=== PATIENT | female | born 1970 | race Caucasian/White ===

== ENCOUNTER 2018-06-06 03:14 | Emergency (ER) | payer MEDICARE, OTHER ==
[~2018-06-06] VITALS: Ht 154.9 cm; Wt 78.9 kg
[2018-06-06] MEDS ORDERED: ALBUTER (03:28)
[2018-06-06] MEDS ORDERED: FLUTICASONE SPR 50MCG (03:28)
[2018-06-06] MEDS ORDERED: METOPROL TAR (03:28)
[2018-06-06] MEDS ORDERED: IBUPROFEN TAB 800MG (03:28)
[2018-06-06] MEDS ORDERED: IPRATROPIUM (03:28)
--- NOTE | 2018-06-06 04:08 | ED Respiratory ---
General Chief Complaint: Respiratory Problems Stated Complaint: SOB Nursing Triage Note: on going x5 weeks, multiple treatments from primary care and urgent care. continues to have SOB with frequent coughing. Source: patient Exam Limitations: no limitations History of Present Illness Date Seen by Provider: Jun 06, 2018 Time Seen by Provider: 03:45 Initial Comments This 48-year-old woman with COPD presents to the emergency room with complaints of cough and shortness of breath. Shortness of breath is worse when lying down. She does do nebulizer treatments but this exacerbates cough and sputum production. She has been seen twice in the urgent care setting and once by her spooler since the beginning of this year. She uses inhaled medications and has been on multiple rounds of steroids and antibiotics. These therapies a do help short-term but then she has a rebound of symptoms. Despite her problems , she continues to smoke about one pack of cigarettes per day. She has had symptoms for 5 weeks or more. She presents to the ER tonight because of difficulty sleeping due to her symptoms. She uses oxygen at 2 L/m as needed at home. Allergies and Home Medications Allergies Coded Allergies: doxycycline (Verified Allergy, Intermediate, rash, 06/06/18) Home Medications Prednisone 20 Mg Tab, 1 TAB PO UD 3 tabs daily for 2 days, then 2 tabs daily for 3 days, then one tab daily for 3 days, then one half tab daily for 4 days. Prescribed by: DENISE WEEMS on 06/06/18 0409 Patient Home Medication List Home Medication List Reviewed: Yes Review of Systems Review of Systems Constitutional: no symptoms reported; No fever EENTM: no symptoms reported Respiratory: see HPI Cardiovascular: no symptoms reported Gastrointestinal: no symptoms reported Genitourinary: no symptoms reported : No Musculoskeletal: no symptoms reported Skin: no symptoms reported Psychiatric/Neurological: No Symptoms Reported Hematologic/Lymphatic: No Symptoms Reported Immunological/Allergic: no symptoms reported Past Jzcflkn-Aguzbf-Wxdojt Hx Past Med/Social Hx: Reviewed and Corrections made Patient Social History Alcohol Use: Denies Use Recreational Drug Use: No Smoking Status: Current Everyday Smoker Type Used: Cigarettes Recent Foreign Travel: No Contact w/Someone Who Travel: No Recent Infectious Disease Expo: No Recent Hopitalizations: No Physical Abuse: No Sexual Abuse: No Mistreated: No Fear: No Seasonal Allergies Seasonal Allergies: No Past Medical History Surgeries: Yes Gallbladder Respiratory: Yes (uses oxygen @ 2 liters PRN and NOC, neb tx) COPD Palpitations Neurological: No : No Sexually Transmitted Disease: No HIV/AIDS: No Genitourinary: No Gastrointestinal: Yes Gastroesophageal Reflux Musculoskeletal: Yes Arthritis Endocrine: No HEENT: No Cancer: No Psychosocial: No Integumentary: No Blood Disorders: No Physical Exam Vital Signs - First Documented 06/06/18 03:20 Temp 97.6 Pulse 87 Resp 18 B/P (MAP) 143/86 (105) Pulse Ox 92 O2 Delivery Room Air Capillary Refill : Less Than 3 Seconds Height: 5'1.00" Weight: 174lbs. oz. 78.731179ri; BMI Method:Actual General Appearance: WD/WN, no apparent distress HEENT: PERRL/EOMI, normal ENT inspection, TMs normal, pharynx normal Neck: normal inspection Respiratory: no respiratory distress, no accessory muscle use; No crackles, No rhonchi; wheezing (Diffuse with delayed expiratory phase) Cardiovascular: regular rate, rhythm, no edema, no murmur Extremities: normal inspection, no pedal edema, no calf tenderness, other ( Negative Shahid) Neurologic/Psychiatric: postie II-XII nml as tested, no motor/sensory deficits, alert, normal mood/affect, oriented x 3 Skin: normal color, warm/dry Progress/Results/Core Measures Suspected Sepsis Recent Fever Within 48 Hours: No Infection Criteria Present: Documented Infection New/Unexplained Altered Menta: No Sepsis Screen: No Definite Risk SIRS Temperature:97.6 Pulse: 87 Respiratory Rate: 18 Blood Pressure 143 /86 Mean: 105 Results/Orders My Orders Orders - DENISE MOON MD Prednisone Tablet (Deltasone Tablet) (06/06/18 04:15) Medications Given in ED Current Medications Medications Dose Ordered Sig/Ken Route Start Time Stop Time Status Last Admin Dose Admin Prednisone 60 mg ONCE ONCE PO 06/06/18 04:15 06/06/18 04:16 DC 06/06/18 04:07 60 MG Vital Signs/I&O 06/06/18 06/06/18 03:20 04:15 Temp 97.6 97.0 Pulse 87 89 Resp 18 20 B/P (MAP) 143/86 (105) 135/69 (91) Pulse Ox 92 93 O2 Delivery Room Air Capillary Refill : Less Than 3 Seconds Blood Pressure Mean: 105 Progress Note : Progress Note Vital signs were normal. Chest auscultation demonstrated diffuse wheezing and delayed expiratory phase but no crackles or rhonchi. Patient was offered another round of steroids. I encouraged her to discuss this therapy with her spooler later in the morning. I had a martha conversation with the patient that what she may be experiencing is her new baseline due to continued smoking I very strongly encouraged her to quit smoking and seek assistance from her primary care provider to do so. I also encouraged her to enroll in the pulmonary rehabilitation program at [facility]. Departure Impression Primary Impression: COPD exacerbation Disposition: HOME, SELF-CARE Condition: Stable Departure-Patient Inst. Decision time for Depature: 04:04 Referrals: RAFI CHILDERS MD (PCP/Family) Primary Care Physician Patient Instructions: Exacerbation of COPD Add. Discharge Instructions: Use the steroid taper as prescribed. Contact your spooler's office later this morning and discuss options for further treatment. Ask if the current taper of steroids is appropriate in their judgment or if there is another course of action they would like you to take. Work as hard as possible to quit smoking. Please seek assistance from your spooler or primary care provider to help you quit. Prompt cessation of smoking is critical to your pulmonary and overall health. Return to care if you worsening symptoms. All discharge instructions reviewed with patient and/or family. Voiced understanding. Scripts Prednisone (Prednisone) 20 Mg Tab 1 TAB PO UD, #17 TAB 3 tabs daily for 2 days, then 2 tabs daily for 3 days, then one tab daily for 3 days, then one half tab daily for 4 days. Prov: DENISE MOON MD 06/06/18 Copy Copies To 1: RAFI CHILDERS MD, JOSHUA T MD Jun 06, 2018 04:08
[2018-06-06] MEDS ORDERED: PRD20T PO (04:09)
[2018-06-06 04:15] VITALS: BP 135/69
[2018-06-06] MEDS ORDERED: predniSONE 20 MG TAB PO ONE (04:15)
== END 2018-06-06 04:15 | disposition home or self-care (01) ==
LOC: ER FS 03:17
DX: J44.1 Chronic obstructive pulmonary disease with (acute) exacerbation (principal); K21.9 Gastro-esophageal reflux disease without esophagitis; F17.210 Nicotine dependence, cigarettes, uncomplicated; Z88.1 Allergy status to other antibiotic agents; Z79.52 Long term (current) use of systemic steroids; Z99.81 Dependence on supplemental oxygen
CPT/HCPCS: 99283

== ENCOUNTER 2018-07-17 21:04 | Inpatient (IN) | payer MEDICARE ==
[~2018-07-17] VITALS: Ht 154.9 cm; Wt 80.4 kg
[~2018-07-17 21:04] MED LIST: ALBUTER; FLUTICASONE SPR 50MCG; IBUPROFEN TAB 800MG; IPRATROPIUM; METOPROL TAR; PRD20T PO
--- OUTSIDE RECORDS SUMMARY | 2018-07-17 21:09 | XMS REPORT | Continuity of Care Document ---
Author Organization Unknown Address Unknown Allergies Active Description Code Type Severity Reaction Onset Reported/Identified Relationship to Patient Clinical Status Yes doxycycline [id number] Drug Allergy Moderate rash 06/06/2018 Medications There is no data. Problems Date Dx Coded Attending Type Code Diagnosis Diagnosed By 06/06/2018 DENISE MOON MD T Ot F17.210 NICOTINE DEPENDENCE, CIGARETTES, UNCOMPL 06/06/2018 DENISE MOON MD T Ot J44.1 CHRONIC OBSTRUCTIVE PULMONARY DISEASE W 06/06/2018 DENISE MOON MD Ot K21.9 GASTRO-ESOPHAGEAL REFLUX DISEASE WITHOUT 06/06/2018 DENISE MOON MD Ot R06.02 SHORTNESS OF BREATH 06/06/2018 DENISE MOON MD T Ot Z79.52 [facility] (CURRENT) USE OF SYSTEMIC STER 06/06/2018 DENISE MOON MD T Ot Z88.1 ALLERGY STATUS TO OTHER ANTIBIOTIC AGENT 06/06/2018 DENISE MOON MD Ot Z99.81 DEPENDENCE ON SUPPLEMENTAL OXYGEN 06/10/2018 DENISE MOON MD Ot F17.210 NICOTINE DEPENDENCE, CIGARETTES, UNCOMPL 06/10/2018 DENISE MOON MD Ot J44.1 CHRONIC OBSTRUCTIVE PULMONARY DISEASE W 06/10/2018 DENISE MOON MD Ot K21.9 GASTRO-ESOPHAGEAL REFLUX DISEASE WITHOUT 06/10/2018 DENISE MOON MD Ot R06.02 SHORTNESS OF BREATH 06/10/2018 DENISE MOON MD T Ot Z79.52 [facility] (CURRENT) USE OF SYSTEMIC STER 06/10/2018 DENISE MOON MD T Ot Z88.1 ALLERGY STATUS TO OTHER ANTIBIOTIC AGENT 06/10/2018 DENISE MOON MD T Ot Z99.81 DEPENDENCE ON SUPPLEMENTAL OXYGEN Procedures There is no data. Results There is no data. Encounters ACCT No. Visit Date/Time Discharge Status Pt. Type Provider Facility Loc./Unit Complaint [id number] 07/10/2018 09:30:00 07/10/2018 23:59:59 CLS Outpatient RAFI CHILDERS [facility] [id number] 06/06/2018 03:17:00 06/06/2018 04:15:00 DIS Emergency DENISE MOON MD [facility] ER FS SOB [id number] 07/17/2018 21:05:00 ACT Emergency DENISE MOON MD [facility] ER FS SOB
[2018-07-17] MEDS ORDERED: RT-ALBUTEROL/IPRATROPIUM 3 ML (DUONEB) VIAL INH ONE (21:45)
[2018-07-17] MEDS ORDERED: ASPIRIN 81 MG CHEW (CHILDREN'S ASA) PO ONE (21:45)
[2018-07-17 21:48] LABS: HEMATOCRIT 42 % (35-52); HEMOGLOBIN 13.7 G/DL (11.5-16.0); MEAN CORPUSCULAR HEMOGLOBIN 31 PG (25-34); MEAN CORPUSCULAR VOLUME 93 FL (80-99); WHITE BLOOD COUNT 17.4 10^3/uL (4.3-11.0)
[2018-07-17 21:49] LABS: BASOPHILS % (AUTO) 1 % (0-10); EOSINOPHILS % (AUTO) 6 % (0-10); LYMPHOCYTES # (AUTO) 3.5 X 10^3 (1.0-4.0); LYMPHOCYTES % (AUTO) 20 % (12-44); MEAN CORPUSCULAR HGB CONC 33 G/DL (32-36); MEAN PLATELET VOLUME 10.7 FL (7.4-10.4); MONOCYTES # (AUTO) 0.9 X 10^3 (0.0-1.0); MONOCYTES % (AUTO) 5 % (0-12); NEUTROPHILS # (AUTO) 11.8 X 10^3 (1.8-7.8); NEUTROPHILS % (AUTO) 68 % (42-75); PLATELET COUNT 270 10^3/uL (130-400); RED CELL DISTRIBUTION WIDTH 13.6 % (10.0-14.5)
[2018-07-17 21:50] LABS: BASOPHILS # (AUTO) 0.1 10^3/uL (0.0-0.1)
[2018-07-17 21:54] LABS: INR 0.9 (0.8-1.4); PROTHROMBIN TIME PATIENT 12.4 SEC (12.2-14.7)
[2018-07-17] MEDS: NITROGLYCERIN 0.4 MG SL TABS BTL 25'S SL PRN ×3 (21:59→22:03)
[2018-07-17 22:03] LABS: BAND NEUTROPHILS 0 %; BASOPHILS % (MANUAL) 0 %; EOSINOPHILS % (MANUAL) 6 %; LYMPHOCYTES % (MANUAL) 20 %; MONOCYTES % (MANUAL) 5 %; NEUTROPHILS % (MANUAL) 69 %
[2018-07-17 22:04] LABS: BUN/CREATININE RATIO 9; CALCIUM 9.5 MG/DL (8.5-10.1); CARBON DIOXIDE 24 MMOL/L (21-32); CHLORIDE 101 MMOL/L (98-107); CREATININE SERUM 0.87 MG/DL (0.60-1.30); GFR ESTIMATED > 60; GLUCOSE 100 MG/DL (70-105); MAGNESIUM 1.8 MG/DL (1.8-2.4); POTASSIUM 3.8 MMOL/L (3.6-5.0); SODIUM 141 MMOL/L (135-145)
--- NOTE | 2018-07-17 22:04 | NUR ---
PATIENT HAD REPORTED THAT HER PAIN WAS A 5 EARLIER THE IT WAS A 7 THEN THIS RN WAS GOING TO GIVE HER A NITRO ORDERED THEN PRIOR TO GIVING THE PATIENT THE NITRO THE PATIENT TOLD THE DOCTOR SHE NO LONGER HAD PAIN SO THE NITRO WAS NOT GIVEN.
[2018-07-17 22:05] LABS: ALANINE AMINOTRANSFERASE 32 U/L (0-55); ALBUMIN 4.5 GM/DL (3.2-4.5); ALKALINE PHOSPHATASE 75 U/L (40-136); BILIRUBIN,TOTAL 0.3 MG/DL (0.1-1.0); TOTAL PROTEIN 7.3 GM/DL (6.4-8.2)
--- NOTE | 2018-07-17 22:08 | ED Chest Pain ---
General Chief Complaint: Respiratory Problems Stated Complaint: SOB Nursing Sepsis Screen: Possible Sepsis Risk Source: patient Exam Limitations: no limitations History of Present Illness Date Seen by Provider: July 17, 2018 Time Seen by Provider: 21:34 Initial Comments This 48-year-old woman presents to the emergency room with cough, shortness of breath, chest heaviness, and a stabbing pain in the back. She has been fighting episodes of COPD exacerbation for months. She has been on multiple rounds of steroids. She just finished her last round of steroids about a week ago. She does use nebulizer treatments at home and oxygen at 2 L/m. She is afebrile at present but states she has had intermittent fevers recently. She has no known cardiac disease but has not had any type of cardiac workup in a long time. She is a patient of [facility]. Allergies and Home Medications Allergies Coded Allergies: doxycycline (Verified Allergy, Intermediate, rash, 06/06/18) Home Medications Prednisone 20 Mg Tab, 1 TAB PO UD 3 tabs daily for 2 days, then 2 tabs daily for 3 days, then one tab daily for 3 days, then one half tab daily for 4 days. Prescribed by: DENISE WEEMS on 06/06/18 0409 Patient Home Medication List Home Medication List Reviewed: Yes Review of Systems Review of Systems Constitutional: see HPI EENTM: No Symptoms Reported Respiratory: No Symptoms Reported, See HPI Cardiovascular: See HPI Gastrointestinal: No Symptoms Reported Genitourinary: No Symptoms Reported Musculoskeletal: no symptoms reported Skin: no symptoms reported Psychiatric/Neurological: No Symptoms Reported Endocrine: No Symptoms Reported Past Hjktcvr-Tqouyd-Rbroeq Hx Patient Social History Type Used: Cigarettes Recent Foreign Travel: No Contact w/Someone Who Travel: No Recent Infectious Disease Expo: No Recent Hopitalizations: No Seasonal Allergies Seasonal Allergies: No Past Medical History Surgeries: Yes Gallbladder Respiratory: Yes (uses oxygen @ 2 liters PRN and NOC, neb tx) COPD Palpitations Neurological: No : No Sexually Transmitted Disease: No HIV/AIDS: No Genitourinary: No Gastrointestinal: Yes Gastroesophageal Reflux Musculoskeletal: Yes Arthritis Endocrine: No HEENT: No Cancer: No Psychosocial: No Integumentary: No Blood Disorders: No Physical Exam Vital Signs Vital Signs - First Documented 07/17/18 07/17/18 21:48 21:52 Temp 99.0 Pulse 113 Resp 24 B/P (MAP) 157/78 (104) Pulse Ox 96 O2 Delivery Nasal Cannula O2 Flow Rate 2.00 Capillary Refill : Less Than 3 Seconds Height, Weight, BMI Height: 5'1.00" Weight: 175lbs. oz. 79.940820it; BMI Method:Stated General Appearance: No Apparent Distress, WD/WN HEENT: PERRL/EOMI, Normal ENT Inspection Neck: Normal Inspection Respiratory: No Accessory Muscle Use, No Respiratory Distress; No Crackles; Decreased Breath Sounds, Wheezing, Other (increased work of breathing without distress, sometimes puffing with pursed lips) Cardiovascular: No Edema, No Murmur, Tachycardia Gastrointestinal: Normal Bowel Sounds, Non Tender, Soft Extremity: Normal Capillary Refill, Normal Inspection, Non Tender, No Calf Tenderness, No Pedal Edema, Other (negative Shahid) Neurologic/Psychiatric: Alert, Oriented x3, No Motor/Sensory Deficits, Normal 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, 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 Norm as Tested Skin: Normal Color, Warm/Dry Focused Exam Lactate Level 07/18/18 01:19: Lactic Acid Level 1.23 Lactic Acid Level Laboratory Tests Test 07/18/18 01:19 Lactic Acid Level 1.23 MMOL/L (0.50-2.00) Progress/Results/Core Measures Results/Orders Lab Results Laboratory Tests Test 07/17/18 21:28 07/17/18 23:20 07/18/18 01:19 Range/Units White Blood Count 17.4 H 4.3-11.0 10^3/uL Red Blood Count 4.49 4.35-5.85 10^6/uL Hemoglobin 13.7 11.5-16.0 G/DL Hematocrit 42 35-52 % Mean Corpuscular Volume 93 80-99 FL Mean Corpuscular Hemoglobin 31 25-34 PG Mean Corpuscular Hemoglobin Concent 33 32-36 G/DL Red Cell Distribution Width 13.6 10.0-14.5 % Platelet Count 270 130-400 10^3/uL Mean Platelet Volume 10.7 H 7.4-10.4 FL Neutrophils (%) (Auto) 68 42-75 % Lymphocytes (%) (Auto) 20 12-44 % Monocytes (%) (Auto) 5 0-12 % Eosinophils (%) (Auto) 6 0-10 % Basophils (%) (Auto) 1 0-10 % Neutrophils # (Auto) 11.8 H 1.8-7.8 X 10^3 Lymphocytes # (Auto) 3.5 1.0-4.0 X 10^3 Monocytes # (Auto) 0.9 0.0-1.0 X 10^3 Eosinophils # (Auto) 1.0 H 0.0-0.3 10^3/uL Basophils # (Auto) 0.1 0.0-0.1 10^3/uL Neutrophils % (Manual) 69 % Lymphocytes % (Manual) 20 % Monocytes % (Manual) 5 % Eosinophils % (Manual) 6 % Basophils % (Manual) 0 % Band Neutrophils 0 % Prothrombin Time 12.4 12.2-14.7 SEC INR Comment 0.9 0.8-1.4 Activated Partial Thromboplast Time 31 24-35 SEC D-Dimer 0.53 H 0.00-0.49 UG/ML Sodium Level 141 135-145 MMOL/L Potassium Level 3.8 3.6-5.0 MMOL/L Chloride Level 101 98-107 MMOL/L Carbon Dioxide Level 24 21-32 MMOL/L Anion Gap 16 H 5-14 MMOL/L Blood Urea Nitrogen 8 7-18 MG/DL Creatinine 0.87 0.60-1.30 MG/DL Estimat Glomerular Filtration Rate > 60 BUN/Creatinine Ratio 9 Glucose Level 100 70-105 MG/DL Calcium Level 9.5 8.5-10.1 MG/DL Corrected Calcium 9.1 8.5-10.1 MG/DL Magnesium Level 1.8 1.8-2.4 MG/DL Total Bilirubin 0.3 0.1-1.0 MG/DL Aspartate Amino Transf (AST/SGOT) 25 5-34 U/L Alanine Aminotransferase (ALT/SGPT) 32 0-55 U/L Alkaline Phosphatase 75 40-136 U/L Myoglobin 112.7 H 10.0-92.0 NG/ML Troponin T 10 9 <=10 NG/L Total Protein 7.3 6.4-8.2 GM/DL Albumin 4.5 3.2-4.5 GM/DL Lactic Acid Level 1.23 0.50-2.00 MMOL/L My Orders Orders - DENISE MOON MD Cbc With Automated Diff (07/17/18 21:39) Magnesium (07/17/18 21:39) Ekg Tracing (07/17/18:39) Comprehensive Metabolic Panel (07/17/18:) Myoglobin Serum (07/17/18:39) Protime With Inr (07/17/18:) Partial Thromboplastin Time (07/17/18:39) O2 (07/17/18:39) Monitor-Rhythm Ecg Trace Only (07/17/18:) Lipid Panel (07/18/18 06:00) Aspirin Chewable Tablet (Baby Aspirin Ch (07/17/18:45) Nitroglycerin 0.4 Mg Btl 25's (Nitrostat (07/17/18 21:45) Ed Iv/Invasive Line Start (07/17/18:39) Chest Pa/Lat (2 View) (07/17/18:39) Albuterol/Ipra Inhalation Soln (Duoneb I (07/17/18 21:45) Svn Small Volume Nebulizer (07/17/18:39) Manual Differential (07/17/18:28) Ns Iv 1000 Ml (Sodium Chloride 0.9%) (07/17/18 22:10) Troponin T (07/17/18 23:30) Ekg Tracing (07/17/18 22:29) Fibrin Degradation Products (07/17/18 22:29) Ketorolac Injection (Toradol Injection) (07/17/18 23:00) Methylprednisolone Sod Succ (Solu-Medrol (07/17/18 23:00) Ct Angio Chest W (07/17/18 23:17) Ct Head/Sinuses Wo (07/17/18 23:23) Iohexol Injection (Omnipaque 350 Mg/Ml 1 (07/17/18 23:30) Received Contrast (Hold Metformin- Contr (07/17/18 23:30) Ns (Ivpb) (Sodium Chloride 0.9% Ivpb Bag (07/17/18 23:30) Troponin T (07/18/18 00:02) Blood Culture (07/18/18 01:09) Lactic Acid Analyzer (07/18/18 01:09) Piperacillin/Tazobactam (Bulk) (Zosyn In (07/18/18 01:15) Piperacillin Sodium/Tazobactam (Zosyn Vi (07/18/18 01:20) Medications Given in ED Current Medications Medications Dose Ordered Sig/Ken Route Start Time Stop Time Status Last Admin Dose Admin Albuterol/ Ipratropium 3 ml ONCE ONCE INH 07/17/18 21:45 07/17/18 21:46 DC 07/17/18 21:44 3 ML Aspirin 324 mg ONCE ONCE PO 07/17/18 21:45 07/17/18 21:46 DC 07/17/18 21:44 324 MG Iohexol 100 ml ONCE ONCE IV 07/17/18 23:30 07/17/18 23:31 DC 07/17/18 23:37 100 ML Ketorolac Tromethamine 15 mg ONCE ONCE IVP 07/17/18 23:00 07/17/18 23:01 DC 07/17/18 22:57 15 MG Methylprednisolone Sodium Succinate 125 mg ONCE ONCE IVP 07/17/18 23:00 07/17/18 23:01 DC 07/17/18 22:57 125 MG Nitroglycerin 0.4 mg UD PRN SL 07/17/18 21:45 07/17/18 21:59 0.4 MG Piperacillin Sod/ Tazobactam Sod 4.5 gm/Sodium Chloride 120 ml @ 240 mls/hr ONCE ONCE IV 07/18/18 01:15 07/18/18 01:44 DC 07/18/18 01:25 240 MLS/HR Sodium Chloride 100 ml ONCE ONCE IV 07/17/18 23:30 07/17/18 23:31 DC 07/17/18 23:37 100 ML Sodium Chloride 1,000 ml @ 0 mls/hr Q0M ONCE IV 07/17/18 22:10 07/17/18 22:11 DC 07/17/18 22:15 1,000 MLS/HR Vital Signs/I&O 07/17/18 07/17/18 21:48 21:52 Temp 99.0 Pulse 113 Resp 24 B/P (MAP) 157/78 (104) Pulse Ox 96 96 O2 Delivery Nasal Cannula Nasal Cannula O2 Flow Rate 2.00 07/18/18 00:00 Intake Total 1000 ml Balance 1000 ml Blood Pressure Mean: 104 Progress Progress Note #1: Time: 22:04 Progress Note Chest pain workup is underway. Patient now states that she has no chest or back pain after DuoNeb treatment. Progress Note #2: Time: 23:24 Progress Note Patient had some subtle rebounding of pain. I feel this is likely musculoskeletal in nature. She is tender in the paraspinous musculature of her upper back. Toradol has been given. D-dimer was mildly elevated. CT angiogram of the chest is being obtained as well as a 2 hour troponin. A repeat EKG will also be done. While discussing the CT of the chest, patient states her pu lmonologist also has requested that she have a CT of the head performed to evaluate a chronic pain she has left occiput and her sinuses. The CT will be added as her sinuses may be a contributing factor to her pulmonary problems. Progress Note #3: Time: 00:[address] images viewed by me. Report is still pending. There appear to be patchy bilateral infiltrates suspicious for pneumonia. Progress Note #4: Progress Note There were patchy groundglass opacities or infiltrates seen bilaterally on the CT. In the context of leukocytosis and tachycardia, this is suspicious for infection. Blood cultures were drawn and antibiotic therapy was started with Zosyn. Case was discussed with Dr. Rico who agrees with admission. The possibility of emerging sepsis was a concern and observation for admission at a minimum was felt appropriate. Patient was transferred to [place] [facility] in [place] for admission. Repeat troponin and EKG showed no evidence of cardiac problems. DuoNeb and Toradol controlled her pain well during her ER visit. Initial ECG Impression Date: July 17, 2018 Initial ECG Impression Time: 21:23 Initial ECG Rate: 110 Initial ECG Rhythm: Normal Sinus Initial ECG Intervals: Normal Comment Sinus tachycardia with no ST elevation or depression. No abnormal intervals or axis deviation. EKG : EKG Time: 23:31 Rate: 111 Rhythm: S.Tach Intervals: Normal Comment Sinus tachycardia with no ST elevation or depression. No abnormal intervals or axis deviation. Diagnostic Imaging Diagonstic Imaging: Xray Plain Films/CT/US/NM/MRI: chest Comments Chest x-ray viewed by me and report not available. No acute abnormalities appreciated by the ER provider. Diagonstic Imaging: CT Plain Films/CT/US/NM/MRI: chest Comments CT angiogram chest viewed by me and [facility] report reviewed. There are patchy groundglass opacities suggestive of pneumonia bilaterally. No pulmonary emboli. Diagonstic Imaging: CT Plain Films/CT/US/NM/MRI: head Comments CT head and sinuses viewed by me and [employer] report reviewed. No acute abnormalities appreciated. Departure Communication (Admissions) Time/Spoke to Admitting Phy: 01:24 Dr. Rico Impression Primary Impression: Sepsis Qualified Codes: A41.9 - Sepsis, unspecified organism Additional Impressions: Bilateral pneumonia Qualified Codes: J18.9 - Pneumonia, unspecified organism COPD exacerbation Atypical chest pain Disposition: XFER T-[facility] (ERASED) Condition: Improved Admissions Decision to Admit Reason: Admit from ER (General) Decision to Admit/Date: July 18, 2018 Time/Decision to Admit Time: 01:20 Transfer Time Spoke to Accepting Phy: 01:24 Transfer Time: 02:08 Transfer Facility: [place] [facility] Method of Transfer: EMS Departure-Patient Inst. Referrals: RAFI CHILDERS MD (PCP/Family) Primary Care Physician DENISE MOON MD July 17, 2018 22:07
[2018-07-17] MEDS ORDERED: NS IV 1000 ML 1,000 ML IV ONE (22:10)
[2018-07-17] MEDS ORDERED: KETOROLAC 30 MG/ML VIAL IVP ONE (23:00)
[2018-07-17] MEDS ORDERED: methylPREDNISolone 125 MG (Solu-MEDROL) VIAL IVP ONE (23:00)
[2018-07-17] MEDS ORDERED: HOLD METFORMIN - RECEIVED CONTRAST 20 ML VIAL IV SCH (23:30)
[2018-07-17] MEDS ORDERED: IOHEXOL 350 MG/ML 100 ML (OMNIPAQUE 350) VIAL IV ONE (23:30)
[2018-07-17] MEDS ORDERED: NS 100 ML (IVPB) BAG IV ONE (23:30)
[2018-07-18] VITALS (9 sets, daily range): BP systolic 122–154; BP diastolic 70–89
--- NOTE | 2018-07-18 01:03 | NUR ---
DOCTOR IN TO SEE THE PATIENT.
[2018-07-18] MEDS ORDERED: PIPERACILLIN/TAZOBACTAM (BULK) 4.5 GM in NS (IVPB) 100 ML IV ONE (01:15)
[2018-07-18] MEDS ORDERED: PIPERACILLIN/TAZO 4.5 GM VIAL (ZOSYN) IV ONE (01:20)
[2018-07-18] MEDS ORDERED: LIDOCAINE JELLY 2% 6 ML SYRINGE MM ONE (01:31)
[2018-07-18] MEDS ORDERED: LIDOCAINE PF 1% 2 ML VIAL IJ ONE (01:31)
[2018-07-18] MEDS ORDERED: LIDOCAINE PF 2% 5 ML (XYLOCAINE) VIAL INJ ONE (01:31)
--- OUTSIDE RECORDS SUMMARY | 2018-07-18 01:56 | XMS REPORT | Continuity of Care Document ---
Author Organization Unknown Address Unknown Allergies Active Description Code Type Severity Reaction Onset Reported/Identified Relationship to Patient Clinical Status Yes doxycycline [id number] Drug Allergy Moderate rash 06/06/2018 Medications There [...] 06/06/2018 DENISE MOON MD T Ot Z79.52 RETIREMENT (CURRENT) USE OF SYSTEMIC STER 06/06/2018 DENISE MOON MD Ot Z88.1 ALLERGY STATUS TO OTHER ANTIBIOTIC AGENT 06/06/2018 DENISE MOON MD Ot Z99.81 DEPENDENCE ON SUPPLEMENTAL OXYGEN 06/10/2018 DENISE MOON MD Ot F17.210 NICOTINE DEPENDENCE, CIGARETTES, UNCOMPL 06/10/2018 DENISE MOON MD Ot J44.1 CHRONIC OBSTRUCTIVE PULMONARY DISEASE W 06/10/2018 DENISE OMON MD Ot K21.9 GASTRO-ESOPHAGEAL REFLUX DISEASE WITHOUT 06/10/2018 DENISE MOON MD Ot R06.02 SHORTNESS OF BREATH 06/10/2018 DENISE MOON MD T Ot Z79.52 DESIGN CHECKER (CURRENT) USE OF SYSTEMIC STER 06/10/2018 DENISE MOON MD T Ot Z88.1 ALLERGY STATUS TO OTHER ANTIBIOTIC AGENT 06/10/2018 DENISE MOON MD T Ot Z99.81 DEPENDENCE ON SUPPLEMENTAL OXYGEN Procedures There is no data. Results Test Result Range Complete blood count (CBC) with automated white blood cell (WBC) differential - 07/17/18 21:28 Blood leukocytes automated count (number/volume) 17.4 10*3/uL 4.3-11.0 Blood erythrocytes automated count (number/volume) 4.49 10*6/uL 4.35-5.85 Venous blood hemoglobin measurement (mass/volume) 13.7 g/dL 11.5-16.0 Blood hematocrit (volume fraction) 42 % 35-52 Automated erythrocyte mean corpuscular volume 93 [foz_us] 80-99 Automated erythrocyte mean corpuscular hemoglobin (mass per erythrocyte) 31 pg 25-34 Automated erythrocyte mean corpuscular hemoglobin concentration measurement (mass/volume) 33 g/dL 32-36 Automated erythrocyte distribution width ratio 13.6 % 10.0- 14.5 Automated blood platelet count (count/volume) 270 10*3/uL 130-400 Automated blood platelet mean volume measurement 10.7 [foz_us] 7.4-10.4 Automated blood neutrophils/100 leukocytes 68 % 42-75 Automated blood lymphocytes/100 leukocytes 20 % 12-44 Blood monocytes/100 leukocytes 5 % 0-12 Automated blood eosinophils/100 leukocytes 6 % 0-10 Automated blood basophils/100 leukocytes 1 % 0-10 Blood neutrophils automated count (number/volume) 11.8 10*3 1.8-7.8 Blood lymphocytes automated count (number/volume) 3.5 10*3 1.0-4.0 Blood monocytes automated count (number/volume) 0.9 10*3 0.0- 1.0 Automated eosinophil count 1.0 10*3/uL 0.0-0.3 Automated blood basophil count (count/volume) 0.1 10*3/uL 0.0-0.1 PT panel in platelet poor plasma by coagulation assay - 07/17/18 21:28 Prothrombin time (PT) in platelet poor plasma by coagulation assay 12.4 s 12.2-14.7 INR in platelet poor plasma or blood by coagulation assay 0.9 0.8-1.4 Activated partial thromboplastin time (aPTT) in platelet poor plasma bycoagulation assay - 07/17/18 21:28 Activated partial thromboplastin time (aPTT) in platelet poor plasma bycoagulation assay 31 s 24-35 Blood manual differential performed detection - 07/17/18 21:28 Blood monocytes/100 leukocytes 5 % NRG Manual blood segmented neutrophils/100 leukocytes 69 % NRG Blood band neutrophils/100 leukocytes 0 % NRG Manual blood lymphocytes/100 leukocytes 20 % NRG Manual eosinophils/100 leukocytes in nose 6 % NRG Manual blood basophils/100 leukocytes 0 % NR Comprehensive metabolic panel - 07/17/18 21:28 Serum or plasma sodium measurement (moles/volume) 141 mmol/L 135-145 Serum or plasma potassium measurement (moles/volume) 3.8 mmol/L 3.6-5.0 Serum or plasma chloride measurement (moles/volume) 101 mmol/L 98-107 Carbon dioxide 24 mmol/L 21-32 Serum or plasma anion gap determination (moles/volume) 16 mmol/L 5-14 Serum or plasma urea nitrogen measurement (mass/volume) 8 mg/dL 7-18 Serum or plasma creatinine measurement (mass/volume) 0.87 mg/dL 0.60-1.30 Serum or plasma urea nitrogen/creatinine mass ratio 9 NRG Serum or plasma creatinine measurement with calculation of estimated glomerular filtration rate > NRG Serum or plasma glucose measurement (mass/volume) 100 mg/dL 70-105 Serum or plasma calcium measurement (mass/volume) 9.5 mg/dL 8.5-10.1 Serum or plasma total bilirubin measurement (mass/volume) 0.3 mg/dL 0.1-1.0 Serum or plasma alkaline phosphatase measurement (enzymatic activity/volume) 75 U/L 40-136 Serum or plasma aspartate aminotransferase measurement (enzymatic activity/volume) 25 U/L 5-34 Serum or plasma alanine aminotransferase measurement (enzymatic activity/volume) 32 U/L 0-55 Serum or plasma protein measurement (mass/volume) 7.3 g/dL 6.4-8.2 Serum or plasma albumin measurement (mass/volume) 4.5 g/dL 3.2-4.5 CALCIUM CORRECTED 9.1 mg/dL 8.5-10.1 Magnesium - 07/17/18 21:28 Magnesium 1.8 mg/dL 1.8-2.4 Myoglobin, serum - 07/17/18 21:28 Myoglobin, serum 112.7 ng/mL 10.0-92.0 Fibrin D-dimer FEU measurement in platelet poor plasma (mass/volume) - 07/17/18 21:28 Fibrin D-dimer FEU measurement in platelet poor plasma (mass/volume) 0.53 ug/mL 0.00-0.49 TROPONIN T - 07/17/18 21:28 TROPONIN T 10 % <=10 TROPONIN T - 07/17/18 23:20 TROPONIN T 9 % <=10 Blood lactic acid measurement (moles/volume) - 07/18/18 01:19 Blood lactic acid measurement (moles/volume) 1.23 mmol/L 0.50- 2.00 Encounters ACCT No. Visit Date/Time Discharge Status Pt. Type Provider Facility Loc./Unit Complaint [id number] 07/10/2018 09:30:00 07/10/2018 23:59:59 CLS Outpatient [facility] [id number] 06/06/2018 03:17:00 06/06/2018 04:15:00 DIS Emergency [place], DENISE Stock [facility] ER FS SOB [id number] 07/18/2018 01:30:00 ACT Inpatient KIMBERLY PANCHAL DO [facility] 4TH SEPSIS;PNEUMONIA
[2018-07-18] MEDS ORDERED: APIXABAN 5 MG (ELIQUIS) TABLET PO ONE (02:00)
--- NOTE | 2018-07-18 02:50 | NUR ---
Dianne Go admitted to room 406-1, with an admitting diagnosis of sepsis, pna. copd , on 07/18/18 from ed via em[facility], accompanied by staff.DIANNE GO introduced to surroundings, call light, bed controls, phone, TV, temperature control, lights, meal times, smoking policy, visitor policy, side rail policy, bathrooms and showers. Patient Rights given to patient in the handbook.DIANNE GO verbalizes understanding that [facility] is not responsible for the loss or damage to any personal effects or valuables that are kept in the patients posession during their hospitalization. The Patient Care Plans were discussed with the pt. DIANNE GO verbalizes understanding of Interdisciplinary Patient Education. Patient and/or family were informed about the Rapid Response Team and its purpose.
[2018-07-18] MEDS ORDERED: AZITHROMYCIN 500 MG/NS 250 ML IVPB IV ONE ×2 (04:15)
[2018-07-18] MEDS ORDERED: ONDANSETRON 4 MG/2 ML (SDV) Z0FRAN IV PRN (04:15)
[2018-07-18] MEDS ORDERED: RT-ALBUTEROL SULF 2.5 MG/3 ML PRE-MIX VIAL IH PRN (04:15)
[2018-07-18] MEDS: NS IV 1000 ML 1,000 ML IV SCH ×3 (04:35→17:43)
[2018-07-18] MEDS: methylPREDNISolone 40 MG/ML (Solu-MEDROL) VIAL IV SCH ×4 (04:35→23:28)
[2018-07-18 06:02] LABS: BASOPHILS % (AUTO) 0 % (0-10); EOSINOPHILS % (AUTO) 0 % (0-10); HEMATOCRIT 40 % (35-52); HEMOGLOBIN 13.2 G/DL (11.5-16.0); LYMPHOCYTES # (AUTO) 0.8 X 10^3 (1.0-4.0); LYMPHOCYTES % (AUTO) 6 % (12-44); MEAN CORPUSCULAR HEMOGLOBIN 30 PG (25-34); MEAN CORPUSCULAR HGB CONC 33 G/DL (32-36); MEAN CORPUSCULAR VOLUME 91 FL (80-99); MEAN PLATELET VOLUME 10.9 FL (7.4-10.4); MONOCYTES # (AUTO) 0.1 X 10^3 (0.0-1.0); MONOCYTES % (AUTO) 1 % (0-12); NEUTROPHILS # (AUTO) 11.7 X 10^3 (1.8-7.8); NEUTROPHILS % (AUTO) 93 % (42-75); PLATELET COUNT 238 10^3/uL (130-400); WHITE BLOOD COUNT 12.6 10^3/uL (4.3-11.0)
[2018-07-18 06:26] LABS: ALANINE AMINOTRANSFERASE 30 U/L (0-55); ALKALINE PHOSPHATASE 66 U/L (40-136); BILIRUBIN,TOTAL 0.5 MG/DL (0.1-1.0); BUN/CREATININE RATIO 8; CARBON DIOXIDE 18 MMOL/L (21-32); CHLORIDE 110 MMOL/L (98-107); CREATININE SERUM 0.85 MG/DL (0.60-1.30); GFR ESTIMATED > 60; GLUCOSE 180 MG/DL (70-105); SODIUM 139 MMOL/L (135-145); TOTAL PROTEIN 6.8 GM/DL (6.4-8.2)
[2018-07-18] MEDS: PIPERACILLIN/TAZOBACTAM (BULK) 4.5 GM in NS (IVPB) 100 ML IV SCH ×3 (07:08→23:28)
--- NOTE | 2018-07-18 07:15 | Diagnostic Imaging Report ---
INDICATION: Tingling in left side of head and sinus pain. CT brain findings: Noncontrast brain CT is performed. There were no extra-axial fluid collections. No intracranial hemorrhage. No intracranial mass or mass effect. No midline shift. The ventricles are normal in size and position. There were no focal parenchymal abnormalities in the brain. Calvarial windows appear unremarkable. CT sinuses findings: Axial slices are obtained with sagittal and coronal reconstructions without contrast. There is mild mucosal thickening in the maxillary sinuses on both sides right greater than left. The ethmoid air cells appear clear. The frontal sinuses are clear. There is mild mucosal thickening in the sphenoid sinuses. There are no air-fluid levels or overt bony abnormalities. IMPRESSION: Mucosal thickening in the maxillary sinuses and sphenoid sinuses as described above without air-fluid levels. No bony abnormality is seen. Dictated by: Dictated on workstation # [id number]
--- NOTE | 2018-07-18 07:19 | Diagnostic Imaging Report ---
INDICATION: COPD and difficulty breathing. PA and lateral chest obtained at 9:57 p.m. FINDINGS: Heart and mediastinal silhouette are normal in appearance. There are calcified granulomata in both lungs. There is no focal infiltrate or pneumothorax or pleural fluid. IMPRESSION: No acute process in the chest. Dictated by: Dictated on workstation # [id number]
--- NOTE | 2018-07-18 07:20 | Diagnostic Imaging Report ---
PROCEDURE: CT angiography of the chest with contrast. TECHNIQUE: Multiple contiguous axial images were obtained through the chest after uneventful bolus administration of intravenous contrast. 2D reconstructed CTA MIP acquisitions were also performed. Auto Exposure Controls were utilized during the CT exam to meet ALARA standards for radiation dose reduction. INDICATION: Shortness of air. COMPARISON: Chest radiograph of 07/17/2018 FINDINGS: Vasculature: No central pulmonary emboli. Assessment of the segmental and subsegmental pulmonary arteries is limited due to suboptimal contrast opacification. Thoracic aorta is normal in caliber. No aortic dissection or pseudoaneurysm. Heart and mediastinum: Visualized thyroid is normal. No supraclavicular, axillary, or intra-thoracic lymphadenopathy. The heart is normal in size without pericardial effusion. Pleura: No pleural effusion or pneumothorax. Lungs and airway: No endoluminal lesion in the trachea or central bronchi. Scattered groundglass opacities are present in all 5 lobes. Numerous calcified pulmonary nodules are also seen in both lungs compatible with old granulomatous infection. Centrilobular emphysema is seen. Upper abdomen: Cholecystectomy. Atherosclerosis of the aorta. Musculoskeletal: No concerning osseous lesion. IMPRESSION: 1. No central pulmonary emboli. Assessment of the basilar segmental and subsegmental pulmonary arteries is limited due to suboptimal opacification. 2. Scattered bilateral groundglass pulmonary opacities are likely on the basis of infection. Dictated by: Dictated on workstation # [id number]
--- NOTE | 2018-07-18 08:29 | History & Physical-Hospitalist ---
History of Present Illness HPI/Chief Complaint Left AMA before being seen Date Seen 07/18/18 Time Seen by a Provider: 00:00 Attending Physician Jazmín Rico DO PCP Charisma Barrera MD Referring Physician Date of Admission July 18, 2018 at 01:30 Home Medications & Allergies Home Medications Reviewed patient Home Medication Reconciliation performed by pharmacy medication reconciliations machine technician and/or nursing. Patients Allergies have been reviewed. Allergies Allergies Coded Allergies doxycycline (Verified Allergy, Intermediate, rash, 06/06/18) Past Ztxvawi-Svfede-Qavtoh Hx Past Med/Social Hx: Reviewed Nursing Past Med/Soc Hx Patient Social History Alcohol Use: Denies Use Recreational Drug Use: No Type Used: Cigarettes Physical Abuse Screen: No Sexual Abuse: No Recent Foreign Travel: No Contact w/other who traveled: No Recent Hopitalizations: No Recent Infectious Disease Expo: No Immunizations Up To Date Date of Pneumonia Vaccine: Nov 26, 2017 Seasonal Allergies Seasonal Allergies: No Past Medical History Surgeries: Gallbladder Cardiac: Palpitations : No Sexually Transmitted Disease: No HIV/AIDS: No Gastrointestinal: Gastroesophageal Reflux Musculoskeletal: Arthritis History of Blood Disorders: No Family History Patient reports no known family medical history. Review of Systems Constitutional: other (Left AMA before being seen) Physical Exam Physical Exam Vital Signs Vital Signs - First Documented 07/17/18 07/17/18 21:48 21:52 Temp 99.0 Pulse 113 Resp 24 B/P (MAP) 157/78 (104) Pulse Ox 96 O2 Delivery Nasal Cannula O2 Flow Rate 2.00 Capillary Refill : Less Than 3 Seconds Height, Weight, BMI Height: 5'1.00" Weight: 177lbs. 4.8oz. 80.627519eb; 33.5 BMI Method:Stated General Appearance: Other (Left AMA before being seen) Results Results/Procedures Labs Laboratory Tests 07/17/18 21:28 07/18/18 05:16 07/18/18 05:40 Patient resulted labs reviewed. Assessment/Plan Admission Diagnosis Left AMA before being seen Admission Status: Observation Clinical Quality Measures DVT/VTE Risk/Contraindication: Risk Factor Score Per Nursin RFS Level Per Nursing on Admit: 4+=Very High JOANN JOYCE DO July 18, 2018 08:29
[2018-07-18] MEDS ORDERED: RANI150T90 PO (09:14)
[2018-07-18] MEDS ORDERED: IBUP-1780 PO ×2 (09:14)
[2018-07-18] MEDS ORDERED: GUAI-367 PO (09:14)
[2018-07-18] MEDS ORDERED: METO-333 PO (09:14)
[2018-07-18] MEDS ORDERED: CETI10TA17 PO (09:14)
[2018-07-18] MEDS ORDERED: MOME13HF2 IH (09:14)
[2018-07-18] MEDS ORDERED: IPRA3AMP31 NEB (09:14)
[2018-07-18] MEDS ORDERED: FLUT16SP22 NS (09:14)
[2018-07-18] MEDS ORDERED: IPRA4AER IH (09:14)
--- NOTE | 2018-07-18 09:15 | NUR ---
SPOKE WITH THE PATIENT ABOUT HER MEDICATIONS. SHE HAD A BAG OF BOTTLES WITH HER, SHE DOES NOT HAVE HER METOPROLOL OR DUONEB NEBULIZER SOLUTION WITH HER HOWEVER. IN ADDITION TO WHAT IS SHOWN ON THE EXT MED HX SHE HAS BOTTLES FOR: 07-09-18 CETIRIZINE 10MG DAILY #90 (KATHY SANDOVAL) 06-26-18 XIFAXIN 200MG TAKE 3 TABS TID #126 (HAS NOT STARTED THIS YET) 06-24-18 DULERA 100-5MCG 2 PUFFS BID ALSO HAS A COMBIVENT INHALER SHE STATES SHE USES PRN OTC MEDS: MUCINEX DM BID RANITIDINE 150MG DAILY SHE DOES NOT LIKE TO TAKE MEDICATIONS, THIS IS PARTLY WHY SHE HAS NOT STARTED THE XIFAXIN. SHE DOES NOT LIKE TO TAKE MEDICATION MULTIPLE TIMES A DAY, SHE IS ALSO DISCOURAGED THAT SHE HAS BEEN ON SEVERAL MEDICATIONS FOR SEVERAL MONTHS AND DOES NOT SEE AN IMPROVEMENT. I LEFT IT ON THE MED REC FOR CONSIDERATION SINCE SHE HAS THE BOTTLE BUT SHE HAS NOT TAKEN ANY OF IT YET.
--- NOTE | 2018-07-18 09:19 | History & Physical-Hospitalist ---
History of Present Illness HPI/Chief Complaint Chief complaint: SOB with fever HPI: This is a 48yoWF that is oxygen dependent due to severe COPD and continues to smoke of Dr. Barrera in [facility] who sees pulmonology in [place] who presented ti the [facility] ER with shortness of breath and cough and fever. Pt was found to have pneumonia and exacerbation of COPD. Pt was placed on empiric antibiotics and IV steroids. She originally planned to leave against medical advice but called her family and they refused to come and get her so she has reluctantly stayed. I have consulted Dr. Doshi but her attitude remains very poor. No other details are obtained. Date Seen 07/18/18 Time Seen by a Provider: 09:00 Attending Physician Jazmín Rico Katrina M MD Referring Physician Date of Admission July 18, 2018 at 01:30 Home Medications & Allergies Home Medications Reviewed patient Home Medication Reconciliation performed by pharmacy medication reconciliations landfill gas plant field technician and/or nursing. Patients Allergies have been reviewed. Allergies Allergies Coded Allergies doxycycline (Verified Allergy, Intermediate, rash, 06/06/18) Past Jvrsheb-Yyivnz-Idklrn Hx Past Med/Social Hx: Reviewed Nursing Past Med/Soc Hx, Reviewed and Corrections made Patient Social History Marrital Status: single Employed/Student: unemployed Alcohol Use: Denies Use Recreational Drug Use: No Smoking Status: Current Everyday Smoker Type Used: Cigarettes Physical Abuse Screen: No Sexual Abuse: No Recent Foreign Travel: No Contact w/other who traveled: No Recent Hopitalizations: No Recent Infectious Disease Expo: No Immunizations Up To Date Date of Pneumonia Vaccine: Nov 26, 2017 Seasonal Allergies Seasonal Allergies: No Past Medical History Surgeries: Gallbladder Respiratory: COPD, Pneumonia Cardiac: Palpitations : No Sexually Transmitted Disease: No HIV/AIDS: No Gastrointestinal: Gastroesophageal Reflux Musculoskeletal: Arthritis History of Blood Disorders: No Family History Patient reports no known family medical history. Review of Systems Constitutional: see HPI, malaise, weakness EENTM: no symptoms reported Respiratory: cough, dyspnea on exertion, short of breath Cardiovascular: no symptoms reported Gastrointestinal: no symptoms reported Genitourinary: no symptoms reported Musculoskeletal: no symptoms reported Skin: no symptoms reported Psychiatric/Neurological: No Symptoms Reported All Other Systems Reviewed Negative Unless Noted: Yes Physical Exam Physical Exam Vital Signs Vital Signs - First Documented 07/17/18 07/17/18 21:48 21:52 Temp 99.0 Pulse 113 Resp 24 B/P (MAP) 157/78 (104) Pulse Ox 96 O2 Delivery Nasal Cannula O2 Flow Rate 2.00 Capillary Refill : Less Than 3 Seconds Height, Weight, BMI Height: 5'1.00" Weight: 177lbs. 4.8oz. 80.905123bq; 33.5 BMI Method:Stated General Appearance: No Apparent Distress, WD/WN, Chronically ill Eyes: Right Eye Normal Inspection, Right Eye PERRL HEENT: PERRL/EOMI, TMs Normal, Normal ENT Inspection, Pharynx Normal, Moist Mucous Membranes Neck: Full Range of Motion, Normal Inspection, Non Tender Respiratory: Chest Non Tender, No Accessory Muscle Use, No Respiratory Distress, Crackles, Decreased Breath Sounds, Wheezing Cardiovascular: Regular Rate, Rhythm, No Edema, No Gallop, No JVD, No Murmur, Normal Peripheral Pulses Gastrointestinal: Normal Bowel Sounds, No Organomegaly, No Pulsatile Mass, Non Tender, Soft Back: Normal Inspection, No CVA Tenderness, No Vertebral Tenderness Extremity: Normal Capillary Refill, Normal Inspection, Normal Range of Motion, Non Tender, No Calf Tenderness, No Pedal Edema Neurologic/Psychiatric: Alert, Oriented x3, No Motor/Sensory Deficits, Normal Mood/Affect Skin: Normal Color, Warm/Dry Lymphatic: No Adenopathy Results Results/Procedures Labs Laboratory Tests 07/17/18 21:28 07/18/18 05:16 07/18/18 05:40 Patient resulted labs reviewed. Assessment/Plan Admission Diagnosis Assessment: Pneumonia Severe COPD Exacerbation of COPD Oxygen dependence Smoker Non-compliant Plan: Bronch tomorrow Abx Nebs O2 Steroids Admission Status: Observation Diagnosis/Problems Diagnosis/Problems (1) Sepsis Status: Acute Qualifiers: Sepsis type: sepsis due to unspecified organism Qualified Codes: A41.9 - Sepsis, unspecified organism (2) Bilateral pneumonia Status: Acute Qualifiers: Pneumonia type: due to unspecified organism Lung location: unspecified part of lung Qualified Codes: J18.9 - Pneumonia, unspecified organism (3) Smoker Status: Chronic (4) Oxygen dependent Status: Chronic (5) COPD exacerbation Status: Acute (6) Atypical chest pain Status: Acute Clinical Quality Measures DVT/VTE Risk/Contraindication: Risk Factor Score Per Nursin RFS Level Per Nursing on Admit: 4+=Very High JOANN JOYCE DO July 18, 2018 09:19
[2018-07-18] MEDS ORDERED: NF-RIFA200 PO (09:25)
--- NOTE | 2018-07-18 09:28 | Pulmonary Consultation ---
History of Present Illness History of Present Illness Date of Consultation 07/18/18 09:23 Time Seen by Provider: 09:23 Date of Admission History of Present Illness 48yo with hx of severe oxygen dependent (2l/min) COPD and has been treated as an out patient with multiple rounds of prednisone presented to ED secondary to worsening SOB, cough, and sharp 10/10 CP with radiation to the back. Allergies and Home Medications Allergies Coded Allergies: doxycycline (Verified Allergy, Intermediate, rash, 06/06/18) Home Medications Albuterol/Ipratropium 4 Gm Aero, 1 PUFF IH QID PRN for SHORTNESS OF BREATH, (Reported) Cetirizine HCl 10 Mg Tablet, 10 MG PO DAILY, (Reported) Fluticasone Propionate 16 Gm [place].susp, 1 SPRAY NS DAILY, (Reported) Guaifenesin/Dextromethorphan 1 Each Tab.er.12h, 1 TAB PO BID, (Reported) Ibuprofen 800 Mg Tablet, 800 MG PO DAILY, (Reported) Ibuprofen 800 Mg Tablet, 800 MG PO BID PRN for PAIN-MILD, (Reported) Ipratropium/Albuterol Sulfate 3 Ml Ampul.neb, 3 ML NEB Q6H PRN for SHORTNESS OF BREATH, (Reported) Metoprolol Tartrate 25 Mg Tablet, 25 MG PO DAILY, (Reported) Mometasone/Formoterol 13 Gm Hfa.aer.ad, 2 PUFF IH BID, (Reported) Ranitidine HCl 150 Mg Tablet, 150 MG PO DAILY, (Reported) Rifaximin 200 Mg Tablet, 600 MG PO TID, (Reported) HAS NOT STARTED THIS- 14 DAY SUPPLY FILLED 06-26-18 TAKES 3 (200MG) TABLETS Past Uqxwfre-Znsxxz-Rasjhh Hx Past Med/Social Hx: Reviewed Nursing Past Med/Soc Hx Patient Social History Alcohol Use: Denies Use Recreational Drug Use: No Type Used: Cigarettes Recent Foreign Travel: No Contact w/Someone Who Travel: No Recent Infectious Disease Expo: No Recent Hopitalizations: No Immunizations Up To Date Date of Pneumonia Vaccine: Nov 26, 2017 Seasonal Allergies Seasonal Allergies: No Past Medical History Surgeries: Yes Gallbladder Respiratory: Yes (uses oxygen @ 2 liters PRN and NOC, neb tx) COPD Palpitations Neurological: No : No Sexually Transmitted Disease: No HIV/AIDS: No Genitourinary: No Gastrointestinal: Yes Gastroesophageal Reflux Musculoskeletal: Yes Arthritis Endocrine: No HEENT: No Cancer: No Psychosocial: No Integumentary: No Blood Disorders: No Family Medical History Patient reports no known family medical history. Sepsis Event Evaluation Height, Weight, BMI Height: 5'1.00" Weight: 177lbs. 4.8oz. 80.163209pe; 33.5 BMI Method:Stated Exam Exam Vital Signs Date Time Temp Pulse Resp B/P (MAP) Pulse Ox O2 Delivery O2 Flow Rate FiO2 07/18/18 07:00 99 07/18/18 06:14 82 122/85 (97) 92 Nasal Cannula 2.00 07/18/18 05:00 83 135/82 (99) 94 Nasal Cannula 2.00 07/18/18 04:00 84 138/86 (103) 91 Nasal Cannula 2.00 07/18/18 03:18 96 07/18/18 03:12 98.1 90 20 141/80 (100) 93 Nasal Cannula 2.00 2.00 07/18/18 03:07 98.1 90 20 141/80 93 Nasal Cannula 2.00 07/18/18 02:50 Nasal Cannula 2.00 07/18/18 02:02 98.7 103 16 154/88 (110) 96 Nasal Cannula 2.00 07/17/18 21:52 99.0 113 24 157/78 (104) 96 Nasal Cannula 07/17/18 21:48 96 Nasal Cannula 2.00 I & O 07/18/18 07:00 Intake Total 1120 ml Balance 1120 ml Height & Weight Height: 5'1.00" Weight: 177lbs. 4.8oz. 80.095650uq; 33.5 BMI Method:Stated General Appearance: Other (Left AMA before being seen) HEENT: PERRL/EOMI, Normal ENT Inspection Neck: Normal Inspection Respiratory: No Accessory Muscle Use, No Respiratory Distress; No Crackles; Decreased Breath Sounds, Wheezing, Other (increased work of breathing without distress, sometimes puffing with pursed lips) Cardiovascular: No Edema, No Murmur, Tachycardia Capillary Refill: Less Than 3 Seconds Extremity: Normal Capillary Refill, Normal Inspection, Non Tender, No Calf Tenderness, No Pedal Edema, Other (negative Shahid) Neurologic/Psychiatric: Alert, Oriented x3, No Motor/Sensory Deficits, Normal Mood/Affect, quiller operator II-XII Norm as Tested Skin: Normal Color, Warm/Dry Results Lab Laboratory Tests 07/17/18 21:28 07/18/18 05:16 07/18/18 05:40 Assessment/Plan Assessment/Plan Persistent PNA - failed out pt treatment -PT has been on multiple Abx over the last 5 mo including doxy, and Levaquin -SHe is known to a child care worker in the [facility] who was going to do a bronchoscopy in April however pt cancelled. She is willing to proceed with bronchoscopy now. CINTHIA STINSON DO July 18, 2018 09:28
[2018-07-18] MEDS: RT-ALBUTEROL/IPRATROPIUM 3 ML (DUONEB) VIAL IH SCH ×5 (10:14→22:03)
--- NOTE | 2018-07-18 10:14 | NUR ---
RT DID NOT KNOW ABOUT 406 HAVING SCHEDULED SVN BT'S
[2018-07-18 12:13] LABS: CHOLESTEROL 205 MG/DL (< 200); HDL CHOLESTEROL 39 MG/DL (40-60); TRIGLYCERIDES 182 MG/DL (<150); VLDL CHOLESTEROL 36 MG/DL (5-40)
[2018-07-18] MEDS: NICOTINE 21 MG (NICODERM) PATCH TD SCH (12:39)
--- NOTE | 2018-07-18 20:15 | NUR ---
THIS RN CALLED DR. JOYCE IN REGARDS TO THE PT COMPLAINING AND APPEARING FLUSHED AND COMPLAINTS OF A HEADACHE. BLOOD PRESSURE 144/70, HEART RATE 119 BPM, AND TEMPERATURE 98.8. ORDERS RECEIVED TO DC NORMAL SALINE 0.9% AND START XANAX 0.5 MG PO Q6H PRN. ORDERS READ BACK AND VERIFIED.
[2018-07-18] MEDS ORDERED: ALPRAZolam 0.5 MG (XANAX) TAB PO PRN (20:30)
[2018-07-19 00:15] VITALS: BP 118/59
[2018-07-19] MEDS: RT-ALBUTEROL/IPRATROPIUM 3 ML (DUONEB) VIAL IH SCH ×6 (03:05→21:59)
[2018-07-19 04:00] VITALS: BP 117/66
[2018-07-19] MEDS: methylPREDNISolone 40 MG/ML (Solu-MEDROL) VIAL IV SCH ×4 (05:25→23:33)
--- NOTE | 2018-07-19 06:15 | Pulmonary Progress Note ---
Subjective Time Seen by a Provider: 06:15 Sepsis Event Evaluation Height, Weight, BMI Height: 5'" Weight: 177lbs. 4.8oz. 80.069252fc; 33.5 BMI Method:Stated Focused Exam Lactate Level 07/18/18 01:19: Lactic Acid Level 1.23 Exam Exam Vital Signs Date Time Temp Pulse Resp B/P (MAP) Pulse Ox O2 Delivery O2 Flow Rate FiO2 07/19/18 04:00 97.7 98 20 117/66 (83) 92 Nasal Cannula 1.50 07/19/18 03:07 96 Nasal Cannula 2.00 07/19/18 01:00 104 07/19/18 00:15 98.2 108 20 118/59 (78) 95 Nasal Cannula 1.50 07/18/18 22:04 93 Nasal Cannula 2.00 07/18/18 20:00 Nasal Cannula 2.00 07/18/18 19:30 98.8 119 22 144/70 (94) 95 Nasal Cannula 1.50 07/18/18 19:00 122 07/18/18 18:44 93 Nasal Cannula 2.00 07/18/18 16:37 97.9 107 18 126/74 (91) 95 Nasal Cannula 2.00 07/18/18 14:59 94 Nasal Cannula 2.00 07/18/18 12:54 85 07/18/18 11:40 97.8 87 18 153/85 (107) 92 Nasal Cannula 1.50 07/18/18 10:17 92 Nasal Cannula 2.00 07/18/18 08:55 96.7 83 18 154/89 (110) 93 Nasal Cannula 1.50 07/18/18 08:40 Nasal Cannula 2.00 07/18/18 07:00 99 07/18/18 06:14 82 122/85 (97) 92 Nasal Cannula 2.00 I & O 07/19/18 07:00 Intake Total 950 ml Output Total 1150 ml Balance -200 ml Height & Weight Height: 5'" Weight: 177lbs. 4.8oz. 80.948167zs; 33.5 BMI Method:Stated General Appearance: No Apparent Distress, WD/WN, Chronically ill HEENT: PERRL/EOMI, TMs Normal, Normal ENT Inspection, Pharynx Normal, Moist Mucous Membranes Neck: Full Range of Motion, Normal Inspection, Non Tender Respiratory: Chest Non Tender, No Accessory Muscle Use, No Respiratory Distress, Crackles, Decreased Breath Sounds, Wheezing Cardiovascular: Regular Rate, Rhythm, No Edema, No Gallop, No JVD, No Murmur, Normal Peripheral Pulses Capillary Refill: Less Than 3 Seconds Extremity: Normal Capillary Refill, Normal Inspection, Normal Range of Motion, Non Tender, No Calf Tenderness, No Pedal Edema Neurologic/Psychiatric: Alert, Oriented x3, No Motor/Sensory Deficits, Normal Mood/Affect Skin: Normal Color, Warm/Dry Lymphatic: No Adenopathy Results Lab Laboratory Tests 07/17/18 21:28 07/18/18 05:16 07/18/18 05:40 Assessment/Plan Assessment/Plan Persistent atypical PNA - failed out pt treatment -PT has been on multiple Abx over the last 5 mo including doxy, and Levaquin -SHe is known to a screen 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 -Will do bronchoscopy this AM Tobacco use -Education -Nicotine patch Anxiety CINTHIA STINSON DO July 19, 2018 06:15
[2018-07-19] MEDS: PIPERACILLIN/TAZOBACTAM (BULK) 4.5 GM in NS (IVPB) 100 ML IV SCH ×3 (06:30→23:33)
--- NOTE | 2018-07-19 06:55 | NUR ---
PT LEAVING FLOOR AT THIS TIME.
[2018-07-19] MEDS ORDERED: NS IV 500 ML 500 ML ONE (06:59)
[2018-07-19] MEDS ORDERED: fentaNYL INJECTION 100 MCG/2 ML AMP ONE ×2 (07:01)
[2018-07-19] MEDS ORDERED: MIDAZOLAM 2 MG/2 ML (VERSED) VIAL ONE ×4 (07:02)
[2018-07-19] MEDS: fentaNYL INJECTION 100 MCG/2 ML AMP IVP PRN ×3 (07:15→07:27)
[2018-07-19] MEDS: MIDAZOLAM 10 MG/2 ML (VERSED) VIAL IVP PRN ×4 (07:16→07:28)
[2018-07-19] MEDS ORDERED: RT-ALBUTEROL SULF 2.5 MG/3 ML PRE-MIX VIAL ONE (07:34)
--- NOTE | 2018-07-19 07:52 | Pulmonary Procedures ---
Pulmonary Procedures Date of Procedure Date of Service: July 19, 2018 Bronch Bronchoscopy with fluoroscopy RML bronchoalveolar lavage (BAL), bilateral washes and, transbronchial RML brushes. Preop DX PNA Postop DX: same - No endobronchial mass. Pt did have copious amounts of thick white sputum in lower and upper airways. Complications: none After informed consent obtained and formal time out pt was sedated using Fentanyl and Versed. Bronchoscope was advanced through the nare and vocal cords. 1% lidocaine was used to anesthetize vocal cords, epiglottis, janeth, and left/right main stem bronchus. An anatomical tour was undertaken down to the segmental bronchi bilaterally. No endobronchial lesions noted. Bronchoscopy with fluoroscopy RML bronchoalveolar lavage (BAL), bilateral washes and, transbronchial RML brushes. Pt tolerated procedure well. No complications noted. Stat CXR is pending. CINTHIA STINSON DO July 19, 2018 07:52
[2018-07-19] MEDS ORDERED: NS IV 500 ML 500 ML IV ONE (08:00)
[2018-07-19] MEDS ORDERED: RT-ALBUTEROL SULF 2.5 MG/3 ML PRE-MIX VIAL INH SCH (08:00)
--- NOTE | 2018-07-19 08:20 | NUR ---
PATIENT ON FLOOR BACK FROM PROCEDURE
[2018-07-19 08:39] VITALS: BP 119/69
--- NOTE | 2018-07-19 08:39 | Diagnostic Imaging Report ---
INDICATION: Post bronchoscopy COMPARISON: 07/17/2018 TECHNIQUE: Single radiograph of the chest dated 07/19/2018. FINDINGS: The cardiac silhouette is within normal limits in size. No significant pulmonary vascular congestion. Presumed calcified granuloma are again identified overlying the lungs bilaterally. Mild veiling opacity overlying the right lung base. The lungs otherwise appear clear. No significant left pleural effusion. No pneumothorax. No acute osseous abnormality. IMPRESSION: Mild veiling opacity overlying the right lung base, favored to simply relate to superposition of soft tissues, though small amount of pleural fluid would appear similar. Otherwise, similar examination. No pneumothorax. Dictated by: Dictated on workstation # [id number]
[2018-07-19] MEDS: NICOTINE PATCH REMOVAL TP SCH (09:05)
[2018-07-19] MEDS: AZITHROMYCIN 250 MG TAB (ZITHROMAX) PO SCH (09:07)
[2018-07-19] MEDS: NICOTINE 21 MG (NICODERM) PATCH TD SCH (09:07)
--- NOTE | 2018-07-19 09:36 | Diagnostic Imaging Report ---
Indication: Fluoroscopy for bronchoscopy. Fluoroscopy was provided for Dr. Doshi during bronchoscopy. 14 seconds of fluoroscopy was utilized. Impression: Fluoroscopy for bronchoscopy. Dictated by: Dictated on workstation # [id number]
[2018-07-19 10:27] LABS: BODY FLUID SOURCE BRONCH
[2018-07-19 10:28] LABS: BF OTHER CELLS 94 %; BODY FLUID APPEARENCE SLT CLDY; BODY FLUID COLOR COLORLESS; LYMPHOCYTES,BODY FLUID 1 %
[2018-07-19] MEDS ORDERED: NON-FORMULARY MEDICATION 1 EA EA (Albuterol/Ipratropium (Combivent Respimat Inhal Spray) 1 IH PRN (11:00)
[2018-07-19] MEDS ORDERED: RT-ALBUTEROL/IPRATROPIUM 3 ML (DUONEB) VIAL IH PRN (11:00)
[2018-07-19] MEDS ORDERED: IBUPROFEN 800 MG (MOTRIN) TAB PO PRN (11:00)
--- NOTE | 2018-07-19 11:00 | Progress Note-Hospitalist ---
Subjective HPI/CC On Admission Date Seen by Provider: July 19, 2018 Time Seen by Provider: 10:00 Chief complaint: SOB with fever HPI: This is a 48yoWF that is oxygen dependent due to severe COPD and continues to smoke of Dr. Barrera in [facility] who sees pulmonology in [place] who presented ti the [facility] ER with shortness of breath and cough and fever. Pt was found to have pneumonia and exacerbation of COPD. Pt was placed on empiric antibiotics and IV steroids. She originally planned to leave against medical advice but called her family and they refused to come and get her so she has reluctantly stayed. I have consulted Dr. Doshi but her attitude remains very poor. No other details are obtained. Subjective/Events-last exam Pt had an unevetnful night Bronchoscopy performed and Dr. 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 developer about maintaining low dose Prednisone after a long taper Review of Systems General: Fatigue Pulmonary: Dyspnea, Cough Focused Exam Lactate Level 07/18/18 01:19: Lactic Acid Level 1.23 Objective Exam Vital Signs Vital Signs Date Time Temp Pulse Resp B/P (MAP) Pulse Ox O2 Delivery O2 Flow Rate FiO2 07/19/18 18:05 94 Nasal Cannula 2.00 07/19/18 15:35 98.5 102 20 131/72 (91) Capillary Refill : Less Than 3 Seconds General Appearance: No Apparent Distress, WD/WN, Chronically ill HEENT: PERRL/EOMI, TMs Normal, Normal ENT Inspection, Pharynx Normal, Moist Mucous Membranes Neck: Full Range of Motion, Normal Inspection, Non Tender Respiratory: Chest Non Tender, No Accessory Muscle Use, No Respiratory Dist ress, Crackles, Decreased Breath Sounds, Wheezing Cardiovascular: Regular Rate, Rhythm, No Edema, No Gallop, No JVD, No Murmur, Normal Peripheral Pulses Gastrointestinal: Normal Bowel Sounds, No Organomegaly, No Pulsatile Mass, Non Tender, Soft Back: Normal Inspection, No CVA Tenderness, No Vertebral Tenderness Extremity: Normal Capillary Refill, Normal Inspection, Normal Range of Motion, Non Tender, No Calf Tenderness, No Pedal Edema Neurologic/Psychiatric: Alert, Oriented x3, No Motor/Sensory Deficits, Normal Mood/Affect Skin: Normal Color, Warm/Dry Lymphatic: No Adenopathy Results/Procedures Lab Patient resulted labs reviewed. Assessment/Plan Assessment and Plan Assess & Plan/Chief Complaint Assessment: Pneumonia Severe COPD Exacerbation of COPD Oxygen dependence Smoker Non-compliant Plan: Bronch today uncomplicated Abx Nebs O2 Steroids Diagnosis/Problems Diagnosis/Problems (1) Sepsis Status: Acute Qualifiers: Sepsis type: sepsis due to unspecified organism Qualified Codes: A41.9 - Sepsis, unspecified organism (2) Bilateral pneumonia Status: Acute Qualifiers: Pneumonia type: due to unspecified organism Lung location: unspecified part of lung Qualified Codes: J18.9 - Pneumonia, unspecified organism (3) Smoker Status: Chronic (4) Oxygen dependent Status: Chronic (5) COPD exacerbation Status: Acute (6) Atypical chest pain Status: Acute Clinical Quality Measures DVT/VTE Risk/Contraindication: Risk Factor Score Per Nursin RFS Level Per Nursing on Admit: 4+=Very High JOANN JOYCE DO July 19, 2018 11:00
[2018-07-19] MEDS ORDERED: RIFAXIMIN 200 MG TAB (NON-FORMULARY) PO SCH (13:00)
[2018-07-19 15:35] VITALS: BP 131/72
[2018-07-19] MEDS: RT-ADVAIR HFA 45/21 MCG PER PUFF IH SCH (18:05)
[2018-07-19] MEDS: guaiFENesin (MUCINEX) 600 MG TAB PO SCH (20:57)
[2018-07-19] MEDS ORDERED: NON-FORMULARY MEDICATION 1 EA EA (Guaifenesin/Dextromethorphan (Mucinex Dm ER 600-30 mg Ta PO SCH (21:00)
[2018-07-19] MEDS ORDERED: NON-FORMULARY MEDICATION 1 EA EA (Mometasone/Formoterol (Dulera 100 Mcg/5 Mcg Inhaler) 2 P IH SCH (21:00)
[2018-07-20 00:23] VITALS: BP 133/67
[2018-07-20] MEDS: RT-ALBUTEROL/IPRATROPIUM 3 ML (DUONEB) VIAL IH SCH ×3 (01:32→10:31)
--- NOTE | 2018-07-20 05:18 | Pulmonary Progress Note ---
Subjective Time Seen by a Provider: 05:16 Sepsis Event Evaluation Height, Weight, BMI Height: 5'1.00" Weight: 177lbs. 4.8oz. 80.340144kx; 33.5 BMI Method:Stated Focused Exam Lactate Level 07/18/18 01:19: Lactic Acid Level 1.23 Exam Exam Vital Signs Date Time Temp Pulse Resp B/P (MAP) Pulse Ox O2 Delivery O2 Flow Rate FiO2 07/20/18 01:32 94 Nasal Cannula 2.00 07/20/18 00:23 98.0 92 20 133/67 (89) 95 Nasal Cannula 2.00 07/19/18 21:59 96 Nasal Cannula 2.00 07/19/18 20:00 Nasal Cannula 2.00 07/19/18 18:05 94 Nasal Cannula 2.00 07/19/18 15:50 94 Nasal Cannula 2.00 07/19/18 15:35 98.5 102 20 131/72 (91) 95 Nasal Cannula 2.00 07/19/18 09:45 18 07/19/18 08:39 97.1 98 22 119/69 (86) 94 Nasal Cannula 2.00 07/19/18 08:35 97 07/19/18 08:08 99 18 96 Nasal Cannula 2 07/19/18 08:02 109 18 95 Nasal Cannula 2 07/19/18 08:00 Nasal Cannula 2.00 07/19/18 07:55 103 18 100 OxyMask 10 07/19/18 07:50 104 16 100 OxyMask 10 07/19/18 07:45 105 16 100 OxyMask 10 07/19/18 07:40 106 16 100 OxyMask 10 07/19/18 07:35 107 16 100 OxyMask 10 07/19/18 07:30 110 16 100 OxyMask 10 07/19/18 07:25 120 16 100 OxyMask 10 07/19/18 07:20 96 16 100 OxyMask 10 07/19/18 07:15 95 16 100 OxyMask 10 07/19/18 07:10 99 16 100 OxyMask 10 07/19/18 07:05 100 16 100 OxyMask 10 07/19/18 07:00 94 16 100 OxyMask 10 07/19/18 06:32 92 Nasal Cannula 2.00 I & O 07/20/18 07:00 Intake Total 2690 ml Output Total 750 ml Balance 1940 ml Height & Weight Height: 5'1.00" Weight: 177lbs. 4.8oz. 80.680121se; 33.5 BMI Method:Stated General Appearance: No Apparent Distress, WD/WN, Chronically ill HEENT: PERRL/EOMI, TMs Normal, Normal ENT Inspection, Pharynx Normal, Moist Mucous Membranes Neck: Full Range of Motion, Normal Inspection, Non Tender Respiratory: Chest Non Tender, No Accessory Muscle Use, No Respiratory Distress, Crackles, Decreased Breath Sounds, Wheezing Cardiovascular: Regular Rate, Rhythm, No Edema, No Gallop, No JVD, No Murmur, Normal Peripheral Pulses Capillary Refill: Less Than 3 Seconds Extremity: Normal Capillary Refill, Normal Inspection, Normal Range of Motion, Non Tender, No Calf Tenderness, No Pedal Edema Neurologic/Psychiatric: Alert, Oriented x3, No Motor/Sensory Deficits, Normal Mood/Affect Skin: Normal Color, Warm/Dry Lymphatic: No Adenopathy Results Lab Laboratory Tests 07/18/18 05:40 Assessment/Plan Assessment/Plan Persistent atypical PNA - failed out pt treatment -PT has been on multiple Abx over the last 5 mo including doxy, and Levaquin -SHe is known to a valve maker in the 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 -S/P bronchoscopy- await cultures -Zosyn/Azithromycin -Solumedrol 40 Q 6 Tobacco use -Education -Nicotine patch Anxiety CINTHIA STINSON DO July 20, 2018 05:18
[2018-07-20] MEDS: methylPREDNISolone 40 MG/ML (Solu-MEDROL) VIAL IV SCH ×2 (05:22→10:37)
[2018-07-20] MEDS: PIPERACILLIN/TAZOBACTAM (BULK) 4.5 GM in NS (IVPB) 100 ML IV SCH (06:36)
[2018-07-20] MEDS: RT-ADVAIR HFA 45/21 MCG PER PUFF IH SCH ×2 (06:42→06:48)
[2018-07-20] MEDS: NICOTINE PATCH REMOVAL TP SCH (07:59)
[2018-07-20 08:00] VITALS: BP 137/82
[2018-07-20] MEDS ORDERED: IBUPROFEN 800 MG (MOTRIN) TAB PO SCH (08:00)
[2018-07-20] MEDS: guaiFENesin (MUCINEX) 600 MG TAB PO SCH (08:00)
[2018-07-20] MEDS: NICOTINE 21 MG (NICODERM) PATCH TD SCH (08:00)
[2018-07-20] MEDS: AZITHROMYCIN 250 MG TAB (ZITHROMAX) PO SCH (08:04)
[2018-07-20] MEDS ORDERED: FAMOTIDINE 20 MG (PEPCID) TABLET PO SCH (09:00)
[2018-07-20] MEDS ORDERED: FLUTICASONE NASAL SPRAY (FLONASE) 16 GM BTL NS SCH (09:00)
[2018-07-20] MEDS ORDERED: LORATADINE (CLARITIN) 10 MG TAB PO SCH (09:00)
[2018-07-20] MEDS ORDERED: NON-FORMULARY MEDICATION 1 EA EA (Ranitidine HCl (Acid Reducer (RANITIDINE)) 150 MG) PO SCH (09:00)
[2018-07-20] MEDS ORDERED: NON-FORMULARY MEDICATION 1 EA EA (Cetirizine HCl 10 MG) PO SCH (09:00)
[2018-07-20] MEDS ORDERED: meTOprolol TARTRATE 25 MG (LOPRESSOR) TABLET PO SCH (09:00)
[2018-07-20] MEDS ORDERED: AZIT250T12 PO (12:54)
[2018-07-20] MEDS ORDERED: PRED10TA22 PO (12:54)
[2018-07-20] MEDS ORDERED: CEFD300C3 PO (12:54)
--- NOTE | 2018-07-20 12:56 | Discharge Summary-Hospitalist ---
Diagnosis/Chief Complaint Date of Admission July 18, 2018 at 01:30 Date of Discharge Discharge Date: July 20, 2018 Admission Diagnosis Assessment: Pneumonia Severe COPD Exacerbation of COPD Oxygen dependence Smoker Non-compliant Plan: Bronch tomorrow Abx Nebs O2 Steroids Discharge Diagnosis (1) Sepsis Status: Acute (2) Bilateral pneumonia Status: Acute (3) Smoker Status: Chronic (4) Oxygen dependent Status: Chronic (5) COPD exacerbation Status: Acute (6) Atypical chest pain Status: Acute Discharge Summary Discharge Physical Exam Allergies: Coded Allergies: doxycycline (Verified Allergy, Intermediate, rash, 06/06/18) Vitals & I&Os Vital Signs Date Time Temp Pulse Resp B/P (MAP) Pulse Ox O2 Delivery O2 Flow Rate FiO2 07/20/18 10:31 95 Nasal Cannula 2.00 07/20/18 08:00 98.3 88 16 137/82 (100) General Appearance: No Apparent Distress, WD/WN, Chronically ill Respiratory: Chest Non Tender, Lungs Clear, Normal Breath Sounds, No Accessory Muscle Use, No Respiratory Distress Cardiovascular: Regular Rate, Rhythm, No Edema, No Gallop, No JVD, No Murmur, Normal Peripheral Pulses Neurologic/Psychiatric: Alert, Oriented x3, No Motor/Sensory Deficits, Normal Mood/Affect Hospital Course Was the Problem List Reviewed?: Yes Hospital course: Patient had an uneventful hospital course after she was admitted for bilateral pneumonia and exacerbation of COPD requiring high flow oxygen and nebulizer treatments. Dr. Doshi was consulted. Bronchoscopy performed which revealed no masses. Broad spectrum antibiotics were initiated. Patient improved immensely was able to be discharged in improved condition on long taper dose of steroids along with antibiotics to complete that regimen and follow with pulmonology clinic on Sunday in [place]. Smoking cessation counseled. Labs (last 24 hrs) Microbiology 07/18/18 Blood Culture - Preliminary, Resulted No growth 07/19/18 Gram Stain - Final, Resulted 07/19/18 Bronchial Culture - Preliminary, Resulted Culture In Progress 07/19/18 Fungal Culture 1, Resulted Pending Patient resulted labs reviewed. Discussion & Recommendations Discharge Planning: <30 minutes discharge planning Discharge Home Medications: Active Scripts Active Prednisone 10 Mg Tab.ds.pk 10 Mg PO DAILY Take 6 tabs(60mg)daily,decrease by 1 tab(10mg)every other day. Cefdinir 300 Mg Capsule 300 Mg PO BID Azithromycin 250 Mg Tablet 250 Mg PO DAILY Reported Xifaxan (Rifaximin) 200 Mg Tablet 600 Mg PO TID 14 Days HAS NOT STARTED THIS- 14 DAY SUPPLY FILLED 06-26- TAKES 3 (200MG) TABLETS Iprat-Albut 0.5-3(2.5) mg/3 ml (Ipratropium/Albuterol Sulfate) 3 Ml Ampul.neb 3 Ml NEB Q6H PRN Metoprolol Tartrate 25 Mg Tablet 25 Mg PO DAILY Cetirizine HCl 10 Mg Tablet 10 Mg PO DAILY Ibuprofen 800 Mg Tablet 800 Mg PO BID PRN Ibuprofen 800 Mg Tablet 800 Mg PO DAILY Mucinex Dm ER 600-30 mg Tablet (Guaifenesin/Dextromethorphan) 1 Each Tab.er.12h 1 Tab PO BID Fluticasone Propionate 16 Gm Buckner.susp 1 Buckner NS DAILY Acid Mechanism Assembler (RANITIDINE) (Ranitidine HCl) 150 Mg Tablet 150 Mg PO DAILY Dulera 100 Mcg/5 Mcg Inhaler (Mometasone/Formoterol) 13 Gm Hfa.aer.ad 2 Puff IH BID Combivent Respimat Inhal Buckner (Albuterol/Ipratropium) 4 Gm Aero 1 Puff IH QID PRN Instructions to patient/family Please see electronic discharge instructions given to patient. Clinical Quality Measures DVT/VTE Risk/Contraindication: Risk Factor Score Per Nursin RFS Level Per Nursing on Admit: 4+=Very High Problem Qualifiers (1) Sepsis: Sepsis type: sepsis due to unspecified organism Qualified Codes: A41.9 - Sepsis, unspecified organism (2) Bilateral pneumonia: Pneumonia type: due to unspecified organism Lung location: unspecified part of lung Qualified Codes: J18.9 - Pneumonia, unspecified organism JOANN JOYCE DO July 20, 2018 12:56
== END 2018-07-20 14:05 | disposition home or self-care (01) | DRG 871 ==
LOC: EDUNIT# 21:04 → ER FS 21:05 → UNDOADMOB 07-18 01:30 → 4TH 07-18 01:30 → OBSVTOIN 07-19 11:00 → UNDODISOB 07-20 14:05
PROVIDERS: ADMIT Family Medicine; ATTEND Family Medicine
PROC: 0BDD8ZX Extraction of Right Middle Lung Lobe, Via Natural or Artificial Opening Endoscopic, Diagnostic (ICD-10-PCS; 2018-07-19)
PROC: 0B978ZX Drainage of Left Main Bronchus, Via Natural or Artificial Opening Endoscopic, Diagnostic (ICD-10-PCS; 2018-07-19)
PROC: 0B938ZX Drainage of Right Main Bronchus, Via Natural or Artificial Opening Endoscopic, Diagnostic (ICD-10-PCS; 2018-07-19)
PROC: 0B9D8ZX Drainage of Right Middle Lung Lobe, Via Natural or Artificial Opening Endoscopic, Diagnostic (ICD-10-PCS; principal; 2018-07-19 07:00)
DX: A41.9 Sepsis, unspecified organism (principal); J18.9 Pneumonia, unspecified organism; J44.1 Chronic obstructive pulmonary disease with (acute) exacerbation; Z99.81 Dependence on supplemental oxygen; K21.9 Gastro-esophageal reflux disease without esophagitis; M19.90 Unspecified osteoarthritis, unspecified site; F17.210 Nicotine dependence, cigarettes, uncomplicated; F41.9 Anxiety disorder, unspecified
CPT/HCPCS: 36415; 70450; 70486; 71045; 71046; 71275; 80053; 80061; 83605; 83735; 83874; 84484; 85007; 85025; 85027; 85379; 85610; 85730; 87015; 87040; 87070; 87101; 87116; 87205; 87206; 89051; 93005; 93041; 94640; 94760; G0378

== ENCOUNTER 2018-09-04 20:04 | Emergency (ER) | payer MEDICARE ==
[~2018-09-04] VITALS: Ht 154.9 cm; Wt 79.4 kg
[~2018-09-04 20:04] MED LIST changes: +AZIT250T12 PO; +CEFD300C3 PO; +CETI10TA17 PO; +FLUT16SP22 NS; +GUAI-367 PO; +IBUP-1780 PO; +IPRA3AMP31 NEB; +IPRA4AER IH; +METO-333 PO; +MOME13HF2 IH; +NF-RIFA200 PO; +PRED10TA22 PO; +RANI150T90 PO
--- OUTSIDE RECORDS SUMMARY | 2018-09-04 20:08 | XMS REPORT | Continuity of Care Document ---
Author Organization Unknown Address Unknown Allergies Active Description Code Type Severity Reaction Onset Reported/Identified Relationship to Patient Clinical Status Yes doxycycline [id number] Drug Allergy Moderate rash 06/06/2018 Medications There is no data. Problems Date Dx Coded Attending Type Code Diagnosis Diagnosed By 06/06/2018 DENISE MOON MD T Ot F17.210 NICOTINE DEPENDENCE, CIGARETTES, UNCOMPL 06/06/2018 DENISE MOON MD T Ot J44.1 CHRONIC OBSTRUCTIVE PULMONARY DISEASE W 06/06/2018 DENISE MOON MD T Ot K21.9 GASTRO-ESOPHAGEAL REFLUX DISEASE WITHOUT 06/06/2018 DENISE MOON MD T Ot R06.02 SHORTNESS OF BREATH 06/06/2018 DENISE MOON MD T Ot Z79.52 USP (CURRENT) USE OF SYSTEMIC STER 06/06/2018 DENISE MOON MD T Ot Z88.1 ALLERGY STATUS TO OTHER ANTIBIOTIC AGENT 06/06/2018 DENISE MOON MD T Ot Z99.81 DEPENDENCE ON SUPPLEMENTAL OXYGEN 06/10/2018 DENISE MOON MD Ot F17.210 NICOTINE DEPENDENCE, CIGARETTES, UNCOMPL 06/10/2018 DENISE MOON MD T Ot J44.1 CHRONIC OBSTRUCTIVE PULMONARY DISEASE W 06/10/2018 DENISE MOON MD T Ot K21.9 GASTRO-ESOPHAGEAL REFLUX DISEASE WITHOUT 06/10/2018 DENISE MOON MD T Ot R06.02 SHORTNESS OF BREATH 06/10/2018 DENISE MOON MD T Ot Z79.52 VISION TEACHER (CURRENT) USE OF SYSTEMIC STER 06/10/2018 DENISE MOON MD T Ot Z88.1 ALLERGY STATUS TO OTHER ANTIBIOTIC AGENT 06/10/2018 DENISE MOON MD T Ot Z99.81 DEPENDENCE ON SUPPLEMENTAL OXYGEN 07/20/2018 PANCHAL DO, KIMBERLY K Ot A41.9 SEPSIS, UNSPECIFIED ORGANISM 07/20/2018 PANCHAL DO, KIMBERLY K Ot F17.210 NICOTINE DEPENDENCE, CIGARETTES, UNCOMPL 07/20/2018 PANCHAL DO, KIMBERLY K Ot F41.9 ANXIETY DISORDER, UNSPECIFIED 07/20/2018 PANCHAL DO, KIMBERLY K Ot J18.9 PNEUMONIA, UNSPECIFIED ORGANISM 07/20/2018 PANCHAL DO, KIMBERLY K Ot J44.1 CHRONIC OBSTRUCTIVE PULMONARY DISEASE W 07/20/2018 PANCHAL DO, KIMBERLY K Ot K21.9 GASTRO-ESOPHAGEAL REFLUX DISEASE WITHOUT 07/20/2018 PANCHAL DO, KIMBERLY K Ot M19.90 UNSPECIFIED OSTEOARTHRITIS, UNSPECIFIED 07/20/2018 PANCHAL DO, KIMBERLY K Ot Z79.899 OTHER USP (CURRENT) DRUG THERAPY 07/20/2018 PANCHAL DO, KIMBERLY K Ot Z99.81 DEPENDENCE ON SUPPLEMENTAL OXYGEN 07/20/2018 PANCHAL DO, KIMBERLY K Ot A41.9 SEPSIS, UNSPECIFIED ORGANISM 07/20/2018 PANCHAL DO, KIMBERLY K Ot F17.210 NICOTINE DEPENDENCE, CIGARETTES, UNCOMPL 07/20/2018 PANCHAL DO, KIMBERLY K Ot F41.9 ANXIETY DISORDER, UNSPECIFIED 07/20/2018 PANCHAL DO, KIMBERLY K Ot J18.9 PNEUMONIA, UNSPECIFIED ORGANISM 07/20/2018 PANCHAL DO, KIMBERLY K Ot J44.1 CHRONIC OBSTRUCTIVE PULMONARY DISEASE W 07/20/2018 PANCHAL DO, KIMBERLY K Ot K21.9 GASTRO-ESOPHAGEAL REFLUX DISEASE WITHOUT 07/20/2018 PANCHAL DO, KIMBERLY K Ot M19.90 UNSPECIFIED OSTEOARTHRITIS, UNSPECIFIED 07/20/2018 PANCHAL DO, KIMBERLY K Ot Z79.899 OTHER USP (CURRENT) DRUG THERAPY 07/20/2018 PANCHAL DO, KIMBERLY K Ot Z99.81 DEPENDENCE ON SUPPLEMENTAL OXYGEN Procedures Code Description Performed By Performed On [id number] DRAINAGE OF RIGHT MAIN BRONCHUS, ENDO, D 07/19/2018 [id number] DRAINAGE OF LEFT MAIN BRONCHUS, ENDO, DI 07/19/2018 [id number] DRAINAGE OF RIGHT MIDDLE LUNG LOBE, ENDO 07/19/2018 [id number] EXTRACTION OF RIGHT MIDDLE LUNG LOBE, EN 07/19/2018 Results Test Result Range Complete blood count [...] NRG Blood band neutrophils/100 leukocytes 0 % NR Manual blood lymphocytes/100 leukocytes 20 % NR Manual eosinophils/100 leukocytes in nose 6 % NR Manual blood basophils/100 leukocytes 0 % NR [...] 07/17/18 21:28 TROPONIN T 10 % <=10 Lipid 1996 panel - 07/17/18 21:28 Serum or plasma triglyceride measurement (mass/volume) 182 mg/dL <150 Serum or plasma cholesterol measurement (mass/volume) 205 mg/dL < 200 Serum or plasma cholesterol in HDL measurement (mass/volume) 39 mg/dL 40-60 Cholesterol in LDL [mass/volume] in serum or plasma by direct assay 151 mg/dL 1-129 Serum or plasma cholesterol in VLDL measurement (mass/volume) 36 mg/dL 5-40 TROPONIN T - 07/17/18 23:20 TROPONIN T 9 % <=10 Blood lactic acid measurement (moles/volume) - 07/18/18 01:19 Blood lactic acid measurement (moles/volume) 1.23 mmol/L 0.50- 2.00 Bacterial blood culture - 07/18/18 01:19 Bacterial blood culture [facility] Bacterial blood culture - 07/18/18 01:36 Bacterial blood culture [facility] Comprehensive metabolic panel - 07/18/18 05:16 Serum or plasma sodium measurement (moles/volume) 139 mmol/L 135-145 Serum or plasma potassium measurement (moles/volume) 4.0 mmol/L 3.6-5.0 Serum or plasma chloride measurement (moles/volume) 110 mmol/L 98-107 Carbon dioxide 18 mmol/L 21-32 Serum or plasma anion gap determination (moles/volume) 11 mmol/L 5-14 Serum or plasma urea nitrogen measurement (mass/volume) 7 mg/dL 7-18 Serum or plasma creatinine measurement (mass/volume) 0.85 mg/dL 0.60-1.30 Serum or plasma urea nitrogen/creatinine mass ratio 8 NRG Serum or plasma creatinine measurement with calculation of estimated glomerular filtration rate > NRG Serum or plasma glucose measurement (mass/volume) 180 mg/dL 70-105 Serum or plasma calcium measurement (mass/volume) 9.0 mg/dL 8.5-10.1 Serum or plasma total bilirubin measurement (mass/volume) 0.5 mg/dL 0.1-1.0 Serum or plasma alkaline phosphatase measurement (enzymatic activity/volume) 66 U/L 40-136 Serum or plasma aspartate aminotransferase measurement (enzymatic activity/volume) 20 U/L 5-34 Serum or plasma alanine aminotransferase measurement (enzymatic activity/volume) 30 U/L 0-55 Serum or plasma protein measurement (mass/volume) 6.8 g/dL 6.4-8.2 Serum or plasma albumin measurement (mass/volume) 4.0 g/dL 3.2-4.5 CALCIUM CORRECTED 9.0 mg/dL 8.5-10.1 Complete blood count (CBC) with automated white blood cell (WBC) differential - 07/18/18 05:40 Blood leukocytes automated count (number/volume) 12.6 10*3/uL 4.3-11.0 Blood erythrocytes automated count (number/volume) 4.39 10*6/uL 4.35-5.85 Venous blood hemoglobin measurement (mass/volume) 13.2 g/dL 11.5-16.0 Blood hematocrit (volume fraction) 40 % 35-52 Automated erythrocyte mean corpuscular volume 91 [foz_us] 80-99 Automated erythrocyte mean corpuscular hemoglobin (mass per erythrocyte) 30 pg 25-34 Automated erythrocyte mean corpuscular hemoglobin concentration measurement (mass/volume) 33 g/dL 32-36 Automated erythrocyte distribution width ratio 14.0 % 10.0- 14.5 Automated blood platelet count (count/volume) 238 10*3/uL 130-400 Automated blood platelet mean volume measurement 10.9 [foz_us] 7.4-10.4 Automated blood neutrophils/100 leukocytes 93 % 42-75 Automated blood lymphocytes/100 leukocytes 6 % 12-44 Blood monocytes/100 leukocytes 1 % 0-12 Automated blood eosinophils/100 leukocytes 0 % 0-10 Automated blood basophils/100 leukocytes 0 % 0-10 Blood neutrophils automated count (number/volume) 11.7 10*3 1.8-7.8 Blood lymphocytes automated count (number/volume) 0.8 10*3 1.0-4.0 Blood monocytes automated count (number/volume) 0.1 10*3 0.0- 1.0 Automated eosinophil count 0.0 10*3/uL 0.0-0.3 Automated blood basophil count (count/volume) 0.0 10*3/uL 0.0-0.1 Sputum Gram stain - 07/19/18 07:30 Sputum Gram stain Rare gram positive cocci NRG Bacteria identification in bronchial specimen by aerobe culture - 07/19/18 07:30 QUANTITY OF GROWTH . NRG Bacteria identification in bronchial specimen by aerobe culture USUAL RESP NRG FTX;REPORTABLE 700 CFU/ML NRG Fungus culture - 07/19/18 07:30 QUANTITY OF GROWTH Rare NRG Fungus culture [id number] NRG Mycobacterium species detection by organism specific culture - 07/19/18 07:31 DATE/TIME MICROSCOPIC 07/20/18 NRG MICROSCOPIC AFB SMEAR NEGATIVE NRG AFBFTX1 CURRENT REPORT: NEGATIVE NRG AFBFTX2 FINAL REQUIRES A TOTAL OF 8 WEEKS NRG Sputum Gram stain - 07/19/18 07:32 Sputum Gram stain No bacteria seen NRG Bacteria identification in bronchial specimen by aerobe culture - 07/19/18 07:32 Bacteria identification in bronchial specimen by aerobe culture NG NRG Fungus culture - 07/19/18 07:32 FUNGUS REPORT NO FUNGUS ISOLATED NRG Mycobacterium species detection by organism specific culture - 07/19/18 07:33 DATE/TIME MICROSCOPIC 08/20/18 NRG MICROSCOPIC AFB SMEAR NEGATIVE NRG AFBFTX1 CURRENT (08/20) REPORT: NEGATIV NRG AFBFTX2 FINAL REQUIRES A TOTAL OF 8 WEEKS NRG Sputum Gram stain - 07/19/18 07:34 Sputum Gram stain TNP NRG Bacteria identification in bronchial specimen by aerobe culture - 07/19/18 07:34 QUANTITY OF GROWTH . NRG Bacteria identification in bronchial specimen by aerobe culture USUAL RESP NRG FTX;REPORTABLE 500 CFU/ML NRG Fungus culture - 07/19/18 07:34 FUNGUS REPORT NO FUNGUS ISOLATED NRG BODY FLUID DIFFERENTIAL - 07/19/18 09:08 Specimen source identification of body fluid BRONCH NRG Evaluation of color of body fluid COLORLESS NRG Determination of appearance of body fluid SLT CLDY NRG Manual body fluid polymorphonuclear cells/100 leukocytes 5 % NRG Manual body fluid mononuclear cells/100 leukocytes 0 % NRG Manual body fluid lymphocytes/100 leukocytes 1 % NRG Other cells/100 leukocytes in body fluid by manual count 94 % NRG Encounters ACCT No. Visit Date/Time Discharge Status Pt. Type Provider Facility Loc./Unit Complaint [id number] 08/21/2018 16:10:00 08/21/2018 23:59:59 CLS Outpatient RAFI CHILDERS [facility] [id number] 07/17/2018 21:06:00 07/20/2018 12:54:00 DIS Outpatient KIMBERLY PANCHAL DO [facility] 4TH SEPSIS;PNEUMONIA [id number] 06/06/2018 03:17:00 06/06/2018 04:15:00 DIS Emergency SARAI [place], DENISE Stock [facility] ER FS SOB [id number] 09/04/2018 20:05:00 ACT Emergency SAMIA BILLINGSLEY DO [facility] ER FS SOB
[2018-09-04] MEDS ORDERED: RT-ALBUTEROL SULF 2.5 MG/3 ML PRE-MIX VIAL INH STA (21:11)
[2018-09-04] MEDS ORDERED: predniSONE 20 MG TAB PO ONE (21:15)
--- NOTE | 2018-09-04 21:35 | Diagnostic Imaging Report ---
INDICATION: Patient has had pneumonia since February. History of COPD. Short of air today. COMPARISON STUDY: Chest radiograph from 07/19/2018. FINDINGS: Frontal and lateral views of the chest demonstrate some calcified granulomas in both lungs. A mild infiltrate in the right lower lobe has cleared. Heart size and vascularity are normal. IMPRESSION: There has been clearance of mild infiltrate in right lower lobe. No acute findings are present. Dictated by: Dictated on workstation # [id number]
--- NOTE | 2018-09-04 21:37 | ED Cough/URI ---
General Chief Complaint: Respiratory Problems Stated Complaint: SOB Source: patient Exam Limitations: no limitations History of Present Illness Date Seen by Provider: Sep 04, 2018 Time Seen by Provider: 19:00 Initial Comments Patient is a 48-year-old female with history of chronic bronchitis currently on Dulera and Combivent presents with increased shortness of breath and wheezing. Symptom onset was 3 days ago. Patient reports chest tightness despite continued inhaler use. Reports productive cough with yellow-green sputum. Patient states she recently completed a course of steroids and antibiotics in the past 10 days. No fever chills, nausea vomiting or worse sweats. No chest, pain or swelling. Denies history of DVT or PE. No other acute symptoms or complaints. Patient's [place] [facility] [place]/Duration: yesterday Severity/Quality: moderate Prior Episodes/Possible Cause: no prior episodes Modifying Factors: Improves With Activity Associated Symptoms: cough, shortness of breath, wheezing Allergies and Home Medications Allergies Coded Allergies: doxycycline (Verified Allergy, Intermediate, rash, 06/06/18) Home Medications Albuterol/Ipratropium 4 Gm Aero, 1 PUFF IH QID PRN for SHORTNESS OF BREATH, (Reported) Azithromycin 250 Mg Tablet, 250 MG PO DAILY Prescribed by: JOANN JOYCE on 07/20/18 1254 Cefdinir 300 Mg Capsule, 300 MG PO BID Prescribed by: JOANN JOYCE on 07/20/18 1254 Cetirizine HCl 10 Mg Tablet, 10 MG PO DAILY, (Reported) Fluticasone Propionate 16 Gm Bixby.susp, 1 SPRAY NS DAILY, (Reported) Guaifenesin/Dextromethorphan 1 Each Tab.er.12h, 1 TAB PO BID, (Reported) Ibuprofen 800 Mg Tablet, 800 MG PO DAILY, (Reported) Ibuprofen 800 Mg Tablet, 800 MG PO BID PRN for PAIN-MILD, (Reported) Ipratropium/Albuterol Sulfate 3 Ml Ampul.neb, 3 ML NEB Q6H PRN for SHORTNESS OF BREATH, (Reported) Metoprolol Tartrate 25 Mg Tablet, 25 MG PO DAILY, (Reported) Mometasone/Formoterol 13 Gm Hfa.aer.ad, 2 PUFF IH BID, (Reported) Prednisone 10 Mg Tab.ds.pk, 10 MG PO DAILY Take 6 tabs(60mg)daily,decrease by 1 tab(10mg)every other day. Prescribed by: JOANN JOYCE on 07/20/18 1254 Ranitidine HCl 150 Mg Tablet, 150 MG PO DAILY, (Reported) Rifaximin 200 Mg Tablet, 600 MG PO TID, (Reported) HAS NOT STARTED THIS- 14 DAY SUPPLY FILLED 06-26-18 TAKES 3 (200MG) TABLETS Patient Home Medication List Home Medication List Reviewed: Yes Review of Systems Review of Systems Constitutional: no symptoms reported EENTM: no symptoms reported Respiratory: see HPI, cough, dyspnea on exertion, short of breath, wheezing Cardiovascular: no symptoms reported Gastrointestinal: no symptoms reported Genitourinary: no symptoms reported Musculoskeletal: no symptoms reported Skin: no symptoms reported Psychiatric/Neurological: No Symptoms Reported Hematologic/Lymphatic: No Symptoms Reported Immunological/Allergic: no symptoms reported Past Lvfttjb-Oqmnxi-Dngxrl Hx Past Med/Social Hx: Reviewed Nursing Past Med/Soc Hx Patient Social History Type Used: Cigarettes Recent Foreign Travel: No Contact w/Someone Who Travel: No Recent Hopitalizations: No Immunizations Up To Date Date of Pneumonia Vaccine: Nov 26, 2017 Seasonal Allergies Seasonal Allergies: No Past Medical History Surgeries: Yes Gallbladder Respiratory: Yes (uses oxygen @ 2 liters PRN and NOC, neb tx) COPD Palpitations Neurological: No Sexually Transmitted Disease: No HIV/AIDS: No Genitourinary: No Gastrointestinal: Yes Gastroesophageal Reflux Musculoskeletal: Yes Arthritis Endocrine: No HEENT: No Cancer: No Psychosocial: No Integumentary: No Blood Disorders: No Family Medical History Patient reports no known family medical history. Physical Exam Capillary Refill : Height: 5'1.00" Weight: 177lbs. 4.8oz. 80.567331yz; 33.5 BMI Method:Stated General Appearance: no apparent distress Eyes: Bilateral Eye Normal Inspection, Bilateral Eye PERRL, Bilateral Eye EOMI HEENT: PERRL/EOMI, normal ENT inspection, pharynx normal Neck: full range of motion, supple Respiratory: rhonchi, wheezing Cardiovascular: normal peripheral pulses, regular rate, rhythm Gastrointestinal: non tender Extremities: normal range of motion, no pedal edema, no calf tenderness Neurologic/Psychiatric: gas brazer II-XII nml as tested, no motor/sensory deficits, alert, oriented x 3 Skin: normal color Progress/Results/Core Measures Suspected Sepsis SIRS Temperature: Pulse: Respiratory Rate: Blood Pressure / Mean: Results/Orders My Orders Orders - SAMIA BILLINGSLEY DO Prednisone Tablet (Deltasone Tablet) (09/04/18 21:15) Chest Pa/Lat (2 View) (09/04/18 21:11) Albuterol Pre-Mix Nebs (Rt) (Proventil (09/04/18 21:11) Svn Small Volume Nebulizer (09/04/18 21:11) Vital Signs/I&O Capillary Refill : Departure Communication (Admissions) Steroids and breathing tx given. Symptoms consistent with bronchitis with COPD exacerbation. Will start steroids, increase albuterol and have follow-up with PCP and her manager pathology in the next 2-3 days for reevaluation. Pseudomonal Risk: No known risk Impression Primary Impression: Acute bronchitis Additional Impression: COPD with exacerbation Disposition: 01 HOME, SELF-CARE Condition: Stable Departure-Patient Inst. Referrals: RAFI CHILDERS MD (PCP/Family) Primary Care Physician Patient Instructions: Acute Bronchitis, Exacerbation of COPD SAMIA BILLINGSLEY DO Sep 04, 2018 21:37
[2018-09-04] MEDS ORDERED: ALBU6.7H8 INH (21:41)
[2018-09-04] MEDS ORDERED: PRD20T PO (21:41)
[2018-09-04 21:49] VITALS: BP 131/61
== END 2018-09-04 21:49 | disposition home or self-care (01) ==
LOC: EDUNIT# 20:04 → ER FS 20:05
DX: J44.1 Chronic obstructive pulmonary disease with (acute) exacerbation (principal); J20.9 Acute bronchitis, unspecified; K21.9 Gastro-esophageal reflux disease without esophagitis; Z88.1 Allergy status to other antibiotic agents; Z79.51 Long term (current) use of inhaled steroids; Z99.81 Dependence on supplemental oxygen
CPT/HCPCS: 71046; 94640

== ENCOUNTER 2018-09-19 04:40 | Emergency (ER) | payer MEDICARE ==
[~2018-09-19] VITALS: Ht 154.9 cm; Wt 79.4 kg
[~2018-09-19 04:40] MED LIST changes: +ALBU6.7H8 INH
[2018-09-19] MEDS ORDERED: NS IV 500 ML 500 ML IV ONE (04:52)
[2018-09-19] MEDS ORDERED: RT-epiNEPHrine (RACEMIC) 2.25% 0.5 ML VIAL ONE (04:53)
--- OUTSIDE RECORDS SUMMARY | 2018-09-19 04:59 | XMS REPORT | Continuity of Care Document ---
Author Organization Unknown Address Unknown Allergies Active Description Code Type Severity Reaction Onset Reported/Identified Relationship to Patient Clinical Status Yes doxycycline [id number] Drug Allergy Moderate rash 06/06/2018 Medications There [...] 06/06/2018 DENISE MOON MD T Ot Z79.52 SKILLED NURSING (CURRENT) USE OF SYSTEMIC STER 06/06/2018 DENISE [...] 06/10/2018 DENISE MOON MD T Ot Z79.52 SKILLED NURSING (CURRENT) USE OF SYSTEMIC STER 06/10/2018 DENISE [...] PANCHAL DO, KIMBERLY K Ot Z79.899 OTHER SKILLED NURSING (CURRENT) DRUG THERAPY 07/20/2018 PANCHAL DO, KIMBERLY [...] PANCHAL DO, KIMBERLY K Ot Z79.899 OTHER DROSS SKIMMER (CURRENT) DRUG THERAPY 07/20/2018 PANCHAL DO, KIMBERLY K Ot Z99.81 DEPENDENCE ON SUPPLEMENTAL OXYGEN 09/10/2018 SAMIA BILLINGSLEY DO Ot J20.9 ACUTE BRONCHITIS, UNSPECIFIED 09/10/2018 SAMIA BILLINGSLEY DO Ot J44.1 CHRONIC OBSTRUCTIVE PULMONARY DISEASE W 09/10/2018 SAMIA BILLINGSLEY DO Ot K21.9 GASTRO- ESOPHAGEAL REFLUX DISEASE WITHOUT 09/10/2018 SAMIA BILLINGSLEY DO Ot R06.02 SHORTNESS OF BREATH 09/10/2018 SAMIA BILLINGSLEY DO Ot Z79.51 SKILLED NURSING (CURRENT) USE OF INHALED STERO 09/10/2018 SAMIA BILLINGSLEY DO Ot Z88.1 ALLERGY STATUS TO OTHER ANTIBIOTIC AGENT 09/10/2018 ANALILIA GEORGESAMIA Ot Z99.81 DEPENDENCE ON SUPPLEMENTAL OXYGEN Procedures Code Description Performed By Performed On [id number] DRAINAGE OF RIGHT MAIN BRONCHUS, ENDO, D 07/19/2018 [id number] DRAINAGE OF LEFT MAIN BRONCHUS, ENDO, DI 07/19/2018 [id number] DRAINAGE OF RIGHT MIDDLE LUNG LOBE, ENDO 07/19/2018 [id number] EXTRACTION OF RIGHT MIDDLE LUNG LOBE, EN [...] culture - 07/18/18 01:19 Bacterial blood culture [facility] Bacterial blood culture - 07/18/18 01:36 Bacterial blood culture [facility] Comprehensive metabolic panel - 07/18/18 05:16 Serum [...] QUANTITY OF GROWTH Rare NRG Fungus culture [id number] NRG Mycobacterium species detection by organism specific culture - 07/19/18 07:31 DATE/TIME MICROSCOPIC 07/20/18 NRG MICROSCOPIC AFB SMEAR NEGATIVE NRG AFB CULTURE No acid fast bacilli isolated NRG DATE FINAL AFB CULTURE 09/17/18 15:05 NRG Sputum Gram stain - 07/19/18 07:32 [...] 08/20/18 NRG MICROSCOPIC AFB SMEAR NEGATIVE NRG AFB CULTURE No acid fast bacilli isolated NRG DATE FINAL AFB CULTURE 09/17/18 15:05 NRG Sputum Gram stain - 07/19/18 07:34 [...] Status Pt. Type Provider Facility Loc./Unit Complaint [id number] 09/09/2018 09:30:00 09/09/2018 23:59:59 CLS Outpatient RAFI CHILDERS [facility] [id number] 09/04/2018 20:05:00 09/04/2018 21:49:00 DIS Outpatient SAMIA BILLINGSLEY DO [facility] ER FS SOB [id number] 07/17/2018 21:06:00 07/20/2018 12:54:00 DIS Inpatient KIMBERLY PANCHAL DO [facility] 4TH SEPSIS;PNEUMONIA [id number] 06/06/2018 03:17:00 06/06/2018 04:15:00 DIS Emergency DENISE MOON MD [facility] ER FS SOB [id number] 09/19/2018 04:41:00 ACT Emergency RADHA COLON DO [facility] ER FS SOB
[2018-09-19] MEDS ORDERED: methylPREDNISolone 125 MG (Solu-MEDROL) VIAL IVP ONE (05:00)
[2018-09-19] MEDS ORDERED: RT-epiNEPHrine (RACEMIC) 2.25% 0.5 ML VIAL INH ONE (05:00)
[2018-09-19 05:03] LABS: HEMATOCRIT 42 % (35-52); HEMOGLOBIN 14.1 G/DL (11.5-16.0); MEAN CORPUSCULAR HEMOGLOBIN 31 PG (25-34); MEAN CORPUSCULAR VOLUME 91 FL (80-99); WHITE BLOOD COUNT 13.9 10^3/uL (4.3-11.0)
[2018-09-19 05:04] LABS: EOSINOPHILS % (AUTO) 7 % (0-10); LYMPHOCYTES % (AUTO) 24 % (12-44); MEAN CORPUSCULAR HGB CONC 33 G/DL (32-36); MEAN PLATELET VOLUME 10.6 FL (7.4-10.4); MONOCYTES % (AUTO) 6 % (0-12); NEUTROPHILS % (AUTO) 62 % (42-75); PLATELET COUNT 259 10^3/uL (130-400); RED CELL DISTRIBUTION WIDTH 14.1 % (10.0-14.5)
[2018-09-19 05:05] LABS: BASOPHILS # (AUTO) 0.1 10^3/uL (0.0-0.1); BASOPHILS % (AUTO) 1 % (0-10); LYMPHOCYTES # (AUTO) 3.3 X 10^3 (1.0-4.0); MONOCYTES # (AUTO) 0.8 X 10^3 (0.0-1.0); NEUTROPHILS # (AUTO) 8.6 X 10^3 (1.8-7.8)
--- NOTE | 2018-09-19 05:05 | ED Respiratory ---
General Chief Complaint: Respiratory Problems Stated Complaint: SOB Source: patient Exam Limitations: no limitations History of Present Illness Date Seen by Provider: Sep 19, 2018 Time Seen by Provider: 04:45 Initial Comments 48-year-old female presents with shortness of breath. Patient has a history of COPD and is currently on 2 L of home oxygen. Agent reports that she is very "dry" in her throat area feels like she is having a hard time breathing. She used her to inhalers with minimal relief. Patient has frequent COPD exacerbations. He denies any chest pain, fever, chills, nausea or vomiting. Patient does not have any increased oxygen use. Allergies and Home Medications Allergies Coded Allergies: doxycycline (Verified Allergy, Intermediate, rash, 06/06/18) Home Medications Albuterol Sulfate 6.7 Gm Hfa.aer.ad, 6.7 GM INH 5XD Prescribed by: SAMIA BILLINGSLEY on 09/04/18 214 Albuterol/Ipratropium 4 Gm Aero, 1 PUFF IH QID PRN for SHORTNESS OF BREATH, (Reported) Azithromycin 250 Mg Tablet, 250 MG PO DAILY Prescribed by: JOANN JOYCE on 07/20/18 1254 Azithromycin 250 Mg Tablet, 250 MG PO UD TAKE 2 TABLETS ON DAY ONE THEN TAKE 1 TABLET DAILY FOR FOUR MORE DAYS Prescribed by: RADHA COLON on 09/19/18 0547 Cefdinir 300 Mg Capsule, 300 MG PO BID Prescribed by: JOANN JOYCE on 07/20/18 1254 Cetirizine HCl 10 Mg Tablet, 10 MG PO DAILY, (Reported) Fluticasone Propionate 16 Gm [place].susp, 1 SPRAY NS DAILY, (Reported) Guaifenesin/Dextromethorphan 1 Each Tab.er.12h, 1 TAB PO BID, (Reported) Ibuprofen 800 Mg Tablet, 800 MG PO DAILY, (Reported) Ibuprofen 800 Mg Tablet, 800 MG PO BID PRN for PAIN-MILD, (Reported) Ipratropium/Albuterol Sulfate 3 Ml Ampul.neb, 3 ML NEB Q6H PRN for SHORTNESS OF BREATH, (Reported) Metoprolol Tartrate 25 Mg Tablet, 25 MG PO DAILY, (Reported) Mometasone/Formoterol 13 Gm Hfa.aer.ad, 2 PUFF IH BID, (Reported) Prednisone 10 Mg Tab.ds.pk, 10 MG PO DAILY Take 6 tabs(60mg)daily,decrease by 1 tab(10mg)every other day. Prescribed by: JOANN JOYCE on 07/20/18 1254 Prednisone 20 Mg Tab, 60 MG PO DAILY Prescribed by: SAMIA BILLINGSLEY on 09/04/18 9191 Ranitidine HCl 150 Mg Tablet, 150 MG PO DAILY, (Reported) Rifaximin 200 Mg Tablet, 600 MG PO TID, (Reported) HAS NOT STARTED THIS- 14 DAY SUPPLY FILLED 06-26-18 TAKES 3 (200MG) TABLETS Patient Home Medication List Home Medication List Reviewed: Yes Review of Systems Review of Systems Constitutional: no symptoms reported; No chills, No fever Respiratory: cough, short of breath Cardiovascular: no symptoms reported Gastrointestinal: no symptoms reported Musculoskeletal: no symptoms reported Past Woywqeq-Rzmscg-Uwxcqf Hx Past Med/Social Hx: Reviewed Nursing Past Med/Soc Hx Patient Social History Type Used: Cigarettes 2nd Hand Smoke Exposure: Yes Recent Foreign Travel: No Contact w/Someone Who Travel: No Recent Hopitalizations: No Immunizations Up To Date Date of Pneumonia Vaccine: Nov 26, 2017 Seasonal Allergies Seasonal Allergies: No Past Medical History Surgeries: Yes Gallbladder Respiratory: Yes (uses oxygen @ 2 liters PRN and NOC, neb tx) COPD Palpitations Neurological: No Sexually Transmitted Disease: No HIV/AIDS: No Genitourinary: No Gastrointestinal: Yes Gastroesophageal Reflux Musculoskeletal: Yes Arthritis Endocrine: No HEENT: No Cancer: No Psychosocial: No Integumentary: No Blood Disorders: No Family Medical History Patient reports no known family medical history. Physical Exam Vital Signs - First Documented 09/19/18 04:42 Temp 98.9 Pulse 108 Resp 26 B/P (MAP) 152/82 (105) Pulse Ox 93 O2 Delivery Nasal Cannula O2 Flow Rate 2.00 Capillary Refill : Height: 5'1.00" Weight: 175lbs. 0oz. [id number]; 33.5 BMI Method:Stated General Appearance: WD/WN HEENT: normal ENT inspection, other (Patient is mildly hoarse) Respiratory: no respiratory distress, no accessory muscle use; No accessory muscle use; wheezing (Mild bibasilar) Cardiovascular: normal peripheral pulses, tachycardia (Tachycardic) Gastrointestinal: non tender, soft Extremities: normal range of motion Neurologic/Psychiatric: alert, normal mood/affect, oriented x 3 Skin: normal color, warm/dry Progress/Results/Core Measures Suspected Sepsis SIRS Temperature: Pulse: Respiratory Rate: Laboratory Tests 09/19/18 04:54: White Blood Count 13.9H Blood Pressure / Mean: Laboratory Tests 09/19/18 04:54: Creatinine 0.74, Platelet Count 259, Total Bilirubin 0.2 Results/Orders Lab Results Laboratory Tests Test 09/19/18 04:54 Range/Units White Blood Count 13.9 H 4.3-11.0 10^3/uL Red Blood Count 4.62 4.35-5.85 10^6/uL Hemoglobin 14.1 11.5-16.0 G/DL Hematocrit 42 35-52 % Mean Corpuscular Volume 91 80-99 FL Mean Corpuscular Hemoglobin 31 25-34 PG Mean Corpuscular Hemoglobin Concent 33 32-36 G/DL Red Cell Distribution Width 14.1 10.0-14.5 % Platelet Count 259 130-400 10^3/uL Mean Platelet Volume 10.6 H 7.4-10.4 FL Neutrophils (%) (Auto) 62 42-75 % Lymphocytes (%) (Auto) 24 12-44 % Monocytes (%) (Auto) 6 0-12 % Eosinophils (%) (Auto) 7 0-10 % Basophils (%) (Auto) 1 0-10 % Neutrophils # (Auto) 8.6 H 1.8-7.8 X 10^3 Lymphocytes # (Auto) 3.3 1.0-4.0 X 10^3 Monocytes # (Auto) 0.8 0.0-1.0 X 10^3 Eosinophils # (Auto) 1.0 H 0.0-0.3 10^3/uL Basophils # (Auto) 0.1 0.0-0.1 10^3/uL Sodium Level 142 135-145 MMOL/L Potassium Level 3.6 3.6-5.0 MMOL/L Chloride Level 103 98-107 MMOL/L Carbon Dioxide Level 26 21-32 MMOL/L Anion Gap 13 5-14 MMOL/L Blood Urea Nitrogen 14 7-18 MG/DL Creatinine 0.74 0.60-1.30 MG/DL Estimat Glomerular Filtration Rate > 60 BUN/Creatinine Ratio 19 Glucose Level 142 H 70-105 MG/DL Calcium Level 9.4 8.5-10.1 MG/DL Corrected Calcium 9.2 8.5-10.1 MG/DL Total Bilirubin 0.2 0.1-1.0 MG/DL Aspartate Amino Transf (AST/SGOT) 25 5-34 U/L Alanine Aminotransferase (ALT/SGPT) 27 0-55 U/L Alkaline Phosphatase 66 40-136 U/L Total Protein 7.1 6.4-8.2 GM/DL Albumin 4.2 3.2-4.5 GM/DL My Orders Orders - COLON,RADHA L DO Cbc With Automated Diff (09/19/18 04:52) Comprehensive Metabolic Panel (09/19/18 04:52) Chest Pa/Lat (2 View) (09/19/18 04:52) Ekg Tracing (09/19/18 04:52) O2 (09/19/18 04:52) Ed Iv/Invasive Line Start (09/19/18 04:52) Monitor-Rhythm Ecg Trace Only (09/19/18 04:52) Rt Epinephrine (Racemic Epinephrine 2.25 (09/19/18 05:00) Svn Small Volume Nebulizer (09/19/18 04:52) Ed Iv/Invasive Line Start (09/19/18 04:52) Ns Iv 500 Ml (Sodium Chloride 0.9%) (09/19/18 04:52) Methylprednisolone Sod Succ (Solu-Medrol (09/19/18 05:00) Rt Epinephrine (Racemic Epinephrine 2.25 (09/19/18 04:53) Medications Given in ED Current Medications Medications Dose Ordered Sig/Ken Route Start Time Stop Time Status Last Admin Dose Admin Epinephrine 0.5 ml ONCE ONCE INH 09/19/18 05:00 09/19/18 05:01 DC 09/19/18 05:01 0.5 ML Methylprednisolone Sodium Succinate 125 mg ONCE ONCE IVP 09/19/18 05:00 09/19/18 05:01 DC 09/19/18 05:02 125 MG Sodium Chloride 500 ml @ 0 mls/hr Q0M ONCE IV 09/19/18 04:52 09/19/18 04:57 DC 09/19/18 05:01 999 MLS/HR Vital Signs/I&O 09/19/18 09/19/18 09/19/18 04:42 04:42 05:01 Temp 98.9 Pulse 108 Resp 26 B/P (MAP) 152/82 (105) Pulse Ox 93 94 95 O2 Delivery Nasal Cannula Nasal Cannula Nasal Cannula O2 Flow Rate 2.00 2.00 Capillary Refill : Progress Note : Progress Note Patient felt much better following treatment. She does have a slight white count of 13.9. With her history of COPD I will treat her with azithromycin and she'll be discharged home. She should follow-up with her primary care physician in 2-3 days for recheck of symptoms ECG Initial ECG Impression Date: Sep 19, 2018 Initial ECG Impression Time: 05:05 Initial ECG Rate: 91 Initial ECG Rhythm: Normal Sinus Initial ECG Impression: Normal Comment nsr Diagnostic Imaging Diagonstic Imaging: Xray Plain Films/CT/US/NM/MRI: chest Comments No acute findings Reviewed: Reviewed by Me Departure Impression Primary Impression: COPD (chronic obstructive pulmonary disease) with acute bronchitis Disposition: HOME, SELF-CARE Condition: Stable Departure-Patient Inst. Referrals: RAFI CHILDERS MD (PCP/Family) Primary Care Physician Patient Instructions: Exacerbation of COPD (DC), Chronic Obstructive Pulmonary Disease (COPD), Including Emphysema Scripts Azithromycin (Azithromycin) 250 Mg Tablet 250 MG PO UD, #6 TAB TAKE 2 TABLETS ON DAY ONE THEN TAKE 1 TABLET DAILY FOR FOUR MORE DAYS Prov: RADHA COLON DO 09/19/18 RADHA COLON DO Sep 19, 2018 05:05
[2018-09-19 05:25] LABS: CARBON DIOXIDE 26 MMOL/L (21-32); CHLORIDE 103 MMOL/L (98-107); POTASSIUM 3.6 MMOL/L (3.6-5.0); SODIUM 142 MMOL/L (135-145)
[2018-09-19 05:26] LABS: ALANINE AMINOTRANSFERASE 27 U/L (0-55); ALKALINE PHOSPHATASE 66 U/L (40-136); BILIRUBIN,TOTAL 0.2 MG/DL (0.1-1.0); BUN/CREATININE RATIO 19; CALCIUM 9.4 MG/DL (8.5-10.1); CREATININE SERUM 0.74 MG/DL (0.60-1.30); GFR ESTIMATED > 60; GLUCOSE 142 MG/DL (70-105); TOTAL PROTEIN 7.1 GM/DL (6.4-8.2)
[2018-09-19 05:27] LABS: ALBUMIN 4.2 GM/DL (3.2-4.5)
[2018-09-19] MEDS ORDERED: AZIT250T12 PO (05:47)
[2018-09-19 05:50] VITALS: BP 144/70
--- NOTE | 2018-09-19 05:52 | Diagnostic Imaging Report ---
INDICATION: Dyspnea. PA and lateral views of the chest are obtained with comparison made study of 09/04/2018. FINDINGS: Heart size and pulmonary vascularity are within normal limits, and the lungs are clear, bilaterally. IMPRESSION: Unremarkable chest. Dictated by: Dictated on workstation # [id number]
== END 2018-09-19 05:50 | disposition home or self-care (01) ==
LOC: EDUNIT# 04:40 → ER FS 04:41
DX: J44.0 Chronic obstructive pulmonary disease with (acute) lower respiratory infection (principal); J20.9 Acute bronchitis, unspecified; K21.9 Gastro-esophageal reflux disease without esophagitis; F17.210 Nicotine dependence, cigarettes, uncomplicated; Z88.1 Allergy status to other antibiotic agents; Z99.81 Dependence on supplemental oxygen; Z79.51 Long term (current) use of inhaled steroids; Z79.52 Long term (current) use of systemic steroids
CPT/HCPCS: 36415; 71046; 80053; 85025; 93005; 93041; 94640

== ENCOUNTER 2018-10-13 16:31 | Emergency (ER) | payer MEDICARE ==
[~2018-10-13] VITALS: Ht 154.9 cm; Wt 79.4 kg
[2018-10-13] VITALS (8 sets, daily range): BP systolic 140–166; BP diastolic 67–88
[2018-10-13] MEDS ORDERED: RT-ALBUTEROL/IPRATROPIUM 3 ML (DUONEB) VIAL ONE (16:41)
[2018-10-13] MEDS ORDERED: NS IV 500 ML 500 ML IV ONE (16:48)
[2018-10-13] MEDS ORDERED: NS IV 1000 ML 1,000 ML IV SCH (16:48)
--- NOTE | 2018-10-13 16:55 | ED Respiratory ---
General Stated Complaint: SOB Source: patient Exam Limitations: no limitations History of Present Illness Date Seen by Provider: Oct 13, 2018 Time Seen by Provider: 16:46 Initial Comments The patient presents to ER by private conveyance with chief complaint of shortness of breath and cough productive of large amounts of phlegm. This is progressively getting worse over the past week. She went to urgent care last week and was put on azithromycin but this has not helped. She says she's had pneumonia in the past in June 2018 couple months ago. She says at that time it was not seen on chest x-ray but was revealed on the CT. She has a history of COPD and is oxygen-dependent at 2 L to sleep. She does not use CPAP or BiPAP. She does smoke cigarettes however most recently she has not smoke any today because of her shortness of breath. She denies a history of coronary disease, chest pain, nausea, fever but she does say she's felt some chills which she thought were maybe menopausal. She's been relying on her oxygen throughout the day and also using 3 or 4 doses of DuoNeb by nebulizer as well as Combivent and several hits off her albuterol inhaler. She also uses Dulera inhaler. 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 Allergies and Home Medications Allergies Coded Allergies: doxycycline (Verified Allergy, Intermediate, rash, 06/06/18) Home Medications Albuterol Sulfate 6.7 Gm Hfa.aer.ad, 6.7 GM INH 5XD Prescribed by: SAMIA BILLINGSLEY on 09/04/18 214 Albuterol/Ipratropium 4 Gm Aero, 1 PUFF IH QID PRN for SHORTNESS OF BREATH, (Reported) Azithromycin 250 Mg Tablet, 250 MG PO DAILY Prescribed by: JOANN JOYCE on 07/20/18 1254 Azithromycin 250 Mg Tablet, 250 MG PO UD TAKE 2 TABLETS ON DAY ONE THEN TAKE 1 TABLET DAILY FOR FOUR MORE DAYS Prescribed by: RADHA COLON on 09/19/18 0547 Cefdinir 300 Mg Capsule, 300 MG PO BID Prescribed by: JOANN JOYCE on 07/20/18 1254 Cetirizine HCl 10 Mg Tablet, 10 MG PO DAILY, (Reported) Fluticasone Propionate 16 Gm [place].susp, 1 SPRAY NS DAILY, (Reported) Guaifenesin/Dextromethorphan 1 Each Tab.er.12h, 1 TAB PO BID, (Reported) Ibuprofen 800 Mg Tablet, 800 MG PO DAILY, (Reported) Ibuprofen 800 Mg Tablet, 800 MG PO BID PRN for PAIN-MILD, (Reported) Ipratropium/Albuterol Sulfate 3 Ml Ampul.neb, 3 ML NEB Q6H PRN for SHORTNESS OF BREATH, (Reported) Ipratropium/Albuterol Sulfate 3 Ml Ampul.neb, 3 ML IH Q6H Prescribed by: TIMOTHY TERAN on 10/13/18 1803 Metoprolol Tartrate 25 Mg Tablet, 25 MG PO DAILY, (Reported) Mometasone/Formoterol 13 Gm Hfa.aer.ad, 2 PUFF IH BID, (Reported) Prednisone 10 Mg Tab.ds.pk, 10 MG PO DAILY Take 6 tabs(60mg)daily,decrease by 1 tab(10mg)every other day. Prescribed by: JOANN JOYCE on 07/20/18 1254 Prednisone 20 Mg Tab, 60 MG PO DAILY Prescribed by: SAMIA BILLINGSLEY on 09/04/18 2141 Prednisone 20 Mg Tab, 20 MG PO BID 3 tab BID x3 day 2 tab BID x3 day 1 tab BID x3 day Prescribed by: TIMOTHY TERAN on 10/13/18 180 Ranitidine HCl 150 Mg Tablet, 150 MG PO DAILY, (Reported) Rifaximin 200 Mg Tablet, 600 MG PO TID, (Reported) HAS NOT STARTED THIS- 14 DAY SUPPLY FILLED 06-26-18 TAKES 3 (200MG) TABLETS Patient Home Medication List Home Medication List Reviewed: Yes Review of Systems Review of Systems Constitutional: No chills, No diaphoresis EENTM: No ear discharge Respiratory: cough, phlegm, short of breath, wheezing Cardiovascular: see HPI; No chest pain, No Hx of Intervention, No palpitations Gastrointestinal: No abdominal pain, No constipation, No diarrhea Genitourinary: No discharge, No dysuria Musculoskeletal: No back pain, No joint pain Past Nhgzepu-Zfcgmv-Tvrpfo Hx Patient Social History Alcohol Use: Denies Use Recreational Drug Use: No Smoking Status: Current Everyday Smoker Type Used: Cigarettes 2nd Hand Smoke Exposure: Yes Recent Hopitalizations: No Immunizations Up To Date Date of Pneumonia Vaccine: Nov 26, 2017 Seasonal Allergies Seasonal Allergies: No Past Medical History Surgeries: Yes Gallbladder Respiratory: Yes (uses oxygen @ 2 liters PRN and NOC, neb tx) COPD Palpitations Neurological: No Sexually Transmitted Disease: No HIV/AIDS: No Genitourinary: No Gastrointestinal: Yes Gastroesophageal Reflux Musculoskeletal: Yes Arthritis Endocrine: No HEENT: No Cancer: No Psychosocial: No Integumentary: No Blood Disorders: No Family Medical History Patient reports no known family medical history. Physical Exam Capillary Refill : Height: 5'1.00" Weight: 175lbs. 0oz. [id number]; 33.5 BMI Method:Stated General Appearance: WD/WN, moderate distress Eyes: Bilateral Eye Normal Inspection, Bilateral Eye PERRL, Bilateral Eye EOMI HEENT: PERRL/EOMI, normal ENT inspection, TMs normal, pharynx normal Neck: non-tender, full range of motion, supple, normal inspection Respiratory: chest non-tender, respiratory distress (mild to moderate), decreased breath sounds, accessory muscle use (mild), wheezing, expiration Cardiovascular: normal peripheral pulses, regular rate, rhythm Gastrointestinal: normal bowel sounds, non tender, soft Neurologic/Psychiatric: alert, normal mood/affect, oriented x 3 Skin: normal color, warm/dry Focused Exam Lactate Level 10/13/18 16:50: Lactic Acid Level 1.32 Lactic Acid Level Laboratory Tests Test 10/13/18 16:50 Lactic Acid Level 1.32 MMOL/L (0.50-2.00) Progress/Results/Core Measures Suspected Sepsis SIRS Temperature: Pulse: Respiratory Rate: Laboratory Tests 10/13/18 16:50: White Blood Count 11.8H Blood Pressure / Mean: 10/13/18 16:50: Lactic Acid Level 1.32 Laboratory Tests 10/13/18 16:50: Creatinine 0.82, Platelet Count 275, Total Bilirubin < 0.2 Results/Orders Lab Results Laboratory Tests Test 10/13/18 16:40 10/13/18 16:50 Range/Units Urine Color YELLOW Urine Clarity CLEAR Urine pH 7.0 5-9 Urine Specific [place] <=1.005 1.016-1.022 Urine Protein NEGATIVE NEGATIVE Urine Glucose (UA) NEGATIVE NEGATIVE Urine Ketones NEGATIVE NEGATIVE Urine Nitrite NEGATIVE NEGATIVE Urine Bilirubin NEGATIVE NEGATIVE Urine Urobilinogen 0.2 NORMAL MG/DL Urine Leukocyte Esterase NEGATIVE NEGATIVE Urine RBC (Auto) TRACE H NEGATIVE Urine RBC 2-5 H /HPF Urine WBC 2-5 /HPF Urine Squamous Epithelial Cells 5-10 /HPF Urine Crystals NONE /LPF Urine Bacteria TRACE /HPF Urine Casts NONE /LPF Urine Mucus NEGATIVE /LPF Urine Culture Indicated CULTURE PENDING White Blood Count 11.8 H 4.3-11.0 10^3/uL Red Blood Count 4.59 4.35-5.85 10^6/uL Hemoglobin 14.0 11.5-16.0 G/DL Hematocrit 42 35-52 % Mean Corpuscular Volume 91 80-99 FL Mean Corpuscular Hemoglobin 31 25-34 PG Mean Corpuscular Hemoglobin Concent 34 32-36 G/DL Red Cell Distribution Width 13.4 10.0-14.5 % Platelet Count 275 130-400 10^3/uL Mean Platelet Volume 10.9 H 7.4-10.4 FL Neutrophils (%) (Auto) 50 42-75 % Lymphocytes (%) (Auto) 32 12-44 % Monocytes (%) (Auto) 7 0-12 % Eosinophils (%) (Auto) 10 0-10 % Basophils (%) (Auto) 1 0-10 % Neutrophils # (Auto) 5.8 1.8-7.8 X 10^3 Lymphocytes # (Auto) 3.7 1.0-4.0 X 10^3 Monocytes # (Auto) 0.8 0.0-1.0 X 10^3 Eosinophils # (Auto) 1.2 H 0.0-0.3 10^3/uL Basophils # (Auto) 0.1 0.0-0.1 10^3/uL Sodium Level 143 135-145 MMOL/L Potassium Level 3.7 3.6-5.0 MMOL/L Chloride Level 103 98-107 MMOL/L Carbon Dioxide Level 25 21-32 MMOL/L Anion Gap 15 H 5-14 MMOL/L Blood Urea Nitrogen 11 7-18 MG/DL Creatinine 0.82 0.60-1.30 MG/DL Estimat Glomerular Filtration Rate > 60 BUN/Creatinine Ratio 13 Glucose Level 115 H 70-105 MG/DL Lactic Acid Level 1.32 0.50-2.00 MMOL/L Calcium Level 9.1 8.5-10.1 MG/DL Corrected Calcium 8.9 8.5-10.1 MG/DL Total Bilirubin < 0.2 0.1-1.0 MG/DL Aspartate Amino Transf (AST/SGOT) 24 5-34 U/L Alanine Aminotransferase (ALT/SGPT) 30 0-55 U/L Alkaline Phosphatase 71 40-136 U/L Troponin I < 0.30 <0.30 NG/ML Total Protein 6.7 6.4-8.2 GM/DL Albumin 4.2 3.2-4.5 GM/DL My Orders Orders - TIMOTHY TERAN Albuterol/Ipra Inhalation Soln (Duoneb I (10/13/18 16:41) Cbc With Automated Diff (10/13/18 16:48) Comprehensive Metabolic Panel (10/13/18 16:48) Blood Culture (10/13/18 16:48) Sputum Culture (10/13/18 16:48) Urinalysis (10/13/18 16:48) Urine Culture (10/13/18 16:48) Protime With Inr (10/13/18 16:48) Partial Thromboplastin Time (10/13/18 16:48) Chest 1 View Ap/Pa Only (10/13/18 16:48) Ed Iv/Invasive Line Start (10/13/18 16:48) Ed Iv/Invasive Line Start (10/13/18 16:48) Ekg Tracing (10/13/18 16:48) Troponin I (10/13/18 16:48) Vital Signs Adult Sepsis Patie Q15M (10/13/18 16:48) O2 (10/13/18 16:48) Remove Rings In Anticipation O (10/13/18 16:48) Lactic Acid Analyzer (10/13/18 16:48) Ns Iv 1000 Ml (Sodium Chloride 0.9%) (10/13/18 16:48) Ceftriaxone For Iv Use (Rocephin For I (10/13/18 17:00) Azithromycin Injection (Zithromax Inject (10/13/18 17:00) Ed Iv/Invasive Line Start (10/13/18 16:48) Ns Iv 500 Ml (Sodium Chloride 0.9%) (10/13/18 16:48) Albuterol/Ipra Inhalation Soln (Duoneb I (10/13/18 17:00) Arterial Blood Gas (10/13/18 16:48) Svn Small Volume Nebulizer (10/13/18 16:48) Albuterol Pre-Mix Nebs (Rt) (Proventil (10/13/18 16:58) Ipratropium 0.02% Neb Solution (Atrovent (10/13/18 17:00) Sodium Chl Inhalation (Rt-Sodium Chl Inh (10/13/18 17:00) Methylprednisolone Sod Succ (Solu-Medrol (10/13/18 18:00) Medications Given in ED Current Medications Medications Dose Ordered Sig/Ken Route Start Time Stop Time Status Last Admin Dose Admin Albuterol/ Ipratropium 3 ml ONCE ONCE INH 10/13/18 17:00 10/13/18 17:01 DC 10/13/18 16:49 3 ML Azithromycin 500 mg/Sodium Chloride 250 ml @ 250 mls/hr ONCE ONCE IV 10/13/18 17:00 10/13/18 17:59 DC 10/13/18 18:10 250 MLS/HR Ceftriaxone Sodium 1000 mg/ Sterile Water 10 ml @ 200 mls/hr ONCE ONCE IV 10/13/18 17:00 10/13/18 17:02 DC 10/13/18 18:09 200 MLS/HR Ipratropium [place] 0.5 mg ONCE ONCE IH 10/13/18 17:00 10/13/18 17:01 DC 10/13/18 17:26 0.5 MG Methylprednisolone Sodium Succinate 125 mg ONCE ONCE IVP 10/13/18 18:00 10/13/18 18:01 DC 10/13/18 18:09 125 MG Sodium Chloride 3 ml ONCE ONCE IH 10/13/18 17:00 10/13/18 17:01 DC 10/13/18 17:26 3 ML Sodium Chloride 500 ml @ 0 mls/hr Q0M ONCE IV 10/13/18 16:48 10/13/18 16:53 DC 10/13/18 17:26 0 MLS/HR Vital Signs/I&O Capillary Refill : Progress Note #1: Time: 16:59 Progress Note After a DuoNeb nebulizer was given her breathing sounds improved and she says she felt a little better. Her marked wheezing had gone down to minimal wheezing on expiration but still very diminished and she still has some external work of breathing, purse lip breathing and mild tripoding. We will try a modified hour- long and if that does not improve her work of breathing and we'll put her on CPAP. She is now able to talk in full sentences at this time. Progress Note #2: Time: 17:56 Progress Note The patient is prison through her hour-long and she feels much better. She's no longer tripoding, purse lip breathing and talking in full sentences now. She says she feels better and is not keen on staying in the hospital unless she absolutely has to. The first ABG was a venous draw.patient's x-ray, labs and vital signs are okay so she probably does not have a pneumonia and does not seem to be in severe distress from her COPD to need to stay in the hospital so we'll forego the ABG but her finish her breathing treatment and if she still wants to go home we'll set her up with a prolonged 9 day course of steroid taper. 125 mg Solu-Medrol times one now. Close follow up outpatient with Dr. Childers. The patient says the pressure she was feeling in her chest began to relieve after starting the breathing treatments by nebulizer. Progress Note #3: Time: 18:30 Progress Note The patient's breathing treatment was done and she still has 45 minutes to go on her azithromycin but she has elected not to stick around for that and since this does not appear to be a pneumonia and we did not intend continue antibiotics that would be fine. She was offered the option for observation stay in the hospital but she's no longer showing any external signs of increased work of breathing, tripoding, purse lip breathing, retractions, accessory muscle use etc. Follow-up with Dr. Childers outpatient. ECG Initial ECG Impression Date: Oct 13, 2018 Initial ECG Impression Time: 16:44 Initial ECG Rate: 94 Initial ECG Rhythm: Normal Sinus Initial ECG Intervals: Normal Initial ECG Impression: Normal, Nonspecific Changes Comment No ST elevation or depression. Diagnostic Imaging Diagonstic Imaging: Xray Plain Films/CT/US/NM/MRI: chest (1v) Reviewed: Reviewed by Me Departure Impression Primary Impression: COPD with exacerbation Additional Impression: Tobacco dependency Disposition: 01 HOME, SELF-CARE Condition: Improved Departure-Patient Inst. Decision time for Depature: 18:30 Referrals: RAFI CHILDERS MD (PCP/Family) Primary Care Physician Patient Instructions: Quitting Smoking, Exacerbation of COPD (DC) Add. Discharge Instructions: Start taking your breathing treatment DuoNeb 4 times a day, scheduled for the next week. Make sure you're taking your other breathing treatments as prescribed. You may use another DuoNeb breathing treatment every 4 hours as needed for wheezing, coughing or shortness of breath. 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 2 tablets twice a day for 3 days. 1 tablet twice a day for 3 days. Discontinue smoking. Plan to follow up with your primary care doctor within the next week for reevaluation. Return to the ER if you're having difficulty breathing or have other concerns. Scripts Ipratropium/Albuterol Sulfate (Iprat-Albut 0.5-3(2.5) mg/3 ml) 3 Ml Ampul.neb 3 ML IH Q6H for 7 Days, #30 EACH 0 Refills Prov: TIMOTHY TERAN 10/13/18 Prednisone (Prednisone) 20 Mg Tab 20 MG PO BID, #36 TAB 0 Refills 3 tab BID x3 day 2 tab BID x3 day 1 tab BID x3 day Prov: TIMOTHY TERAN 10/13/18 Copy Copies To 1: RAFI CHILDERS MD, TITUS J Oct 13, 2018 16:55
[2018-10-13] MEDS ORDERED: RT-ALBUTEROL SULF 2.5 MG/3 ML PRE-MIX VIAL INH STA (16:58)
[2018-10-13] MEDS ORDERED: RT-ALBUTEROL/IPRATROPIUM 3 ML (DUONEB) VIAL INH ONE (17:00)
[2018-10-13] MEDS ORDERED: RT-SODIUM CHL INHALATION 3 ML VIAL IH ONE (17:00)
[2018-10-13] MEDS ORDERED: cefTRIAXone FOR IV USE 1,000 MG in WATER (STERILE) FOR INJECTION 10 ML IV ONE (17:00)
[2018-10-13] MEDS ORDERED: RT-IPRATROPIUM (ATROVENT) 0.5MG/2.5ML AMP IH ONE (17:00)
[2018-10-13] MEDS ORDERED: AZITHROMYCIN INJECTION 500 MG in NS (IVPB) 250 ML IV ONE (17:00)
--- NOTE | 2018-10-13 17:12 | Diagnostic Imaging Report ---
INDICATION: Shortness of breath COMPARISON: 09/19/2018 FINDINGS: A single view of the chest demonstrates stable granulomas in both lungs. The heart is normal. There is no pneumothorax. No focal infiltrate. Osseous structures are age-appropriate. IMPRESSION: No acute cardiopulmonary findings. Dictated by: Dictated on workstation # [id number]
[2018-10-13 17:31] LABS: CLARITY,URINE CLEAR; COLOR,URINE YELLOW
[2018-10-13 17:32] LABS: BACTERIA,URINE TRACE /HPF; BILIRUBIN,URINE NEGATIVE (NEGATIVE); GLUCOSE, URINE (UA) NEGATIVE (NEGATIVE); KETONES,URINE NEGATIVE (NEGATIVE); LEUKOCYTE ESTERASE ,URINE NEGATIVE (NEGATIVE); NITRITE,URINE NEGATIVE (NEGATIVE); PROTEIN,URINE NEGATIVE (NEGATIVE); UROBILINOGEN,URINE 0.2 MG/DL (NORMAL)
[2018-10-13 17:34] LABS: ALANINE AMINOTRANSFERASE 30 U/L (0-55); ALKALINE PHOSPHATASE 71 U/L (40-136); BUN/CREATININE RATIO 13; CALCIUM 9.1 MG/DL (8.5-10.1); CARBON DIOXIDE 25 MMOL/L (21-32); CHLORIDE 103 MMOL/L (98-107); CREATININE SERUM 0.82 MG/DL (0.60-1.30); GFR ESTIMATED > 60; GLUCOSE 115 MG/DL (70-105); POTASSIUM 3.7 MMOL/L (3.6-5.0); SODIUM 143 MMOL/L (135-145)
[2018-10-13 17:35] LABS: ALBUMIN 4.2 GM/DL (3.2-4.5); BILIRUBIN,TOTAL < 0.2 MG/DL (0.1-1.0); TOTAL PROTEIN 6.7 GM/DL (6.4-8.2)
[2018-10-13 17:38] LABS: HEMATOCRIT 42 % (35-52); MEAN CORPUSCULAR HEMOGLOBIN 31 PG (25-34); MEAN CORPUSCULAR HGB CONC 34 G/DL (32-36); MEAN CORPUSCULAR VOLUME 91 FL (80-99); MEAN PLATELET VOLUME 10.9 FL (7.4-10.4); PLATELET COUNT 275 10^3/uL (130-400); RED CELL DISTRIBUTION WIDTH 13.4 % (10.0-14.5); WHITE BLOOD COUNT 11.8 10^3/uL (4.3-11.0)
[2018-10-13 17:39] LABS: BASOPHILS # (AUTO) 0.1 10^3/uL (0.0-0.1); BASOPHILS % (AUTO) 1 % (0-10); EOSINOPHILS # (AUTO) 1.2 10^3/uL (0.0-0.3); EOSINOPHILS % (AUTO) 10 % (0-10); LYMPHOCYTES # (AUTO) 3.7 X 10^3 (1.0-4.0); LYMPHOCYTES % (AUTO) 32 % (12-44); MONOCYTES # (AUTO) 0.8 X 10^3 (0.0-1.0); MONOCYTES % (AUTO) 7 % (0-12); NEUTROPHILS # (AUTO) 5.8 X 10^3 (1.8-7.8); NEUTROPHILS % (AUTO) 50 % (42-75)
[2018-10-13] MEDS ORDERED: methylPREDNISolone 125 MG (Solu-MEDROL) VIAL IVP ONE (18:00)
[2018-10-13] MEDS ORDERED: IPRA3AMP31 IH (18:03)
[2018-10-13] MEDS ORDERED: PRD20T PO (18:03)
[2018-10-13 19:11] LABS: INR 0.9 (0.8-1.4); PROTHROMBIN TIME PATIENT 12.6 SEC (12.2-14.7)
== END 2018-10-13 18:43 | disposition home or self-care (01) ==
LOC: EDUNIT# 16:31 → ER FS 16:32
DX: J44.1 Chronic obstructive pulmonary disease with (acute) exacerbation (principal); F17.210 Nicotine dependence, cigarettes, uncomplicated; K21.9 Gastro-esophageal reflux disease without esophagitis; Z88.1 Allergy status to other antibiotic agents; Z99.81 Dependence on supplemental oxygen; Z79.51 Long term (current) use of inhaled steroids; Z79.52 Long term (current) use of systemic steroids
CPT/HCPCS: 36415; 71045; 80053; 81000; 83605; 84484; 85025; 85610; 85730; 87040; 87070; 87088; 87205; 93005; 94640; 99291

== ENCOUNTER 2018-11-24 20:05 | Emergency (ER) | payer MEDICARE ==
[~2018-11-24] VITALS: Ht 165 cm; Wt 85.0 kg
[~2018-11-24 20:05] MED LIST changes: +IPRA3AMP31 IH
[2018-11-24] MEDS ORDERED: RT-ALBUTEROL/IPRATROPIUM 3 ML (DUONEB) VIAL INH ONE (20:45)
[2018-11-24] MEDS ORDERED: predniSONE 20 MG TAB PO ONE (20:45)
[2018-11-24] MEDS ORDERED: methylPREDNISolone 125 MG (Solu-MEDROL) VIAL IM ONE (20:45)
[2018-11-24] MEDS ORDERED: DOXYCYCLINE 100 MG (VIBRAMYCIN) TABLET PO SCH (20:45)
[2018-11-24] MEDS ORDERED: PRD50T PO (20:52)
[2018-11-24] MEDS ORDERED: DOXY100T2 PO (20:52)
--- NOTE | 2018-11-24 20:52 | ED Respiratory ---
General Chief Complaint: Respiratory Problems Stated Complaint: TROUBLE BREATHING History of Present Illness Date Seen by Provider: Nov 24, 2018 Time Seen by Provider: 19:50 Initial Comments The patient is a 48-year-old female with a history of COPD who presents with concern for shortness of breath and cough and wheezing consistent with her typical COPD exacerbation. She states she came in early because she wanted to make sure she got better. She is being comfortably in full sentences and oxygenation and other vital signs are appropriate. Patient denies fevers, nausea or vomiting, chest pain of any kind, flank pain, back pain, abdominal pain. She states she is here for steroids and does not need anything else from us. She already has inhalers at home. She declines any additional testing at this time. Contrary to records, patient denies doxycycline allergy. Allergies and Home Medications Allergies Coded Allergies: doxycycline (Verified Allergy, Intermediate, rash, 06/06/18) Home Medications Albuterol Sulfate 6.7 Gm Hfa.aer.ad, 6.7 GM INH 5XD Prescribed by: SAMIA BILLINGSLEY on 09/04/18 214 Albuterol/Ipratropium 4 Gm Aero, 1 PUFF IH QID PRN for SHORTNESS OF BREATH, (Reported) Azithromycin 250 Mg Tablet, 250 MG PO DAILY Prescribed by: JOANN JOYCE on 07/20/18 1254 Azithromycin 250 Mg Tablet, 250 MG PO UD TAKE 2 TABLETS ON DAY ONE THEN TAKE 1 TABLET DAILY FOR FOUR MORE DAYS Prescribed by: RADHA COLON on 09/19/18 0547 Cefdinir 300 Mg Capsule, 300 MG PO BID Prescribed by: JOANN JOYCE on 07/20/18 1254 Cetirizine HCl 10 Mg Tablet, 10 MG PO DAILY, (Reported) Fluticasone Propionate 16 Gm [place].susp, 1 SPRAY NS DAILY, (Reported) Guaifenesin/Dextromethorphan 1 Each Tab.er.12h, 1 TAB PO BID, (Reported) Ibuprofen 800 Mg Tablet, 800 MG PO DAILY, (Reported) Ibuprofen 800 Mg Tablet, 800 MG PO BID PRN for PAIN-MILD, (Reported) Ipratropium/Albuterol Sulfate 3 Ml Ampul.neb, 3 ML NEB Q6H PRN for SHORTNESS OF BREATH, (Reported) Ipratropium/Albuterol Sulfate 3 Ml Ampul.neb, 3 ML IH Q6H Prescribed by: TIMOTHY TERAN on 10/13/18 1803 Metoprolol Tartrate 25 Mg Tablet, 25 MG PO DAILY, (Reported) Mometasone/Formoterol 13 Gm Hfa.aer.ad, 2 PUFF IH BID, (Reported) Prednisone 10 Mg Tab.ds.pk, 10 MG PO DAILY Take 6 tabs(60mg)daily,decrease by 1 tab(10mg)every other day. Prescribed by: JOANN JOYCE on 07/20/18 1254 Prednisone 20 Mg Tab, 60 MG PO DAILY Prescribed by: SAMIA BILLINGSLEY on 09/04/18 2141 Prednisone 20 Mg Tab, 20 MG PO BID 3 tab BID x3 day 2 tab BID x3 day 1 tab BID x3 day Prescribed by: TIMOTHY TERAN on 10/13/18 180 Ranitidine HCl 150 Mg Tablet, 150 MG PO DAILY, (Reported) Rifaximin 200 Mg Tablet, 600 MG PO TID, (Reported) HAS NOT STARTED THIS- 14 DAY SUPPLY FILLED 06-26-18 TAKES 3 (200MG) TABLETS Patient Home Medication List Home Medication List Reviewed: Yes Review of Systems Review of Systems Constitutional: see HPI All Other Systems Reviewed Negative Unless Noted: Yes Past Ceyljzp-Etvyqs-Mxmhgt Hx Past Med/Social Hx: Reviewed Nursing Past Med/Soc Hx Patient Social History Alcohol Use: Denies Use Recreational Drug Use: No Type Used: Cigarettes 2nd Hand Smoke Exposure: Yes Recent Hopitalizations: No Physical Abuse: No Sexual Abuse: No Mistreated: No Fear: No Immunizations Up To Date Date of Pneumonia Vaccine: Nov 26, 2017 Seasonal Allergies Seasonal Allergies: No Past Medical History Surgeries: Yes Gallbladder Respiratory: Yes (uses oxygen @ 2 liters PRN and NOC, neb tx) COPD Cardiac: Yes Palpitations Neurological: No Sexually Transmitted Disease: No HIV/AIDS: No Genitourinary: No Gastrointestinal: Yes Gastroesophageal Reflux Musculoskeletal: Yes Arthritis Endocrine: No HEENT: No Cancer: No Psychosocial: No Integumentary: No Blood Disorders: No Family Medical History Reviewed Nursing Family Hx Patient reports no known family medical history. Physical Exam Capillary Refill : Height: 5'1.00" Weight: 175lbs. 0oz. [id number]; 33.5 BMI Method:Stated General Appearance: no apparent distress This is an older female appearing nontoxic and in no acute distress. Head is normocephalic and atraumatic. Neck is supple and nontender. Oropharynx is moist. Lungs with good air movement bilaterally and wheezes to bilateral lower greater than upper lung gusman. Patient is being comfortably in full sentences and is not tachypneic. There is a normal S1 and S2 without rubs or gallops and capillary refill is appropriate, less than 2 seconds globally. Abdomen is soft, nontender and nondistended. Skin is warm and dry without cy anosis, clubbing or edema. Psychiatrically, the patient demonstrates appropriate mood and affect and is alert. Progress/Results/Core Measures Suspected Sepsis SIRS Temperature: Pulse: Respiratory Rate: Blood Pressure / Mean: Results/Orders My Orders Orders - TRACY RUIZ MD Prednisone Tablet (Deltasone Tablet) (11/24/18 20:45) Albuterol/Ipra Inhalation Soln (Duoneb I (11/24/18 20:45) Methylprednisolone Sod Succ (Solu-Medrol (11/24/18 20:45) Doxycycline Hyclate Tablet (Vibramycin T (11/24/18 20:45) Vital Signs/I&O Capillary Refill : Progress Note : Progress Note Patient clinically in mild CPD exacerbation. Requests steroid shot and burst and will also provide a doxycycline prescription. Patient is to follow up closely with primary care in the next 1-2 days understand that if she gets worse is that of better or develops other new symptoms of concern that she will need to return immediately for reevaluation. All questions are answered. Departure Impression Primary Impression: COPD exacerbation Disposition: 01 HOME, SELF-CARE Condition: Improved Departure-Patient Inst. Referrals: RAFI CHILDERS MD (PCP/Family) Primary Care Physician Patient Instructions: COPD Including Emphysema (DC) Scripts Prednisone (Prednisone) 50 Mg Tab 50 MG PO DAILY for 5 Days, #5 TAB Prov: TRACY RUIZ MD 11/24/18 Doxycycline Hyclate (Doxycycline Hyclate) 100 Mg Tablet 100 MG PO BID, #20 TAB 0 Refills Prov: TRACY RUIZ MD 11/24/18 TRACY RUIZ MD Nov 24, 2018 20:52
[2018-11-24 21:05] VITALS: BP 154/82
== END 2018-11-24 21:06 | disposition home or self-care (01) ==
LOC: EDUNIT# 20:05 → ER FS 20:06
DX: J44.1 Chronic obstructive pulmonary disease with (acute) exacerbation (principal); K21.9 Gastro-esophageal reflux disease without esophagitis; Z88.1 Allergy status to other antibiotic agents; Z79.51 Long term (current) use of inhaled steroids; Z79.52 Long term (current) use of systemic steroids; Z77.22 Contact with and (suspected) exposure to environmental tobacco smoke (acute) (chronic); Z99.81 Dependence on supplemental oxygen
CPT/HCPCS: 96372; 99284

== ENCOUNTER → 2019-02-05 | Outpatient (CLI) | payer MEDICARE ==
[~2019-02-05] MED LIST changes: +DOXY100T2 PO; +PRD50T PO
--- NOTE | 2019-02-05 09:50 | Diagnostic Imaging Report ---
EXAMINATION: Lumbar spine radiographs, 3 views. COMPARISON: None. HISTORY: 48-year-old female, low back pain extending down both legs. FINDINGS: There are five non-rib bearing lumbar type vertebral bodies. There is no identified compression deformity. The alignment of the lumbar spine is unremarkable. There is moderate to severe disc height loss at L5-S1. There is mild disc height loss at L4-L5. There are very mild endplate degenerative related changes of the thoracolumbar spine. There are mild bilateral facet degenerative changes at L4-L5 and L5-S1. The sacroiliac joints are unremarkable. There are atherosclerotic calcifications noted. IMPRESSION: Disc and facet degenerative changes of the lumbar spine, most notable at L5-S1 and L4-L5. Dictated by: Dictated on workstation # [id number]
== END ==
LOC: RAD FS 09:18
PROVIDERS: ATTEND Nurse Practitioner Family
DX: M54.41 Lumbago with sciatica, right side (principal); M54.42 Lumbago with sciatica, left side; M47.817 Spondylosis without myelopathy or radiculopathy, lumbosacral region
CPT/HCPCS: 72100

== ENCOUNTER 2019-02-21 11:40 | Emergency (ER) | payer MEDICARE ==
[~2019-02-21] VITALS: Ht 154 cm; Wt 80.0 kg
--- NOTE | 2019-02-21 12:36 | ED General ---
General Chief Complaint: Cough/Cold/Flu Symptoms Stated Complaint: HEADACHE Nursing Triage Note: PT REPORTS URGENT CARE SENT HER HERE FOR A HEADACHE AND ELAVATED BLOOD PRESSURE. SHE REPORTS SHE HAS HAD A HEADACHE SINCE YESTERDAY. SHE HAS NOT TRIED ANYTHING FOR THE HEADACHE BUT DOES REPORTS SHE HAS HAD SINUS PAIN AND PRESSURE THE LAST COUPLE OF DAYS. Nursing Sepsis Screen: No Definite Risk Source of Information: Patient Exam Limitations: No Limitations (BENNY REYNOLDS,MED STUDENT) History of Present Illness Date Seen by Provider: Feb 21, 2019 Time Seen by Provider: 12:04 Initial Comments (BENNY REYNOLDS,MED STUDENT) Initial Comments Here with report of sinus pressure and congestion, headache, cough and intermittent dizziness that worsened yesterday and today causing her to be seen. Cough and congestion have been going on for 2 weeks. Does have history of COPD as well as sinusitis. Denies fevers. Does have many family members with similar stuff going on. She presented to [facility] today for evaluation and was sent here because her blood pressure was 178/120. That has improved. Does have history of hypertension and does report taking her meds. Timing/Duration: Other (2 weeks) Severity: Moderate Modifying Factors: improves with Medication Associated Systoms: Cough, Fever/Chills, Headaches, Shortness of Air (WOODY ROWAN MD) Allergies and Home Medications Allergies Coded Allergies: doxycycline (Verified Allergy, Intermediate, rash, 06/06/18) Home Medications Albuterol Sulfate 6.7 Gm Hfa.aer.ad, 6.7 GM INH 5XD Prescribed by: SAMIA BILLINGSLEY on 09/04/18 214 Albuterol/Ipratropium 4 Gm Aero, 1 PUFF IH QID PRN for SHORTNESS OF BREATH, (R eported) Azithromycin 250 Mg Tablet, 250 MG PO DAILY Prescribed by: JOANN JOYCE on 07/20/18 1254 Azithromycin 250 Mg Tablet, 250 MG PO UD TAKE 2 TABLETS ON DAY ONE THEN TAKE 1 TABLET DAILY FOR FOUR MORE DAYS Prescribed by: RADHA COLON on 09/19/18 0547 Cefdinir 300 Mg Capsule, 300 MG PO BID Prescribed by: JOANN JOYCE on 07/20/18 1254 Cetirizine HCl 10 Mg Tablet, 10 MG PO DAILY, (Reported) Doxycycline Hyclate 100 Mg Tablet, 100 MG PO BID Prescribed by: TRACY RUIZ on 11/24/182051 Fluticasone Propionate 16 Gm D [place].susp, 1 SPRAY NS DAILY, (Reported) Guaifenesin/Dextromethorphan 1 Each Tab.er.12h, 1 TAB PO BID, (Reported) Ibuprofen 800 Mg Tablet, 800 MG PO DAILY, (Reported) Ibuprofen 800 Mg Tablet, 800 MG PO BID PRN for PAIN-MILD, (Reported) Ipratropium/Albuterol Sulfate 3 Ml Ampul.neb, 3 ML NEB Q6H PRN for SHORTNESS OF BREATH, (Reported) Ipratropium/Albuterol Sulfate 3 Ml Ampul.neb, 3 ML IH Q6H Prescribed by: TIMOTHY TERAN on 10/13/181802 Metoprolol Tartrate 25 Mg Tablet, 25 MG PO DAILY, (Reported) Mometasone/Formoterol 13 Gm Hfa.aer.ad, 2 PUFF IH BID, (Reported) Prednisone 10 Mg Tab.ds.pk, 10 MG PO DAILY Take 6 tabs(60mg)daily,decrease by 1 tab(10mg)every other day. Prescribed by: JOANN JOYCE on 07/20/18 1254 Prednisone 20 Mg Tab, 60 MG PO DAILY Prescribed by: SAMIA BILLINGSLEY on 09/04/18 2141 Prednisone 20 Mg Tab, 20 MG PO BID 3 tab BID x3 day 2 tab BID x3 day 1 tab BID x3 day Prescribed by: TIMOTHY TERAN on 10/13/181802 Prednisone 50 Mg Tab, 50 MG PO DAILY Prescribed by: TRACY RUIZ on 11/24/182051 Ranitidine HCl 150 Mg Tablet, 150 MG PO DAILY, (Reported) Rifaximin 200 Mg Tablet, 600 MG PO TID, (Reported) HAS NOT STARTED THIS- 14 DAY SUPPLY FILLED 06-26-18 TAKES 3 (200MG) TABLETS Patient Home Medication List Home Medication List Reviewed: Yes (WOODY ROWAN MD) Review of Systems Review of Systems Constitutional: No chills, No diaphoresis, No fever (BENNY REYNOLDS,MED STUDENT) EENTM: see HPI, nose congestion; No throat pain Respiratory: cough, short of breath Cardiovascular: No chest pain, No edema Gastrointestinal: No abdominal pain, No nausea, No vomiting Musculoskeletal: No joint pain; muscle pain Skin: change in color Psychiatric/Neurological: No Symptoms Reported (WOODY ROWAN MD) Past Erchxow-Vsivrw-Erkejg Hx Past Med/Social Hx: Reviewed Nursing Past Med/Soc Hx (WOODY ROWAN MD) Patient Social History Alcohol Use: Denies Use Recreational Drug Use: No Smoking Status: Current Everyday Smoker Type Used: Cigarettes 2nd Hand Smoke Exposure: Yes Recent Foreign Travel: No Contact w/Someone Who Travel: No Recent Infectious Disease Expo: No Recent Hopitalizations: No Physical Abuse: No Sexual Abuse: No Mistreated: No (BENNY REYNOLDS MED STUDENT) Immunizations Up To Date Date of Pneumonia Vaccine: Nov 26, 2017 (BENNY REYNOLDS MED STUDENT) Seasonal Allergies Seasonal Allergies: No (BENNY REYNOLDS MED STUDENT) Past Medical History Surgeries: Yes Gallbladder Respiratory: Yes (uses oxygen @ 2 liters PRN and NOC, neb tx) COPD Cardiac: Yes Palpitations Neurological: No Sexually Transmitted Disease: No HIV/AIDS: No Genitourinary: No Gastrointestinal: Yes Gastroesophageal Reflux Musculoskeletal: Yes Arthritis Endocrine: No HEENT: No Cancer: No Psychosocial: No Integumentary: No Blood Disorders: No (BENNY REYNOLDS MED STUDENT) Family Medical History Reviewed Nursing Family Hx (WOODY ROWAN MD) Patient reports no known family medical history. Physical Exam Vital Signs Vital Signs - First Documented 02/21/19 11:49 Temp 35.3 Pulse 80 Resp 18 B/P (MAP) 173/92 (119) Pulse Ox 100 O2 Delivery Room Air (WOODY ROWAN MD) Vital Signs Capillary Refill : Less Than 3 Seconds (BENNY REYNOLDS MED STUDENT) Height, Weight, BMI Height: 5'1.00" Weight: 175lbs. 0oz. 79.873209ob; 33.00 BMI Method:Stated (BENNY REYNOLDS MED STUDENT) General Appearance: No Apparent Distress, WD/WN HEENT: PERRL/EOMI, Pharyngeal Erythema, Other (mild tenderness bilateral sinuse s) Neck: Non Tender, Supple Respiratory: Lungs Clear, Normal Breath Sounds Cardiovascular: Regular Rate, Rhythm, No Murmur Neurologic/Psychiatric: Alert, Oriented x3 (WOODY ROWAN MD) Progress/Results/Core Measures Suspected Sepsis Recent Fever Within 48 Hours: No Infection Criteria Present: None New/Unexplained Altered Menta: No Sepsis Screen: No Definite Risk SIRS Temperature: Pulse: 80 Respiratory Rate: 18 Blood Pressure 173 /92 Mean: 119 (BENNY REYNOLDS,MED STUDENT) Results/Orders Vital Signs/I&O 02/21/19 11:49 Temp 35.3 Pulse 80 Resp 18 B/P (MAP) 173/92 (119) Pulse Ox 100 O2 Delivery Room Air (WOODY ROWAN MD) Vital Signs/I&O Capillary Refill : Less Than 3 Seconds (BENNY REYNOLDS,MED STUDENT) Blood Pressure Mean: 119 Progress Note : Progress Note Seen and evaluated. Repeat blood pressure 157/90. Offered Toradol IM which she declined. Findings consistent with sinusitis after prolonged upper respiratory infection. We will initiate Omnicef and prednisone given her COPD history. Discharged home with return precautions. Patient verbalize understanding instructions and agreement with plan. (WOODY ROWAN MD) Departure Impression Primary Impression: Acute sinusitis Qualified Codes: J01.90 - Acute sinusitis, unspecified Additional Impression: Bronchitis Disposition: 01 HOME, SELF-CARE Condition: Stable Departure-Patient Inst. Decision time for Depature: 12:46 (WOODY ROWAN MD) Referrals: RAFI CHILDERS MD (PCP/Family) Primary Care Physician Patient Instructions: Acute Bronchitis, Adult (DC), Sinusitis, Adult (DC) Add. Discharge Instructions: All discharge instructions reviewed with patient and/or family. Voiced understanding. Take medications as directed. Follow-up with your doctor early next week for recheck and further evaluation. Return for worse pain, fever, vomiting, weakness, breathing problems, vision or balance problems or other concerns as needed. Drink plenty of fluids. You may take Tylenol/acetaminophen 1000 mg every 8 hours as needed for fever or pain. You may take ibuprofen 800 mg every 8 hours as needed for fever or pain. You may use Afrin nasal spray or the generic, 12 hour relief, 2 sprays to each nostril twice daily for 3 days only and then stop. Do not use more than 3 days. Follow-up with your DrMyriam in a few days for recheck. Drink plenty of fluids. Return for worse pain, fever, vomiting, weakness, breat suresh problems or other concerns as needed. Scripts Prednisone (Prednisone) 20 Mg Tab 40 MG PO DAILY, #14 TAB 0 Refills Prov: WOODY ROWAN MD 02/21/19 Cefdinir (Cefdinir) 300 Mg Capsule 300 MG PO BID, #14 CAP 0 Refills Prov: WOODY ROWAN MD 02/21/19 BENNY REYNOLDS,MED STUDENT Feb 21, 2019 12:36 WOODY ROWAN MD Feb 21, 2019 12:47
[2019-02-21] MEDS ORDERED: PRD20T PO (12:48)
[2019-02-21] MEDS ORDERED: CEFD300C3 PO (12:48)
[2019-02-21 12:56] VITALS: BP 157/90
== END 2019-02-21 12:55 | disposition home or self-care (01) ==
LOC: EDUNIT# 11:40 → ER FS 11:41
DX: J01.90 Acute sinusitis, unspecified (principal); J40 Bronchitis, not specified as acute or chronic; J44.9 Chronic obstructive pulmonary disease, unspecified; K21.9 Gastro-esophageal reflux disease without esophagitis; F17.210 Nicotine dependence, cigarettes, uncomplicated; Z88.1 Allergy status to other antibiotic agents; Z79.51 Long term (current) use of inhaled steroids; Z79.52 Long term (current) use of systemic steroids
CPT/HCPCS: 99282

== ENCOUNTER → 2019-03-14 | Outpatient (CLI) | payer MEDICARE ==
--- NOTE | 2019-03-14 09:34 | Diagnostic Imaging Report ---
INDICATION: COPD exacerbation. COMPARISON: 09/04/2018 TECHNIQUE: 2 radiographs of the chest dated 03/14/2019 FINDINGS: The cardiac silhouette is within normal limits in size. No significant pulmonary vascular congestion. Calcified granuloma are again noted involving the bilateral lungs. The lungs are otherwise clear focal pulmonary opacity. No pleural effusion. No pneumothorax. No acute osseous abnormality. IMPRESSION: No acute cardiopulmonary abnormality with evidence of chronic granulomatous disease. Dictated by: Dictated on workstation # [id number]
[2019-03-14 09:38] LABS: BASOPHILS % (AUTO) 1 % (0-10); EOSINOPHILS % (AUTO) 0 % (0-10); HEMATOCRIT 43 % (35-52); HEMOGLOBIN 13.8 G/DL (11.5-16.0); LYMPHOCYTES % (AUTO) 6 % (12-44); MEAN CORPUSCULAR HEMOGLOBIN 30 PG (25-34); MEAN CORPUSCULAR HGB CONC 32 G/DL (32-36); MEAN CORPUSCULAR VOLUME 94 FL (80-99); MEAN PLATELET VOLUME 10.2 FL (7.4-10.4); MONOCYTES % (AUTO) 2 % (0-12); NEUTROPHILS % (AUTO) 91 % (42-75); PLATELET COUNT 237 10^3/uL (130-400); WHITE BLOOD COUNT 15.6 10^3/uL (4.3-11.0)
[2019-03-14 09:39] LABS: BASOPHILS # (AUTO) 0.1 10^3/uL (0.0-0.1); EOSINOPHILS # (AUTO) 0.1 10^3/uL (0.0-0.3); LYMPHOCYTES # (AUTO) 0.9 X 10^3 (1.0-4.0); MONOCYTES # (AUTO) 0.3 X 10^3 (0.0-1.0); NEUTROPHILS # (AUTO) 14.2 X 10^3 (1.8-7.8)
[2019-03-14 09:53] LABS: BAND NEUTROPHILS 1 %; EOSINOPHILS % (MANUAL) 0 %; LYMPHOCYTES % (MANUAL) 6 %; MONOCYTES % (MANUAL) 0 %; NEUTROPHILS % (MANUAL) 93 %
[2019-03-14 10:01] LABS: SODIUM 138 MMOL/L (135-145)
[2019-03-14 10:02] LABS: ALANINE AMINOTRANSFERASE 26 U/L (0-55); ALKALINE PHOSPHATASE 86 U/L (40-136); BILIRUBIN,TOTAL 0.5 MG/DL (0.1-1.0); BUN/CREATININE RATIO 11; CALCIUM 9.1 MG/DL (8.5-10.1); CARBON DIOXIDE 21 MMOL/L (21-32); CHLORIDE 104 MMOL/L (98-107); CREATININE SERUM 0.74 MG/DL (0.60-1.30); GFR ESTIMATED > 60; GLUCOSE 149 MG/DL (70-105); MAGNESIUM 2.2 MG/DL (1.6-2.4); POTASSIUM 4.1 MMOL/L (3.6-5.0); TOTAL PROTEIN 7.3 GM/DL (6.4-8.2)
== END ==
LOC: LAB FS 09:19
PROVIDERS: ATTEND Nurse Practitioner Family
DX: J44.1 Chronic obstructive pulmonary disease with (acute) exacerbation (principal); M79.89 Other specified soft tissue disorders
CPT/HCPCS: 36415; 71046; 80053; 83735; 85007; 85027

== ENCOUNTER 2019-03-20 19:43 | Emergency (ER) | payer MEDICARE ==
[~2019-03-20] VITALS: Ht 154.9 cm; Wt 80.8 kg
[2019-03-20] MEDS ORDERED: FAMOTIDINE 20MG/2ML IV (PEPCID) IV STA (19:54)
[2019-03-20] MEDS ORDERED: ANTACID SUSP 30 ML UDC (MYLANTA) PO ONE (20:00)
[2019-03-20] MEDS ORDERED: RT-ALBUTEROL/IPRATROPIUM 3 ML (DUONEB) VIAL INH ONE (20:00)
[2019-03-20] MEDS ORDERED: ASPIRIN 81 MG CHEW (CHILDREN'S ASA) PO ONE (20:00)
[2019-03-20] MEDS ORDERED: LIDOCAINE 2% VISCOUS 15 ML UDC PO ONE (20:00)
--- NOTE | 2019-03-20 20:04 | ED Respiratory ---
General Chief Complaint: Respiratory Problems Stated Complaint: SOA,CHEST PAIN Source: patient Exam Limitations: no limitations History of Present Illness Date Seen by Provider: Mar 20, 2019 Time Seen by Provider: 19:44 Initial Comments Patient resents to ER by private conveyance with chief complaint of 6 weeks of shortness of breath and now today some burning pressure on her chest pointing to her epigastric region. She's had no fevers chills nausea vomiting sweats or radiation of pain. She says the pains been going on for the past week and is intermittent. She does not know if it's worse with laying down because she never lays flat because of her COPD. She is followed by pulmonology and cardiology in [place]. She says she's had an EGD many years ago in [place] which demonstrated an ulcer. She does not still take anything for GERD. She denies indigestion or acid reflux. She denies a history of coronary disease. She says she hasn't appointment with her sales representative graphic art to discuss her left ventricle. She takes Dulera, DuoNeb and still feels short of breath. She's had bronchoscopy done in the past. She says in the past 6 weeks between her primary care doctor, Dr. Childers she has been on 4 separate courses of steroids and 2 courses of azithromycin and 1 round of doxycycline. Her cough is often nonproductive. She says she had a chest x-ray week ago that was unremarkable. She does use NSAIDs. She has not tried any antacids for her discomfort. She has a history of chol ecystectomy. She takes metoprolol for history of tachycardia. She is oxygen-dependent sleep at night but no CPAP or BiPAP. 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 Allergies and Home Medications Allergies Coded Allergies: cefazolin (Verified Allergy, Unknown, 03/20/19) Home Medications Albuterol Sulfate 6.7 Gm Hfa.aer.ad, 6.7 GM INH 5XD Prescribed by: SAMIA BILLINGSLEY on 09/04/182140 Albuterol/Ipratropium 4 Gm Aero, 1 PUFF IH QID PRN for SHORTNESS OF BREATH, (Reported) Azithromycin 250 Mg Tablet, 250 MG PO DAILY Prescribed by: JOANN JOYCE on 07/20/18 1254 Azithromycin 250 Mg Tablet, 250 MG PO UD TAKE 2 TABLETS ON DAY ONE THEN TAKE 1 TABLET DAILY FOR FOUR MORE DAYS Prescribed by: RADHA COLON on 09/19/18 0547 Cefdinir 300 Mg Capsule, 300 MG PO BID Prescribed by: JOANN JOYCE on 07/20/18 125 Cefdinir 300 Mg Capsule, 300 MG PO BID Prescribed by: WOODY ROWAN on 02/21/191247 Cetirizine HCl 10 Mg Tablet, 10 MG PO DAILY, (Reported) Doxycycline Hyclate 100 Mg Tablet, 100 MG PO BID Prescribed by: TRACY RUIZ on 11/24/182051 Fluticasone Propionate 16 Gm [place].susp, 1 SPRAY NS DAILY, (Reported) Guaifenesin/Dextromethorphan 1 Each Tab.er.12h, 1 TAB PO BID, (Reported) Ibuprofen 800 Mg Tablet, 800 MG PO DAILY, (Reported) Ibuprofen 800 Mg Tablet, 800 MG PO BID PRN for PAIN-MILD, (Reported) Ipratropium/Albuterol Sulfate 3 Ml Ampul.neb, 3 ML NEB Q6H PRN for SHORTNESS OF BREATH, (Reported) Ipratropium/Albuterol Sulfate 3 Ml Ampul.neb, 3 ML IH Q6H Prescribed by: TIMOTHY TERAN on 10/13/181802 Metoprolol Tartrate 25 Mg Tablet, 25 MG PO DAILY, (Reported) Mometasone/Formoterol 13 Gm Hfa.aer.ad, 2 PUFF IH BID, (Reported) Prednisone 10 Mg Tab.ds.pk, 10 MG PO DAILY Take 6 tabs(60mg)daily,decrease by 1 tab(10mg)every other day. Prescribed by: JOANN JOYCE on 07/20/181253 Prednisone 20 Mg Tab, 60 MG PO DAILY Prescribed by: SAMIA BILLINGSLEY on 09/04/182140 Prednisone 20 Mg Tab, 20 MG PO BID 3 tab BID x3 day 2 tab BID x3 day 1 tab BID x3 day Prescribed by: TIMOTHY TERAN on 10/13/181802 Prednisone 50 Mg Tab, 50 MG PO DAILY Prescribed by: TRACY RUIZ on 11/24/182051 Prednisone 20 Mg Tab, 40 MG PO DAILY Prescribed by: WOODY ROWAN on 02/21/191247 Ranitidine HCl 150 Mg Tablet, 150 MG PO DAILY, (Reported) Rifaximin 200 Mg Tablet, 600 MG PO TID, (Reported) HAS NOT STARTED THIS- 14 DAY SUPPLY FILLED 06-26-18 TAKES 3 (200MG) TABLETS Patient Home Medication List Home Medication List Reviewed: Yes Review of Systems Review of Systems Constitutional: No chills, No diaphoresis EENTM: No hearing loss, No ear pain Respiratory: cough, short of breath, wheezing Cardiovascular: see HPI, chest pain, edema; No Hx of Intervention, No palpitations, No syncope, No vascular heart diseas Gastrointestinal: abdominal pain (epigastric); No constipation, No diarrhea, No nausea Genitourinary: No decreased output, No discharge Musculoskeletal: No back pain, No joint pain Skin: No pruritus, No rash Psychiatric/Neurological: Denies Headache, Denies Numbness, Denies Paresthesia All Other Systems Reviewed Negative Unless Noted: Yes Past Cgffila-Vdjjya-Xoevlj Hx Patient Social History Alcohol Use: Denies Use Recreational Drug Use: No Smoking Status: Current Everyday Smoker Type Used: Cigarettes 2nd Hand Smoke Exposure: Yes Recent Foreign Travel: No Contact w/Someone Who Travel: No Recent Hopitalizations: No Immunizations Up To Date Date of Pneumonia Vaccine: Nov 26, 2017 Seasonal Allergies Seasonal Allergies: No Past Medical History Surgeries: Yes Gallbladder Respiratory: Yes (uses oxygen @ 2 liters PRN and NOC, neb tx) COPD Cardiac: Yes Palpitations Neurological: No Sexually Transmitted Disease: No HIV/AIDS: No Genitourinary: No Gastrointestinal: Yes Gastroesophageal Reflux Musculoskeletal: Yes Arthritis Endocrine: No HEENT: No Cancer: No Psychosocial: No Integumentary: No Blood Disorders: No Family Medical History Patient reports no known family medical history. Physical Exam Vital Signs - First Documented 03/20/19 03/20/19 03/20/19 19:46 20:10 20:47 Temp 36.6 Pulse 94 Resp 18 B/P (MAP) 173/82 (112) Pulse Ox 95 O2 Delivery Room Air O2 Flow Rate 2.00 Capillary Refill : Height: 5'1.00" Weight: 175lbs. 0oz. [id number]; 33.00 BMI Method:Stated General Appearance: WD/WN, mild distress Eyes: Bilateral Eye Normal Inspection, Bilateral Eye PERRL, Bilateral Eye EOMI HEENT: PERRL/EOMI, pharynx normal Neck: full range of motion, normal inspection Respiratory: no respiratory distress, no accessory muscle use, decreased breath sounds (mildly), wheezing (slight on the right lower expiratory wheezes) Cardiovascular: normal peripheral pulses, regular rate, rhythm Gastrointestinal: normal bowel sounds, soft, no organomegaly, no pulsatile mass; No guarding; tenderness Extremities: normal range of motion, normal inspection, normal capillary refill, pedal edema (trace) Neurologic/Psychiatric: alert, normal mood/affect, oriented x 3 Skin: normal color, warm/dry Progress/Results/Core Measures Suspected Sepsis SIRS Temperature: Pulse: Respiratory Rate: Laboratory Tests 03/20/19 20:10: White Blood Count 12.9H Blood Pressure / Mean: Laboratory Tests 03/20/19 20:10: Creatinine 0.81, INR Comment 0.9, Platelet Count 362, Total Bilirubin < 0.2 Results/Orders Lab Results Laboratory Tests Test 03/20/19 20:10 Range/Units White Blood Count 12.9 H 4.3-11.0 10^3/uL Red Blood Count 4.78 4.35-5.85 10^6/uL Hemoglobin 14.1 11.5-16.0 G/DL Hematocrit 43 35-52 % Mean Corpuscular Volume 90 80-99 FL Mean Corpuscular Hemoglobin 29 25-34 PG Mean Corpuscular Hemoglobin Concent 33 32-36 G/DL Red Cell Distribution Width 12.6 10.0-14.5 % Platelet Count 362 130-400 10^3/uL Mean Platelet Volume 10.0 7.4-10.4 FL Neutrophils (%) (Auto) 58 42-75 % Lymphocytes (%) (Auto) 32 12-44 % Monocytes (%) (Auto) 4 0-12 % Eosinophils (%) (Auto) 5 0-10 % Basophils (%) (Auto) 1 0-10 % Neutrophils # (Auto) 7.5 1.8-7.8 X 10^3 Lymphocytes # (Auto) 4.1 H 1.0-4.0 X 10^3 Monocytes # (Auto) 0.6 0.0-1.0 X 10^3 Eosinophils # (Auto) 0.7 H 0.0-0.3 10^3/uL Basophils # (Auto) 0.1 0.0-0.1 10^3/uL Prothrombin Time 12.9 12.2-14.7 SEC INR Comment 0.9 0.8-1.4 Activated Partial Thromboplast Time 32 24-35 SEC D-Dimer 0.38 0.00-0.49 UG/ML Blood Gas Puncture Site LEFT WRIST Blood Gas Patient Temperature 36.6 Arterial Blood pH 7.62 *H 7.37-7.43 Arterial Blood Partial Pressure CO2 25 L 35-45 MMHG Arterial Blood Partial Pressure O2 148 H 79-93 MMHG Arterial Blood HCO3 26 23-27 MMOL/L Arterial Blood Total CO2 26.5 21.0-31.0 MMOL/L Arterial Blood Oxygen Saturation 100 94-100 % Arterial Blood Base Excess 5.4 H -2.5-2.5 MMOL/L Rafael Test YES Blood Gas Ventilator Setting NO Blood Gas Inspired Oxygen ROOM AIR Sodium Level 141 135-145 MMOL/L Potassium Level 3.8 3.6-5.0 MMOL/L Chloride Level 104 98-107 MMOL/L Carbon Dioxide Level 24 21-32 MMOL/L Anion Gap 13 5-14 MMOL/L Blood Urea Nitrogen 14 7-18 MG/DL Creatinine 0.81 0.60-1.30 MG/DL Estimat Glomerular Filtration Rate > 60 BUN/Creatinine Ratio 17 Glucose Level 102 70-105 MG/DL Calcium Level 9.1 8.5-10.1 MG/DL Corrected Calcium 9.1 8.5-10.1 MG/DL Magnesium Level 2.1 1.6-2.4 MG/DL Total Bilirubin < 0.2 0.1-1.0 MG/DL Aspartate Amino Transf (AST/SGOT) 16 5-34 U/L Alanine Aminotransferase (ALT/SGPT) 21 0-55 U/L Alkaline Phosphatase 81 40-136 U/L Myoglobin 61.9 10.0-92.0 NG/ML Troponin I < 0.30 <0.30 NG/ML Pro-B-Type Natriuretic Peptide 216.2 H <75.0 PG/ML Total Protein 7.0 6.4-8.2 GM/DL Albumin 4.0 3.2-4.5 GM/DL Lipase 51 8-78 U/L Micro Results Microbiology 03/20/19 Influenza Types A,B Antigen (VINCENT) - Final, Complete My Orders Orders - TIMOTHY TERAN Continuous Ekg Monitoring (03/20/19 19:44) Ekg Tracing (03/20/19 19:44) Cbc With Automated Diff (03/20/19 19:54) Magnesium (03/20/19 19:54) Comprehensive Metabolic Panel (03/20/19 19:54) Myoglobin Serum (03/20/19 19:54) Protime With Inr (03/20/19 19:54) Partial Thromboplastin Time (03/20/19 19:54) O2 (03/20/19 19:54) Lipid Panel (03/21/19 06:00) Aspirin Chewable Tablet (Baby Aspirin Ch (03/20/19 20:00) Ed Iv/Invasive Line Start (03/20/19 19:54) Lipase (03/20/19 19:54) Fibrin Degradation Products (03/20/19 19:54) Troponin I Fs (03/20/19 19:54) Probnp Fs (03/20/19 19:54) Albuterol/Ipra Inhalation Soln (Duoneb I (03/20/19 20:00) Svn Small Volume Nebulizer (03/20/19 19:54) Lidocaine 2% Viscous 15 Ml (Xylocaine Vi (03/20/19 20:00) Antacid Suspension (Mylanta Suspension (03/20/19 20:00) Famotidine Injection (Pepcid Injection) (03/20/19 19:54) Arterial Blood Gas (03/20/19 19:54) Chest Pa/Lat (2 View) (03/20/19 19:54) Influenza A And B Antigens (03/20/19 20:47) Medications Given in ED Current Medications Medications Dose Ordered Sig/Ken Route Start Time Stop Time Status Last Admin Dose Admin Al Hydrox/Mg Hydrox/Simethicone 30 ml ONCE ONCE PO 03/20/19 20:00 03/20/19 20:01 DC 03/20/19 20:14 30 ML Albuterol/ Ipratropium 3 ml ONCE ONCE INH 03/20/19 20:00 03/20/19 20:01 DC 03/20/19 20:15 3 ML Aspirin 324 mg ONCE ONCE PO 03/20/19 20:00 03/20/19 20:01 DC 03/20/19 20:15 324 MG Lidocaine HCl 15 ml ONCE ONCE PO 03/20/19 20:00 03/20/19 20:01 DC 03/20/19 20:14 15 ML Vital Signs/I&O 03/20/19 03/20/19 03/20/19 19:46 20:10 20:47 Temp 36.6 Pulse 94 Resp 18 B/P (MAP) 173/82 (112) Pulse Ox 95 93 O2 Delivery Room Air Room Air Nasal Cannula O2 Flow Rate 2.00 Capillary Refill : Progress Note #1: Time: 20:05 Progress Note I suspect her edema in her legs may be reviewed due to recent steroids. Steroids could also explain gastritis. We'll check a lipase to rule out pancreatitis. Cholecystitis is unlikely. Is not having any diarrhea or constipation to suggest colitis. Check some labs in case it is atypical angina but this is been going on for the past week you would expect troponin to be positive by now. Her vital signs are aseptic. She has some scant wheezing so we'll give her a DuoNeb and obtain a 2 view chest x-ray. GI cocktail. Aspirin 324 mg. Progress Note #2: Time: 20:51 Progress Note Anxiety and/or the abdominal pain that I suspect is from her gastritis could be causing her to be breathing more and contribute to her respiratory alkalosis. We gave her the GI cocktail and it took away all of the pressure in her epigastric region. Plan to put her on pantoprazole and Carafate with follow-up with Dr. Joyce cristina. Influenza swab is pending. Breath sounds are now similarly diminished but without any wheezing after the DuoNeb. ECG Initial ECG Impression Date: Mar 20, 2019 Initial ECG Impression Time: 19:54 Initial ECG Rate: 88 Initial ECG Rhythm: Normal Sinus Initial ECG Intervals: Normal Initial ECG Impression: Normal Initial ECG Comparisson: Unchanged Comment No relevant st elevation or depression. normal sinus rhythm. Diagnostic Imaging Diagonstic Imaging: Xray Plain Films/CT/US/NM/MRI: chest (2v) Comments NAME: EMILIE GO [facility] REC#: [id number] PT STATUS: REG ER : 1970 PHYSICIAN: TIMOTHY TERAN MD ADMIT DATE: 03/20/19/ER FS Signed Date of Exam:03/20/19 CHEST PA/LAT (2 VIEW) CHEST PA/LAT (2 VIEW) Indication: Shortness of air and mid chest discomfort Comparison: 03/14/2019 Findings: No pulmonary mass or consolidation. Scattered calcified pulmonary granulomas are unchanged. No pleural effusion or pneumothorax. Normal heart size and mediastinal contours. Impression: No acute cardiopulmonary process. Dictated by: Dictated on workstation # [id number] Dict: 03/20/192031 Trans: 03/20/192031 [facility] [id number] Interpreted by: VALERIE ALDRIDGE MD Electronically signed by: VALERIE ALDRIDGE MD 03/20/192031 Reviewed: Reviewed by Me Departure Impression Primary Impression: Gastritis Qualified Codes: K29.00 - Acute gastritis without bleeding Additional Impression: COPD (chronic obstructive pulmonary disease) Qualified Codes: J44.9 - Chronic obstructive pulmonary disease, unspecified Disposition: HOME, SELF-CARE Condition: Stable Departure-Patient Inst. Decision time for Depature: 22:06 Referrals: RAFI CHILDERS MD (PCP/Family) Primary Care Physician Patient Instructions: Gastritis (DC) Add. Discharge Instructions: Hold off taking any NSAIDs such as ibuprofen, Aleve, naproxen. Start taking pantoprazole 20 mg twice a day. Start taking Carafate 1 tablet 30 minutes prior to meals and at bedtime, 4 times a day. Follow-up with her primary care doctor in 2 weeks to discuss results and whether or not you would benefit from a repeat upper endoscopy. All discharge instructions reviewed with patient and/or family. Voiced understanding. Scripts Pantoprazole Sodium (Pantoprazole Sodium) 20 Mg Tablet.dr 20 MG PO BID for 30 Days, #60 TAB 0 Refills Prov: TIMOTHY TERAN 03/20/19 Sucralfate (Carafate) 1 Gm Tablet 1 GM PO QIDACHS for 14 Days, #56 TAB 0 Refills Prov: TIMOTHY TERAN 03/20/19 Copy Copies To 1: RAFI CHILDERS MD, TITUS J Mar 20, 2019 20:04
[2019-03-20 20:17] LABS: BASOPHILS # (AUTO) 0.1 10^3/uL (0.0-0.1); BASOPHILS % (AUTO) 1 % (0-10); EOSINOPHILS # (AUTO) 0.7 10^3/uL (0.0-0.3); EOSINOPHILS % (AUTO) 5 % (0-10); HEMATOCRIT 43 % (35-52); HEMOGLOBIN 14.1 G/DL (11.5-16.0); LYMPHOCYTES # (AUTO) 4.1 X 10^3 (1.0-4.0); LYMPHOCYTES % (AUTO) 32 % (12-44); MEAN CORPUSCULAR HEMOGLOBIN 29 PG (25-34); MEAN CORPUSCULAR HGB CONC 33 G/DL (32-36); MEAN CORPUSCULAR VOLUME 90 FL (80-99); MONOCYTES # (AUTO) 0.6 X 10^3 (0.0-1.0); MONOCYTES % (AUTO) 4 % (0-12); NEUTROPHILS # (AUTO) 7.5 X 10^3 (1.8-7.8); NEUTROPHILS % (AUTO) 58 % (42-75); PLATELET COUNT 362 10^3/uL (130-400); RED CELL DISTRIBUTION WIDTH 12.6 % (10.0-14.5); WHITE BLOOD COUNT 12.9 10^3/uL (4.3-11.0)
--- NOTE | 2019-03-20 20:34 | Diagnostic Imaging Report ---
CHEST PA/LAT (2 VIEW) Indication: Shortness of air and mid chest discomfort Comparison: 03/14/2019 Findings: No pulmonary mass or consolidation. Scattered calcified pulmonary granulomas are unchanged. No pleural effusion or pneumothorax. Normal heart size and mediastinal contours. Impression: No acute cardiopulmonary process. Dictated by: Dictated on workstation # [id number]
[2019-03-20 20:35] LABS: ABG BASE EXCESS 5.4 MMOL/L (-2.5-2.5); ABG OXYGEN SATURATION 100 % (94-100); ABG PCO2 25 MMHG (35-45); ABG PO2 148 MMHG (79-93); ABG TCO2 26.5 MMOL/L (21.0-31.0); ALLENS TEST YES; VENTILATOR NO
[2019-03-20 20:39] LABS: ABG PH 7.62 (7.37-7.43); INSPIRED O2 ROOM AIR; PATIENT TEMP 36.6
[2019-03-20 20:40] LABS: INR 0.9 (0.8-1.4); PROTHROMBIN TIME PATIENT 12.9 SEC (12.2-14.7)
[2019-03-20 20:42] LABS: ALANINE AMINOTRANSFERASE 21 U/L (0-55); ALKALINE PHOSPHATASE 81 U/L (40-136); BILIRUBIN,TOTAL < 0.2 MG/DL (0.1-1.0); BUN/CREATININE RATIO 17; CALCIUM 9.1 MG/DL (8.5-10.1); CARBON DIOXIDE 24 MMOL/L (21-32); CHLORIDE 104 MMOL/L (98-107); CREATININE SERUM 0.81 MG/DL (0.60-1.30); GFR ESTIMATED > 60; GLUCOSE 102 MG/DL (70-105); LIPASE 51 U/L (8-78); MAGNESIUM 2.1 MG/DL (1.6-2.4); POTASSIUM 3.8 MMOL/L (3.6-5.0); SODIUM 141 MMOL/L (135-145)
[2019-03-20] MEDS ORDERED: PANT20TA3 PO (22:08)
[2019-03-20] MEDS ORDERED: SUCR1TAB36 PO (22:08)
[2019-03-20 22:10] VITALS: BP 156/72
[2019-03-21] MEDS ORDERED: AZIT250T12 PO (13:07)
== END 2019-03-20 22:13 | disposition home or self-care (01) ==
LOC: EDUNIT# 19:43 → ER FS 19:44
DX: K29.70 Gastritis, unspecified, without bleeding (principal); J44.9 Chronic obstructive pulmonary disease, unspecified; K21.9 Gastro-esophageal reflux disease without esophagitis; F17.210 Nicotine dependence, cigarettes, uncomplicated; Z90.49 Acquired absence of other specified parts of digestive tract; Z88.1 Allergy status to other antibiotic agents; Z79.51 Long term (current) use of inhaled steroids; Z79.52 Long term (current) use of systemic steroids
CPT/HCPCS: 36415; 71046; 80053; 82805; 83690; 83735; 83874; 83880; 84484; 85025; 85379; 85610; 85730; 87804; 93005; 93041; 94640

== ENCOUNTER 2019-03-21 10:31 | Emergency (ER) | payer MEDICARE, OTHER ==
[~2019-03-21] VITALS: Ht 154.9 cm; Wt 79.6 kg
[~2019-03-21 10:31] MED LIST changes: +PANT20TA3 PO; +SUCR1TAB36 PO
[2019-03-21] MEDS ORDERED: RT-ALBUTEROL/IPRATROPIUM 3 ML (DUONEB) VIAL INH ONE (11:15)
[2019-03-21] MEDS ORDERED: NS IV 1000 ML 1,000 ML IV ONE (11:15)
[2019-03-21] MEDS ORDERED: AZITHROMYCIN INJECTION 500 MG in NS (IVPB) 250 ML IV ONE (11:15)
[2019-03-21 11:21] LABS: BASOPHILS % (AUTO) 1 % (0-10); EOSINOPHILS % (AUTO) 5 % (0-10); HEMATOCRIT 42 % (35-52); HEMOGLOBIN 14.2 G/DL (11.5-16.0); LYMPHOCYTES % (AUTO) 23 % (12-44); MEAN CORPUSCULAR HEMOGLOBIN 30 PG (25-34); MEAN CORPUSCULAR HGB CONC 34 G/DL (32-36); MEAN CORPUSCULAR VOLUME 89 FL (80-99); MEAN PLATELET VOLUME 9.6 FL (7.4-10.4); MONOCYTES % (AUTO) 4 % (0-12); NEUTROPHILS % (AUTO) 67 % (42-75); PLATELET COUNT 363 10^3/uL (130-400); RED CELL DISTRIBUTION WIDTH 12.5 % (10.0-14.5); WHITE BLOOD COUNT 13.2 10^3/uL (4.3-11.0)
--- NOTE | 2019-03-21 11:21 | ED General ---
General Stated Complaint: SOB Source of Information: Patient Exam Limitations: No Limitations History of Present Illness Date Seen by Provider: Mar 21, 2019 Time Seen by Provider: 10:55 Initial Comments 49-year-old female presents to the emergency room for shortness of breath congestion. Patient has a long-standing history of COPD. Patient was seen yesterday in the emergency room and received diagnostic and therapeutic services. Patient states she's had increasing shortness of breath over the past 6 weeks. She was unhappy with the treatment last night but did not give specifics. Patient has been treated with nebulizers at home and her last treatment was at 9:00 this morning. Patient states that it did not help her she also took an albuterol metered-dose inhaler and she states that did not help she has been on azithromycin and finished a course on Mondays previous to that she was on doxycycline. She was taking oral steroids 2 weeks ago and received a Decadron treatment last week. Patient smokes one pack of cigarettes per day. She does not seem to understand the relationship between continued COPD symptoms and her continued smoking. She socializes she has not smoked over the past day and she feels that her symptoms have worsened. Primary care physician Dr. Childers has not been seen since January 2019. Patient states the Dr. Childers change employers and it has been difficult to get an outpatient appointment. Patient has a history of using the emergency room for evaluation and treatments. Timing/Duration: 1 Week (but reports that she's been feeling sick for the past 6 weeks.) Severity: Mild Modifying Factors: improves with Other (smoking) Associated Systoms: Cough, Malaise, Shortness of Air Allergies and Home Medications Allergies Coded Allergies: cefazolin (Verified Allergy, Unknown, 03/20/19) Home Medications Albuterol Sulfate 6.7 Gm Hfa.aer.ad, 6.7 GM INH 5XD Prescribed by: SAMIA BILLINGSLEY on 09/04/182140 Albuterol/Ipratropium 4 Gm Aero, 1 PUFF IH QID PRN for SHORTNESS OF BREATH, (Reported) Azithromycin 250 Mg Tablet, 250 MG PO DAILY Prescribed by: JOANN JOYCE on 07/20/18 1254 Azithromycin 250 Mg Tablet, 250 MG PO UD TAKE 2 TABLETS ON DAY ONE THEN TAKE 1 TABLET DAILY FOR FOUR MORE DAYS Prescribed by: RADHA COLON on 09/19/18 0547 Cefdinir 300 Mg Capsule, 300 MG PO BID Prescribed by: JOANN JOYCE on 07/20/181253 Cefdinir 300 Mg Capsule, 300 MG PO BID Prescribed by: WOODY ROWAN on 02/21/191247 Cetirizine HCl 10 Mg Tablet, 10 MG PO DAILY, (Reported) Doxycycline Hyclate 100 Mg Tablet, 100 MG PO BID Prescribed by: TRACY RUIZ on 11/24/182051 Fluticasone Propionate 16 Gm [place].susp, 1 SPRAY NS DAILY, (Reported) Guaifenesin/Dextromethorphan 1 Each Tab.er.12h, 1 TAB PO BID, (Reported) Ibuprofen 800 Mg Tablet, 800 MG PO DAILY, (Reported) Ibuprofen 800 Mg Tablet, 800 MG PO BID PRN for PAIN-MILD, (Reported) Ipratropium/Albuterol Sulfate 3 Ml Ampul.neb, 3 ML NEB Q6H PRN for SHORTNESS OF BREATH, (Reported) Ipratropium/Albuterol Sulfate 3 Ml Ampul.neb, 3 ML IH Q6H Prescribed by: TIMOTHY TERAN on 10/13/181802 Metoprolol Tartrate 25 Mg Tablet, 25 MG PO DAILY, (Reported) Mometasone/Formoterol 13 Gm Hfa.aer.ad, 2 PUFF IH BID, (Reported) Pantoprazole Sodium 20 Mg Tablet.dr, 20 MG PO BID Prescribed by: TIMOTHY TERAN on 03/20/192207 Prednisone 10 Mg Tab.ds.pk, 10 MG PO DAILY Take 6 tabs(60mg)daily,decrease by 1 tab(10mg)every other day. Prescribed by: JOANN JOYCE on 07/20/181253 Prednisone 20 Mg Tab, 60 MG PO DAILY Prescribed by: SAMIA BILLINGSLEY on 09/04/182140 Prednisone 20 Mg Tab, 20 MG PO BID 3 tab BID x3 day 2 tab BID x3 day 1 tab BID x3 day Prescribed by: TIMOTHY TERAN on 10/13/181802 Prednisone 50 Mg Tab, 50 MG PO DAILY Prescribed by: TRACY RUIZ on 11/24/182051 Prednisone 20 Mg Tab, 40 MG PO DAILY Prescribed by: WOODY ROWAN on 02/21/191247 Ranitidine HCl 150 Mg Tablet, 150 MG PO DAILY, (Reported) Rifaximin 200 Mg Tablet, 600 MG PO TID, (Reported) HAS NOT STARTED THIS- 14 DAY SUPPLY FILLED 06-26-18 TAKES 3 (200MG) TABLETS Sucralfate 1 Gm Tablet, 1 GM PO QIDACHS Prescribed by: TIMOTHY TERAN on 03/20/19 1871 Patient Home Medication List Home Medication List Reviewed: Yes Review of Systems Review of Systems Constitutional: malaise, other (SOA) EENTM: hoarseness, throat pain Respiratory: cough, dyspnea on exertion, phlegm, short of breath, other (chronic COPD with acute exacerbation no improvement but continued smoking) Cardiovascular: other (no overt signs of ischemic heart disease but does have shortness of breath secondary to COPD) Gastrointestinal: no symptoms reported (with occasional nausea, coughing) Genitourinary: no symptoms reported : No Musculoskeletal: back pain, muscle stiffness Skin: no symptoms reported Psychiatric/Neurological: Anxiety, Headache, Weakness Hematologic/Lymphatic: No Symptoms Reported Immunological/Allergic: no symptoms reported Past Bfqeuvc-Tlsbxq-Hoilou Hx Patient Social History Type Used: Cigarettes 2nd Hand Smoke Exposure: Yes Recent Foreign Travel: No Recent Hopitalizations: No Immunizations Up To Date Date of Pneumonia Vaccine: Nov 26, 2017 Seasonal Allergies Seasonal Allergies: No Past Medical History Surgeries: Yes Gallbladder Respiratory: Yes (uses oxygen @ 2 liters PRN and NOC, neb tx) COPD Cardiac: Yes Palpitations Neurological: No Sexually Transmitted Disease: No HIV/AIDS: No Genitourinary: No Gastrointestinal: Yes Gastroesophageal Reflux Musculoskeletal: Yes Arthritis Endocrine: No HEENT: No Cancer: No Psychosocial: No Integumentary: No Blood Disorders: No Family Medical History Reviewed Nursing Family Hx Patient reports no known family medical history. Physical Exam Vital Signs Vital Signs - First Documented Capillary Refill : Height, Weight, BMI Height: 5'1.00" Weight: 175lbs. 0oz. 79.007888jq; 33.00 BMI Method:Stated General Appearance: Anxious (upset that she is still sick after having a visit last night. Patient does not appear to appreciate the relationship between her tobacco use and her COPD), Mild Distress Eyes: Bilateral Eye Normal Inspection, Bilateral Eye PERRL, Bilateral Eye EOMI HEENT: PERRL/EOMI, Normal ENT Inspection, Pharynx Normal Neck: Full Range of Motion, Normal Inspection, Non Tender, Supple Respiratory: Chest Non Tender, Lungs Clear, No Accessory Muscle Use, No Respiratory Distress, Rhonci (with large airway mucus insistent with COPD), Other (acute exacerbation of chronic COPD and DuoNeb treatment given patient encouraged to take deep breathing also given percussion treatment but was unable to produce any sputum) Cardiovascular: Regular Rate, Rhythm, No Edema, No Gallop, No JVD, No Murmur, Normal Peripheral Pulses Gastrointestinal: Normal Bowel Sounds, No Organomegaly, No Pulsatile Mass, Non Tender, Soft Back: Normal Inspection, No CVA Tenderness, No Vertebral Tenderness Extremity: Normal Capillary Refill, Normal Inspection, Normal Range of Motion, Non Tender, No Calf Tenderness Neurologic/Psychiatric: Alert, Oriented x3, No Motor/Sensory Deficits, Normal Mood/Affect, relocation director II-XII Norm as Tested Reflexes: 2+ Bicep (R), 2+ Bicep (L), 2+ Knee (R), 2+ Knee (L) Skin: Normal Color, Warm/Dry Lymphatic: No Adenopathy Progress/Results/Core Measures Suspected Sepsis SIRS Temperature: Pulse: Respiratory Rate: Laboratory Tests 03/21/19 11:10: White Blood Count 13.2H Blood Pressure / Mean: Laboratory Tests 03/21/19 11:10: Creatinine 0.75, Platelet Count 363, Total Bilirubin 0.3 Results/Orders Lab Results Laboratory Tests Test 03/21/19 11:10 Range/Units White Blood Count 13.2 H 4.3-11.0 10^3/uL Red Blood Count 4.69 4.35-5.85 10^6/uL Hemoglobin 14.2 11.5-16.0 G/DL Hematocrit 42 35-52 % Mean Corpuscular Volume 89 80-99 FL Mean Corpuscular Hemoglobin 30 25-34 PG Mean Corpuscular Hemoglobin Concent 34 32-36 G/DL Red Cell Distribution Width 12.5 10.0-14.5 % Platelet Count 363 130-400 10^3/uL Mean Platelet Volume 9.6 7.4-10.4 FL Neutrophils (%) (Auto) 67 42-75 % Lymphocytes (%) (Auto) 23 12-44 % Monocytes (%) (Auto) 4 0-12 % Eosinophils (%) (Auto) 5 0-10 % Basophils (%) (Auto) 1 0-10 % Neutrophils # (Auto) 8.8 H 1.8-7.8 X 10^3 Lymphocytes # (Auto) 3.0 1.0-4.0 X 10^3 Monocytes # (Auto) 0.7 0.0-1.0 X 10^3 Eosinophils # (Auto) 0.1 0.0-0.3 10^3/uL Basophils # (Auto) 0.0 0.0-0.1 10^3/uL Neutrophils % (Manual) 80 % Lymphocytes % (Manual) 11 % Monocytes % (Manual) 5 % Eosinophils % (Manual) 1 % Band Neutrophils 0 % Reactive Lymphocytes 3 % Microcytosis SLIGHT Sodium Level 140 135-145 MMOL/L Potassium Level 4.0 3.6-5.0 MMOL/L Chloride Level 105 98-107 MMOL/L Carbon Dioxide Level 22 21-32 MMOL/L Anion Gap 13 5-14 MMOL/L Blood Urea Nitrogen 9 7-18 MG/DL Creatinine 0.75 0.60-1.30 MG/DL Estimat Glomerular Filtration Rate > 60 BUN/Creatinine Ratio 12 Glucose Level 117 H 70-105 MG/DL Calcium Level 9.2 8.5-10.1 MG/DL Corrected Calcium 9.2 8.5-10.1 MG/DL Total Bilirubin 0.3 0.1-1.0 MG/DL Aspartate Amino Transf (AST/SGOT) 14 5-34 U/L Alanine Aminotransferase (ALT/SGPT) 20 0-55 U/L Alkaline Phosphatase 82 40-136 U/L Total Protein 7.0 6.4-8.2 GM/DL Albumin 4.0 3.2-4.5 GM/DL My Orders Orders - SHIRA MCCRAY H DO Cbc And Manual Diff (03/21/19 11:03) Comprehensive Metabolic Panel (03/21/19 11:03) Albuterol/Ipra Inhalation Soln (Duoneb I (03/21/19 11:15) Svn Small Volume Nebulizer (03/21/19 11:03) Ns Iv 1000 Ml (Sodium Chloride 0.9%) (03/21/19 11:15) Azithromycin Injection (Zithromax Inject (03/21/19 11:15) Sputum Culture (03/21/19 11:03) Induce Sputum (03/21/19 11:03) Methylprednisolone Sod Succ (Solu-Medrol (03/21/19 12:00) Medications Given in ED Current Medications Medications Dose Ordered Sig/Ken Route Start Time Stop Time Status Last Admin Dose Admin Albuterol/ Ipratropium 3 ml ONCE ONCE INH 03/21/19 11:15 03/21/19 11:16 DC 03/21/19 11:16 3 ML Azithromycin 500 mg/Sodium Chloride 250 ml @ 250 mls/hr ONCE ONCE IV 03/21/19 11:15 03/21/19 12:14 DC 03/21/19 11:17 250 MLS/HR Methylprednisolone Sodium Succinate 125 mg ONCE ONCE IVP 03/21/19 12:00 03/21/19 12:01 DC 03/21/19 12:06 125 MG Sodium Chloride 1,000 ml @ 100 mls/hr Q10H ONCE IV 03/21/19 11:15 03/21/19 21:14 03/21/19 11:17 100 MLS/HR Vital Signs/I&O 03/21/19 03/21/19 10:38 10:38 Temp 36.2 Pulse 83 Resp 20 B/P (MAP) 145/89 (107) Pulse Ox 96 96 O2 Delivery Room Air Room Air Capillary Refill : Departure Impression Primary Impression: Acute exacerbation of chronic obstructive airways disease Additional Impressions: Acute bronchitis Tobacco dependence syndrome Disposition: 01 HOME, SELF-CARE Condition: Stable Departure-Patient Inst. Decision time for Depature: 13:04 Referrals: RAFI CHILDERS MD (PCP/Family) Primary Care Physician Patient Instructions: Acute Bronchitis, Chronic Obstructive Pulmonary Disease (COPD), Including Emphysema, Drugs to Help You Stop Using Tobacco Add. Discharge Instructions: Patient reports she does have nicotine patches and will start using them to stop smoking. She will follow up with Dr. Childers next week for continued evaluation and care of acute bronchitis with exacerbation of chronic COPD Scripts Azithromycin (Azithromycin) 250 Mg Tablet 250 MG PO DAILY for Cough for 4 Days, #4 TAB 0 Refills Prov: SHIRA MCCRAY DO 03/21/19 SHIRA MCCRAY DO Mar 21, 2019 11:21
[2019-03-21 11:22] LABS: EOSINOPHILS # (AUTO) 0.1 10^3/uL (0.0-0.3); MONOCYTES # (AUTO) 0.7 X 10^3 (0.0-1.0); NEUTROPHILS # (AUTO) 8.8 X 10^3 (1.8-7.8)
[2019-03-21 11:41] LABS: ALANINE AMINOTRANSFERASE 20 U/L (0-55); ALKALINE PHOSPHATASE 82 U/L (40-136); BILIRUBIN,TOTAL 0.3 MG/DL (0.1-1.0); BUN/CREATININE RATIO 12; CALCIUM 9.2 MG/DL (8.5-10.1); CARBON DIOXIDE 22 MMOL/L (21-32); CHLORIDE 105 MMOL/L (98-107); CREATININE SERUM 0.75 MG/DL (0.60-1.30); GFR ESTIMATED > 60; GLUCOSE 117 MG/DL (70-105); SODIUM 140 MMOL/L (135-145)
[2019-03-21 11:42] LABS: BAND NEUTROPHILS 0 %; EOSINOPHILS % (MANUAL) 1 %; LYMPHOCYTES % (MANUAL) 11 %; MICROCYTOSIS SLIGHT; MONOCYTES % (MANUAL) 5 %; NEUTROPHILS % (MANUAL) 80 %; REACTIVE LYMPHOCYTES 3 %
[2019-03-21] MEDS ORDERED: methylPREDNISolone 125 MG (Solu-MEDROL) VIAL IVP ONE (12:00)
[2019-03-21] MEDS ORDERED: AZIT250T12 PO (13:07)
[2019-03-21 13:45] VITALS: BP 134/79
== END 2019-03-21 13:45 | disposition home or self-care (01) ==
LOC: EDUNIT# 10:31 → ER FS 10:33
DX: J44.1 Chronic obstructive pulmonary disease with (acute) exacerbation (principal); J20.9 Acute bronchitis, unspecified; K21.9 Gastro-esophageal reflux disease without esophagitis; F17.210 Nicotine dependence, cigarettes, uncomplicated; Z88.1 Allergy status to other antibiotic agents; Z79.51 Long term (current) use of inhaled steroids; Z79.52 Long term (current) use of systemic steroids
CPT/HCPCS: 36415; 80053; 85007; 85027; 94640; 96361; 96365; 96375

== ENCOUNTER 2019-03-29 19:06 | Inpatient (IN) | payer MEDICARE ==
[~2019-03-29] VITALS: Ht 154.9 cm; Wt 78.4 kg
[2019-03-29] MEDS ORDERED: ASPIRIN 325 MG (5 GR) TABLET PO ONE (19:45)
[2019-03-29 19:49] LABS: HEMATOCRIT 42 % (35-52); LYMPHOCYTES % (AUTO) 28 % (12-44); MEAN CORPUSCULAR HEMOGLOBIN 30 PG (25-34); MEAN CORPUSCULAR HGB CONC 33 G/DL (32-36); MEAN CORPUSCULAR VOLUME 89 FL (80-99); MEAN PLATELET VOLUME 10.1 FL (7.4-10.4); NEUTROPHILS % (AUTO) 55 % (42-75); PLATELET COUNT 273 10^3/uL (130-400); RED CELL DISTRIBUTION WIDTH 12.5 % (10.0-14.5); WHITE BLOOD COUNT 12.2 10^3/uL (4.3-11.0)
[2019-03-29 19:50] LABS: BASOPHILS # (AUTO) 0.1 10^3/uL (0.0-0.1); BASOPHILS % (AUTO) 1 % (0-10); EOSINOPHILS # (AUTO) 1.1 10^3/uL (0.0-0.3); EOSINOPHILS % (AUTO) 9 % (0-10); LYMPHOCYTES # (AUTO) 3.5 X 10^3 (1.0-4.0); MONOCYTES # (AUTO) 0.8 X 10^3 (0.0-1.0); MONOCYTES % (AUTO) 7 % (0-12); NEUTROPHILS # (AUTO) 6.7 X 10^3 (1.8-7.8); POTASSIUM 3.4 MMOL/L (3.6-5.0); SODIUM 140 MMOL/L (135-145)
[2019-03-29 19:51] LABS: ALANINE AMINOTRANSFERASE 21 U/L (0-55); ALKALINE PHOSPHATASE 82 U/L (40-136); BILIRUBIN,TOTAL 0.3 MG/DL (0.1-1.0); BUN/CREATININE RATIO 13; CALCIUM 9.2 MG/DL (8.5-10.1); CARBON DIOXIDE 24 MMOL/L (21-32); CHLORIDE 103 MMOL/L (98-107); CREATININE SERUM 0.92 MG/DL (0.60-1.30); GFR ESTIMATED > 60; GLUCOSE 99 MG/DL (70-105); TOTAL PROTEIN 6.8 GM/DL (6.4-8.2)
--- NOTE | 2019-03-29 19:54 | ED General ---
General Chief Complaint: Respiratory Problems Stated Complaint: TROUBLE BREATHING Nursing Triage Note: PT COMPLAINING OF SOB THAT STARTED LAST NIGHT AND HAS WORSENED OVER THE DAY. Nursing Sepsis Screen: No Definite Risk History of Present Illness Date Seen by Provider: Mar 29, 2019 Time Seen by Provider: 19:25 Initial Comments The patient is a 49-year-old female with a history of severe COPD with chronic respiratory failure on 2 L of home oxygen at all times. She quit smoking a week ago. He has no known cardiac comorbidities. She presents with concern for shortness of breath wheezing over the last 3 weeks which has been unaffected by several rounds of antibiotics and steroids. She has presented to this emergency department twice previously in the last 10 days for these symptoms and therapy provided on an outpatient basis has not been successful in resolving her symptoms. She is saturating normally on her typical 2 L of home oxygen but is using accessory muscles and wheezing and sounds very tight on auscultation. She reports an associated productive cough. She reports bilateral leg swelling for which she is wearing CLARENCE hose which is completely new over the last 4 weeks. She denies associated fevers, nausea or vomiting, upper respiratory congestion/rhinorrhea, chest pain, flank pain, back pain, dysuria or hematuria, changes in bowel habits. Allergies and Home Medications Allergies Coded Allergies: cefazolin (Verified Allergy, Unknown, 03/20/19) Home Medications Albuterol Sulfate 6.7 Gm Hfa.aer.ad, 6.7 GM INH 5XD Prescribed by: SAMIA BILLINGSLEY on 09/04/18 214 Albuterol/Ipratropium 4 Gm Aero, 1 PUFF IH QID PRN for SHORTNESS OF BREATH, (Reported) Azithromycin 250 Mg Tablet, 250 MG PO DAILY Prescribed by: JOANN JOYCE on 07/20/18 1254 Azithromycin 250 Mg Tablet, 250 MG PO UD TAKE 2 TABLETS ON DAY ONE THEN TAKE 1 TABLET DAILY FOR FOUR MORE DAYS Prescribed by: RADHA COLON on 09/19/18 0547 Azithromycin 250 Mg Tablet, 250 MG PO DAILY Prescribed by: SHIRA MCCRAY on 03/21/19 1307 Cefdinir 300 Mg Capsule, 300 MG PO BID Prescribed by: JOANN JOYCE on 07/20/18 1254 Cefdinir 300 Mg Capsule, 300 MG PO BID Prescribed by: WOODY ROWAN on 02/21/19 1248 Cetirizine HCl 10 Mg Tablet, 10 MG PO DAILY, (Reported) Doxycycline Hyclate 100 Mg Tablet, 100 MG PO BID Prescribed by: TRACY RUIZ on 11/24/182051 Fluticasone Propionate 16 Gm [place].susp, 1 SPRAY NS DAILY, (Reported) Guaifenesin/Dextromethorphan 1 Each Tab.er.12h, 1 TAB PO BID, (Reported) Ibuprofen 800 Mg Tablet, 800 MG PO DAILY, (Reported) Ibuprofen 800 Mg Tablet, 800 MG PO BID PRN for PAIN-MILD, (Reported) Ipratropium/Albuterol Sulfate 3 Ml Ampul.neb, 3 ML NEB Q6H PRN for SHORTNESS OF BREATH, (Reported) Ipratropium/Albuterol Sulfate 3 Ml Ampul.neb, 3 ML IH Q6H Prescribed by: TIMOTHY TERAN on 10/13/181802 Metoprolol Tartrate 25 Mg Tablet, 25 MG PO DAILY, (Reported) Mometasone/Formoterol 13 Gm Hfa.aer.ad, 2 PUFF IH BID, (Reported) Pantoprazole Sodium 20 Mg Tablet.dr, 20 MG PO BID Prescribed by: TIMOTHY TERAN on 03/20/192207 Prednisone 10 Mg Tab.ds.pk, 10 MG PO DAILY Take 6 tabs(60mg)daily,decrease by 1 tab(10mg)every other day. Prescribed by: JOANN JOYCE on 07/20/18 1254 Prednisone 20 Mg Tab, 60 MG PO DAILY Prescribed by: SAMIA BILLINGSLEY on 09/04/182140 Prednisone 20 Mg Tab, 20 MG PO BID 3 tab BID x3 day 2 tab BID x3 day 1 tab BID x3 day Prescribed by: TIMOTHY TERAN on 10/13/181802 Prednisone 50 Mg Tab, 50 MG PO DAILY Prescribed by: TRACY RUIZ on 11/24/182051 Prednisone 20 Mg Tab, 40 MG PO DAILY Prescribed by: WOODY ROWAN on 02/21/19 1248 Ranitidine HCl 150 Mg Tablet, 150 MG PO DAILY, (Reported) Rifaximin 200 Mg Tablet, 600 MG PO TID, (Reported) HAS NOT STARTED THIS- 14 DAY SUPPLY FILLED 06-26-18 TAKES 3 (200MG) TABLETS Sucralfate 1 Gm Tablet, 1 GM PO QIDACHS Prescribed by: TIMOTHY TERAN on 03/20/19 9567 Patient Home Medication List Home Medication List Reviewed: Yes Review of Systems Review of Systems Constitutional: see HPI All Other Systems Reviewed Negative Unless Noted: Yes (Negative excepted noted.) Past Noepxwq-Bitepi-Nvgufw Hx Past Med/Social Hx: Reviewed Nursing Past Med/Soc Hx Patient Social History Alcohol Use: Denies Use Recreational Drug Use: No Type Used: Cigarettes 2nd Hand Smoke Exposure: Yes Recent Foreign Travel: No Contact w/Someone Who Travel: No Recent Infectious Disease Expo: No Recent Hopitalizations: No Immunizations Up To Date Date of Pneumonia Vaccine: Nov 26, 2017 Seasonal Allergies Seasonal Allergies: No Past Medical History Surgeries: Yes Gallbladder Respiratory: Yes (uses oxygen @ 2 liters PRN and NOC, neb tx) COPD Cardiac: Yes Palpitations Neurological: No Sexually Transmitted Disease: No HIV/AIDS: No Genitourinary: No Gastrointestinal: Yes Gastroesophageal Reflux Musculoskeletal: Yes Arthritis Endocrine: No HEENT: No Cancer: No Psychosocial: No Integumentary: No Blood Disorders: No Family Medical History Reviewed Nursing Family Hx Patient reports no known family medical history. Physical Exam Vital Signs Vital Signs - First Documented 03/29/19 19:08 Temp 36.3 Pulse 86 Resp 20 B/P (MAP) 164/78 (106) Pulse Ox 92 O2 Delivery Room Air Capillary Refill : Less Than 3 Seconds Height, Weight, BMI Height: 5'1.00" Weight: 175lbs. 0oz. [id number]; 33.00 BMI Method:Stated General Appearance: No Apparent Distress Comments This is an older female appearing nontoxic and in no acute distress. Head is normocephalic and atraumatic. Neck is supple and nontender. Oropharynx is moist. Lungs with diminished breath sounds in all gusman, soft wheezes and mild accessory muscle recruitment. There is a normal S1 and S2 without rubs or gallops and capillary refill is appropriate, less than 2 seconds globally. Abdomen is soft, nontender and nondistended. Skin is warm and dry without cyanosis or clubbing. There is 2+ pitting edema to the distal bilateral lower extremities symmetrically below the level of the knees. There is no calf pain or swelling bilaterally. Psychiatrically, the patient didn't strays appropriate mood and affect and is alert. Focused Exam Lactate Level 03/29/19 19:58: Lactic Acid Level 1.20 Lactic Acid Level Laboratory Tests Test 03/29/19 19:58 Lactic Acid Level 1.20 MMOL/L (0.50-2.00) Progress/Results/Core Measures Suspected Sepsis Recent Fever Within 48 Hours: No Infection Criteria Present: None New/Unexplained Altered Menta: No Sepsis Screen: No Definite Risk SIRS Temperature: Pulse: 86 Respiratory Rate: 20 Laboratory Tests 03/29/19 19:17: White Blood Count 12.2H Blood Pressure 164 /78 Mean: 106 03/29/19 19:58: Lactic Acid Level 1.20 Laboratory Tests 03/29/19 19:17: Creatinine 0.92, INR Comment 0.9, Platelet Count 273, Total Bilirubin 0.3 Results/Orders Lab Results Laboratory Tests Test 03/29/19 19:17 03/29/19 19:58 Range/Units White Blood Count 12.2 H 4.3-11.0 10^3/uL Red Blood Count 4.70 4.35-5.85 10^6/uL Hemoglobin 14.0 11.5-16.0 G/DL Hematocrit 42 35-52 % Mean Corpuscular Volume 89 80-99 FL Mean Corpuscular Hemoglobin 30 25-34 PG Mean Corpuscular Hemoglobin Concent 33 32-36 G/DL Red Cell Distribution Width 12.5 10.0-14.5 % Platelet Count 273 130-400 10^3/uL Mean Platelet Volume 10.1 7.4-10.4 FL Neutrophils (%) (Auto) 55 42-75 % Lymphocytes (%) (Auto) 28 12-44 % Monocytes (%) (Auto) 7 0-12 % Eosinophils (%) (Auto) 9 0-10 % Basophils (%) (Auto) 1 0-10 % Neutrophils # (Auto) 6.7 1.8-7.8 X 10^3 Lymphocytes # (Auto) 3.5 1.0-4.0 X 10^3 Monocytes # (Auto) 0.8 0.0-1.0 X 10^3 Eosinophils # (Auto) 1.1 H 0.0-0.3 10^3/uL Basophils # (Auto) 0.1 0.0-0.1 10^3/uL Prothrombin Time 12.8 12.2-14.7 SEC INR Comment 0.9 0.8-1.4 Activated Partial Thromboplast Time 30 24-35 SEC Sodium Level 140 135-145 MMOL/L Potassium Level 3.4 L 3.6-5.0 MMOL/L Chloride Level 103 98-107 MMOL/L Carbon Dioxide Level 24 21-32 MMOL/L Anion Gap 13 5-14 MMOL/L Blood Urea Nitrogen 12 7-18 MG/DL Creatinine 0.92 0.60-1.30 MG/DL Estimat Glomerular Filtration Rate > 60 BUN/Creatinine Ratio 13 Glucose Level 99 70-105 MG/DL Calcium Level 9.2 8.5-10.1 MG/DL Corrected Calcium 9.2 8.5-10.1 MG/DL Total Bilirubin 0.3 0.1-1.0 MG/DL Aspartate Amino Transf (AST/SGOT) 20 5-34 U/L Alanine Aminotransferase (ALT/SGPT) 21 0-55 U/L Alkaline Phosphatase 82 40-136 U/L Troponin I < 0.30 <0.30 NG/ML Pro-B-Type Natriuretic Peptide 210.3 H <75.0 PG/ML Total Protein 6.8 6.4-8.2 GM/DL Albumin 4.0 3.2-4.5 GM/DL Lactic Acid Level 1.20 0.50-2.00 MMOL/L My Orders Orders - TRACY RUIZ MD Cbc With Automated Diff (03/29/19 19:45) Comprehensive Metabolic Panel (03/29/19 19:45) Troponin I Fs (03/29/19 19:45) Ekg Tracing (03/29/19 19:45) Chest 1 View Ap/Pa Only (03/29/19 19:45) Protime With Inr (03/29/19 19:45) Partial Thromboplastin Time (03/29/19 19:45) Probnp Fs (03/29/19 19:45) Aspirin Tablet (Aspirin Tablet) (03/29/19 19:45) Lactic Acid Analyzer (03/29/19 19:46) Blood Culture (03/29/19 19:46) Levofloxacin 750 Mg/150 Ml Iv (Levaquin (03/29/19 20:00) Methylprednisolone Sod Succ (Solu-Medrol (03/29/19 20:00) Furosemide Injection (Lasix Injection) (03/29/19 20:00) Blood Culture (03/29/19 20:28) Medications Given in ED Current Medications Medications Dose Ordered Sig/Ken Route Start Time Stop Time Status Last Admin Dose Admin Aspirin 325 mg ONCE ONCE PO 03/29/19 19:45 03/29/19 19:46 DC 03/29/19 20:03 325 MG Furosemide 20 mg ONCE ONCE IVP 03/29/19 20:00 03/29/19 20:01 DC 03/29/19 20:03 20 MG Levofloxacin/ Dextrose 150 ml @ 100 mls/hr ONCE ONCE IV 03/29/19 20:00 03/29/19 21:29 03/29/19 20:11 100 MLS/HR Methylprednisolone Sodium Succinate 125 mg ONCE ONCE IVP 03/29/19 20:00 03/29/19 20:01 DC 03/29/19 20:03 125 MG Vital Signs/I&O 03/29/19 19:08 Temp 36.3 Pulse 86 Resp 20 B/P (MAP) 164/78 (106) Pulse Ox 92 O2 Delivery Room Air Capillary Refill : Less Than 3 Seconds Blood Pressure Mean: 106 Progress Note : Time: 19:53 Progress Note 49-year-old female with severe COPD who presents with shortness of breath refractory to her typical outpatient COPD exacerbation management. Symptoms and present for 3 weeks and not responded to 4 rounds of treatment. Also now with new bilateral lower extremity swelling. We will plan for large workup as below, IV steroids, antibiotics after cultures and an empiric small dose of Lasix. Given failure of outpatient treatment, patient requires admission for attention from pulmonology as well as cardiology given new onset of leg swelling. She will likely require an echocardiogram. She understands and agrees with this plan of care. Update 2005: Workup largely unremarkable and reassuring aside from mild elevation in BNP. Patient is feeling somewhat better after medication including levofloxacin, methylprednisolone and breathing treatments as well as a small dose of empiric Lasix. We'll proceed with admission for attention from the archery equipment repairer, the supervisor tunnel heading and further care on an inpatient basis given failure of outpatient therapy over the past 3 weeks. This is a [facility] patient who should be under Dr. Conti today however we have been unable to reach him at any of the numbers listed for him for a protracted length of time. Per discussion with the [facility] supervisor, patient is to be admitted to Dr. Pablo. She graciously accepts for inpatient telemetry admission. ECG Comment Sinus rhythm, no acute ST elevation or depression, rate 76, CO 150, QRS 89, QTC 467, EP interpretation. Diagnostic Imaging Diagonstic Imaging: Xray Comments Date of Exam:03/29/19 CHEST 1 VIEW AP/PA ONLY INDICATION: Shortness of air, chest pain COMPARISON: 03/20/2019 and 07/17/2018 TECHNIQUE: Single radiograph of the chest dated 03/29/2019 FINDINGS: The cardiac silhouette is within normal limits in size. No significant pulmonary vascular congestion. Scattered calcified granuloma are again noted associated with the lungs bilaterally. The lungs are clear of focal pulmonary opacity. No pleural effusion. No pneumothorax. No acute osseous abnormality. IMPRESSION: Stable examination without acute cardiopulmonary abnormality. Stable bilateral calcified granuloma. Departure Impression Primary Impression: COPD with exacerbation Additional Impressions: Peripheral edema Elevated brain natriuretic peptide (BNP) level Disposition: ADMITTED INPATIENT Condition: Stable Departure-Patient Inst. Referrals: RAFI CHILDERS MD (PCP/Family) Primary Care Physician TRACY RUIZ MD Mar 29, 2019 19:54
[2019-03-29 19:57] LABS: INR 0.9 (0.8-1.4); PROTHROMBIN TIME PATIENT 12.8 SEC (12.2-14.7)
[2019-03-29] MEDS ORDERED: FUROSEMIDE 40 MG/4 ML INJ (LASIX) IVP ONE (20:00)
[2019-03-29] MEDS ORDERED: methylPREDNISolone 125 MG (Solu-MEDROL) VIAL IVP ONE (20:00)
[2019-03-29] MEDS ORDERED: LEVOFLOXACIN 750 MG/150 ML IV 150 ML IV ONE (20:00)
--- NOTE | 2019-03-29 20:38 | Diagnostic Imaging Report ---
INDICATION: Shortness of air, chest pain COMPARISON: 03/20/2019 and 07/17/2018 TECHNIQUE: Single radiograph of the chest dated 03/29/2019 FINDINGS: The cardiac silhouette is within normal limits in size. No significant pulmonary vascular congestion. Scattered calcified granuloma are again noted associated with the lungs bilaterally. The lungs are clear of focal pulmonary opacity. No pleural effusion. No pneumothorax. No acute osseous abnormality. IMPRESSION: Stable examination without acute cardiopulmonary abnormality. Stable bilateral calcified granuloma. Dictated by: Dictated on workstation # [id number]
[2019-03-29] MEDS ORDERED: RT-ALBUTEROL/IPRATROPIUM 3 ML (DUONEB) VIAL ONE (22:28)
[2019-03-29] MEDS ORDERED: RT-ALBUTEROL/IPRATROPIUM 3 ML (DUONEB) VIAL INH ONE (22:30)
[2019-03-30] VITALS (7 sets, daily range): BP systolic 158–179; BP diastolic 79–102
--- NOTE | 2019-03-30 01:16 | NUR ---
EMILIE GO admitted to room 422-1, with an admitting diagnosis of COPD EX, ELEVATED BNP/PERIPH EDEMA , on 03/29/19 from [facility] via EMS, accompanied by STAFF. EMILIE GO introduced to surroundings, call light, bed controls, phone, TV, temperature control, lights, meal times, smoking policy, visitor policy, side rail policy, bathrooms and showers. Patient Rights given to patient in the handbook.EMILIE GO verbalizes understanding that [facility] is not responsible for the loss or damage to any personal effects or valuables that are kept in the patients posession during their hospitalization.
[2019-03-30] MEDS ORDERED: FAMO20TA3 PO (02:24)
[2019-03-30] MEDS ORDERED: IPRA4AER IH (02:25)
[2019-03-30] MEDS ORDERED: ONDANSETRON 4 MG/2 ML (SDV) Z0FRAN IVP PRN (03:00)
[2019-03-30 06:06] LABS: BASOPHILS % (AUTO) 0 % (0-10); EOSINOPHILS % (AUTO) 0 % (0-10); HEMATOCRIT 43 % (35-52); HEMOGLOBIN 14.3 G/DL (11.5-16.0); LYMPHOCYTES # (AUTO) 0.8 X 10^3 (1.0-4.0); LYMPHOCYTES % (AUTO) 10 % (12-44); MEAN CORPUSCULAR HEMOGLOBIN 29 PG (25-34); MEAN CORPUSCULAR HGB CONC 33 G/DL (32-36); MEAN CORPUSCULAR VOLUME 87 FL (80-99); MEAN PLATELET VOLUME 10.8 FL (7.4-10.4); MONOCYTES # (AUTO) 0.1 X 10^3 (0.0-1.0); MONOCYTES % (AUTO) 1 % (0-12); NEUTROPHILS # (AUTO) 7.4 X 10^3 (1.8-7.8); NEUTROPHILS % (AUTO) 89 % (42-75); PLATELET COUNT 288 10^3/uL (130-400); RED CELL DISTRIBUTION WIDTH 12.9 % (10.0-14.5); WHITE BLOOD COUNT 8.3 10^3/uL (4.3-11.0)
--- NOTE | 2019-03-30 06:19 | NUR ---
DR. LOPEZ NOTIFIED OF PT CONSULT.
--- NOTE | 2019-03-30 06:26 | Pulmonary Consultation ---
History of Present Illness History of Present Illness Date Seen by Provider: Mar 30, 2019 Time Seen by Provider: 06:22 Date of Admission Allergies and Home Medications Allergies Coded Allergies: cefazolin (Verified Allergy, Unknown, 03/20/19) Home Medications Albuterol/Ipratropium 4 Gm Aero, 1 PUFF IH QID PRN for SHORTNESS OF BREATH, (Reported) Cetirizine HCl 10 Mg Tablet, 10 MG PO DAILY, (Reported) Famotidine 20 Mg Tablet, 20 MG PO BID, (Reported) Fluticasone Propionate 16 Gm [place].susp, 1 SPRAY NS DAILY, (Reported) Ibuprofen 800 Mg Tablet, 800 MG PO BID PRN for PAIN-MILD, (Reported) Metoprolol Tartrate 25 Mg Tablet, 25 MG PO DAILY, (Reported) Mometasone/Formoterol 13 Gm Hfa.aer.ad, 2 PUFF IH BID, (Reported) Past Cvcrohp-Hwkdso-Ninisz Hx Past Med/Social Hx: Reviewed Nursing Past Med/Soc Hx Patient Social History Alcohol Use: Denies Use Recreational Drug Use: No Type Used: Cigarettes 2nd Hand Smoke Exposure: Yes Recent Foreign Travel: No Contact w/Someone Who Travel: No Recent Infectious Disease Expo: No Recent Hopitalizations: No Immunizations Up To Date Date of Pneumonia Vaccine: Nov 26, 2017 Date of Influenza Vaccine: Nov 26, 2018 Seasonal Allergies Seasonal Allergies: No Past Medical History Surgeries: Yes Gallbladder Respiratory: Yes (uses oxygen @ 2 liters PRN and NOC, [facility] [place]) COPD Cardiac: Yes Palpitations Neurological: No Sexually Transmitted Disease: No HIV/AIDS: No Genitourinary: No Gastrointestinal: Yes Gastroesophageal Reflux Musculoskeletal: Yes Arthritis Endocrine: No HEENT: No Cancer: No Psychosocial: No Integumentary: No Blood Disorders: No Family Medical History Reviewed Nursing Family Hx Patient reports no known family medical history. Sepsis Event Evaluation Height, Weight, BMI Height: 5'1.00" Weight: 175lbs. 0oz. 79.554689ti; 32.67 BMI Method:Stated Exam Exam Vital Signs Date Time Temp Pulse Resp B/P (MAP) Pulse Ox O2 Delivery O2 Flow Rate FiO2 03/30/19 04:01 36.0 91 18 173/79 (110) 94 Nasal Cannula 2.50 03/30/19 02:12 Nasal Cannula 2.50 03/30/19 01:55 83 03/30/19 01:49 2.00 03/30/19 01:35 36.2 87 18 178/83 95 Nasal Cannula 2.50 03/30/19 01:25 36.2 87 18 178/83 (114) 95 Nasal Cannula 2.50 03/29/19 23:54 84 16 152/87 93 Nasal Cannula 2.00 03/29/19 19:08 36.3 86 20 164/78 (106) 92 Room Air I & O 03/30/19 07:00 Intake Total 150 ml Balance 150 ml Height & Weight Height: 5'1.00" Weight: 175lbs. 0oz. 79.519636cq; 32.67 BMI Method:Stated General Appearance: No Apparent Distress Capillary Refill: Less Than 3 Seconds Results Lab Laboratory Tests 03/29/19 19:17 03/30/19 05:13 Assessment/Plan Assessment/Plan COPDAE -Duonebs -Solumedrol -Check CINTHIA PAGE DO Mar 30, 2019 06:26
[2019-03-30 06:28] LABS: ALBUMIN 4.2 GM/DL (3.2-4.5); BILIRUBIN,TOTAL 0.3 MG/DL (0.1-1.0); CALCIUM 9.6 MG/DL (8.5-10.1); CREATININE SERUM 0.99 MG/DL (0.60-1.30); POTASSIUM 3.5 MMOL/L (3.6-5.0); TOTAL PROTEIN 7.3 GM/DL (6.4-8.2)
--- NOTE | 2019-03-30 06:43 | NUR ---
DR. KELLER NOTIFIED OF PT CONSULT.
--- NOTE | 2019-03-30 07:21 | History & Physical-Hospitalist ---
History of Present Illness HPI/Chief Complaint The patient is a 49-year-old female with a history of severe COPD with chronic respiratory failure on 2 L of home oxygen at all times. She quit smoking a week ago. He has no known cardiac comorbidities. She presents with concern for shortness of breath wheezing over the last 3 weeks which has been unaffected by several rounds of antibiotics and steroids. She has presented to this emergency department twice previously in the last 10 days for these symptoms and therapy provided on an outpatient basis has not been successful in resolving her symptoms. She is saturating normally on her typical 2 L of home oxygen but is using accessory muscles and wheezing and sounds very tight on auscultation. She reports an associated productive cough. She reports bilateral leg swelling for which she is wearing CLARENCE hose which is completely new over the last 4 weeks. She denies associated fevers, nausea or vomiting, upper respiratory congestion/rhinorrhea, chest pain, flank pain, back pain, dysuria or hematuria, changes in bowel habits Date Seen 03/30/19 Attending Physician Yonny Nuñez MD PCP Charisma Barrera MD Referring Physician Date of Admission Mar 29, 2019 at 23:28 Home Medications & Allergies Home Medications Reviewed patient Home Medication Reconciliation performed by pharmacy medication reconciliations fire management technician and/or nursing. Patients Allergies have been reviewed. Allergies Allergies Coded Allergies cefazolin (Verified Allergy, Unknown, 03/20/19) Past Qggccue-Wgwmjm-Pajzxd Hx Past Med/Social Hx: Reviewed Nursing Past Med/Soc Hx Patient Social History Alcohol Use: Denies Use Recreational Drug Use: No Type Used: Cigarettes 2nd Hand Smoke Exposure: Yes Recent Foreign Travel: No Contact w/other who traveled: No Recent Hopitalizations: No Recent Infectious Disease Expo: No Immunizations Up To Date Date of Pneumonia Vaccine: Nov 26, 2017 Date of Influenza Vaccine: Nov 26, 2018 Seasonal Allergies Seasonal Allergies: No Past Medical History Surgeries: Gallbladder Respiratory: COPD, Pneumonia Cardiac: Palpitations Sexually Transmitted Disease: No HIV/AIDS: No Gastrointestinal: Gastroesophageal Reflux Musculoskeletal: Arthritis History of Blood Disorders: No Family History Reviewed Nursing Family Hx Patient reports no known family medical history. Physical Exam Physical Exam Vital Signs Vital Signs - First Documented 03/29/19 03/29/19 19:08 23:54 Temp 36.3 Pulse 86 Resp 20 B/P (MAP) 164/78 (106) Pulse Ox 92 O2 Delivery Room Air O2 Flow Rate 2.00 Capillary Refill : Less Than 3 Seconds Height, Weight, BMI Height: 5'1.00" Weight: 175lbs. 0oz. 79.059858yb; 32.67 BMI Method:Stated Results Results/Procedures Labs Laboratory Tests 03/29/19 19:17 03/30/19 05:13 Patient resulted labs reviewed. Clinical Quality Measures DVT/VTE Risk/Contraindication: Risk Factor Score Per Nursin RFS Level Per Nursing on Admit: 4+=Very High YONNY NUÑEZ MD Mar 30, 2019 07:21
[2019-03-30 07:23] LABS: BAND NEUTROPHILS 2 %; BASOPHILS % (MANUAL) 0 %; EOSINOPHILS % (MANUAL) 0 %; LYMPHOCYTES % (MANUAL) 11 %; MONOCYTES % (MANUAL) 1 %; NEUTROPHILS % (MANUAL) 86 %
[2019-03-30 07:24] LABS: RBC MORPH NORMAL
[2019-03-30] MEDS: ACETAMINOPHEN 325 MG TABLET PO PRN ×2 (08:46→15:22)
[2019-03-30] MEDS: RT-ADVAIR HFA 115/21 MCG PER PUFF IH SCH ×2 (09:44→18:52)
[2019-03-30] MEDS: RT-ALBUTEROL/IPRATROPIUM 3 ML (DUONEB) VIAL INH SCH ×3 (09:45→18:52)
[2019-03-30 09:49] LABS: ABG BASE EXCESS 1.8 MMOL/L (-2.5-2.5); ABG OXYGEN SATURATION 97 % (94-100); ABG PCO2 38 MMHG (35-45); ABG PH 7.44 (7.37-7.43); ABG PO2 85 MMHG (79-93); ABG TCO2 26.7 MMOL/L (21.0-31.0); ALLENS TEST YES-POS; INSPIRED O2 2.5 L; PATIENT TEMP 37.2; VENTILATOR NO
--- NOTE | 2019-03-30 11:42 | NUR ---
DR NUÑEZ NOTIFIED OF ELEVATED BP AND HR.
[2019-03-30] MEDS: methylPREDNISolone 40 MG/ML (Solu-MEDROL) VIAL IV SCH ×2 (12:56→17:41)
--- NOTE | 2019-03-30 15:10 | History & Physical-Hospitalist ---
History of Present Illness HPI/Chief Complaint The patient is a 49-year-old female with a history of severe COPD with chronic respiratory failure on 2 L of home oxygen at all times. She quit smoking a week ago. He has no known cardiac comorbidities. She presents with concern for shortness of breath wheezing over the last 3 weeks which has been unaffected by several rounds of antibiotics and steroids. She has presented to this emergency department twice previously in the last 10 days for these symptoms and therapy provided on an outpatient basis has not been successful in resolving her symptoms. She is saturating normally on her typical 2 L of home oxygen but is using accessory muscles and wheezing and sounds very tight on auscultation. She reports an associated productive cough. She reports bilateral leg swelling for which she is wearing CLARENCE hose which is completely new over the last 4 weeks. She denies associated fevers, nausea or vomiting, upper respiratory congestion/rhinorrhea, chest pain, flank pain, back pain, dysuria or hematuria, changes in bowel habits Date Seen 03/30/19 Time Seen by a Provider: 08:00 Attending Physician Yonny Nuñez MD PCP Charisma Barrera MD Referring Physician Date of Admission Mar 29, 2019 at 23:28 Home Medications & Allergies Home Medications Reviewed patient Home Medication Reconciliation performed by pharmacy medication reconciliations biometric fingerprinting technician and/or nursing. Patients Allergies have been reviewed. Allergies Allergies Coded Allergies cefazolin (Verified Allergy, Unknown, 03/20/19) Past Wkbcsfu-Jzhczy-Xbmtqz Hx Past Med/Social Hx: Reviewed Nursing Past Med/Soc Hx, Reviewed and Corrections made Patient Social History Alcohol Use: Denies Use Recreational Drug Use: No Type Used: Cigarettes 2nd Hand Smoke Exposure: Yes Recent Foreign Travel: No Contact w/other who traveled: No Recent Hopitalizations: No Recent Infectious Disease Expo: No Immunizations Up To Date Date of Pneumonia Vaccine: Nov 26, 2017 Date of Influenza Vaccine: Nov 26, 2018 Seasonal Allergies Seasonal Allergies: No Past Medical History Surgeries: Gallbladder Respiratory: COPD, Pneumonia Cardiac: Palpitations Sexually Transmitted Disease: No HIV/AIDS: No Gastrointestinal: Gastroesophageal Reflux Musculoskeletal: Arthritis History of Blood Disorders: No Family History Reviewed Nursing Family Hx Patient reports no known family medical history. Review of Systems Constitutional: see HPI Physical Exam Physical Exam Vital Signs Vital Signs - First Documented 03/29/19 03/29/19 19:08 23:54 Temp 36.3 Pulse 86 Resp 20 B/P (MAP) 164/78 (106) Pulse Ox 92 O2 Delivery Room Air O2 Flow Rate 2.00 Capillary Refill : Less Than 3 SecondsLess Than 3 Seconds Height, Weight, BMI Height: 5'1.00" Weight: 175lbs. 0oz. 79.792579lx; 32.67 BMI Method:Stated General Appearance: No Apparent Distress, WD/WN Neck: Full Range of Motion, Normal Inspection, Non Tender Respiratory: Chest Non Tender, Normal Breath Sounds, No Accessory Muscle Use, No Respiratory Distress, Other (mild expiratory wheezing posteriorly good air movement) Cardiovascular: Regular Rate, Rhythm, No Edema, No Gallop, No JVD, No Murmur, Normal Peripheral Pulses Gastrointestinal: Normal Bowel Sounds, No Organomegaly, No Pulsatile Mass, Non Tender, Soft Extremity: Normal Capillary Refill, Normal Inspection, Normal Range of Motion, Non Tender, No Calf Tenderness, No Pedal Edema Results Results/Procedures Labs Laboratory Tests 03/29/19 19:17 03/30/19 05:13 Patient resulted labs reviewed. Assessment/Plan Admission Diagnosis A/P 1. Acute COPD/asthma exacerbation most likely viral mediated no evidence for bacterial infection currently. Continue bronchodilator and anti- inflammatory therapy. Ex 2. History of hypertension because she is significantly better this morning and did receive a dose of Lasix last night we obtain an echocardiogram today which revealed preserved systolic function estimated ejection fraction 65 percent with some underlying diastolic dysfunction but no evidence for LVH cardiac chamber dimension dilatation or pulmonary hypertension PA pressure estimated at 25 mmHg. Inferior vena cava was also small collapsing with inspiration indicative of of if anything a little volume contraction. Her blood pressure is moderately elevated today considering there is improvement and she also missed her beta babar dose a questionable relative contraindication with her reactive airways we will substitute diltiazem 180 mg daily. If improvement continues likely switch to oral steroids and even possible discharge tomorrow. Admission Status: Inpatient Order (span 2 midnights) Reason for Inpatient Admission: see admission diagnosis Clinical Quality Measures DVT/VTE Risk/Contraindication: Risk Factor Score Per Nursin RFS Level Per Nursing on Admit: 4+=Very High YONNY NUÑEZ MD Mar 30, 2019 15:10
[2019-03-30] MEDS ORDERED: DILTIAZEM 180 MG (CARDIZEM CD) CAP PO ONE (15:15)
--- NOTE | 2019-03-30 16:07 | NUR ---
RECEIVED CALL FROM ICU FOR ELEVATED HR OF 120BPM, PT WAS UP IN BA AT THIS TIME. PT ASYMPTOMATIC AND DENIES ANY NEEDS, WILL CONTINUE TO MONITOR
--- NOTE | 2019-03-30 20:00 | NUR ---
BP 179/85, HR 111 DR. NUÑEZ NOTIFIED, NEW ORDERS RECEIVED: INCREASE CARDIZEM TO 240MG PO DAILY IN AM.
--- NOTE | 2019-03-30 20:55 | NUR ---
PT. INSISTING SHE LEAVE AMA KELVIN. DR. NUÑEZ NOTIFIED OF PT DECISION. AMA PAPER SIGNED BY PATIENT.
--- NOTE | 2019-03-30 21:40 | NUR ---
EMILIE GO LEFT FLOOR VIA AMBULATORY WITH FAMILY. AMA PAPER SIGNED. .
[2019-03-31] MEDS ORDERED: DILTIAZEM 180 MG (CARDIZEM CD) CAP PO SCH (09:00)
[2019-03-31] MEDS ORDERED: DILTIAZEM 240 MG (CARDIZEM CD) CAP PO SCH (09:00)
== END 2019-03-30 21:40 | disposition left against medical advice (07) | DRG 191 ==
LOC: EDUNIT# 19:06 → ER FS 19:09 → 4TH 23:28
PROVIDERS: ADMIT Family Medicine; ATTEND Family Medicine
DX: J44.1 Chronic obstructive pulmonary disease with (acute) exacerbation (principal); J96.10 Chronic respiratory failure, unspecified whether with hypoxia or hypercapnia; F17.211 Nicotine dependence, cigarettes, in remission; K21.9 Gastro-esophageal reflux disease without esophagitis; M19.91 Primary osteoarthritis, unspecified site; Z99.81 Dependence on supplemental oxygen
CPT/HCPCS: 36415; 71045; 80053; 82805; 83605; 83880; 84484; 85007; 85025; 85027; 85610; 85730; 87040; 93005; 93306; 94640

== ENCOUNTER 2019-04-18 14:17 | Emergency (ER) | payer MEDICARE ==
[~2019-04-18] VITALS: Ht 154.9 cm; Wt 79.5 kg
[~2019-04-18 14:17] MED LIST changes: +FAMO20TA3 PO
[2019-04-18] MEDS ORDERED: NS IV 1000 ML 1,000 ML IV SCH (14:43)
[2019-04-18] MEDS ORDERED: ACETAMINOPHEN 500 MG TAB (TYLENOL) PO ONE (14:45)
[2019-04-18] MEDS ORDERED: diphenhydrAMINE 50 MG/ML INJ (BENADRYL) IVP ONE (14:45)
[2019-04-18] MEDS ORDERED: PROCHLORPERAZINE 10 MG/2ML INJ (COMPAZINE) IV ONE (14:45)
[2019-04-18] MEDS: MAGNESIUM 1 GM/100 ML IVPB 100 ML IV SCH ×2 (15:49→17:01)
--- NOTE | 2019-04-18 16:00 | Diagnostic Imaging Report ---
PROCEDURE: CT head without contrast. TECHNIQUE: Multiple contiguous axial images were obtained through the brain without the use of intravenous contrast. Auto Exposure Controls were utilized during the CT exam to meet ALARA standards for radiation dose reduction. INDICATION: Acute onset right-sided head pain The paranasal sinuses are clear. Globes and orbits appear normal. The ventricles are normal in size, shape and position. There are no masses or hemorrhages. There are no extra-axial fluid collections. IMPRESSION: Negative CT head Dictated by: Dictated on workstation # [id number]
[2019-04-18] MEDS ORDERED: ACETAMINOPHEN 325 MG TABLET ONE (16:02)
[2019-04-18] MEDS ORDERED: ACETAMINOPHEN 325 MG TABLET PO ONE (16:15)
--- NOTE | 2019-04-18 17:18 | ED General ---
General Chief Complaint: Neuro-Stroke Like Symptoms Stated Complaint: SOLE LEG NUMBNESS; RT FACIAL NUMBNESS History of Present Illness Date Seen by Provider: Apr 18, 2019 Time Seen by Provider: 14:05 Initial Comments The patient is a 49-year-old female who presents with concern for acute onset of right sided parietal headache radiating to the forehead, with rather sudden onset about 3 hours prior to arrival. Associated photophobia and nausea. Patient reports associated tingling to bilateral legs which is actually not new today and has been a problem over several months and relates, she states, to what her doctors feel is probably some lumbosacral radicular disease. She denies any new numbness or tingling of any kind. She denies fevers, vomiting, new focal weakness/numbness/tingling/neck stiffness/pain/meningismus, vision changes, shortness of breath or chest pain, recent injury or trauma to her head. The state this headache is somewhat new and different for her. She is in no distress and vital signs are appropriate here. Allergies and Home Medications Allergies Coded Allergies: cefazolin (Verified Allergy, Unknown, 03/20/19) Home Medications Albuterol/Ipratropium 4 Gm Aero, 1 PUFF IH QID PRN for SHORTNESS OF BREATH, (Reported) Cetirizine HCl 10 Mg Tablet, 10 MG PO DAILY, (Reported) Famotidine 20 Mg Tablet, 20 MG PO BID, (Reported) Fluticasone Propionate 16 Gm [place].susp, 1 SPRAY NS DAILY, (Reported) Ibuprofen 800 Mg Tablet, 800 MG PO BID PRN for PAIN-MILD, (Reported) Metoprolol Tartrate 25 Mg Tablet, 25 MG PO DAILY, (Reported) Mometasone/Formoterol 13 Gm Hfa.aer.ad, 2 PUFF IH BID, (Reported) Patient Home Medication List Home Medication List Reviewed: Yes Review of Systems Review of Systems Constitutional: see HPI All Other Systems Reviewed Negative Unless Noted: Yes (Negative excepted noted.) Past Qkjlhnx-Gaexlb-Pvtond Hx Past Med/Social Hx: Reviewed Nursing Past Med/Soc Hx Patient Social History Type Used: Cigarettes 2nd Hand Smoke Exposure: Yes Recent Foreign Travel: No Contact w/Someone Who Travel: No Recent Hopitalizations: No Immunizations Up To Date Date of Pneumonia Vaccine: Nov 26, 2017 Date of Influenza Vaccine: Nov 26, 2018 Seasonal Allergies Seasonal Allergies: No Past Medical History Surgeries: Yes Gallbladder Respiratory: Yes (uses oxygen @ 2 liters PRN and NOC, neb tx) COPD Cardiac: Yes Palpitations Neurological: No Sexually Transmitted Disease: No HIV/AIDS: No Genitourinary: No Gastrointestinal: Yes Gastroesophageal Reflux Musculoskeletal: Yes Arthritis Endocrine: No HEENT: No Cancer: No Psychosocial: No Integumentary: No Blood Disorders: No Family Medical History Reviewed Nursing Family Hx Patient reports no known family medical history. Physical Exam Vital Signs Capillary Refill : Height, Weight, BMI Height: 5'1.00" Weight: 175lbs. 0oz. 79.127599bv; 32.67 BMI Method:Stated General Appearance: No Apparent Distress Comments This is an older female appearing nontoxic and in no acute distress. Head is normocephalic and atraumatic. Neck is supple and nontender and there is no neck stiffness/meningismus appreciated. Oropharynx is moist. Lungs are clear to auscultation at all stations. There is a normal S1 and S2 without rubs or gallops and capillary refill is appropriate, less than 2 seconds globally. Abdomen is soft, nontender nondistended. Skin is warm and dry without cyanosis, clubbing or edema. Psychiatrically, the patient given straights appropriate mood and affect and is alert. Neurologically, cranial nerves II through XII are intact and there are no lateralizing deficits noted. Speech is normal. Language is normal. Coordination is normal. There is no dysmetria with finger to nose bilaterally. Strength is 5 out of 5 in all joints of bilateral upper and lower extremity. Sensation is intact to light touch in bilateral upper and lower extremities. Patient does state that she has chronically mildly diminished sensation to her bilateral lower extremities distally which is not new or different for her. Patient relates with a narrow, steady gait in the emergency department. She is alert and oriented 4. Progress/Results/Core Measures Suspected Sepsis SIRS Temperature: Pulse: Respiratory Rate: Blood Pressure / Mean: Results/Orders My Orders Orders - TRACY RUIZ MD Prochlorperazine Injection (Compazine In (04/18/19 14:45) Diphenhydramine Injection (Benadryl Inje (04/18/19 14:45) Ed Iv/Invasive Line Start (04/18/19 14:43) Ns Iv 1000 Ml (Sodium Chloride 0.9%) (04/18/19 14:43) Magnesium 1 Gm/100 Ml Ivpb (Magnesium Dennis (04/18/19 14:45) Ct Head Wo (04/18/19 14:43) Acetaminophen Tablet/Caplet (Tylenol T (04/18/19 16:02) Acetaminophen Tablet/Caplet (Tylenol T (04/18/19 16:15) Medications Given in ED Current Medications Medications Dose Ordered Sig/Ken Route Start Time Stop Time Status Last Admin Dose Admin Acetaminophen 975 mg ONCE ONCE PO 04/18/19 16:15 04/18/19 16:16 DC 04/18/19 16:14 975 MG Diphenhydramine HCl 25 mg ONCE ONCE IVP 04/18/19 14:45 04/18/19 14:46 DC 04/18/19 15:48 25 MG Prochlorperazine Edisylate 10 mg ONCE ONCE IV 04/18/19 14:45 04/18/19 14:46 DC 04/18/19 15:48 10 MG Vital Signs/I&O Capillary Refill : Progress Note : Time: 17:[address] negative at well under 6 hours from onset of symptoms. Upon reassessment after medication here in the emergency department, she states her headache is almost completely gone. She feels much, much better. She feels comfortable going home. No evidence of an emergency condition requiring further testing or treatment at this time here in the emergency department. We'll proceed with discharge. Patient is advised to follow-up with her primary care physician in the next 2-4 days and to return to the emergency department right away if symptoms recur or worsen or if other new symptoms of concern develop. All questions are answered. Diagnostic Imaging Comments Date of Exam:04/18/19 CT HEAD WO PROCEDURE: CT head without contrast. TECHNIQUE: Multiple contiguous axial images were obtained through the brain without the use of intravenous contrast. Auto Exposure Controls were utilized during the CT exam to meet ALARA standards for radiation dose reduction. INDICATION: Acute onset right-sided head pain The paranasal sinuses are clear. Globes and orbits appear normal. The ventricles are normal in size, shape and position. There are no masses or hemorrhages. There are no extra-axial fluid collections. IMPRESSION: Negative CT head Dictated by: Dictated on workstation # [id number] Departure Impression Primary Impression: Headache Qualified Codes: G44.89 - Other headache syndrome Disposition: 01 HOME, SELF-CARE Condition: Improved Departure-Patient Inst. Referrals: RAFI CHILDERS MD (PCP/Family) Primary Care Physician Patient Instructions: Headache, Adult Add. Discharge Instructions: Follow up with your primary care physician in the next 2-4 days. Return to the emergency department right away if symptoms recur or worsen or if other new symptoms of concern develop. TRACY RUIZ MD Apr 18, 2019 17:18
[2019-04-18 17:30] VITALS: BP 157/78
== END 2019-04-18 17:32 | disposition home or self-care (01) ==
LOC: EDUNIT# 14:17 → ER FS 14:21
DX: R51 Headache (principal); J44.9 Chronic obstructive pulmonary disease, unspecified; K21.9 Gastro-esophageal reflux disease without esophagitis; Z88.1 Allergy status to other antibiotic agents; Z79.51 Long term (current) use of inhaled steroids; Z77.22 Contact with and (suspected) exposure to environmental tobacco smoke (acute) (chronic)
CPT/HCPCS: 70450; 96374; 96375

== ENCOUNTER 2019-05-10 08:29 | Emergency (ER) | payer MEDICARE ==
[~2019-05-10] VITALS: Ht 154.9 cm; Wt 81.5 kg
--- NOTE | 2019-05-10 08:49 | ED Cough/URI ---
General Chief Complaint: Respiratory Problems Stated Complaint: SOB Source: patient History of Present Illness Date Seen by Provider: May 10, 2019 Time Seen by Provider: 08:40 Initial Comments 49-year-old female presents with shortness of breath. Patient has a known history of COPD. Patient reports some increased cough and shortness of breath for a day or so. Patient does not have any fever. Patient does not have any travel history to known area of concern for Covid 19. Patient reports she is turned up her oxygen despite the fact that her O2 saturations of remained in the mid 90s. Patient using her breathing treatment inhalers as prescribed. Allergies and Home Medications Allergies Coded Allergies: cefazolin (Verified Allergy, Unknown, 03/20/19) Home Medications Albuterol/Ipratropium 4 Gm [place], 1 PUFF IH QID PRN for SHORTNESS OF BREATH, (Reported) Cetirizine HCl 10 Mg Tablet, 10 MG PO DAILY, (Reported) Doxycycline Hyclate 100 Mg Tablet, 100 MG PO BID Prescribed by: RADHA COLON on 05/10/19912 Famotidine 20 Mg Tablet, 20 MG PO BID, (Reported) Fluticasone Propionate 16 Gm [place].susp, 1 SPRAY NS DAILY, (Reported) Ibuprofen 800 Mg Tablet, 800 MG PO BID PRN for PAIN-MILD, (Reported) Metoprolol Tartrate 25 Mg Tablet, 25 MG PO DAILY, (Reported) Mometasone/Formoterol 13 Gm Hfa.aer.ad, 2 PUFF IH BID, (Reported) Prednisone 20 Mg Tab, 40 MG PO DAILY Prescribed by: RADHA COLON on 05/10/19912 Patient Home Medication List Home Medication List Reviewed: Yes Review of Systems Review of Systems Constitutional: No chills, No fever EENTM: see HPI Respiratory: cough, short of breath, wheezing Cardiovascular: no symptoms reported Gastrointestinal: no symptoms reported Musculoskeletal: no symptoms reported Skin: no symptoms reported Psychiatric/Neurological: No Symptoms Reported Hematologic/Lymphatic: No Symptoms Reported Past Weicgqr-Mritpi-Eqpzzc Hx Past Med/Social Hx: Reviewed Nursing Past Med/Soc Hx Patient Social History Alcohol Use: Denies Use Recreational Drug Use: No Smoking Status: Current Everyday Smoker Type Used: Cigarettes 2nd Hand Smoke Exposure: Yes Recent Hopitalizations: No Physical Abuse: No Sexual Abuse: No Mistreated: No Fear: No Immunizations Up To Date Date of Pneumonia Vaccine: Nov 26, 2017 Date of Influenza Vaccine: Nov 26, 2018 Seasonal Allergies Seasonal Allergies: No Past Medical History Surgeries: Yes Gallbladder Respiratory: Yes (uses oxygen @ 2 liters PRN and NOC, neb tx) COPD Cardiac: Yes High Cholesterol, Hypertension, Palpitations Neurological: No Sexually Transmitted Disease: No HIV/AIDS: No Genitourinary: No Gastrointestinal: Yes Gastroesophageal Reflux Musculoskeletal: Yes Arthritis Endocrine: No HEENT: No Cancer: No Psychosocial: No Integumentary: No Blood Disorders: No Family Medical History Patient reports no known family medical history. Physical Exam Vital Signs - First Documented 05/10/19 08:36 Temp 36.6 Pulse 85 Resp 20 B/P (MAP) 152/77 (102) Pulse Ox 96 O2 Delivery Nasal Cannula O2 Flow Rate 2.00 Capillary Refill : Height: 5'1.00" Weight: 175lbs. 0oz. [id number]; 33.00 BMI Method:Stated General Appearance: WD/WN, no apparent distress Neck: supple Respiratory: no respiratory distress; No accessory muscle use; wheezing (sporadic, diffuse, mild) Cardiovascular: normal peripheral pulses, regular rate, rhythm Gastrointestinal: non tender, soft Neurologic/Psychiatric: alert, normal mood/affect, oriented x 3 Skin: normal color, warm/dry Lymphatic: no adenopathy Progress/Results/Core Measures Suspected Sepsis SIRS Temperature: Pulse: Respiratory Rate: Blood Pressure / Mean: Results/Orders My Orders Orders - RADHA COLON DO Albuterol/Ipra Inhalation Soln (Duoneb I (05/10/19 09:00) Chest Pa/Lat (2 View) (05/10/19 08:52) O2 (05/10/19 08:52) Svn Small Volume Nebulizer (05/10/19 08:52) Dexamethasone Injection (Decadron Inject (05/10/19 09:00) Influenza A And B Antigens (05/10/19 08:52) Medications Given in ED Current Medications Medications Dose Ordered Sig/Ken Route Start Time Stop Time Status Last Admin Dose Admin Albuterol/ Ipratropium 3 ml ONCE ONCE INH 05/10/19 09:00 05/10/19 09:01 DC 05/10/19 09:12 3 ML Dexamethasone Sodium Phosphate 10 mg ONCE ONCE IM 05/10/19 09:00 05/10/19 09:01 DC 05/10/19 09:12 10 MG Vital Signs/I&O 05/10/19 08:36 Temp 36.6 Pulse 85 Resp 20 B/P (MAP) 152/77 (102) Pulse Ox 96 O2 Delivery Nasal Cannula O2 Flow Rate 2.00 Capillary Refill : Progress Note : Time: 09:13 Progress Note Patient with mild COPD exacerbation. We'll treat with doxycycline and prednisone. I did discuss with patient that oxygen is a drug and that needs to be carefully used as it can cause complications with COPD and long-term use and high use. Patient is stable and discharged home. Patient with no fever or concerning exposures for Covid 19 and testing is not recommended Diagnostic Imaging Diagonstic Imaging: Xray Plain Films/CT/US/NM/MRI: chest Comments NAME: EMILIE GO MED REC#: [id number] PT STATUS: REG ER : 1970 PHYSICIAN: RADHA COLON DO ADMIT DATE: 05/10/19/ER FS Draft Date of Exam:05/10/19 CHEST PA/LAT (2 VIEW) INDICATION: Dyspnea. COMPARISON: 03/29/2019. DISCUSSION: Two views of the chest were obtained. Stable normal heart size. Antecedent granulomatous disease is again noted, benign. No new consolidation, pleural fluid, or pneumothorax. No osseous abnormality. IMPRESSION: 1. Stable negative chest. Reviewed: Reviewed by Me, Reviewed/Discussed Departure Impression Primary Impression: COPD with acute exacerbation Disposition: HOME, SELF-CARE Condition: Stable Departure-Patient Inst. Referrals: RAFI CHILDERS MD (PCP/Family) Primary Care Physician Patient Instructions: Chronic Bronchitis (DC), COPD Including Emphysema (DC), Exacerbation of COPD Add. Discharge Instructions: Emergency department focuses on treating and ruling out life-threatening diseases. Whenever possible, a diagnosis is given. However, most patients are given an impression based on their history, physical exam, and workup during your brief time in the ER. Information about probable diagnosis and other educational material has been provided. Please take the time to read and unde rstand this information. It is very important that you follow up with a physician as discussed during the visit today. Failure to adhere to your follow-up instructions may lead to severe disability, injury, or so please make sure to keep your appointments or obtain one as requested. Please keep in mind the emergency department is not designed to your primary care or "family doctor" and nonurgent issues are best evaluated by an outpatient physician All discharge instructions reviewed with patient and/or family. Voiced understanding. Scripts Doxycycline Hyclate (Doxycycline Hyclate) 100 Mg Tablet 100 MG PO BID for 5 Days, #10 TAB 0 Refills Prov: RADHA COLON DO 05/10/19 Prednisone (Prednisone) 20 Mg Tab 40 MG PO DAILY, #6 TAB 0 Refills Prov: RADHA COLON DO 05/10/19 RADHA COLON DO May 10, 2019 08:49
[2019-05-10] MEDS ORDERED: RT-ALBUTEROL/IPRATROPIUM 3 ML (DUONEB) VIAL INH ONE (09:00)
[2019-05-10] MEDS ORDERED: DEXAMETHASONE 10 MG/ML (DECADRON) 1 ML VIAL IM ONE (09:00)
--- NOTE | 2019-05-10 09:12 | Diagnostic Imaging Report ---
INDICATION: Dyspnea. COMPARISON: 03/29/2019. DISCUSSION: Two views of the chest were obtained. Stable normal heart size. Antecedent granulomatous disease is again noted, benign. No new consolidation, pleural fluid, or pneumothorax. No osseous abnormality. IMPRESSION: 1. Stable negative chest. Dictated by: Dictated on workstation # [id number]
[2019-05-10] MEDS ORDERED: DOXY100T2 PO (09:13)
[2019-05-10] MEDS ORDERED: PRD20T PO (09:13)
[2019-05-10 09:45] VITALS: BP 145/83
--- OUTSIDE RECORDS SUMMARY | 2019-05-11 18:09 | XMS REPORT | Continuity of Care Document ---
Author Organization Unknown Address Unknown Phone Unavailable Allergies Active Description Code Type Severity Reaction Onset Reported/Identified Relationship to Patient Clinical Status Yes doxycycline [id number] Drug Aller gy Moderate rash 06/06/2018 Yes cefazolin [id number] Drug Allergy Unknown N/A 03/20/2019 Medications There is no data. Problems Date Dx Coded Attending Type Code Diagnosis Diagnosed By 06/06/2018 DENISE MOON MD, Ot F17.210 NICOTINE DEPENDENCE, CIGARETTES, UNCOMPL 06/06/2018 DENISE MOON MD Ot J44.1 CHRONIC OBSTRUCTIVE PULMONARY DISEASE W 06/06/2018 DENISE MOON MD Ot K21.9 GASTRO-ESOPHAGEAL REFLUX DISEASE WITHOUT 06/06/2018 DENISE MOON MD Ot R06.02 SHORTNESS OF BREATH 06/06/2018 DENISE MOON MD Ot Z79.52 DEPUTY SHERIFF BAILIFF (CURRENT) USE OF SYSTEMIC STER 06/06/2018 DENISE [...] SHORTNESS OF BREATH 06/10/2018 DENISE MOON MD Ot Z79.52 SKILLED NURSING (CURRENT) USE OF SYSTEMIC STER 06/10/2018 DENISE MOON MD Ot Z88.1 ALLERGY STATUS TO OTHER ANTIBIOTIC AGENT 06/10/2018 DENISE MOON MD Ot Z99.81 DEPENDENCE ON SUPPLEMENTAL OXYGEN 07/20/2018 PANCHAL DO, KIMBERLY K Ot A41.9 SEPSIS, UNSPECIFIED ORGANISM 07/20/2018 PANCHAL DO, KIMBERLY K Ot F17.21 0 NICOTINE DEPENDENCE, CIGARETTES, UNCOMPL 07/20/2018 PANCHAL DO, KIMBERLY K Ot F41.9 ANXIETY DISORDER, UNSPECIFIED 07/20/2018 PANCHAL DO, KIMBERLY K Ot J18.9 PNEUMONIA, UNSPECIFIED ORGANISM 07/20/2018 PANCHAL DO, KIMBERLY K Ot J44.1 CHRONIC OBSTRUCTIVE PULMONARY DISEASE W 07/20/2018 PANCHAL DO, KIMBERLY K Ot K21.9 GASTRO-ESOPHAGEAL REFLUX DISEASE WITHOUT 07/20/2018 PANCHAL DO, KIMBERLY K Ot M19.90 UNSPECIFIED OSTEOARTHRITIS, UNSPECIFIED 07/20/2018 PANCHAL DO, KIMBERLY K Ot Z79.89 9 OTHER SKILLED NURSING (CURRENT) DRUG THERAPY 07/20/2018 PANCHAL DO, KIMBERLY K Ot Z99.81 DEPENDENCE ON SUPPLEMENTAL OXYGEN 07/20/2018 PANCHAL DO, KIMBERLY K Ot A41.9 SEPSIS, UNSPECIFIED ORGANISM 07/20/2018 PANCHAL DO, KIMBERLY K Ot F17.21 0 NICOTINE DEPENDENCE, CIGARETTES, UNCOMPL 07/20/2018 PANCHAL DO, KIMBERLY K Ot F41.9 ANXIETY DISORDER, UNSPECIFIED 07/20/2018 PANCHAL DO, KIMBERLY K Ot J18.9 PNEUMONIA, UNSPECIFIED ORGANISM 07/20/2018 PANCHAL DO, KIMBERLY K Ot J44.1 CHRONIC OBSTRUCTIVE PULMONARY DISEASE W 07/20/2018 PANCHAL DO, KIMBERLY K Ot K21.9 GASTRO-ESOPHAGEAL REFLUX DISEASE WITHOUT 07/20/2018 PANCHAL DO, KIMBERLY K Ot M19.90 UNSPECIFIED OSTEOARTHRITIS, UNSPECIFIED 07/20/2018 PANCHAL DO, KIMBERLY K Ot Z79.89 9 OTHER DEPUTY SHERIFF BAILIFF (CURRENT) DRUG THERAPY 07/20/2018 PANCHAL DO, KIMBERLY K Ot Z99.81 DEPENDENCE ON SUPPLEMENTAL OXYGEN 09/04/2018 BILLINGSLEY DO, SAMIA Ot J20.9 ACUTE BRONCHITIS, UNSPECIFIED 09/04/2018 BILLINGSLEY DO, SAMIA Ot J44.1 CHRONIC OBSTRUCTIVE PULMONARY DISEASE W 09/04/2018 BILLINGSLEY DO, SAMIA Ot K21.9 GASTRO-ESOPHAGEAL REFLUX DISEASE WITHOUT 09/04/2018 BILLINGSLEY DO, SAMIA Ot R06.02 SHORTNESS OF BREATH 09/04/2018 BILLINGSLEY DO SAMIA Ot Z79.51 DEPUTY SHERIFF BAILIFF (CURRENT) USE OF INHALED STERO 09/04/2018 BILLINGSLEY DO, SAMIA Ot Z88.1 ALLERGY STATUS TO OTHER ANTIBIOTIC AGENT 09/04/2018 BILLINGSLEY DO, SAMIA Ot Z99.81 DEPENDENCE ON SUPPLEMENTAL OXYGEN 09/10/2018 BILLINGSLEY DO, SAMIA Ot J20.9 ACUTE BRONCHITIS, UNSPECIFIED 09/10/2018 BILLINGSLEY DO, SAMIA Ot J44.1 CHRONIC OBSTRUCTIVE PULMONARY DISEASE W 09/10/2018 BILLINGSLEY DO, SAMIA Ot K21.9 GASTRO-ESOPHAGEAL REFLUX DISEASE WITHOUT 09/10/2018 BILLINGSLEY DO, SAMIA Ot R06.02 SHORTNESS OF BREATH 09/10/2018 BILLINGSLEY DO, SAMIA Ot Z79.51 SKILLED NURSING (CURRENT) USE OF INHALED STERO 09/10/2018 BILLINGSLEY DO, SAMIA Ot Z88.1 ALLERGY STATUS TO OTHER ANTIBIOTIC AGENT 09/10/2018 BILLINGSLEY DO, SAMIA Ot Z99.81 DEPENDENCE ON SUPPLEMENTAL OXYGEN 09/19/2018 COLON DO, RADHA L Ot F17.2 10 NICOTINE DEPENDENCE, CIGARETTES, UNCOMPL 09/19/2018 COLON DO, RADHA L Ot J20.9 ACUTE BRONCHITIS, UNSPECIFIED 09/19/2018 COLON DO, RADHA L Ot J44.0 CHRONIC OBSTRUCTIVE PULMON DISEASE W ACU 09/19/2018 COLON DO, RADHA L Ot K21.9 GASTRO-ESOPHAGEAL REFLUX DISEASE WITHOUT 09/19/2018 COLON DO, RADHA L Ot R06.0 2 SHORTNESS OF BREATH 09/19/2018 COLON DO, RADHA L Ot Z79.5 1 SKILLED NURSING (CURRENT) USE OF INHALED STERO 09/19/2018 COLON DO, RADHA L Ot Z79.5 2 SKILLED NURSING (CURRENT) USE OF SYSTEMIC STER 09/19/2018 COLON DO, RADHA L Ot Z88.1 ALLERGY STATUS TO OTHER ANTIBIOTIC AGENT 09/19/2018 COLON DO, RADHA L Ot Z99.8 1 DEPENDENCE ON SUPPLEMENTAL OXYGEN 09/24/2018 COLON DO, RADHA L Ot F17.2 10 NICOTINE DEPENDENCE, CIGARETTES, UNCOMPL 09/24/2018 COLON DO, RADHA L Ot J20.9 ACUTE BRONCHITIS, UNSPECIFIED 09/24/2018 COLON DO, RADHA L Ot J44.0 CHRONIC OBSTRUCTIVE PULMON DISEASE W ACU 09/24/2018 COLON DO, RADHA L Ot K21.9 GASTRO-ESOPHAGEAL REFLUX DISEASE WITHOUT 09/24/2018 COLON DO, RADHA L Ot R06.0 2 SHORTNESS OF BREATH 09/24/2018 COLON DO, RADHA L Ot Z79.5 1 SKILLED NURSING (CURRENT) USE OF INHALED STERO 09/24/2018 COLON DO, RADHA L Ot Z79.5 2 DEPUTY SHERIFF BAILIFF (CURRENT) USE OF SYSTEMIC STER 09/24/2018 COLON DO, RADHA L Ot Z88.1 ALLERGY STATUS TO OTHER ANTIBIOTIC AGENT 09/24/2018 COLON DO, RADHA L Ot Z99.8 1 DEPENDENCE ON SUPPLEMENTAL OXYGEN 10/13/2018 LYNDSEY TERAN MDUS J Ot F17.210 NICOTINE DEPENDENCE, CIGARETTES, UNCOMPL 10/13/2018 TIMOTHY TERAN MD J Ot J44. 1 CHRONIC OBSTRUCTIVE PULMONARY DISEASE W 10/13/2018 TIMOTHY TERAN MD J Ot K21. 9 GASTRO-ESOPHAGEAL REFLUX DISEASE WITHOUT 10/13/2018 TIMOTHY TERAN MD J Ot R06. 02 SHORTNESS OF BREATH 10/13/2018 TIMOTHY TERAN MD J Ot Z79. 51 DEPUTY SHERIFF BAILIFF (CURRENT) USE OF INHALED STERO 10/13/2018 LYNDSEY TERAN MDUS J Ot Z79. 52 SKILLED NURSING (CURRENT) USE OF SYSTEMIC STER 10/13/2018 TIMOTHY TERAN MD J Ot Z88. 1 ALLERGY STATUS TO OTHER ANTIBIOTIC AGENT 10/13/2018 TIMOTHY TERAN MD J Ot Z99. 81 DEPENDENCE ON SUPPLEMENTAL OXYGEN 10/16/2018 TIMOTHY TERAN MD J Ot F17.210 NICOTINE DEPENDENCE, CIGARETTES, UNCOMPL 10/16/2018 TIMOTHY TERAN MD J Ot J44. 1 CHRONIC OBSTRUCTIVE PULMONARY DISEASE W 10/16/2018 TIMOTHY TERAN MD J Ot K21. 9 GASTRO-ESOPHAGEAL REFLUX DISEASE WITHOUT 10/16/2018 LYNDSEY TERAN MDUS J Ot R06. 02 SHORTNESS OF BREATH 10/16/2018 TIMOTHY TERAN MD J Ot Z79. 51 SKILLED NURSING (CURRENT) USE OF INHALED STERO 10/16/2018 TIMOTHY TERAN MD J Ot Z79. 52 SKILLED NURSING (CURRENT) USE OF SYSTEMIC STER 10/16/2018 TIMOTHY TERAN MD J Ot Z88. 1 ALLERGY STATUS TO OTHER ANTIBIOTIC AGENT 10/16/2018 TIMOTHY TERAN MD J Ot Z99. 81 DEPENDENCE ON SUPPLEMENTAL OXYGEN 11/24/2018 TRACY RUIZ MD Ot J44. 1 CHRONIC OBSTRUCTIVE PULMONARY DISEASE W 11/24/2018 TRACY RUIZ MD Ot K21. 9 GASTRO-ESOPHAGEAL REFLUX DISEASE WITHOUT 11/24/2018 TRACY RUIZ MD Ot R06. 89 OTHER ABNORMALITIES OF BREATHING 11/24/2018 TRACY RUIZ MD Ot Z77. 22 CNTCT W AND EXPSR TO ENVIRON TOBACCO SMO 11/24/2018 TRACY RUIZ MD Ot Z79. 51 SKILLED NURSING (CURRENT) USE OF INHALED STERO 11/24/2018 TRACY RUIZ MD, Ot Z79. 52 SKILLED NURSING (CURRENT) USE OF SYSTEMIC STER 11/24/2018 TRACY RUIZ MD Ot Z88. 1 ALLERGY STATUS TO OTHER ANTIBIOTIC AGENT 11/24/2018 TRACY RUIZ MD, Ot Z99. 81 DEPENDENCE ON SUPPLEMENTAL OXYGEN 11/27/2018 TRACY RUIZ MD, Ot J44. 1 CHRONIC OBSTRUCTIVE PULMONARY DISEASE W 11/27/2018 TRACY RUIZ MD, Ot K21. 9 GASTRO-ESOPHAGEAL REFLUX DISEASE WITHOUT 11/27/2018 TRACY RUIZ MD Ot R06. 89 OTHER ABNORMALITIES OF BREATHING 11/27/2018 TRACY RUIZ MD Ot Z77. 22 CNTCT W AND EXPSR TO ENVIRON TOBACCO SMO 11/27/2018 TRACY RUIZ MD Ot Z79. 51 DEPUTY SHERIFF BAILIFF (CURRENT) USE OF INHALED STERO 11/27/2018 TRACY RUIZ MD Ot Z79. 52 DEPUTY SHERIFF BAILIFF (CURRENT) USE OF SYSTEMIC STER 11/27/2018 TRACY RUIZ MD, Ot Z88. 1 ALLERGY STATUS TO OTHER ANTIBIOTIC AGENT 11/27/2018 TRACY RUIZ MD, Ot Z99. 81 DEPENDENCE ON SUPPLEMENTAL OXYGEN 02/11/2019 O'DELL, ANA Rabia CERTIFIED MEDICAL AIDE Ot M47.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 OR RADICULOPATHY 02/11/2019 O'DELL, ANA Rabia CERTIFIED MEDICAL AIDE Ot M54.41 LUMBAGO WITH SCIATICA, RIGHT SIDE 02/11/2019 O'DELL, ANA K CERTIFIED MEDICAL AIDE Ot M54.42 LUMBAGO WITH SCIATICA, LEFT SIDE 02/21/2019 WOODY ROWAN MD Ot F17.210 NICOTINE DEPENDENCE, CIGARETTES, UNCOMPL 02/21/2019 WOODY ROWAN MD Ot J01.90 ACUTE SINUSITIS, UNSPECIFIED 02/21/2019 WOODY ROWAN MD Ot J40 BRONCHITIS, NOT SPECIFIED ACUTE OR CH 02/21/2019 WOODY ROWAN MD, Ot J44.9 CHRONIC OBSTRUCTIVE PULMONARY DISEASE, U 02/21/2019 WOODY ROWAN MD Ot K21.9 GASTRO-ESOPHAGEAL REFLUX DISEASE WITHOUT 02/21/2019 WOODY ROWAN MD Ot R51 HEADACHE 02/21/2019 WOODY ROWAN MD, Ot Z79.51 SKILLED NURSING (CURRENT) USE OF INHALED STERO 02/21/2019 WOODY ROWAN MD Ot Z79.52 DEPUTY SHERIFF BAILIFF (CURRENT) USE OF SYSTEMIC STER 02/21/2019 WOODY ROWAN MD Ot Z88.1 ALLERGY STATUS TO OTHER ANTIBIOTIC AGENT 02/21/2019 O'DELCuauhtemoc ANA K CERTIFIED MEDICAL AIDE Ot M47.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 OR RADICULOPATHY 02/21/2019 O'DELCuauhtemoc, ANA K CERTIFIED MEDICAL AIDE Ot M54.41 LUMBAGO WITH SCIATICA, RIGHT SIDE 02/21/2019 O'DELCuauhtemoc, ANA K CERTIFIED MEDICAL AIDE Ot M54.42 LUMBAGO WITH SCIATICA, LEFT SIDE 02/25/2019 WOODY ROWAN MD Ot F17.210 NICOTINE DEPENDENCE, CIGARETTES, UNCOMPL 02/25/2019 WOODY ROWAN MD Ot J01.90 ACUTE SINUSITIS, UNSPECIFIED 02/25/2019 WOODY ROWAN MD Ot J40 BRONCHITIS, NOT SPECIFIED ACUTE OR CH 02/25/2019 WOODY ROWAN MD, Ot J44.9 CHRONIC OBSTRUCTIVE PULMONARY DISEASE, U 02/25/2019 WOODY ROWAN MD, Ot K21.9 GASTRO-ESOPHAGEAL REFLUX DISEASE WITHOUT 02/25/2019 WOODY ROWAN MD Ot R51 HEADACHE 02/25/2019 WOODY ROWAN MD Ot Z79.51 SKILLED NURSING (CURRENT) USE OF INHALED STERO 02/25/2019 WOODY ROWAN MD Ot Z79.52 SKILLED NURSING (CURRENT) USE OF SYSTEMIC STER 02/25/2019 WOODY ROWAN MD Ot Z88.1 ALLERGY STATUS TO OTHER ANTIBIOTIC AGENT 02/27/2019 WOODY ROWAN MD Ot F17.210 NICOTINE DEPENDENCE, CIGARETTES, UNCOMPL 02/27/2019 WOODY ROWAN MD Ot J01.90 ACUTE SINUSITIS, UNSPECIFIED 02/27/2019 WOODY ROWAN MD Ot J40 BRONCHITIS, NOT SPECIFIED ACUTE OR CH 02/27/2019 WOODY ROWAN MD Ot J44.9 CHRONIC OBSTRUCTIVE PULMONARY DISEASE, U 02/27/2019 WOODY ROWAN MD Ot K21.9 GASTRO-ESOPHAGEAL REFLUX DISEASE WITHOUT 02/27/2019 WOODY ROWAN MD Ot R51 HEADACHE 02/27/2019 WOODY ROWAN MD Ot Z79.51 DEPUTY SHERIFF BAILIFF (CURRENT) USE OF INHALED STERO 02/27/2019 WOODY ROWAN MD Ot Z79.52 SKILLED NURSING (CURRENT) USE OF SYSTEMIC STER 02/27/2019 WOODY ROWAN MD Ot Z88.1 ALLERGY STATUS TO OTHER ANTIBIOTIC AGENT 03/17/2019 O'LIZY ANA K CERTIFIED MEDICAL AIDE Ot J44 .1 CHRONIC OBSTRUCTIVE PULMONARY DISEASE W 03/17/2019 O'DELANA Posadas CERTIFIED MEDICAL AIDE Ot M79.89 OTHER SPECIFIED SOFT TISSUE DISORDERS 03/20/2019 TIMOTHY TERAN MD Ot F17.210 NICOTINE DEPENDENCE, CIGARETTES, UNCOMPL 03/20/2019 TIMOTHY TERAN MD Ot J44. 9 CHRONIC OBSTRUCTIVE PULMONARY DISEASE, U 03/20/2019 TIMOTHY TERAN MD Ot K21. 9 GASTRO-ESOPHAGEAL REFLUX DISEASE WITHOUT 03/20/2019 TIMOTHY TERAN MD Ot K29. 70 GASTRITIS, UNSPECIFIED, WITHOUT BLEEDING 03/20/2019 TIMOTHY TERAN MD Ot R06. 02 SHORTNESS OF BREATH 03/20/2019 TIMOTHY TERAN MD Ot Z79. 51 SKILLED NURSING (CURRENT) USE OF INHALED STERO 03/20/2019 TIMOTHY TERAN MD Ot Z79. 52 SKILLED NURSING (CURRENT) USE OF SYSTEMIC STER 03/20/2019 TIMOTHY TERAN MD Ot Z88. 1 ALLERGY STATUS TO OTHER ANTIBIOTIC AGENT 03/20/2019 TIMOTHY TERAN MD Ot Z90. 49 ACQUIRED ABSENCE OF OTHER SPECIFIED PART 03/21/2019 SHIRA MCCRAY DO Ot F17.210 NICOTINE DEPENDENCE, CIGARETTES, UNCOMPL 03/21/2019 SHIRA MCCRAY DO Ot J20.9 ACUTE BRONCHITIS, UNSPECIFIED 03/21/2019 SHAZIA SHIRA GEORGE Ot J44.1 CHRONIC OBSTRUCTIVE PULMONARY DISEASE W 03/21/2019 SHAZIA SHIRA GEORGE Ot K21.9 GASTRO-ESOPHAGEAL REFLUX DISEASE WITHOUT 03/21/2019 SHAZIA SHIRA GEORGE Ot R06.02 SHORTNESS OF BREATH 03/21/2019 SHAZIA SHIRA GEORGE Ot Z79.51 DEPUTY SHERIFF BAILIFF (CURRENT) USE OF INHALED STERO 03/21/2019 [facility] SHIRA Painter Ot Z79.52 DEPUTY SHERIFF BAILIFF (CURRENT) USE OF SYSTEMIC STER 03/[facility].1 ALLERGY STATUS TO OTHER ANTIBIOTIC AGENT 03/21/2019 O'DELL, ANA K CERTIFIED MEDICAL AIDE Ot M47.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 OR RADICULOPATHY 03/21/2019 O'DELL, ANA K CERTIFIED MEDICAL AIDE Ot M54.41 LUMBAGO WITH SCIATICA, RIGHT SIDE 03/21/2019 O'DELL, ANA K CERTIFIED MEDICAL AIDE Ot M54.42 LUMBAGO WITH SCIATICA, LEFT SIDE 03/21/2019 O'DELL, ANA K CERTIFIED MEDICAL AIDE Ot J44 .1 CHRONIC OBSTRUCTIVE PULMONARY DISEASE W 03/21/2019 O'DELL, ANA K CERTIFIED MEDICAL AIDE Ot M79.89 OTHER SPECIFIED SOFT TISSUE DISORDERS 03/21/2019 O'DELL, ANA K CERTIFIED MEDICAL AIDE Ot M47.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 9 CHRONIC OBSTRUCTIVE PULMONARY DISEASE, U 03/24/2019 TIMOTHY TERAN MD Ot K21. 9 GASTRO-ESOPHAGEAL REFLUX DISEASE WITHOUT 03/24/2019 TIMOTHY TERAN MD Ot K29. 70 GASTRITIS, UNSPECIFIED, WITHOUT BLEEDING 03/24/2019 TIMOTHY TERAN MD Ot R06. 02 SHORTNESS OF BREATH 03/24/2019 TIMOTHY TERAN MD Ot Z79. 51 SKILLED NURSING (CURRENT) USE OF INHALED STERO 03/24/2019 TIMOTHY TERAN MD Ot Z79. 52 DEPUTY SHERIFF BAILIFF (CURRENT) USE OF SYSTEMIC STER 03/24/2019 TIMOTHY TERAN MD Ot Z88. 1 ALLERGY STATUS TO OTHER ANTIBIOTIC AGENT 03/24/2019 TIMOTHY TERAN MD Ot Z90. 49 ACQUIRED ABSENCE OF OTHER SPECIFIED PART 03/25/2019 SHIRA MCCRAY DO Ot F17.210 NICOTINE DEPENDENCE, CIGARETTES, UNCOMPL 03/25/2019 SHAZIA SHIRA GEORGE Ot J20.9 ACUTE BRONCHITIS, UNSPECIFIED 03/25/2019 SHAZIA SHIRA GOERGE Ot J44.1 CHRONIC OBSTRUCTIVE PULMONARY DISEASE W 03/25/2019 SHAZIA SHIRA GEORGE Ot K21.9 GASTRO-ESOPHAGEAL REFLUX DISEASE WITHOUT 03/25/2019 [facility] SHIRA GEORGE Ot R06.02 SHORTNESS OF BREATH 03/25/2019 SHIRA MCCRAY DO Ot Z79.51 DEPUTY SHERIFF BAILIFF (CURRENT) USE OF INHALED STERO 03/25/2019 SHIRA MCCRAY DO Ot Z79.52 DEPUTY SHERIFF BAILIFF (CURRENT) USE OF SYSTEMIC STER 03/25/2019 SHAZIA SHIRA GEORGE Ot Z88.1 ALLERGY STATUS TO OTHER ANTIBIOTIC AGENT 03/25/2019 O'DELL, ANA Rabia CERTIFIED MEDICAL AIDE Ot 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 1 CHRONIC OBSTRUCTIVE PULMONARY DISEASE W 03/30/2019 BERNARDA ENAMORADO MD Ot J96. 10 CHRONIC RESPIRATORY FAILURE, UNSP W HYPO 03/30/2019 BERNARDA ENAMORADO MD Ot K21. 9 GASTRO-ESOPHAGEAL REFLUX DISEASE WITHOUT 03/30/2019 BERNARDA ENAMORADO MD, Ot M19. 91 PRIMARY OSTEOARTHRITIS, UNSPECIFIED SITE 03/30/2019 BERNARDA ENAMORADO MD, Ot Z99. 81 DEPENDENCE ON SUPPLEMENTAL OXYGEN 04/22/2019 TRACY RUIZ MD, Ot J44. 9 CHRONIC OBSTRUCTIVE PULMONARY DISEASE, U 04/22/2019 TRACY RUIZ MD, Ot K21. 9 GASTRO-ESOPHAGEAL REFLUX DISEASE WITHOUT 04/22/2019 TRACY RUIZ MD Ot R51 HEADACHE 04/22/2019 TRACY RUIZ MD, Ot Z77. 22 CNTCT W AND EXPSR TO ENVIRON TOBACCO SMO 04/22/2019 TRACY RUIZ MD, Ot Z79. 51 DEPUTY SHERIFF BAILIFF (CURRENT) USE OF INHALED STERO 04/22/2019 TRACY RUIZ MD, Ot Z88. 1 ALLERGY STATUS TO OTHER ANTIBIOTIC AGENT Procedures Code Description Performed By Per formed On [id number] DR LLANOS OF RIGHT MAIN BRONCHUS, ENDO, D 07/19/[id number] LLANOS OF LEFT MAIN BRONCHUS, ENDO, DI 07/19/[id number] LLANOS OF RIGHT MIDDLE LUNG LOBE, ENDO 07/19/2018 [id number] EX TRACTION OF RIGHT MIDDLE LUNG LOBE, EN 07/19/2018 Results Test Result Range Complete blood count (CBC) with automate d white blood cell (WBC) differential - 07/17/18 21:28 Blood leukocytes automated count (number/volume) 17.4 10*3/uL 4.3-11.0 Blood erythrocytes automated count (number/volume) 4.49 10*6/uL 4.35-5.85 Venous blood hemoglobin measurement (mass/volume) 13.7 g/dL 11.5-16.0 Blood hematocrit (volume fraction) 42 % 35-52 Automated erythrocyte mean corpuscular volume 93 [ foz_us] 80-99 Automated erythrocyte mean corpuscular h emoglobin (mass per erythrocyte) 31 pg 25-34 Automated erythrocyte mean corpuscular h emoglobin concentration measurement (mass/volume) 33 g/dL 32-36 Automated erythrocyte distribution width ratio 13. 6 % 10.0- 14.5 Automated blood platelet count [...] 10*3 1.0-4.0 Blood monocytes automated count (number/volume) 0. 9 10*3 0.0-1.0 Automated eosinophil count 1.0 10*3/uL 0 .0-0.3 Automated blood basophil count (count/volume) 0.1 10*3/uL 0.0-0.1 PT panel in platelet poor plasma by coag ulation assay - 07/17/18 21:28 Prothrombin time (PT) in platelet poor plasma by coagu lation assay 12.4 s 12.2-14.7 INR in platelet poor plasma or blood by coagulation as say 0.9 0.8-1.4 Activated partial thromboplastin time (a PTT) in platelet poor plasma bycoagulation assay - 07/17/18 21:28 Activated partial thromboplastin time (a PTT) in platelet poor plasma bycoagulation assay 31 s 24-35 Blood manual differential performed dete ction - 07/17/18 21:28 Blood monocytes/100 leukocytes 5 % NRG Manual blood segmented neutrophils/100 leukocytes 69 % NRG Blood band neutrophils/100 leukocytes 0 % NRG Manual blood lymphocytes/100 leukocytes 20 % NRG Manual eosinophils/100 leukocytes in nose 6 % NRG Manual blood basophils/100 leukocytes 0 % NRG Comprehensive metabolic panel - 07/17/18 21:28 Serum or plasma sodium measurement (moles/volume) 141 mmol/L 135-145 Serum or plasma potassium measurement (moles/volume) 3.8 mmol/L 3.6-5.0 Serum or plasma chloride measurement (moles/volume) 101 mmol/L 98-107 Carbon dioxide 24 mmol/L 21-32 Serum or plasma anion gap determination (moles/volume) 16 mmol/L 5-14 Serum or plasma urea nitrogen measurement (mass/volume ) 8 mg/dL 7-18 Serum or plasma creatinine measurement (mass/volume) 0.87 mg/dL 0.60-1.30 Serum or plasma urea nitrogen/creatinine mass ratio 9 NRG Serum or plasma creatinine measurement w ith calculation of estimated glomerular filtration rate > NRG Serum or plasma glucose measurement (mass/volume) 100 mg/dL 70-105 Serum or plasma calcium measurement (mass/volume) 9.5 mg/dL 8.5-10.1 Serum or plasma total bilirubin measurement (mass/volu me) 0.3 mg/dL 0.1-1.0 Serum or plasma alkaline phosphatase lelo surement (enzymatic activity/volume) 75 U/L 40-136 Serum or plasma aspartate aminotransfera se measurement (enzymatic activity/volume) 25 U/L 5-34 Serum or plasma alanine aminotransferase measurement (enzymatic activity/volume) 32 U/L 0-55 Serum or plasma protein measurement (mass/volume) 7.3 g/dL 6.4-8.2 Serum or plasma albumin measurement (mass/volume) 4.5 g/dL 3.2-4.5 CALCIUM CORRECTED 9.1 mg/dL 8.5-10.1 Magnesium - 07/17/18 21:28 Magnesium 1.8 mg/dL 1.8-2.4 Myoglobin, serum - 07/17/18 21:28 Myoglobin, serum 112.7 ng/mL 10.0-92.0 Fibrin D-dimer FEU measurement in platel et poor plasma (mass/volume) - 07/17/18 21:28 Fibrin D-dimer FEU measurement in platelet poor plasma (mass/volume) 0.53 ug/mL 0.00-0.49 TROPONIN T - 07/17/18 21:28 TROPONIN T 10 % <=10 Lipid 1996 panel - 07/17/18 21:28 Serum or plasma triglyceride measurement (mass/volume) 182 mg/dL <150 Serum or plasma cholesterol measurement (mass/volume) 205 mg/dL < 200 Serum or plasma cholesterol in HDL measurement (mass/v olume) 39 mg/dL 40-60 Cholesterol in LDL [mass/volume] in serum or plasma by direct assay 151 mg/dL 1-129 Serum or plasma cholesterol in VLDL measurement (mass/ volume) 36 mg/dL 5-40 TROPONIN T - 07/17/18 23:20 TROPONIN T 9 % <=10 Blood lactic acid measurement (moles/vol ume) - 07/18/18 01:19 Blood lactic acid measurement (moles/volume) 1.23 mmol/L 0.50-2.00 Bacterial blood culture - 07/18/18 01:19 Bacterial blood culture NG [facility] Bacterial blood culture - 07/18/18 01:36 Bacterial blood culture NG [facility] Comprehensive metabolic panel - 07/18/18 05:16 Serum or plasma sodium measurement (moles/volume) 139 mmol/L 135-145 Serum or plasma potassium measurement (moles/volume) 4.0 mmol/L 3.6-5.0 Serum or plasma chloride measurement (moles/volume) 110 mmol/L 98-107 Carbon dioxide 18 mmol/L 21-32 Serum or plasma anion gap determination (moles/volume) 11 mmol/L 5-14 Serum or plasma urea nitrogen measurement (mass/volume ) 7 mg/dL 7-18 Serum or plasma creatinine measurement (mass/volume) 0.85 mg/dL 0.60-1.30 Serum or plasma urea nitrogen/creatinine mass ratio 8 NRG Serum or plasma creatinine measurement w ith calculation of estimated glomerular filtration rate > NRG Serum or plasma glucose measurement (mass/volume) 180 mg/dL 70-105 Serum or plasma calcium measurement (mass/volume) 9.0 mg/dL 8.5-10.1 Serum or plasma total bilirubin measurement (mass/volu me) 0.5 mg/dL 0.1-1.0 Serum or plasma alkaline phosphatase lelo surement (enzymatic activity/volume) 66 U/L 40-136 Serum or plasma aspartate aminotransfera se measurement (enzymatic activity/volume) 20 U/L 5-34 Serum or plasma alanine aminotransferase measurement (enzymatic activity/volume) 30 U/L 0-55 Serum or plasma protein measurement (mass/volume) 6.8 g/dL 6.4-8.2 Serum or plasma albumin measurement (mass/volume) 4.0 g/dL 3.2-4.5 CALCIUM CORRECTED 9.0 mg/dL 8.5-10.1 Complete blood count (CBC) with automate d white blood cell (WBC) differential - 07/18/18 05:40 Blood leukocytes automated count (number/volume) 12.6 10*3/uL 4.3-11.0 Blood erythrocytes automated count (number/volume) 4.39 10*6/uL 4.35-5.85 Venous blood hemoglobin measurement (mass/volume) 13.2 g/dL 11.5-16.0 Blood hematocrit (volume fraction) 40 % 35-52 Automated erythrocyte mean corpuscular volume 91 [ foz_us] 80-99 Automated erythrocyte mean corpuscular h emoglobin (mass per erythrocyte) 30 pg 25-34 Automated erythrocyte mean corpuscular h emoglobin concentration measurement (mass/volume) 33 g/dL 32-36 Automated erythrocyte distribution width ratio 14. 0 % 10.0- 14.5 Automated blood platelet count [...] 10*3 1.0-4.0 Blood monocytes automated count (number/volume) 0. 1 10*3 0.0-1.0 Automated eosinophil count 0.0 10*3/uL 0 .0-0.3 Automated blood basophil count (count/volume) 0.0 10*3/uL 0.0-0.1 Sputum Gram stain - 07/19/18 07:30 Sputum Gram stain Rare gram positive cocci NRG Bacteria identification in bronchial spe cimen by aerobe culture - 07/19/18 07:30 QUANTITY OF GROWTH . NRG Bacteria identification in bronchial specimen by aerob e culture USUAL RESP NRG FTX;REPORTABLE 700 CFU/ML NRG Fungus culture - 07/19/18 07:30 QUANTITY OF GROWTH Rare NRG Fungus culture [id number] NRG Mycobacterium species detection by organ ism specific culture - 07/19/18 07:31 DATE/TIME MICROSCOPIC 07/20/18 NRG MICROSCOPIC AFB SMEAR NEGATIVE NRG AFB CULTURE No acid fast bacilli isolated NRG DATE FINAL AFB CULTURE 09/17/18 15:05 NR G Sputum Gram stain - 07/19/18 07:32 Sputum Gram stain No bacteria seen NRG Bacteria identification in bronchial spe cimen by aerobe culture - 07/19/18 07:32 Bacteria identification in bronchial specimen by aerob e culture NG NRG Fungus culture - 07/19/18 07:32 FUNGUS REPORT NO FUNGUS ISOLATED NRG Mycobacterium species detection by organ ism specific culture - 07/19/18 07:33 DATE/TIME MICROSCOPIC 08/20/18 NRG MICROSCOPIC AFB SMEAR NEGATIVE NRG AFB CULTURE No acid fast bacilli isolated NRG DATE FINAL AFB CULTURE 09/17/18 15:05 NR G Sputum Gram stain - 07/19/18 07:34 Sputum Gram stain TNP NRG Bacteria identification in bronchial spe cimen by aerobe culture - 07/19/18 07:34 QUANTITY OF GROWTH . NRG Bacteria identification in bronchial specimen by aerob e culture USUAL RESP NRG FTX;REPORTABLE 500 CFU/ML NRG Fungus culture - 07/19/18 07:34 FUNGUS REPORT NO FUNGUS ISOLATED NRG BODY FLUID DIFFERENTIAL - 07/19/18 09:08 Specimen source identification of body fluid BRONC H NRG Evaluation of color of body fluid COLORLESS NRG Determination of appearance of body fluid SLT CLDY NRG Manual body fluid polymorphonuclear cells/100 leukocyt es 5 % NRG Manual body fluid mononuclear cells/100 leukocytes 0 % NRG Manual body fluid lymphocytes/100 leukocytes 1 % NRG Other cells/100 leukocytes in body fluid by manual cou nt 94 % NRG Complete blood count (CBC) with automate d white blood cell (WBC) differential - 09/19/18 04:54 Blood leukocytes automated count (number/volume) 13.9 10*3/uL 4.3-11.0 Blood erythrocytes automated count (number/volume) 4.62 10*6/uL 4.35-5.85 Venous blood hemoglobin measurement (mass/volume) 14.1 g/dL 11.5-16.0 Blood hematocrit (volume fraction) 42 % 35-52 Automated erythrocyte mean corpuscular volume 91 [ foz_us] 80-99 Automated erythrocyte mean corpuscular h emoglobin (mass per erythrocyte) 31 pg 25-34 Automated erythrocyte mean corpuscular h emoglobin concentration measurement (mass/volume) 33 g/dL 32-36 Automated erythrocyte distribution width ratio 14. 1 % 10.0- 14.5 Automated blood platelet count (count/volume) 259 10*3/uL 130-400 Automated blood platelet mean volume measurement 10.6 [foz_us] 7.4-10.4 Automated blood neutrophils/100 leukocytes 62 % 42-75 Automated blood lymphocytes/100 leukocytes 24 % 12-44 Blood monocytes/100 leukocytes 6 % 0-12 Automated blood eosinophils/100 leukocytes 7 % 0-10 Automated blood basophils/100 leukocytes 1 % 0-10 Blood neutrophils automated count (number/volume) 8.6 10*3 1.8-7.8 Blood lymphocytes automated count (number/volume) 3.3 10*3 1.0-4.0 Blood monocytes automated count (number/volume) 0. 8 10*3 0.0-1.0 Automated eosinophil count 1.0 10*3/uL 0 .0-0.3 Automated blood basophil count (count/volume) 0.1 10*3/uL 0.0-0.1 Comprehensive metabolic panel - 09/19/18 04:54 Serum or plasma sodium measurement (moles/volume) 142 mmol/L 135-145 Serum or plasma potassium measurement (moles/volume) 3.6 mmol/L 3.6-5.0 Serum or plasma chloride measurement (moles/volume) 103 mmol/L 98-107 Carbon dioxide 26 mmol/L 21-32 Serum or plasma anion gap determination (moles/volume) 13 mmol/L 5-14 Serum or plasma urea nitrogen measurement (mass/volume ) 14 mg/dL 7-18 Serum or plasma creatinine measurement (mass/volume) 0.74 mg/dL 0.60-1.30 Serum or plasma urea nitrogen/creatinine mass ratio 19 NRG Serum or plasma creatinine measurement w ith calculation of estimated glomerular filtration rate > NRG Serum or plasma glucose measurement (mass/volume) 142 mg/dL 70-105 Serum or plasma calcium measurement (mass/volume) 9.4 mg/dL 8.5-10.1 Serum or plasma total bilirubin measurement (mass/volu me) 0.2 mg/dL 0.1-1.0 Serum or plasma alkaline phosphatase lelo surement (enzymatic activity/volume) 66 U/L 40-136 Serum or plasma aspartate aminotransfera se measurement (enzymatic activity/volume) 25 U/L 5-34 Serum or plasma alanine aminotransferase measurement (enzymatic activity/volume) 27 U/L 0-55 Serum or plasma protein measurement (mass/volume) 7.1 g/dL 6.4-8.2 Serum or plasma albumin measurement (mass/volume) 4.2 g/dL 3.2-4.5 CALCIUM CORRECTED 9.2 mg/dL 8.5-10.1 Complete urinalysis with reflex to cultu re - 10/13/18 16:40 Urine color determination YELLOW NRG Urine clarity determination CLEAR NR G Urine pH measurement by test strip 7.0 5-9 Specific gravity of urine by test strip <= 1.016-1.022 Urine protein assay by test strip, semi-quantitative NEGATIVE NEGATIVE Urine glucose detection by automated test strip NE GATIVE NEGATIVE Erythrocytes detection in urine sediment by light micr oscopy TRACE NEGATIVE Urine ketones detection by automated test strip NE GATIVE NEGATIVE Urine nitrite detection by test strip NEGATIVE NEGATIVE Urine total bilirubin detection by test strip NEGA TIVE NEGATIVE Urine urobilinogen measurement by automated test strip (mass/volume) 0.2 mg/dL NORMAL Urine leukocyte esterase detection by dipstick NEG ATIVE NEGATIVE Automated urine sediment erythrocyte cou nt by microscopy (number/high power field) [HPF] NRG Automated urine sediment leukocyte count by microscopy (number/high power field) [HPF] NRG Bacteria detection in urine sediment by light microsco py TRACE NRG Squamous epithelial cells detection in u rine sediment by light microscopy 5-10 NRG Crystals detection in urine sediment by light microsco py NONE NRG Casts detection in urine sediment by light microscopy NONE NRG Mucus detection in urine sediment by light microscopy NEGATIVE NRG Complete urinalysis with reflex to culture CULTURE PENDING NRG Bacterial urine culture - 10/13/18 16:40 Bacterial urine culture NG NRG Blood lactic acid measurement (moles/vol ume) - 10/13/18 16:50 Blood lactic acid measurement (moles/volume) 1.32 mmol/L 0.50-2.00 Comprehensive metabolic panel - 10/13/18 16:50 Serum or plasma sodium measurement (moles/volume) 143 mmol/L 135-145 Serum or plasma potassium measurement (moles/volume) 3.7 mmol/L 3.6-5.0 Serum or plasma chloride measurement (moles/volume) 103 mmol/L 98-107 Carbon dioxide 25 mmol/L 21-32 Serum or plasma anion gap determination (moles/volume) 15 mmol/L 5-14 Serum or plasma urea nitrogen measurement (mass/volume ) 11 mg/dL 7-18 Serum or plasma creatinine measurement (mass/volume) 0.82 mg/dL 0.60-1.30 Serum or plasma urea nitrogen/creatinine mass ratio 13 NRG Serum or plasma creatinine measurement w ith calculation of estimated glomerular filtration rate > NRG Serum or plasma glucose measurement (mass/volume) 115 mg/dL 70-105 Serum or plasma calcium measurement (mass/volume) 9.1 mg/dL 8.5-10.1 Serum or plasma total bilirubin measurement (mass/volu me) < mg/dL 0.1-1.0 Serum or plasma alkaline phosphatase lelo surement (enzymatic activity/volume) 71 U/L 40-136 Serum or plasma aspartate aminotransfera se measurement (enzymatic activity/volume) 24 U/L 5-34 Serum or plasma alanine aminotransferase measurement (enzymatic activity/volume) 30 U/L 0-55 Serum or plasma protein measurement (mass/volume) 6.7 g/dL 6.4-8.2 Serum or plasma albumin measurement (mass/volume) 4.2 g/dL 3.2-4.5 CALCIUM CORRECTED 8.9 mg/dL 8.5-10.1 Serum or plasma troponin i.cardiac measu rement (mass/volume) - 10/13/18 16:50 Serum or plasma troponin i.cardiac measurement (mass/v olume) < ng/mL <0.30 Complete blood count (CBC) with automate d white blood cell (WBC) differential - 10/13/18 16:50 Blood leukocytes automated count (number/volume) 11.8 10*3/uL 4.3-11.0 Blood erythrocytes automated count (number/volume) 4.59 10*6/uL 4.35-5.85 Venous blood hemoglobin measurement (mass/volume) 14.0 g/dL 11.5-16.0 Blood hematocrit (volume fraction) 42 % 35-52 Automated erythrocyte mean corpuscular volume 91 [ foz_us] 80-99 Automated erythrocyte mean corpuscular h emoglobin (mass per erythrocyte) 31 pg 25-34 Automated erythrocyte mean corpuscular h emoglobin concentration measurement (mass/volume) 34 g/dL 32-36 Automated erythrocyte distribution width ratio 13. 4 % 10.0- 14.5 Automated blood platelet count (count/volume) 275 10*3/uL 130-400 Automated blood platelet mean volume measurement 10.9 [foz_us] 7.4-10.4 Automated blood neutrophils/100 leukocytes 50 % 42-75 Automated blood lymphocytes/100 leukocytes 32 % 12-44 Blood monocytes/100 leukocytes 7 % 0-12 Automated blood eosinophils/100 leukocytes 10 % 0-10 Automated blood basophils/100 leukocytes 1 % 0-10 Blood neutrophils automated count (number/volume) 5.8 10*3 1.8-7.8 Blood lymphocytes automated count (number/volume) 3.7 10*3 1.0-4.0 Blood monocytes automated count (number/volume) 0. 8 10*3 0.0-1.0 Automated eosinophil count 1.2 10*3/uL 0 .0-0.3 Automated blood basophil count (count/volume) 0.1 10*3/uL 0.0-0.1 PT panel in platelet poor plasma by coag ulation assay - 10/13/18 16:50 Prothrombin time (PT) in platelet poor plasma by coagu lation assay 12.6 s 12.2-14.7 INR in platelet poor plasma or blood by coagulation as say 0.9 0.8-1.4 Activated partial thromboplastin time (a PTT) in platelet poor plasma bycoagulation assay - 10/13/18 16:50 Activated partial thromboplastin time (a PTT) in platelet poor plasma bycoagulation assay 31 s 24-35 Bacterial blood culture - 10/13/18 16:50 Bacterial blood culture NG [facility] Sputum Gram stain - 10/13/18 17:15 Sputum Gram stain Mixed bacterial miguelito NR Bacterial sputum culture - 10/13/18 17:1 5 QUANTITY OF GROWTH . [facility] Bacterial sputum culture USUAL RESP NR Bacterial blood culture - 10/13/18 17:55 Bacterial blood culture NG NR CULTURE, URINE - 12/31/18 10:02 CULTURE, URINE, ROUTINE SEE NOTE NRG CMP - 12/31/18 11:34 GLUCOSE 136 mg/dL 65-139 UREA NITROGEN (BUN) 17 mg/dL 7-25 CREATININE 0.92 mg/dL 0.50-1.05 eGFR NON-AFR. GABONESE 73 mL/min/1.73m2 > OR = 60 eGFR 84 mL/min/1.73m2 > OR = 60 BUN/CREATININE RATIO NOT APPLICABLE (calc) 6-22 SODIUM 141 mmol/L 135-146 POTASSIUM 3.9 mmol/L 3.5-5.3 CHLORIDE 105 mmol/L 98-110 CARBON DIOXIDE 25 mmol/L 20-32 CALCIUM 9.2 mg/dL 8.6-10.4 PROTEIN, TOTAL 6.6 g/dL 6.1-8.1 ALBUMIN 4.2 g/dL 3.6-5.1 GLOBULIN 2.4 g/dL (calc) 1.9-3.7 ALBUMIN/GLOBULIN RATIO 1.8 (calc) 1.0-2. 5 BILIRUBIN, TOTAL 0.4 mg/dL 0.2-1.2 ALKALINE PHOSPHATASE 62 U/L 33-130 AST 23 U/L 10-35 ALT 29 U/L 6-29 A1C - 12/31/18 11:34 HEMOGLOBIN A1c 5.5 % of total Hgb <5.7 Complete blood count (CBC) with automate d white blood cell (WBC) differential - 03/14/19 09:33 Blood leukocytes automated count (number/volume) 15.6 10*3/uL 4.3-11.0 Blood erythrocytes automated count (number/volume) 4.62 10*6/uL 4.35-5.85 Venous blood hemoglobin measurement (mass/volume) 13.8 g/dL 11.5-16.0 Blood hematocrit (volume fraction) 43 % 35-52 Automated erythrocyte mean corpuscular volume 94 [ foz_us] 80-99 Automated erythrocyte mean corpuscular h emoglobin (mass per erythrocyte) 30 pg 25-34 Automated erythrocyte mean corpuscular h emoglobin concentration measurement (mass/volume) 32 g/dL 32-36 Automated erythrocyte distribution width ratio 13. 0 % 10.0- 14.5 Automated blood platelet count (count/volume) 237 10*3/uL 130-400 Automated blood platelet mean volume measurement 10.2 [foz_us] 7.4-10.4 Automated blood neutrophils/100 leukocytes 91 % 42-75 Automated blood lymphocytes/100 leukocytes 6 % 12-44 Blood monocytes/100 leukocytes 2 % 0-12 Automated blood eosinophils/100 leukocytes 0 % 0-10 Automated blood basophils/100 leukocytes 1 % 0-10 Blood neutrophils automated count (number/volume) 14.2 10*3 1.8-7.8 Blood lymphocytes automated count (number/volume) 0.9 10*3 1.0-4.0 Blood monocytes automated count (number/volume) 0. 3 10*3 0.0-1.0 Automated eosinophil count 0.1 10*3/uL 0 .0-0.3 Automated blood basophil count (count/volume) 0.1 10*3/uL 0.0-0.1 Manual absolute plasma cell count - 02/26 09/14 09:33 Blood monocytes/100 leukocytes 0 % NRG Manual blood segmented neutrophils/100 leukocytes 93 % NRG Blood band neutrophils/100 leukocytes 1 % NRG Manual blood lymphocytes/100 leukocytes 6 % NRG Manual eosinophils/100 leukocytes in nose 0 % NRG Comprehensive metabolic panel - 03/14/19 09:33 Serum or plasma sodium measurement (moles/volume) 138 mmol/L 135-145 Serum or plasma potassium measurement (moles/volume) 4.1 mmol/L 3.6-5.0 Serum or plasma chloride measurement (moles/volume) 104 mmol/L 98-107 Carbon dioxide 21 mmol/L 21-32 Serum or plasma anion gap determination (moles/volume) 13 mmol/L 5-14 Serum or plasma urea nitrogen measurement (mass/volume ) 8 mg/dL 7-18 Serum or plasma creatinine measurement (mass/volume) 0.74 mg/dL 0.60-1.30 Serum or plasma urea nitrogen/creatinine mass ratio 11 NRG Serum or plasma creatinine measurement w ith calculation of estimated glomerular filtration rate > NRG Serum or plasma glucose measurement (mass/volume) 149 mg/dL 70-105 Serum or plasma calcium measurement (mass/volume) 9.1 mg/dL 8.5-10.1 Serum or plasma total bilirubin measurement (mass/volu me) 0.5 mg/dL 0.1-1.0 Serum or plasma alkaline phosphatase lelo surement (enzymatic activity/volume) 86 U/L 40-136 Serum or plasma aspartate aminotransfera se measurement (enzymatic activity/volume) 21 U/L 5-34 Serum or plasma alanine aminotransferase measurement (enzymatic activity/volume) 26 U/L 0-55 Serum or plasma protein measurement (mass/volume) 7.3 g/dL 6.4-8.2 Serum or plasma albumin measurement (mass/volume) 4.0 g/dL 3.2-4.5 CALCIUM CORRECTED 9.1 mg/dL 8.5-10.1 Magnesium - 03/14/19 09:33 Magnesium 2.2 mg/dL 1.6-2.4 Complete blood count (CBC) with automate d white blood cell (WBC) differential - 03/20/19 20:10 Blood leukocytes automated count (number/volume) 12.9 10*3/uL 4.3-11.0 Blood erythrocytes automated count (number/volume) 4.78 10*6/uL 4.35-5.85 Venous blood hemoglobin measurement (mass/volume) 14.1 g/dL 11.5-16.0 Blood hematocrit (volume fraction) 43 % 35-52 Automated erythrocyte mean corpuscular volume 90 [ foz_us] 80-99 Automated erythrocyte mean corpuscular h emoglobin (mass per erythrocyte) 29 pg 25-34 Automated erythrocyte mean corpuscular h emoglobin concentration measurement (mass/volume) 33 g/dL 32-36 Automated erythrocyte distribution width ratio 12. 6 % 10.0- 14.5 Automated blood platelet count (count/volume) 362 10*3/uL 130-400 Automated blood platelet mean volume measurement 10.0 [foz_us] 7.4-10.4 Automated blood neutrophils/100 leukocytes 58 % 42-75 Automated blood lymphocytes/100 leukocytes 32 % 12-44 Blood monocytes/100 leukocytes 4 % 0-12 Automated blood eosinophils/100 leukocytes 5 % 0-10 Automated blood basophils/100 leukocytes 1 % 0-10 Blood neutrophils automated count (number/volume) 7.5 10*3 1.8-7.8 Blood lymphocytes automated count (number/volume) 4.1 10*3 1.0-4.0 Blood monocytes automated count (number/volume) 0. 6 10*3 0.0-1.0 Automated eosinophil count 0.7 10*3/uL 0 .0-0.3 Automated blood basophil count (count/volume) 0.1 10*3/uL 0.0-0.1 Arterial blood gas measurement - 0 20:10 Blood pCO2 25 mm[Hg] 35-45 Blood pO2 148 mm[Hg] 79-93 Arterial blood bicarbonate measurement (moles/volume) 26 mmol/L 23-27 Arterial blood base excess by calculation 5.4 mmol /L -2.5-2.5 Arterial blood oxygen saturation measurement 100 % 94-100 * Inhaled oxygen flow rate ROOM AIR NRG Arterial blood pH measurement with patient temperature correction 7.62 7.37-7.43 Arterial blood carbon dioxide, total measurement (mole s/volume) 26.5 mmol/L 21.0-31.0 Body site LEFT WRIST NRG Assessment of wrist artery patency prior to arterial p uncture YES NRG Setting of ventilation mode NO NR G Measurement of body temperature 36.6 NRG Fibrin D-dimer FEU measurement in platel et poor plasma (mass/volume) - 03/20/19 20:10 Fibrin D-dimer FEU measurement in platelet poor plasma (mass/volume) 0.38 ug/mL 0.00-0.49 PT panel in platelet poor plasma by coag ulation assay - 03/20/19 20:10 Prothrombin time (PT) in platelet poor plasma by coagu lation assay 12.9 s 12.2-14.7 INR in platelet poor plasma or blood by coagulation as say 0.9 0.8-1.4 Activated partial thromboplastin time (a PTT) in platelet poor plasma bycoagulation assay - 03/20/19 20:10 Activated partial thromboplastin time (a PTT) in platelet poor plasma bycoagulation assay 32 s 24-35 TROPONIN I FS - 03/20/19 20:10 TROPONIN I FS < 0.30 <0.30 Comprehensive metabolic panel - 03/20/19 20:10 Serum or plasma sodium measurement (moles/volume) 141 mmol/L 135-145 Serum or plasma potassium measurement (moles/volume) 3.8 mmol/L 3.6-5.0 Serum or plasma chloride measurement (moles/volume) 104 mmol/L 98-107 Carbon dioxide 24 mmol/L 21-32 Serum or plasma anion gap determination (moles/volume) 13 mmol/L 5-14 Serum or plasma urea nitrogen measurement (mass/volume ) 14 mg/dL 7-18 Serum or plasma creatinine measurement (mass/volume) 0.81 mg/dL 0.60-1.30 Serum or plasma urea nitrogen/creatinine mass ratio 17 NRG Serum or plasma creatinine measurement w ith calculation of estimated glomerular filtration rate > NRG Serum or plasma glucose measurement (mass/volume) 102 mg/dL 70-105 Serum or plasma calcium measurement (mass/volume) 9.1 mg/dL 8.5-10.1 Serum or plasma total bilirubin measurement (mass/volu me) < mg/dL 0.1-1.0 Serum or plasma alkaline phosphatase lelo surement (enzymatic activity/volume) 81 U/L 40-136 Serum or plasma aspartate aminotransfera se measurement (enzymatic activity/volume) 16 U/L 5-34 Serum or plasma alanine aminotransferase measurement (enzymatic activity/volume) 21 U/L 0-55 Serum or plasma protein measurement (mass/volume) 7.0 g/dL 6.4-8.2 Serum or plasma albumin measurement (mass/volume) 4.0 g/dL 3.2-4.5 CALCIUM CORRECTED 9.1 mg/dL 8.5-10.1 Magnesium - 03/20/19 20:10 Magnesium 2.1 mg/dL 1.6-2.4 Myoglobin, serum - 03/20/19 20:10 Myoglobin, serum 61.9 ng/mL 10.0-92.0 Lipase - 03/20/19 20:10 Lipase 51 U/L 8-78 PROBNP FS - 03/20/19 20:10 PROBNP FS 216.2 pg/mL <75.0 Influenza virus A and B antigen detectio n - 03/20/19 20:45 FLU RESULT NEGATIVE FOR INFLUENZA A AND B ANTIGENS BY IA NRG Blood CBC with ordered manual differenti al panel - 03/21/19 11:10 Blood leukocytes automated count (number/volume) 13.2 10*3/uL 4.3-11.0 Blood erythrocytes automated count (number/volume) 4.69 10*6/uL 4.35-5.85 Venous blood hemoglobin measurement (mass/volume) 14.2 g/dL 11.5-16.0 Blood hematocrit (volume fraction) 42 % 35-52 Automated erythrocyte mean corpuscular volume 89 [ foz_us] 80-99 Automated erythrocyte mean corpuscular h emoglobin (mass per erythrocyte) 30 pg 25-34 Automated erythrocyte mean corpuscular h emoglobin concentration measurement (mass/volume) 34 g/dL 32-36 Automated erythrocyte distribution width ratio 12. 5 % 10.0- 14.5 Automated blood platelet count (count/volume) 363 10*3/uL 130-400 Automated blood platelet mean volume measurement 9.6 [foz_us] 7.4-10.4 Automated blood neutrophils/100 leukocytes 67 % 42-75 Automated blood lymphocytes/100 leukocytes 23 % 12-44 Blood monocytes/100 leukocytes 5 % NRG Automated blood eosinophils/100 leukocytes 5 % 0-10 Automated blood basophils/100 leukocytes 1 % 0-10 Blood neutrophils automated count (number/volume) 8.8 10*3 1.8-7.8 Blood lymphocytes automated count (number/volume) 3.0 10*3 1.0-4.0 Blood monocytes automated count (number/volume) 0. 7 10*3 0.0-1.0 Automated eosinophil count 0.1 10*3/uL 0 .0-0.3 Automated blood basophil count (count/volume) 0.0 10*3/uL 0.0-0.1 Manual blood segmented neutrophils/100 leukocytes 80 % NRG Blood band neutrophils/100 leukocytes 0 % NRG Manual blood lymphocytes/100 leukocytes 11 % NRG Manual eosinophils/100 leukocytes in nose 1 % NRG Blood lymphocytes variant/100 leukocytes 3 % NRG Blood microcytes detection by light microscopy [facility] Comprehensive metabolic panel - 03/21/19 11:10 Serum or plasma sodium measurement (moles/volume) 140 mmol/L 135-145 Serum or plasma potassium measurement (moles/volume) 4.0 mmol/L 3.6-5.0 Serum or plasma chloride measurement (moles/volume) 105 mmol/L 98-107 Carbon dioxide 22 mmol/L 21-32 Serum or plasma anion gap determination (moles/volume) 13 mmol/L 5-14 Serum or plasma urea nitrogen measurement (mass/volume ) 9 mg/dL 7-18 Serum or plasma creatinine measurement (mass/volume) 0.75 mg/dL 0.60-1.30 Serum or plasma urea nitrogen/creatinine mass ratio 12 NRG Serum or plasma creatinine measurement w ith calculation of estimated glomerular filtration rate > NRG Serum or plasma glucose measurement (mass/volume) 117 mg/dL 70-105 Serum or plasma calcium measurement (mass/volume) 9.2 mg/dL 8.5-10.1 Serum or plasma total bilirubin measurement (mass/volu me) 0.3 mg/dL 0.1-1.0 Serum or plasma alkaline phosphatase lelo surement (enzymatic activity/volume) 82 U/L 40-136 Serum or plasma aspartate aminotransfera se measurement (enzymatic activity/volume) 14 U/L 5-34 Serum or plasma alanine aminotransferase measurement (enzymatic activity/volume) 20 U/L 0-55 Serum or plasma protein measurement (mass/volume) 7.0 g/dL 6.4-8.2 Serum or plasma albumin measurement (mass/volume) 4.0 g/dL 3.2-4.5 CALCIUM CORRECTED 9.2 mg/dL 8.5-10.1 Complete blood count (CBC) with automate d white blood cell (WBC) differential - 03/29/19 19:17 Blood leukocytes automated count (number/volume) 12.2 10*3/uL 4.3-11.0 Blood erythrocytes automated count (number/volume) 4.70 10*6/uL 4.35-5.85 Venous blood hemoglobin measurement (mass/volume) 14.0 g/dL 11.5-16.0 Blood hematocrit (volume fraction) 42 % 35-52 Automated erythrocyte mean corpuscular volume 89 [ foz_us] 80-99 Automated erythrocyte mean corpuscular h emoglobin (mass per erythrocyte) 30 pg 25-34 Automated erythrocyte mean corpuscular h emoglobin concentration measurement (mass/volume) 33 g/dL 32-36 Automated erythrocyte distribution width ratio 12. 5 % 10.0- 14.5 Automated blood platelet count (count/volume) 273 10*3/uL 130-400 Automated blood platelet mean volume measurement 10.1 [foz_us] 7.4-10.4 Automated blood neutrophils/100 leukocytes 55 % 42-75 Automated blood lymphocytes/100 leukocytes 28 % 12-44 Blood monocytes/100 leukocytes 7 % 0-12 Automated blood eosinophils/100 leukocytes 9 % 0-10 Automated blood basophils/100 leukocytes 1 % 0-10 Blood neutrophils automated count (number/volume) 6.7 10*3 1.8-7.8 Blood lymphocytes automated count (number/volume) 3.5 10*3 1.0-4.0 Blood monocytes automated count (number/volume) 0. 8 10*3 0.0-1.0 Automated eosinophil count 1.1 10*3/uL 0 .0-0.3 Automated blood basophil count (count/volume) 0.1 10*3/uL 0.0-0.1 Comprehensive metabolic panel - 03/29/19 19:17 Serum or plasma sodium measurement (moles/volume) 140 mmol/L 135-145 Serum or plasma potassium measurement (moles/volume) 3.4 mmol/L 3.6-5.0 Serum or plasma chloride measurement (moles/volume) 103 mmol/L 98-107 Carbon dioxide 24 mmol/L 21-32 Serum or plasma anion gap determination (moles/volume) 13 mmol/L 5-14 Serum or plasma urea nitrogen measurement (mass/volume ) 12 mg/dL 7-18 Serum or plasma creatinine measurement (mass/volume) 0.92 mg/dL 0.60-1.30 Serum or plasma urea nitrogen/creatinine mass ratio 13 NRG Serum or plasma creatinine measurement w ith calculation of estimated glomerular filtration rate > NRG Serum or plasma glucose measurement (mass/volume) 99 mg/dL 70-105 Serum or plasma calcium measurement (mass/volume) 9.2 mg/dL 8.5-10.1 Serum or plasma total bilirubin measurement (mass/volu me) 0.3 mg/dL 0.1-1.0 Serum or plasma alkaline phosphatase lelo surement (enzymatic activity/volume) 82 U/L 40-136 Serum or plasma aspartate aminotransfera se measurement (enzymatic activity/volume) 20 U/L 5-34 Serum or plasma alanine aminotransferase measurement (enzymatic activity/volume) 21 U/L 0-55 Serum or plasma protein measurement (mass/volume) 6.8 g/dL 6.4-8.2 Serum or plasma albumin measurement (mass/volume) 4.0 g/dL 3.2-4.5 CALCIUM CORRECTED 9.2 mg/dL 8.5-10.1 TROPONIN I FS - 03/29/19 19:17 TROPONIN I FS < 0.30 <0.30 PROBNP FS - 03/29/19 19:17 PROBNP FS 210.3 pg/mL <75.0 PT panel in platelet poor plasma by coag ulation assay - 03/29/19 19:17 Prothrombin time (PT) in platelet poor plasma by coagu lation assay 12.8 s 12.2-14.7 INR in platelet poor plasma or blood by coagulation as say 0.9 0.8-1.4 Activated partial thromboplastin time (a PTT) in platelet poor plasma bycoagulation assay - 03/29/19 19:17 Activated partial thromboplastin time (a PTT) in platelet poor plasma bycoagulation assay 30 s 24-35 Blood lactic acid measurement (moles/vol ume) - 03/29/19 19:58 Blood lactic acid measurement (moles/volume) 1.20 mmol/L 0.50-2.00 Bacterial blood culture - 03/29/19 19:58 Bacterial blood culture NG NRG Bacterial blood culture - 03/29/19 20:28 Bacterial blood culture NG NRG Serum or plasma troponin i.cardiac measu rement (mass/volume) - 03/30/19 01:40 Serum or plasma troponin i.cardiac measurement (mass/v olume) < ng/mL <0.028 Complete blood count (CBC) with automate d white blood cell (WBC) differential - 03/30/19 05:13 Blood leukocytes automated count (number/volume) 8.3 10*3/uL 4.3-11.0 Blood erythrocytes automated count (number/volume) 4.93 10*6/uL 4.35-5.85 Venous blood hemoglobin measurement (mass/volume) 14.3 g/dL 11.5-16.0 Blood hematocrit (volume fraction) 43 % 35-52 Automated erythrocyte mean corpuscular volume 87 [ foz_us] 80-99 Automated erythrocyte mean corpuscular h emoglobin (mass per erythrocyte) 29 pg 25-34 Automated erythrocyte mean corpuscular h emoglobin concentration measurement (mass/volume) 33 g/dL 32-36 Automated erythrocyte distribution width ratio 12. 9 % 10.0- 14.5 Automated blood platelet count (count/volume) 288 10*3/uL 130-400 Automated blood platelet mean volume measurement 10.8 [foz_us] 7.4-10.4 Automated blood neutrophils/100 leukocytes 89 % 42-75 Automated blood lymphocytes/100 leukocytes 10 % 12-44 Blood monocytes/100 leukocytes 1 % 0-12 Automated blood eosinophils/100 leukocytes 0 % 0-10 Automated blood basophils/100 leukocytes 0 % 0-10 Blood neutrophils automated count (number/volume) 7.4 10*3 1.8-7.8 Blood lymphocytes automated count (number/volume) 0.8 10*3 1.0-4.0 Blood monocytes automated count (number/volume) 0. 1 10*3 0.0-1.0 Automated eosinophil count 0.0 10*3/uL 0 .0-0.3 Automated blood basophil count (count/volume) 0.0 10*3/uL 0.0-0.1 Comprehensive metabolic panel - 03/30/19 05:13 Serum or plasma sodium measurement (moles/volume) 138 mmol/L 135-145 Serum or plasma potassium measurement (moles/volume) 3.5 mmol/L 3.6-5.0 Serum or plasma chloride measurement (moles/volume) 103 mmol/L 98-107 Carbon dioxide 20 mmol/L 21-32 Serum or plasma anion gap determination (moles/volume) 15 mmol/L 5-14 Serum or plasma urea nitrogen measurement (mass/volume ) 12 mg/dL 7-18 Serum or plasma creatinine measurement (mass/volume) 0.99 mg/dL 0.60-1.30 Serum or plasma urea nitrogen/creatinine mass ratio 12 NRG Serum or plasma creatinine measurement w ith calculation of estimated glomerular filtration rate 59 NRG Serum or plasma glucose measurement (mass/volume) 186 mg/dL 70-105 Serum or plasma calcium measurement (mass/volume) 9.6 mg/dL 8.5-10.1 Serum or plasma total bilirubin measurement (mass/volu me) 0.3 mg/dL 0.1-1.0 Serum or plasma alkaline phosphatase lelo surement (enzymatic activity/volume) 87 U/L 40-136 Serum or plasma aspartate aminotransfera se measurement (enzymatic activity/volume) 21 U/L 5-34 Serum or plasma alanine aminotransferase measurement (enzymatic activity/volume) 32 U/L 0-55 Serum or plasma protein measurement (mass/volume) 7.3 g/dL 6.4-8.2 Serum or plasma albumin measurement (mass/volume) 4.2 g/dL 3.2-4.5 CALCIUM CORRECTED 9.4 mg/dL 8.5-10.1 Manual absolute plasma cell count - 04/17 05:13 Blood monocytes/100 leukocytes 1 % NRG Manual blood segmented neutrophils/100 leukocytes 86 % NRG Blood band neutrophils/100 leukocytes 2 % NRG Manual blood lymphocytes/100 leukocytes 11 % NRG Manual eosinophils/100 leukocytes in nose 0 % NRG Manual blood basophils/100 leukocytes 0 % NRG Blood erythrocyte morphology finding identification NORMAL NRG Serum or plasma troponin i.cardiac measu rement (mass/volume) - 03/30/19 07:45 Serum or plasma troponin i.cardiac measurement (mass/v olume) < ng/mL <0.028 Arterial blood gas measurement - 0 09:44 Blood pCO2 38 mm[Hg] 35-45 Blood pO2 85 mm[Hg] 79-93 Arterial blood bicarbonate measurement (moles/volume) 26 mmol/L 23-27 Arterial blood base excess by calculation 1.8 mmol /L -2.5-2.5 Arterial blood oxygen saturation measurement 97 % 94-100 * Inhaled oxygen flow rate 2.5 L NRG Arterial blood pH measurement with patient temperature correction 7.44 7.37-7.43 Arterial blood carbon dioxide, total measurement (mole s/volume) 26.7 mmol/L 21.0-31.0 Body site LT RAD NRG Assessment of wrist artery patency prior to arterial p uncture YES-POS NRG Setting of ventilation mode NO NR G Measurement of body temperature 37.2 NRG Serum or plasma troponin i.cardiac measu rement (mass/volume) - 03/30/19 13:21 Serum or plasma troponin i.cardiac measurement (mass/v olume) < ng/mL <0.028 Influenza virus A and B antigen detectio n - 05/10/19 08:55 FLU RESULT NEGATIVE FOR INFLUENZA A AND B ANTIGENS BY IA NRG Encounters ACCT No. Visit Date/Time Discharge Status Pt. Type Provider Facility Loc./Unit Complaint [id number] 03/14/2019 09:40:00 03/14/2019 23:59: 59 CLS Outpatient RAFI CHILDERS [facility] [id number] 12/31/2018 10:20:00 Document Registration [id number] 12/31/2018 09:30:00 Document Registration [id number] 05/01/2019 09:30:00 23:59:59 CLS Preadmit LINDA HUMPHREY DO [facility] RAD LOW BACK PAIN [id number] 04/18/2019 14:21:00 17:32:00 DIS Outpatient JOSEPH NJ, TRACY Vega [facility] ER FS SOLE LEG NUMBNESS; RT FA CIAL NUMBNESS [id number] 03/29/2019 19:10:00 21:40:00 DIS Inpatient KELSEA NJ, BERNARDA Stoner [facility] 4TH TROUBLE BREATHING [id number] 03/21/2019 10:33:00 13:45:00 DIS Emergency SHIRA MCCRAY DO [facility] ER FS SOB [id number] 03/20/2019 19:44:00 22:13:00 DIS Emergency JEFFRY NJ, TIMOTHY Hatfield [facility] ER FS SOA,CHEST PAIN [id number] 03/14/2019 09:19:00 23:59:59 CLS Outpatient O'ANA MEDEL APRN [facility] LAB FS J44.1 M79.89 [id number] 02/21/2019 11:41:00 12:55:00 DIS Emergency ANUM NJ, WOODY Melendez [facility] ER FS HEADACHE [id number] 02/05/2019 09:18:00 23:59:59 CLS Outpatient Linette'ANA MEDEL APRN [facility] RAD FS M54.41 M54.42 [id number] 11/24/2018 20:06:00 21:06:00 DIS Emergency JOSEPH NJ, TRACY Vega [facility] ER FS TROUBLE BREATHING [id number] 10/25/2018 07:29:00 23:59:59 CLS Preadedgar BABIN MD, CHRISTINE Redding [facility] RAD CHRONIC SINUSITIS [id number] 10/13/2018 16:32:00 18:43:00 DIS Emergency TIMOTHY TERAN MD [facility] ER FS SOB [id number] 09/19/2018 04:41:00 05:50:00 DIS Emergency RADHA COLON DO [facility] ER FS SOB [id number] 09/04/2018 20:05:00 019 21:49:00 DIS Emergency ANALILIA SAMIA [facility] ER FS SOB [id number] 07/17/2018 21:06:00 12:54:00 DIS Inpatient KIMBERLY PANCHAL DO, V ia [facility] 4TH SEPSIS;PNEUMONIA [id number] 06/06/2018 03:17:00 04:15:00 DIS Emergency SARAI NJ, DENISE Stock [facility] ER FS SOB [id number] 05/10/2019 09:21:00 Document Registration
== END 2019-05-10 09:45 | disposition home or self-care (01) ==
LOC: EDUNIT# 08:29 → ER FS 08:31
DX: J44.1 Chronic obstructive pulmonary disease with (acute) exacerbation (principal); I10 Essential (primary) hypertension; F17.210 Nicotine dependence, cigarettes, uncomplicated; Z88.1 Allergy status to other antibiotic agents; Z99.81 Dependence on supplemental oxygen
CPT/HCPCS: 71046; 87804; 94640

== ENCOUNTER → 2019-06-11 | Outpatient (CLI) | payer MEDICARE | LOC: RAD 07:42 | PROVIDERS: ATTEND Family Medicine | DX: R20.0 Anesthesia of skin (principal); Z53.8 Procedure and treatment not carried out for other reasons ==

== ENCOUNTER 2019-06-26 02:14 | Emergency (ER) | payer MEDICARE ==
[~2019-06-26] VITALS: Ht 154.9 cm; Wt 81.7 kg
--- OUTSIDE RECORDS SUMMARY | 2019-06-26 02:20 | XMS REPORT | Continuity of Care Document ---
Author Organization Unknown Address Unknown Phone Unavailable Allergies Active Description Code Type Severity Reaction Onset Reported/Identified Relationship to Patient Clinical Status Yes doxycycline [id number] Drug Aller gy Moderate rash 06/06/2018 Yes cefazolin [id number] Drug Allergy Unknown N/A 03/20/2019 Medications There [...] BREATH 06/06/2018 DENISE MOON MD Ot Z79.52 MOLTEN IRON POURER (CURRENT) USE OF SYSTEMIC STER 06/06/2018 DENISE [...] BREATH 06/10/2018 DENISE MOON MD Ot Z79.52 INTERMEDIATE (CURRENT) USE OF SYSTEMIC STER 06/10/2018 DENISE [...] DO, KIMBERLY K Ot Z79.89 9 OTHER INTERMEDIATE (CURRENT) DRUG THERAPY 07/20/2018 PANCHAL DO, KIMBERLY [...] DO, KIMBERLY K Ot Z79.89 9 OTHER MOLTEN IRON POURER (CURRENT) DRUG THERAPY 07/20/2018 PANCHAL DO, KIMBERLY K Ot Z99.81 DEPENDENCE ON SUPPLEMENTAL OXYGEN 09/04/2018 BILLINGSLEY DO, SAMIA Ot J20.9 ACUTE BRONCHITIS, UNSPECIFIED 09/04/2018 BILLINGSLEY DO, SAMIA Ot J44.1 CHRONIC OBSTRUCTIVE PULMONARY DISEASE W 09/04/2018 BILLINGSLEY DO, SAMIA Ot K21.9 GASTRO-ESOPHAGEAL REFLUX DISEASE WITHOUT 09/04/2018 BILLINGSLEY DO, SAMIA Ot R06.02 SHORTNESS OF BREATH 09/04/2018 BILLINGSLEY DO SAMIA Ot Z79.51 MOLTEN IRON POURER (CURRENT) USE OF INHALED STERO 09/04/2018 BILLINGSLEY [...] BREATH 09/10/2018 BILLINGSLEY DO, SAMIA Ot Z79.51 INTERMEDIATE (CURRENT) USE OF INHALED STERO 09/10/2018 BILLINGSLEY [...] COLON DO, RADHA L Ot Z79.5 1 INTERMEDIATE (CURRENT) USE OF INHALED STERO 09/19/2018 COLON DO, RADHA L Ot Z79.5 2 INTERMEDIATE (CURRENT) USE OF SYSTEMIC STER 09/19/2018 COLON [...] COLON DO, RADHA L Ot Z79.5 1 INTERMEDIATE (CURRENT) USE OF INHALED STERO 09/24/2018 COLON DO, RADHA L Ot Z79.5 2 MOLTEN IRON POURER (CURRENT) USE OF SYSTEMIC STER 09/24/2018 COLON [...] TIMOTHY TERAN MD J Ot Z79. 51 MOLTEN IRON POURER (CURRENT) USE OF INHALED STERO 10/13/2018 LYNDSEY TERAN MDUS J Ot Z79. 52 INTERMEDIATE (CURRENT) USE OF SYSTEMIC STER 10/13/2018 TIMOTHY [...] TIMOTHY TERAN MD J Ot Z79. 51 INTERMEDIATE (CURRENT) USE OF INHALED STERO 10/16/2018 TIMOTHY TERAN MD J Ot Z79. 52 INTERMEDIATE (CURRENT) USE OF SYSTEMIC STER 10/16/2018 TIMOTHY [...] 11/24/2018 TRACY RUIZ MD Ot Z79. 51 INTERMEDIATE (CURRENT) USE OF INHALED STERO 11/24/2018 TRACY RUIZ MD, Ot Z79. 52 INTERMEDIATE (CURRENT) USE OF SYSTEMIC STER 11/24/2018 TRACY [...] 11/27/2018 TRACY RUIZ MD Ot Z79. 51 MOLTEN IRON POURER (CURRENT) USE OF INHALED STERO 11/27/2018 TRACY RUIZ MD Ot Z79. 52 MOLTEN IRON POURER (CURRENT) USE OF SYSTEMIC STER 11/27/2018 TRACY RUIZ MD, Ot Z88. 1 ALLERGY STATUS TO OTHER ANTIBIOTIC AGENT 11/27/2018 TRACY RUIZ MD, Ot Z99. 81 DEPENDENCE ON SUPPLEMENTAL OXYGEN 02/11/2019 O'DELL, ANA Rabia [employer]ECASTER Ot M47.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 OR RADICULOPATHY 02/11/2019 O'DELL, ANA Rabia [employer] FORECASTER Ot M54.41 LUMBAGO WITH SCIATICA, RIGHT SIDE 02/11/2019 O'DELL, ANA K [employer] FORECASTER Ot M54.42 LUMBAGO WITH SCIATICA, LEFT SIDE [...] HEADACHE 02/21/2019 WOODY ROWAN MD, Ot Z79.51 INTERMEDIATE (CURRENT) USE OF INHALED STERO 02/21/2019 WOODY ROWAN MD Ot Z79.52 MOLTEN IRON POURER (CURRENT) USE OF SYSTEMIC STER 02/21/2019 WOODY ROWAN MD Ot Z88.1 ALLERGY STATUS TO OTHER ANTIBIOTIC AGENT 02/21/2019 O'DELCuauhtemoc ANA K ECONOMIC FORECASTER Ot M47.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 OR RADICULOPATHY 02/21/2019 O'DELCuauhtemoc, ANA K [employer]IC FORECASTER Ot M54.41 LUMBAGO WITH SCIATICA, RIGHT SIDE 02/21/2019 O'DELCuauhtemoc, ANA K [employer]OMIC FORECASTER Ot M54.42 LUMBAGO WITH SCIATICA, LEFT SIDE [...] HEADACHE 02/25/2019 WOODY ROWAN MD Ot Z79.51 INTERMEDIATE (CURRENT) USE OF INHALED STERO 02/25/2019 WOODY ROWAN MD Ot Z79.52 INTERMEDIATE (CURRENT) USE OF SYSTEMIC STER 02/25/2019 WOODY [...] HEADACHE 02/27/2019 WOODY ROWAN MD Ot Z79.51 MOLTEN IRON POURER (CURRENT) USE OF INHALED STERO 02/27/2019 WOODY ROWAN MD Ot Z79.52 INTERMEDIATE (CURRENT) USE OF SYSTEMIC STER 02/27/2019 WOODY ROWAN MD Ot Z88.1 ALLERGY STATUS TO OTHER ANTIBIOTIC AGENT 03/17/2019 O'LIZY ANA K [employer]CONOMIC FORECASTER Ot J44 .1 CHRONIC OBSTRUCTIVE PULMONARY DISEASE W 03/17/2019 O'DELANA Posadas [employer] FORECASTER Ot M79.89 OTHER SPECIFIED SOFT TISSUE DISORDERS [...] 03/20/2019 TIMOTHY TERAN MD Ot Z79. 51 INTERMEDIATE (CURRENT) USE OF INHALED STERO 03/20/2019 TIMOTHY TERAN MD Ot Z79. 52 INTERMEDIATE (CURRENT) USE OF SYSTEMIC STER 03/20/2019 TIMOTHY [...] BREATH 03/21/2019 SHAZIA SHIRA GEORGE Ot Z79.51 MOLTEN IRON POURER (CURRENT) USE OF INHALED STERO 03/21/2019 [facility] SHIRA Painter Ot Z79.52 MOLTEN IRON POURER (CURRENT) USE OF SYSTEMIC STER 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 51 INTERMEDIATE (CURRENT) USE OF INHALED STERO 03/24/2019 TIMOTHY TERAN MD Ot Z79. 52 MOLTEN IRON POURER (CURRENT) USE OF SYSTEMIC STER 03/24/2019 TIMOTHY TERAN MD Ot Z88. 1 ALLERGY STATUS TO OTHER ANTIBIOTIC AGENT 03/24/2019 TIMOTHY TERAN MD Ot Z90. 49 ACQUIRED ABSENCE OF OTHER SPECIFIED PART 03/25/2019 SHIRA MCCRAY DO Ot F17.210 NICOTINE DEPENDENCE, CIGARETTES, UNCOMPL 03/25/2019 SHAZIA SHIRA GEORGE Ot J20.9 ACUTE BRONCHITIS, UNSPECIFIED 03/25/2019 SHAZIA SHIRA GEORGE Ot J44.1 CHRONIC OBSTRUCTIVE PULMONARY DISEASE W 03/25/2019 SHAZIA SHIRA GEORGE Ot K21.9 GASTRO-ESOPHAGEAL REFLUX DISEASE WITHOUT 03/25/2019 [facility] SHIRA GEORGE Ot R06.02 SHORTNESS OF BREATH 03/25/2019 SHIRA MCCRAY DO Ot Z79.51 MOLTEN IRON POURER (CURRENT) USE OF INHALED STERO 03/25/2019 SHIRA MCCRAY DO Ot Z79.52 MOLTEN IRON POURER (CURRENT) USE OF SYSTEMIC STER 03/25/2019 SHAZIA SHIRA GEORGE Ot Z88.1 ALLERGY STATUS TO OTHER ANTIBIOTIC AGENT 03/25/2019 O'DELL, ANA Rabia [employer]IC FORECASTER Ot 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 1 CHRONIC OBSTRUCTIVE PULMONARY DISEASE W 03/30/2019 BERNARDA ENAMORADO MD Ot J96. 10 CHRONIC RESPIRATORY FAILURE, UNSP W HYPO 03/30/2019 BERNARDA ENAMORADO MD Ot K21. 9 GASTRO-ESOPHAGEAL REFLUX DISEASE WITHOUT 03/30/2019 BERNARDA ENAMORADO MD Ot M19. 91 PRIMARY OSTEOARTHRITIS, UNSPECIFIED SITE 03/30/2019 BERNARDA ENAMORADO MD Ot Z99. 81 DEPENDENCE ON SUPPLEMENTAL OXYGEN 04/22/2019 TRACY RUIZ MD Ot J44. 9 CHRONIC OBSTRUCTIVE PULMONARY DISEASE, U 04/22/2019 TRACY RUIZ MD Ot K21. 9 GASTRO-ESOPHAGEAL REFLUX DISEASE WITHOUT 04/22/2019 TRACY RUIZ MD Ot R51 HEADACHE 04/22/2019 TRACY RUIZ MD Ot Z77. 22 CNTCT W AND EXPSR TO ENVIRON TOBACCO SMO 04/22/2019 TRACY RUIZ MD Ot Z79. 51 MOLTEN IRON POURER (CURRENT) USE OF INHALED STERO 04/22/2019 TRACY RUIZ MD Ot Z88. 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.1 WASHER MEAT NIURKA OBSTRUCTIVE PULMONARY DISEASE W 05/10/2019 Ot R06.02 TONE RTNESS OF BREATH 05/10/2019 Ot Z88.1 BRIDGETT RGY STATUS TO OTHER ANTIBIOTIC AGENT 05/10/2019 Ot Z99.81 DEP ENDENCE ON SUPPLEMENTAL OXYGEN 06/13/2019 RAFI CHILDERS MD Ot R20 .0 ANESTHESIA OF SKIN 06/13/2019 RAFI CHILDERS MD Ot Z53 .8 PROCEDURE AND TREATMENT NOT CARRIED OUT 06/16/2019 RAFI CHILDERS MD Ot R20 .0 ANESTHESIA OF SKIN 06/16/2019 RAFI CHILDERS MD Ot Z53 .8 PROCEDURE AND TREATMENT NOT CARRIED OUT 06/16/2019 RAFI CHILDERS MD Ot R20 .0 ANESTHESIA OF SKIN 06/16/2019 HENRRY CHILDERS MDRINA M Merrick Z53 .8 PROCEDURE AND TREATMENT NOT CARRIED OUT Procedures Code Description Performed By Per formed On 3H128XM DR LLANOS OF RIGHT MAIN BRONCHUS, ENDO, D 07/19/[id number] LLANOS OF LEFT MAIN BRONCHUS, ENDO, DI 07/19/[id number] LLANOS OF RIGHT MIDDLE LUNG LOBE, ENDO 07/19/2018 [id number] EX TRACTION OF RIGHT MIDDLE LUNG LOBE, [...] culture - 07/18/18 01:19 Bacterial blood culture [facility] Bacterial blood culture - 07/18/18 01:36 Bacterial blood culture [facility] Comprehensive metabolic panel - 07/18/18 05:16 [...] QUANTITY OF GROWTH Rare NRG Fungus culture [id number] NRG Mycobacterium species detection by organ ism [...] - 10/13/18 16:50 Bacterial blood culture NG NRG Sputum Gram stain - 10/13/18 17:15 Sputum Gram stain Mixed bacterial miguelito NRG Bacterial sputum culture - 10/13/18 17:1 5 QUANTITY OF GROWTH . NRG Bacterial sputum culture USUAL RESP NRG Bacterial blood culture - 10/13/18 17:55 Bacterial blood culture NG NRG CULTURE, URINE - 12/31/18 10:02 CULTURE, URINE, ROUTINE SEE NOTE NRG CMP - 12/31/18 11:34 GLUCOSE 136 mg/dL 65-139 UREA NITROGEN (BUN) 17 mg/dL 7-25 CREATININE 0.92 mg/dL 0.50-1.05 eGFR NON-AFR. GAMBIAN 73 mL/min/1.73m2 > OR = 60 eGFR [...] NRG Blood lymphocytes variant/100 leukocytes 3 % NR Blood microcytes detection by light microscopy [facility] Comprehensive metabolic panel - 03/21/19 11:10 Serum [...] Status Pt. Type Provider Facility Loc./Unit Complaint [id number] 03/14/2019 09:40:00 03/14/2019 23:59: 59 CLS Outpatient RAFI CHILDERS [facility] [id number] 12/31/2018 10:20:00 Document Registration [id number] 12/31/2018 09:30:00 Document Registration [id number] 06/11/2019 07:42:00 23:59:59 CLS Outpatient RAFI CHILDERS MD [facility] RAD NUMBNESS AND TINGLING O F LEG [id number] 05/01/2019 09:30:00 23:59:59 CLS Preadmit COLTHARP DO, LINDA A [facility] RAD LOW BACK PAIN [id number] 04/18/2019 14:21:00 020 17:32:00 DIS Outpatient JOSEPH NJ, TRACY Vega [facility] ER FS SOLE LEG NUMBNESS; RT FA CIAL NUMBNESS [id number] 03/29/2019 19:10:00 21:40:00 DIS Inpatient KELSEA NJ, BERNARDA Stoner [facility] 4TH TROUBLE BREATHING [id number] 03/21/2019 10:33:00 13:45:00 DIS Emergency SHIRA MCCRAY DO [facility] ER FS SOB [id number] 03/20/2019 19:44:00 22:13:00 DIS Emergency TIMOTHY TERAN MD [facility] ER FS SOA,CHEST PAIN [id number] 03/14/2019 09:19:00 23:59:59 CLS Outpatient NAA WYATT APRN [facility] LAB FS J44.1 M79.89 [id number] 02/21/2019 11:41:00 12:55:00 DIS Emergency ANUM NJ, WOODY Melendez [facility] ER FS HEADACHE [id number] 02/05/2019 09:18:00 23:59:59 CLS Outpatient ANA WYATT [employer]IC FORECASTER [facility] RAD FS M54.41 M54.42 [id number] 11/24/2018 20:06:00 21:06:00 DIS Emergency JOSEPH NJ, TRACY Vega [facility] ER FS TROUBLE BREATHING [id number] 10/25/2018 07:29:00 23:59:59 CLS Preadmit OLAF NJ, CHRISTINE Redding [facility] RAD CHRONIC SINUSITIS [id number] 10/13/2018 16:32:00 18:43:00 DIS Emergency JEFFRY NJ, TIMOTHY Hatfield [facility] ER FS SOB [id number] 09/19/2018 04:41:00 05:50:00 DIS Emergency RADHA COLON DO [facility] ER FS SOB [id number] 09/04/2018 20:05:00 21:49:00 DIS Emergency SAMIA BILLINGSLEY DO [facility] ER FS SOB [id number] 07/17/2018 21:06:00 12:54:00 DIS Inpatient KIMBERLY PANCHAL DO, V ia [facility] 4TH SEPSIS;PNEUMONIA [id number] 06/06/2018 03:17:00 04:15:00 DIS Emergency SARAI NJ, DENISE Stock [facility] ER FS SOB [id number] 05/10/2019 09:21:00 Document Registration
[2019-06-26 02:22] VITALS: BP 139/87
[2019-06-26] MEDS ORDERED: DOXYCYCLINE 100 MG (VIBRAMYCIN) TABLET PO STA (02:29)
[2019-06-26] MEDS ORDERED: RT-ALBUTEROL/IPRATROPIUM 3 ML (DUONEB) VIAL INH STA (02:29)
[2019-06-26] MEDS ORDERED: methylPREDNISolone 80 MG/ML (DEPO MEDROL) VIAL IM STA (02:29)
[2019-06-26] MEDS ORDERED: DEXAMETHASONE 10 MG/ML (DECADRON) 1 ML VIAL IM STA (02:29)
--- NOTE | 2019-06-26 02:37 | ED Dyspnea ---
General Chief Complaint: Respiratory Problems Stated Complaint: COPD Nursing Triage Note: PT AMBULATE TO ROOM FS06 WITH C/O COPD. PT STATES THAT HER COPD HAS BEEN BOTHERING HER X2 DAYS. PT STATES SHE WAS TRYING TO WAIT TILL TOMORROW TO BE ABLE TO CONTACT HER PCP. PT IS REQUESTING STEROIDS FOR TREATMENT AND THEN SHE "WILL BE FINE". Source of Information: Patient History of Present Illness Date Seen by Provider: Jun 26, 2019 Time Seen by Provider: 02:16 Initial Comments 49 yo Female presenting with complaint of flare up of her COPD. She states she has chronic issue with her COPD and knows that her allergies make it worse. She has been sitting outside the last 2 days with the weather being a little warmer trying to enjoy the outdoors since she has been staying inside and not going anywhere with the coronavirus pandemic. She denies any fever or chills. She has no chest pain. She states that she has some increased cough but is not bringing up much congestion. She had planned to try and contact her primary care provider, Dr. Childers, on but became too short of breath overnight. She lasted a breathing treatment 1 AM and felt that it was not helping that much so she came into the emergency department here at a little after 2 AM. She states that usually getting a steroid shot and a course of doxycycline helps to clear up this exacerbation for her. Allergies and Home Medications Allergies Coded Allergies: cefazolin (Verified Allergy, Unknown, 03/20/19) Home Medications Albuterol/Ipratropium 4 Gm Aero, 1 PUFF IH QID PRN for SHORTNESS OF BREATH, (Reported) Cetirizine HCl 10 Mg Tablet, 10 MG PO DAILY, (Reported) Doxycycline Hyclate 100 Mg Tablet, 100 MG PO BID Prescribed by: RADHA COLON on 05/10/19 0913 Doxycycline Hyclate 100 Mg Tablet, 100 MG PO BID Prescribed by: TOM RAMÍREZ on 06/26/19 0239 Famotidine 20 Mg Tablet, 20 MG PO BID, (Reported) Fluticasone Propionate 16 Gm [place].susp, 1 SPRAY NS DAILY, (Reported) Ibuprofen 800 Mg Tablet, 800 MG PO BID PRN for PAIN-MILD, (Reported) Metoprolol Tartrate 25 Mg Tablet, 25 MG PO DAILY, (Reported) Mometasone/Formoterol 13 Gm Hfa.aer.ad, 2 PUFF IH BID, (Reported) Prednisone 20 Mg Tab, 40 MG PO DAILY Prescribed by: RADHA COLON on 05/10/19 0913 Prednisone 10 Mg Tab.ds.pk, 10 MG PO DAILY Take 6 tabs(60mg)daily,decrease by 1 tab(10mg)every other day. Prescribed by: TOM RAMÍREZ on 06/26/19 0239 Patient Home Medication List Home Medication List Reviewed: Yes Review of Systems Review of Systems Constitutional: No chills, No fever EENTM: nose congestion (mild clear) Respiratory: see HPI, cough, dyspnea on exertion; No hemoptysis; short of breath; No stridor; wheezing Cardiovascular: No chest pain Gastrointestinal: no symptoms reported Genitourinary: no symptoms reported Musculoskeletal: no symptoms reported Skin: no symptoms reported Psychiatric/Neurological: No Symptoms Reported Past Oopetqn-Wzbsxq-Gcteud Hx Patient Social History Alcohol Use: Denies Use Recreational Drug Use: No Smoking Status: Current Everyday Smoker Type Used: Cigarettes 2nd Hand Smoke Exposure: Yes Recent Foreign Travel: No Contact w/Someone Who Travel: No Recent Infectious Disease Expo: No Recent Hopitalizations: No Immunizations Up To Date Date of Pneumonia Vaccine: Nov 26, 2017 Date of Influenza Vaccine: Nov 26, 2018 Seasonal Allergies Seasonal Allergies: No Past Medical History Surgeries: Yes Gallbladder Respiratory: Yes (uses oxygen @ 2 liters PRN and NOC, neb tx) COPD Cardiac: Yes High Cholesterol, Hypertension, Palpitations Neurological: No Sexually Transmitted Disease: No HIV/AIDS: No Genitourinary: No Gastrointestinal: Yes Gastroesophageal Reflux Musculoskeletal: Yes (SPINAL COMPRESSION) Arthritis Endocrine: No HEENT: No Cancer: No Psychosocial: No Integumentary: No Blood Disorders: No Family Medical History Patient reports no known family medical history. Physical Exam Vital Signs Vital Signs - First Documented 06/26/19 02:22 Temp 36.0 Pulse 93 Resp 19 B/P (MAP) 139/87 (104) O2 Delivery Room Air Capillary Refill : Less Than 3 Seconds Height, Weight, BMI Height: 5'1.00" Weight: 175lbs. 0oz. 79.992877xz; 34.00 BMI Method:Stated General Appearance: WD/WN, Mild Distress (working a little hard to breath) HEENT: PERRL/EOMI, Pharynx Normal Neck: Full Range of Motion, Normal Inspection, Non Tender, Supple Respiratory: Chest Non Tender, Decreased Breath Sounds, Wheezing (both inspiratory and expiratory diffuse wheezing.), Other (prolonged expiratory phase) Cardiovascular: Regular Rate, Rhythm, No Edema, Normal Peripheral Pulses Extremity: Normal Capillary Refill, Normal Range of Motion, No Pedal Edema Neurologic/Psychiatric: Alert, Oriented x3, No Motor/Sensory Deficits, Normal Mood/Affect, press and blow machine tender II-XII Norm as Tested Skin: Normal Color, Warm/Dry Progress/Results/Core Measures Results/Orders My Orders Orders - TOM RAMÍREZ MD Dexamethasone Injection (Decadron Inject (06/26/19 02:29) Methylprednisolone Acetate Inj (Depo-Med (06/26/19 02:29) Doxycycline Hyclate Tablet (Vibramycin T (06/26/19 02:29) Albuterol/Ipra Inhalation Soln (Duoneb I (06/26/19 02:29) Svn Small Volume Nebulizer (06/26/19 02:29) Vital Signs/I&O 06/26/19 02:22 Temp 36.0 Pulse 93 Resp 19 B/P (MAP) 139/87 (104) O2 Delivery Room Air Blood Pressure Mean: 104 Progress Progress Note : Progress Note With no fever and not having a discrete area of wheezing or congestion on pulmonary exam will defer xrays. Try steroid injections and antibiotic as pt reports usually help her. Did discuss that usually just the steroid alone with increased breathing treatments would manage the exacerbation without having to use antibiotic since she is not coughing up colored mucus or running a fever or hypoxic. Pt was reluctant to not be treated with antibiotic so will proceed with Dexamethasone, Depo-medrol, Doxycycline and counseled on follow up and return precautions for the patient. As she was having diffuse wheezing and diminished breath sounds here will treat with Duoneb nebulized breathing treatment prior to discharge as well. Departure Impression Primary Impression: COPD with exacerbation Disposition: HOME, SELF-CARE Condition: Stable Departure-Patient Inst. Decision time for Depature: 02:33 Referrals: RAFI CHILDERS MD (PCP/Family) Primary Care Physician Patient Instructions: Chronic Obstructive Pulmonary Disease (COPD) (DC), Exacerbation of COPD (DC) Add. Discharge Instructions: Follow up with Dr. Childers if not improving or return for worsening symptoms Continue on your home medicine and finish all of the antibiotic and steroid All discharge instructions reviewed with patient and/or family. Voiced understanding. Scripts Doxycycline Hyclate (Doxycycline Hyclate) 100 Mg Tablet 100 MG PO BID for 10 Days, #20 TAB 0 Refills Prov: TOM RAMÍREZ MD 06/26/19 Prednisone (Prednisone) 10 Mg Tab.ds.pk 10 MG PO DAILY, #42 EA 0 Refills Take 6 tabs(60mg)daily,decrease by 1 tab(10mg)every other day. Prov: TOM RAMÍREZ MD 06/26/19 TOM RAMÍREZ MD Jun 26, 2019 02:37
[2019-06-26] MEDS ORDERED: PRED10TA22 PO (02:39)
[2019-06-26] MEDS ORDERED: DOXY100T2 PO (02:39)
== END 2019-06-26 02:52 | disposition home or self-care (01) ==
LOC: EDUNIT# 02:14 → ER FS 02:16
DX: J44.1 Chronic obstructive pulmonary disease with (acute) exacerbation (principal); I10 Essential (primary) hypertension; K21.9 Gastro-esophageal reflux disease without esophagitis; F17.210 Nicotine dependence, cigarettes, uncomplicated; Z88.1 Allergy status to other antibiotic agents; Z79.51 Long term (current) use of inhaled steroids
CPT/HCPCS: 99284

== ENCOUNTER 2019-07-13 08:30 | Emergency (ER) | payer MEDICARE ==
[~2019-07-13] VITALS: Ht 170 cm; Wt 83.5 kg
--- OUTSIDE RECORDS SUMMARY | 2019-07-13 08:36 | XMS REPORT | Continuity of Care Document ---
Author Organization Unknown Address Unknown Phone Unavailable Allergies Active Description Code Type Severity Reaction Onset Reported/Identified Relationship to Patient Clinical Status Yes doxycycline [id number] Drug Aller gy Moderate rash 06/06/2018 Yes cefazolin [id number] Drug Allergy Unknown N/A 03/20/2019 Medications There [...] BREATH 06/06/2018 DENISE MOON MD Ot Z79.52 DAM ATTENDANT (CURRENT) USE OF SYSTEMIC STER 06/06/2018 DENISE [...] BREATH 06/10/2018 DENISE MOON MD Ot Z79.52 PENITENTIARY (CURRENT) USE OF SYSTEMIC STER 06/10/2018 DENISE [...] DO, KIMBERLY K Ot Z79.89 9 OTHER PENITENTIARY (CURRENT) DRUG THERAPY 07/20/2018 PANCHAL DO, KIMBERLY [...] K Ot M19.90 UNSPECIFIED OSTEOARTHRITIS, UNSPECIFIED 07/20/2018 PNACHAL DO, KIMBERLY K Ot Z79.89 9 OTHER DAM ATTENDANT (CURRENT) DRUG THERAPY 07/20/2018 PANCHAL DO, KIMBERLY K Ot Z99.81 DEPENDENCE ON SUPPLEMENTAL OXYGEN 09/04/2018 BILLINGSLEY DO, SAMIA Ot J20.9 ACUTE BRONCHITIS, UNSPECIFIED 09/04/2018 BILLINGSLEY DO, SAMIA Ot J44.1 CHRONIC OBSTRUCTIVE PULMONARY DISEASE W 09/04/2018 BILLINGSLEY DO, SAMIA Ot K21.9 GASTRO-ESOPHAGEAL REFLUX DISEASE WITHOUT 09/04/2018 BILLINGSLEY DO, SAMIA Ot R06.02 SHORTNESS OF BREATH 09/04/2018 BILLINGSLEY DO SAMIA Ot Z79.51 DAM ATTENDANT (CURRENT) USE OF INHALED STERO 09/04/2018 BILLINGSLEY [...] BREATH 09/10/2018 BILLINGSLEY DO, SAMIA Ot Z79.51 PENITENTIARY (CURRENT) USE OF INHALED STERO 09/10/2018 BILLINGSLEY [...] COLON DO, RADHA L Ot Z79.5 1 PENITENTIARY (CURRENT) USE OF INHALED STERO 09/19/2018 COLON DO, RADHA L Ot Z79.5 2 PENITENTIARY (CURRENT) USE OF SYSTEMIC STER 09/19/2018 COLON [...] COLON DO, RADHA L Ot Z79.5 1 PENITENTIARY (CURRENT) USE OF INHALED STERO 09/24/2018 COLON DO, RADHA L Ot Z79.5 2 DAM ATTENDANT (CURRENT) USE OF SYSTEMIC STER 09/24/2018 COLON [...] TIMOTHY TERAN MD J Ot Z79. 51 DAM ATTENDANT (CURRENT) USE OF INHALED STERO 10/13/2018 LYNDSEY TERAN MDUS J Ot Z79. 52 PENITENTIARY (CURRENT) USE OF SYSTEMIC STER 10/13/2018 TIMOTHY TERAN MD J Ot Z88. 1 ALLERGY STATUS TO OTHER ANTIBIOTIC AGENT 10/13/2018 TIOMTHY TERAN MD J Ot Z99. 81 DEPENDENCE [...] TIMOTHY TERAN MD J Ot Z79. 51 PENITENTIARY (CURRENT) USE OF INHALED STERO 10/16/2018 TIMOTHY TERAN MD J Ot Z79. 52 PENITENTIARY (CURRENT) USE OF SYSTEMIC STER 10/16/2018 TIMOTHY [...] 11/24/2018 TRACY RUIZ MD Ot Z79. 51 PENITENTIARY (CURRENT) USE OF INHALED STERO 11/24/2018 TRACY RUIZ MD, Ot Z79. 52 PENITENTIARY (CURRENT) USE OF SYSTEMIC STER 11/24/2018 TRACY [...] 11/27/2018 TRACY RUIZ MD Ot Z79. 51 DAM ATTENDANT (CURRENT) USE OF INHALED STERO 11/27/2018 TRACY RUIZ MD Ot Z79. 52 DAM ATTENDANT (CURRENT) USE OF SYSTEMIC STER 11/27/2018 TRACY RUIZ MD, Ot Z88. 1 ALLERGY STATUS TO OTHER ANTIBIOTIC AGENT 11/27/2018 TRACY RUIZ MD, Ot Z99. 81 DEPENDENCE ON SUPPLEMENTAL OXYGEN 02/11/2019 O'DELL, ANA Rabia REGIONAL DIRECTOR OF FINANCE Ot M47.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 OR RADICULOPATHY 02/11/2019 O'DELL, ANA Rabia REGIONAL DIRECTOR OF FINANCE Ot M54.41 LUMBAGO WITH SCIATICA, RIGHT SIDE 02/11/2019 O'DELL, ANA K REGIONAL DIRECTOR OF FINANCE Ot M54.42 LUMBAGO WITH SCIATICA, LEFT SIDE [...] HEADACHE 02/21/2019 WOODY ROWAN MD, Ot Z79.51 PENITENTIARY (CURRENT) USE OF INHALED STERO 02/21/2019 WOODY ROWAN MD Ot Z79.52 DAM ATTENDANT (CURRENT) USE OF SYSTEMIC STER 02/21/2019 WOODY ROWAN MD Ot Z88.1 ALLERGY STATUS TO OTHER ANTIBIOTIC AGENT 02/21/2019 O'DELCuauhtemoc ANA K REGIONAL DIRECTOR OF FINANCE Ot M47.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 OR RADICULOPATHY 02/21/2019 O'DELCuauhtemoc, ANA K REGIONAL DIRECTOR OF FINANCE Ot M54.41 LUMBAGO WITH SCIATICA, RIGHT SIDE 02/21/2019 O'DELCuauhtemoc, ANA K REGIONAL DIRECTOR OF FINANCE Ot M54.42 LUMBAGO WITH SCIATICA, LEFT SIDE [...] HEADACHE 02/25/2019 WOODY ROWAN MD Ot Z79.51 PENITENTIARY (CURRENT) USE OF INHALED STERO 02/25/2019 WOODY ROWAN MD Ot Z79.52 PENITENTIARY (CURRENT) USE OF SYSTEMIC STER 02/25/2019 WOODY [...] HEADACHE 02/27/2019 WOODY ROWAN MD Ot Z79.51 DAM ATTENDANT (CURRENT) USE OF INHALED STERO 02/27/2019 WOODY ROWAN MD Ot Z79.52 PENITENTIARY (CURRENT) USE OF SYSTEMIC STER 02/27/2019 WOODY ROWAN MD Ot Z88.1 ALLERGY STATUS TO OTHER ANTIBIOTIC AGENT 03/17/2019 O'LIZY ANA K REGIONAL DIRECTOR OF FINANCE Ot J44 .1 CHRONIC OBSTRUCTIVE PULMONARY DISEASE W 03/17/2019 O'DELANA Posadas REGIONAL DIRECTOR OF FINANCE Ot M79.89 OTHER SPECIFIED SOFT TISSUE DISORDERS [...] 03/20/2019 TIMOTHY TERAN MD Ot Z79. 51 PENITENTIARY (CURRENT) USE OF INHALED STERO 03/20/2019 TIMOTHY TERAN MD Ot Z79. 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 03/21/2019 O'DELL, ANA K REGIONAL DIRECTOR OF FINANCE Ot M54.41 LUMBAGO WITH SCIATICA, RIGHT SIDE 03/21/2019 O'DELL, ANA K REGIONAL DIRECTOR OF FINANCE Ot M54.42 LUMBAGO WITH SCIATICA, LEFT SIDE 03/21/2019 O'DELL, ANA K REGIONAL DIRECTOR OF FINANCE Ot J44 .1 CHRONIC OBSTRUCTIVE PULMONARY DISEASE W 03/21/2019 O'DELL, ANA K REGIONAL DIRECTOR OF FINANCE Ot M79.89 OTHER SPECIFIED SOFT TISSUE DISORDERS 03/21/2019 O'DELL, ANA K REGIONAL DIRECTOR OF FINANCE Ot M47.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 OR RADICULOPATHY 03/21/2019 O'DELL, ANA K REGIONAL DIRECTOR OF FINANCE Ot M54.41 LUMBAGO WITH SCIATICA, RIGHT SIDE 03/21/2019 O'DELL, ANA K REGIONAL DIRECTOR OF FINANCE Ot M54.42 LUMBAGO WITH SCIATICA, LEFT SIDE 03/21/2019 O'DELL, ANA K REGIONAL DIRECTOR OF FINANCE Ot J44 .1 CHRONIC OBSTRUCTIVE PULMONARY DISEASE W 03/21/2019 O'DELL, ANA K REGIONAL DIRECTOR OF FINANCE Ot M79.89 OTHER SPECIFIED SOFT TISSUE DISORDERS [...] 03/24/2019 TIMOTHY TERAN MD Ot Z79. 51 PENITENTIARY (CURRENT) USE OF INHALED STERO 03/24/2019 TIMOTHY TERAN MD Ot Z79. 52 DAM ATTENDANT (CURRENT) USE OF SYSTEMIC STER 03/24/2019 TIMOTHY [...] Ot K21.9 GASTRO-ESOPHAGEAL REFLUX DISEASE WITHOUT 03/25/2019 [facility] SHIRA GEORGE Ot R06.02 SHORTNESS OF BREATH 03/25/2019 SHIRA MCCRAY DO Ot Z79.51 DAM ATTENDANT (CURRENT) USE OF INHALED STERO 03/25/2019 SHIRA MCCRAY DO Ot Z79.52 DAM ATTENDANT (CURRENT) USE OF SYSTEMIC STER 03/25/2019 SHAZIA SHIRA GEORGE Ot Z88.1 ALLERGY STATUS TO OTHER ANTIBIOTIC AGENT 03/25/2019 O'DELL, ANA Rabia REGIONAL DIRECTOR OF FINANCE Ot M47.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 OR RADICULOPATHY 03/25/2019 O'DELL, ANA K REGIONAL DIRECTOR OF FINANCE Ot M54.41 LUMBAGO WITH SCIATICA, RIGHT SIDE 03/25/2019 O'DELL, ANA K REGIONAL DIRECTOR OF FINANCE Ot M54.42 LUMBAGO WITH SCIATICA, LEFT SIDE 03/25/2019 O'DELL, ANA Rabia REGIONAL DIRECTOR OF FINANCE Ot J44 .1 CHRONIC OBSTRUCTIVE PULMONARY DISEASE W 03/25/2019 O'DELL, ANA Rabia REGIONAL DIRECTOR OF FINANCE Ot M79.89 OTHER SPECIFIED SOFT TISSUE DISORDERS [...] Z99. 81 DEPENDENCE ON SUPPLEMENTAL OXYGEN 04/22/2019 RTACY RUIZ MD Ot J44. 9 CHRONIC OBSTRUCTIVE PULMONARY DISEASE, U 04/22/2019 TRACY RUIZ MD Ot K21. 9 GASTRO-ESOPHAGEAL REFLUX DISEASE WITHOUT 04/22/2019 TRACY RUIZ MD Ot R51 HEADACHE 04/22/2019 TRACY RUIZ MD Ot Z77. 22 CNTCT W AND EXPSR TO ENVIRON TOBACCO SMO 04/22/2019 TRACY RUIZ MD Ot Z79. 51 DAM ATTENDANT (CURRENT) USE OF INHALED STERO 04/22/2019 TRACY RUIZ MD Ot Z88. 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.1 BORDER MEASURER NIURKA OBSTRUCTIVE PULMONARY DISEASE W 05/10/2019 Ot [...] .0 ANESTHESIA OF SKIN 06/16/2019 RAFI CHILDERS MD, Ot Z53 .8 PROCEDURE AND TREATMENT NOT CARRIED OUT 06/30/2019 TOM RAMÍREZ MD, Ot F17.2 10 NICOTINE DEPENDENCE, CIGARETTES, UNCOMPL 06/30/2019 TOM RAMÍREZ MD, Ot I10 ESSENTIAL (PRIMARY) HYPERTENSION 06/30/2019 TOM RAMÍREZ MD, Ot J44.1 CHRONIC OBSTRUCTIVE PULMONARY DISEASE W 06/30/2019 TOM RAMÍREZ MD, Ot J44.9 CHRONIC OBSTRUCTIVE PULMONARY DISEASE, U 06/30/2019 TOM RAMÍREZ MD, Ot K21.9 GASTRO-ESOPHAGEAL REFLUX DISEASE WITHOUT 06/30/2019 TOM RAMÍREZ MD, Ot Z79.5 1 DAM ATTENDANT (CURRENT) USE OF INHALED STERO 06/30/2019 TOM RAMÍREZ MD, Ot Z88.1 ALLERGY STATUS TO OTHER ANTIBIOTIC AGENT Procedures Code Description Performed By Per formed On [id number] DR LLANOS OF RIGHT MAIN BRONCHUS, ENDO, D 07/19/[id number] LLANOS OF LEFT MAIN BRONCHUS, ENDO, DI 07/19/[id number] LLANOS OF RIGHT MIDDLE LUNG LOBE, ENDO 07/19/2018 [id number] EX TRACTION OF RIGHT MIDDLE LUNG LOBE, [...] culture - 07/18/18 01:19 Bacterial blood culture [facility] Bacterial blood culture - 07/18/18 01:36 Bacterial blood culture [facility] Comprehensive metabolic panel - 07/18/18 [...] QUANTITY OF GROWTH Rare NRG Fungus culture [id number] NRG Mycobacterium species detection by organ ism [...] - 10/13/18 16:50 Bacterial blood culture NG [facility] Sputum Gram stain - 10/13/18 17:15 Sputum Gram stain Mixed bacterial miguelito [facility] Bacterial sputum culture - 10/13/18 17:1 5 QUANTITY OF GROWTH . [facility] Bacterial sputum culture USUAL RESP [facility] Bacterial blood culture - 10/13/18 17:55 Bacterial blood culture NG [facility] CULTURE, URINE - 12/31/18 10:02 CULTURE, URINE, ROUTINE SEE NOTE [facility] CMP - 12/31/18 11:34 GLUCOSE 136 mg/dL 65-139 UREA NITROGEN (BUN) 17 mg/dL 7-25 CREATININE 0.92 mg/dL 0.50-1.05 eGFR NON-AFR. [place] 73 mL/min/1.73m2 > OR = 60 eGFR [...] INFLUENZA A AND B ANTIGENS BY IA [facility] Blood CBC with ordered manual differenti al [...] NRG Blood microcytes detection by light microscopy [facility] Comprehensive metabolic panel - 03/21/19 [...] Status Pt. Type Provider Facility Loc./Unit Complaint [id number] 03/14/2019 09:40:00 03/14/2019 23:59: 59 CLS Outpatient RAFI CHILDERS [facility] [id number] 12/31/2018 10:20:00 Document Registration [id number] 12/31/2018 09:30:00 Document Registration [id number] 06/26/2019 02:16:00 02:52:00 DIS Outpatient TOM RAMÍREZ MD [facility] ER FS COPD [id number] 06/11/2019 07:42:00 23:59:59 CLS Outpatient RAFI CHILDERS MD [facility] RAD NUMBNESS AND TINGLING O F LEG [id number] 05/01/2019 09:30:00 23:59:59 CLS Preadmit COLTHARP DO, LINDA A [facility] RAD LOW BACK PAIN [id number] 04/18/2019 14:21:00 17:32:00 DIS Outpatient JOSEPH NJ, TRACY Vega [facility] ER FS SOLE LEG NUMBNESS; RT FA CIAL NUMBNESS [id number] 03/29/2019 19:10:00 21:40:00 DIS Inpatient KELSEA NJ, BERNARDA Stoner [facility] 4TH TROUBLE BREATHING [id number] 03/21/2019 10:33:00 13:45:00 DIS Emergency SHIRA MCCRAY DO [facility] ER FS SOB [id number] 03/20/2019 19:44:00 22:13:00 DIS Emergency JEFFRY NJ, TIMOTHY Hatfield [facility] ER FS SOA,CHEST PAIN [id number] 03/14/2019 09:19:00 23:59:59 CLS Outpatient O'DELANA Posadas APRN [facility] LAB FS J44.1 M79.89 [id number] 02/21/2019 11:41:00 12:55:00 DIS Emergency ANUM NJ, WOODY Melendez [facility] ER FS HEADACHE [id number] 02/05/2019 09:18:00 23:59:59 CLS Outpatient Linette'ANA MEDEL APRN [facility] RAD FS M54.41 M54.42 [id number] 11/24/2018 20:06:00 21:06:00 DIS Emergency JOSEPH NJ, TRACY Vega [facility] ER FS TROUBLE BREATHING [id number] 10/25/2018 07:29:00 23:59:59 CLS Preadmit OLAF NJ, CHRISTINE Redding [facility] RAD CHRONIC SINUSITIS [id number] 10/13/2018 16:32:00 18:43:00 DIS Emergency TIMOTHY TERAN MD [facility] ER FS SOB [id number] 09/19/2018 04:41:00 05:50:00 DIS Emergency RADHA COLON DO [facility] ER FS SOB [id number] 09/04/2018 20:05:00 019 21:49:00 DIS Emergency SAMIA BILLINGSLEY DO [facility] ER FS SOB [id number] 07/17/2018 21:06:00 12:54:00 DIS Inpatient KIMBERLY PANCHAL DO, V ia [facility] 4TH SEPSIS;PNEUMONIA [id number] 06/06/2018 03:17:00 019 04:15:00 DIS Emergency SARAI NJ, DENISE Stock [facility] ER FS SOB [id number] 05/10/2019 09:21:00 Document Registration
--- NOTE | 2019-07-13 08:40 | NUR ---
Patient reprots that she has been having difficulty ambulating since November and today her pain has not changed that.
[2019-07-13] MEDS ORDERED: KETOROLAC 60 MG/2 ML VIAL IM ONE (08:45)
[2019-07-13] MEDS ORDERED: DICL75TA2 PO (08:51)
--- NOTE | 2019-07-13 08:51 | ED Back Pain ---
General Chief Complaint: Back Problems Stated Complaint: BACK PAIN Nursing Triage Note: Patient reports back pain since November and reports sharp pain starting 20 minutes ago in her middle back Nursing Sepsis Screen: No Definite Risk Source of Information: Patient, RN/MD, RN Notes Reviewed Exam Limitations: No Limitations History of Present Illness Date Seen by Provider: July 13, 2019 Time Seen by Provider: 08:30 Initial Comments This patient is a 49-year-old female presents to the emergency part for left thoracic back pain. Causes shooting pain around ribs. Patient has had long issues of back issues and back pain and sciatica going on since November of last year. Patient has had multiple x-rays and has even had an MRI of the spine with negative evaluations. Patient states that she was sitting on the couch about 20 minutes ago and started having this sharp pain in the middle of her back. Patient states that she is has a phobia medications when she was offered medications including Toradol Norflex or other type of pain reliever. The patient declines or is reluctant. However patient now is agreeable to take a Toradol shot. Patient was offered thoracic imaging x-ray. Patient is aware that we do not have MRI available. Patient does not appear to be in acute distress. Exam is equivocal and negative. We'll do x-rays and evaluate. Further needed. Patient is followed by orthopedics and PCP [place] had negative evaluations. Since November 2018. Timing/Duration: 1/2 Hour Severity: Mild Pain/Injury Location: Back Method of Injury: Unknown Associated Symptoms: denies symptoms Allergies and Home Medications Allergies Coded Allergies: cefazolin (Verified Allergy, Unknown, 03/20/19) Home Medications Albuterol/Ipratropium 4 Gm Aero, 1 PUFF IH QID PRN for SHORTNESS OF BREATH, (Reported) Cetirizine HCl 10 Mg Tablet, 10 MG PO DAILY, (Reported) Diclofenac Sodium 75 Mg Tablet.dr, 75 MG PO BID Prescribed by: TAMANNA BETH on 07/13/19 0851 Doxycycline Hyclate 100 Mg Tablet, 100 MG PO BID Prescribed by: RADHA COLON on 05/10/19 0913 Doxycycline Hyclate 100 Mg Tablet, 100 MG PO BID Prescribed by: TOM RAMÍREZ on 06/26/19 0239 Famotidine 20 Mg Tablet, 20 MG PO BID, (Reported) Fluticasone Propionate 16 Gm [place].susp, 1 SPRAY NS DAILY, (Reported) Ibuprofen 800 Mg Tablet, 800 MG PO BID PRN for PAIN-MILD, (Reported) Metoprolol Tartrate 25 Mg Tablet, 25 MG PO DAILY, (Reported) Mometasone/Formoterol 13 Gm Hfa.aer.ad, 2 PUFF IH BID, (Reported) Prednisone 20 Mg Tab, 40 MG PO DAILY Prescribed by: RADHA COLON on 05/10/19 0913 Prednisone 10 Mg Tab.ds.pk, 10 MG PO DAILY Take 6 tabs(60mg)daily,decrease by 1 tab(10mg)every other day. Prescribed by: TOM RAMÍREZ on 06/26/19 0239 Patient Home Medication List Home Medication List Reviewed: Yes Review of Systems Constitutional: No no symptoms reported; see HPI; No chills, No diaphoresis, No dizziness, No fever, No malaise, No weakness, No weight gain, No weight loss, No other EENTM: No see HPI, No no symptoms reported, No ear discharge, No hearing loss, No ear pain, No blurred vision, No double vision, No eye pain, No tearing, No vision loss, No dental problems, No hoarseness, No mouth pain, No mouth swelling, No epistaxis, No nose congestion, No nose pain, No throat pain, No throat swelling, No other Respiratory: No no symptoms reported, No see HPI, No cough, No dyspnea on exertion, No hemoptysis, No orthopnea, No phlegm, No short of breath, No stridor, No wheezing, No other Cardiovascular: No no symptoms reported, No see HPI, No chest pain, No edema, No Hx of Intervention, No palpitations, No syncope, No vascular heart diseas, No other Gastrointestinal: No RUQ, No LUQ, No RLQ, No LLQ, No no symptoms reported, No see HPI, No abdominal pain, No constipation, No diarrhea, No dysphagia, No he matemesis, No heartburn, No jaundice, No loss of appetite, No melena, No nausea, No vomiting, No other Genitourinary: No no symptoms reported, No see HPI, No decreased output, No discharge, No dysuria, No frequency, No hematuria, No hesitancy, No incontinence, No nocturia, No pain, No other Musculoskeletal: No no symptoms reported, No see HPI; back pain; No gout, No joint pain, No joint swelling, No muscle pain, No muscle stiffness, No muscle cramps, No muscle twitching, No muscle weakness, No neck pain, No other Skin: No no symptoms reported, No see HPI, No change in color, No change in hair/nails, No dryness, No hx of skin cancer, No lesions, No lumps, No pruritus, No rash, No other Psychiatric/Neurological: Denies No Symptoms Reported, Denies See HPI, Denies Anxiety, Denies Depressed, Denies Emotional Problems, Denies Headache, Denies Numbness, Denies Paresthesia, Denies Pre-Existing Deficit, Denies Seizure, Denies Tingling, Denies Tremors, Denies Weakness, Denies Other All Other Systems Reviewed Negative Unless Noted: Yes Past Jcyzilw-Bqcesk-Tjcxry Hx Patient Social History Alcohol Use: Denies Use Recreational Drug Use: No Smoking Status: Current Everyday Smoker Type Used: Cigarettes 2nd Hand Smoke Exposure: Yes Recent Foreign Travel: No Contact w/Someone Who Travel: No Recent Infectious Disease Expo: No Recent Hopitalizations: No Immunizations Up To Date Date of Pneumonia Vaccine: Nov 26, 2017 Date of Influenza Vaccine: Nov 26, 2018 Seasonal Allergies Seasonal Allergies: No Past Medical History Surgeries: Yes Gallbladder Respiratory: Yes (uses oxygen @ 2 liters PRN and NOC, neb tx) COPD Cardiac: Yes High Cholesterol, Hypertension, Palpitations Neurological: No Sexually Transmitted Disease: No HIV/AIDS: No Genitourinary: No Gastrointestinal: Yes Gastroesophageal Reflux Musculoskeletal: Yes (SPINAL COMPRESSION) Arthritis Endocrine: No HEENT: No Cancer: No Psychosocial: No Integumentary: No Blood Disorders: No Family Medical History Patient reports no known family medical history. Physical Exam Vital Signs Vital Signs - First Documented 07/13/19 08:36 Temp 36.4 Pulse 94 Resp 18 B/P (MAP) 193/105 (134) Pulse Ox 95 Capillary Refill : Less Than 3 Seconds Height, Weight, BMI Height: 5'1.00" Weight: 175lbs. 0oz. 79.730474dt; 28.00 BMI Method:Stated General Appearance: No Apparent Distress, WD/WN HEENT: PERRL/EOMI, TMs Normal, Normal ENT Inspection, Pharynx Normal Neck: Full Range of Motion, Normal Inspection, Non Tender, Supple Cardiovascular: Regular Rate, Rhythm, No Edema, No Gallop, No JVD, No Murmur, Normal Peripheral Pulses Respiratory: Chest Non Tender, Lungs Clear, Normal Breath Sounds, No Accessory Muscle Use, No Respiratory Distress, Accessory Muscle Use Gastrointestinal: Normal Bowel Sounds, No Organomegaly, No Pulsatile Mass, Non Tender, Soft Back: Normal Inspection, No CVA Tenderness, No Vertebral Tenderness, Other (is complaining of pain is her around the rhomboid muscles and the left side between the shoulder blades and in the spine. 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 Skin: Normal Color, Warm/Dry Progress/Results/Core Measures Results/Orders My Orders Orders - TAMANNA BETH MD Ketorolac Injection (Toradol Injection) (07/13/19 08:45) Thoracic Spine 3v Ap Lat Swim (07/13/19 08:44) Medications Given in ED Current Medications Medications Dose Ordered Sig/Ken Route Start Time Stop Time Status Last Admin Dose Admin Ketorolac Tromethamine 60 mg ONCE ONCE IM 07/13/19 08:45 07/13/19 08:46 DC 07/13/19 08:51 60 MG Vital Signs/I&O 07/13/19 08:36 Temp 36.4 Pulse 94 Resp 18 B/P (MAP) 193/105 (134) Pulse Ox 95 Blood Pressure Mean: 134 Progress Progress Note : Time: 09:10 Progress Note Negative evaluation in the emergency department. Patient again was offered medications for pain patient received a Toradol shot. Patient was offered a wheelchair due to take her to the x-ray Department patient declined wishes all. Patient again does not look to be in acute distress. X-ray evaluation negative for any acute findings but does show signs of degenerative changes.. Be chronic. The patient declined any other. I discussed at length with patient she needs to follow up with her primary care physician and her back specialist for further evaluation. Patient states that she does have a scheduled MRI of her neck and thoracic spine on Sunday this coming week. We will write the patient a prescription for diclofenac as needed for pain. Patient needs to do stretching exercises as instructed. Alternate heating pad with ice packs as needed. Follow- up with PCP in 2-3 days. Follow-up with her MRI studies on Sunday as scheduled. Departure Impression Primary Impression: Back strain of thoracic region Additional Impression: Chronic back pain Disposition: 01 HOME, SELF-CARE Condition: Stable Departure-Patient Inst. Decision time for Depature: 09:19 Referrals: RAFI CHILDERS MD (PCP/Family) Primary Care Physician Patient Instructions: Upper Back Pain (DC) Add. Discharge Instructions: We will write the patient a prescription for diclofenac as needed for pain. Patient needs to do stretching exercises as instructed. Alternate heating pad with ice packs as needed. Follow-up with PCP in 2-3 days. Follow-up with her MRI studies on Sunday as scheduled. All discharge instructions reviewed with patient and/or family. Voiced understanding. Scripts Diclofenac Sodium (Diclofenac Sodium) 75 Mg Tablet. 75 MG PO BID for 10 Days, #20 TAB 0 Refills Prov: TAMANNA BETH MD 07/13/19 TAMANNA BETH MD July 13, 2019 08:51
--- NOTE | 2019-07-13 08:52 | NUR ---
Patient was given the option to walk to radiology or utilize a W/C. Patient stated that she prefers to walk rather than getting in and out of a w/c
--- NOTE | 2019-07-13 09:06 | Diagnostic Imaging Report ---
INDICATION: Middle back pain since November, recently increased.. TECHNIQUE: AP, Lateral and Swimmers imaging of the thoracic spine CORRELATION STUDY: None FINDINGS: Thoracic spinal alignment relatively anatomic. Vertebral body heights overall are fairly well-maintained. There is mild degenerative changes with various degrees of disc space narrowing and endplate marginal osteophyte formation. Visualized lung field with calcified granulomas. Heart size appearing normal. IMPRESSION: No radiographic evidence for acute abnormality of the thoracic spine. Mild degenerative changes thoracic spine. Dictated by: Dictated on workstation # [id number]
[2019-07-13 09:27] VITALS: BP 159/89
== END 2019-07-13 09:22 | disposition home or self-care (01) ==
LOC: EDUNIT# 08:30 → ER FS 08:31
DX: S29.012A Strain of muscle and tendon of back wall of thorax, initial encounter (principal); G89.29 Other chronic pain; I10 Essential (primary) hypertension; J44.9 Chronic obstructive pulmonary disease, unspecified; K21.9 Gastro-esophageal reflux disease without esophagitis; F17.210 Nicotine dependence, cigarettes, uncomplicated; Z99.81 Dependence on supplemental oxygen; Z88.1 Allergy status to other antibiotic agents; Z79.51 Long term (current) use of inhaled steroids; Z79.52 Long term (current) use of systemic steroids; X58.XXXA Exposure to other specified factors, initial encounter
CPT/HCPCS: 72072

== ENCOUNTER → 2019-07-28 | Outpatient (CLI) | payer MEDICARE ==
[~2019-07-28] MED LIST changes: +DICL75TA2 PO
== END ==
LOC: LABNPT 09:27
PROVIDERS: ATTEND Orthopaedic Surgery Orthopaedic Surgery of the Spine
DX: Z03.818 Encounter for observation for suspected exposure to other biological agents ruled out (principal)
CPT/HCPCS: 87635

== ENCOUNTER 2019-08-04 21:16 | Emergency (ER) | payer MEDICARE ==
[~2019-08-04] VITALS: Ht 152 cm; Wt 84.0 kg
[2019-08-04] MEDS ORDERED: methylPREDNISolone 125 MG (Solu-MEDROL) VIAL IVP ONE (21:30)
[2019-08-04] MEDS ORDERED: RT-ALBUTEROL/IPRATROPIUM 3 ML (DUONEB) VIAL INH ONE (21:30)
--- NOTE | 2019-08-04 21:38 | ED Dyspnea ---
General Chief Complaint: Respiratory Problems Stated Complaint: SOA Source of Information: Patient Exam Limitations: No Limitations History of Present Illness Date Seen by Provider: Aug 04, 2019 Time Seen by Provider: 21:20 Initial Comments The patient is a pleasant 49-year-old female who presents for evaluation of shortness of breath and wheezing. She reports a history of COPD and states that she has frequent exacerbations which are exactly the same as this. She denies anything unusual and specifically denies any fevers or chills, productive cough, hemoptysis, nausea or vomiting, diarrhea, any pain, palpitations, or syncope. She is alert and oriented 4 and in mild respiratory distress upon arrival. She states that she did a nebulized breathing treatment at home prior to arrival. Timing/Duration: 24 Hours Severity: Moderate Prior Episodes/Possible Cause: Frequent Episodes Modifying Factors: Improves With Albuterol Nebulizer (helps) Associated Symptoms: Cough Allergies and Home Medications Allergies Coded Allergies: cefazolin (Verified Allergy, Unknown, 03/20/19) Home Medications Albuterol/Ipratropium 4 Gm Aero, 1 PUFF IH QID PRN for SHORTNESS OF BREATH, (Reported) Cetirizine HCl 10 Mg Tablet, 10 MG PO DAILY, (Reported) Diclofenac Sodium 75 Mg Tablet.dr, 75 MG PO BID Prescribed by: TAMANNA BETH on 07/13/19 0851 Doxycycline Hyclate 100 Mg Tablet, 100 MG PO BID Prescribed by: RADHA COLON on 05/10/19 09 Doxycycline Hyclate 100 Mg Tablet, 100 MG PO BID Prescribed by: TOM RAMÍREZ on 06/26/19 0239 Famotidine 20 Mg Tablet, 20 MG PO BID, (Reported) Fluticasone Propionate 16 Gm [place].susp, 1 SPRAY NS DAILY, (Reported) Ibuprofen 800 Mg Tablet, 800 MG PO BID PRN for PAIN-MILD, (Reported) Metoprolol Tartrate 25 Mg Tablet, 25 MG PO DAILY, (Reported) Mometasone/Formoterol 13 Gm Hfa.aer.ad, 2 PUFF IH BID, (Reported) Prednisone 20 Mg Tab, 40 MG PO DAILY Prescribed by: RADHA COLON on 05/10/19912 Prednisone 10 Mg Tab.ds.pk, 10 MG PO DAILY Take 6 tabs(60mg)daily,decrease by 1 tab(10mg)every other day. Prescribed by: TOM RAMÍREZ on 06/26/19 0239 Patient Home Medication List Home Medication List Reviewed: Yes Review of Systems Review of Systems Constitutional: no symptoms reported EENTM: no symptoms reported Respiratory: cough, short of breath, wheezing Cardiovascular: no symptoms reported Gastrointestinal: no symptoms reported Genitourinary: no symptoms reported Musculoskeletal: no symptoms reported Skin: no symptoms reported Psychiatric/Neurological: No Symptoms Reported Endocrine: No Symptoms Reported Hematologic/Lymphatic: No Symptoms Reported All Other Systems Reviewed Negative Unless Noted: Yes Past Vsphvwt-Lostnx-Ekutjh Hx Past Med/Social Hx: Reviewed Nursing Past Med/Soc Hx Patient Social History Type Used: Cigarettes 2nd Hand Smoke Exposure: Yes Recent Foreign Travel: No Contact w/Someone Who Travel: No Recent Hopitalizations: No Immunizations Up To Date Date of Pneumonia Vaccine: Nov 26, 2017 Date of Influenza Vaccine: Nov 26, 2018 Seasonal Allergies Seasonal Allergies: No Past Medical History Surgeries: Yes Gallbladder Respiratory: Yes (uses oxygen @ 2 liters PRN and NOC, neb tx) COPD Cardiac: Yes High Cholesterol, Hypertension, Palpitations Neurological: No Sexually Transmitted Disease: No HIV/AIDS: No Genitourinary: No Gastrointestinal: Yes Gastroesophageal Reflux Musculoskeletal: Yes (SPINAL COMPRESSION) Arthritis Endocrine: No HEENT: No Cancer: No Psychosocial: No Integumentary: No Blood Disorders: No Family Medical History Patient reports no known family medical history. Physical Exam Vital Signs Vital Signs - First Documented 08/04/19 08/04/19 21:17 21:50 Temp 36.4 Pulse 100 Resp 16 B/P (MAP) 147/68 (94) Pulse Ox 92 O2 Delivery Nasal Cannula O2 Flow Rate 2.00 Capillary Refill : Height, Weight, BMI Height: 5'1.00" Weight: 175lbs. 0oz. 79.074079yd; 28.00 BMI Method:Stated General Appearance: No Apparent Distress, WD/WN HEENT: PERRL/EOMI, Pharynx Normal Respiratory: Chest Non Tender, Respiratory Distress (mild), Wheezing Cardiovascular: Regular Rate, Rhythm, No Edema, No Murmur Gastrointestinal: Normal Bowel Sounds, No Pulsatile Mass, Soft Extremity: Normal Capillary Refill, Normal Range of Motion, Non Tender Neurologic/Psychiatric: Alert, No Motor/Sensory Deficits, Normal Mood/Affect Skin: Normal Color, Warm/Dry Focused Exam Lactate Level 08/04/19 21:25: Lactic Acid Level 1.28 Lactic Acid Level Laboratory Tests Test 08/04/19 21:25 Lactic Acid Level 1.28 MMOL/L (0.50-2.00) Progress/Results/Core Measures Results/Orders Lab Results Laboratory Tests Test 08/04/19 21:25 Range/Units White Blood Count 11.8 H 4.3-11.0 10^3/uL Red Blood Count 4.55 4.35-5.85 10^6/uL Hemoglobin 13.8 11.5-16.0 G/DL Hematocrit 41 35-52 % Mean Corpuscular Volume 89 80-99 FL Mean Corpuscular Hemoglobin 30 25-34 PG Mean Corpuscular Hemoglobin Concent 34 32-36 G/DL Red Cell Distribution Width 12.5 10.0-14.5 % Platelet Count 263 130-400 10^3/uL Mean Platelet Volume 10.4 7.4-10.4 FL Neutrophils (%) (Auto) 52 42-75 % Lymphocytes (%) (Auto) 37 12-44 % Monocytes (%) (Auto) 6 0-12 % Eosinophils (%) (Auto) 4 0-10 % Basophils (%) (Auto) 1 0-10 % Neutrophils # (Auto) 6.1 1.8-7.8 X 10^3 Lymphocytes # (Auto) 4.4 H 1.0-4.0 X 10^3 Monocytes # (Auto) 0.7 0.0-1.0 X 10^3 Eosinophils # (Auto) 0.4 H 0.0-0.3 10^3/uL Basophils # (Auto) 0.1 0.0-0.1 10^3/uL Neutrophils % (Manual) 61 % Lymphocytes % (Manual) 21 % Monocytes % (Manual) 6 % Eosinophils % (Manual) 3 % Basophils % (Manual) 1 % Band Neutrophils 1 % Atypical Lymphocytes 7 % Blood Morphology Comment NORMAL Sodium Level 143 135-145 MMOL/L Potassium Level 3.4 L 3.6-5.0 MMOL/L Chloride Level 104 98-107 MMOL/L Carbon Dioxide Level 23 21-32 MMOL/L Anion Gap 16 H 5-14 MMOL/L Blood Urea Nitrogen 12 7-18 MG/DL Creatinine 0.88 0.60-1.30 MG/DL Estimat Glomerular Filtration Rate > 60 BUN/Creatinine Ratio 14 Glucose Level 127 H 70-105 MG/DL Lactic Acid Level 1.28 0.50-2.00 MMOL/L Calcium Level 9.3 8.5-10.1 MG/DL Corrected Calcium 9.2 8.5-10.1 MG/DL Magnesium Level 1.9 1.6-2.4 MG/DL Total Bilirubin 0.2 0.1-1.0 MG/DL Aspartate Amino Transf (AST/SGOT) 20 5-34 U/L Alanine Aminotransferase (ALT/SGPT) 22 0-55 U/L Alkaline Phosphatase 82 40-136 U/L Troponin I < 0.30 <0.30 NG/ML Pro-B-Type Natriuretic Peptide 114.7 H <75.0 PG/ML Total Protein 6.8 6.4-8.2 GM/DL Albumin 4.1 3.2-4.5 GM/DL My Orders Orders - JERE CHISHOLM DO Cbc With Automated Diff (08/04/19 21:23) Comprehensive Metabolic Panel (08/04/19 21:23) Blood Culture (08/04/19 21:23) Chest 1 View Ap/Pa Only (08/04/19 21:23) Albuterol/Ipra Inhalation Soln (Duoneb I (08/04/19 21:30) Magnesium (08/04/19 21:23) Ekg Tracing (08/04/19 21:23) O2 (08/04/19 21:23) Ed Iv/Invasive Line Start (08/04/19 21:23) Monitor-Rhythm Ecg Trace Only (08/04/19 21:23) Lactic Acid Analyzer (08/04/19 21:23) Svn Small Volume Nebulizer (08/04/19 21:23) Probnp Fs (08/04/19 21:23) Troponin I Fs (08/04/19 21:23) Methylprednisolone Sod Succ (Solu-Medrol (08/04/19 21:30) Manual Differential (08/04/19 21:25) Potassium Chloride (Tablet) (K Dur Table (08/04/19 22:30) Medications Given in ED Current Medications Medications Dose Ordered Sig/Ken Route Start Time Stop Time Status Last Admin Dose Admin Albuterol/ Ipratropium 3 ml ONCE ONCE INH 08/04/19 21:30 08/04/19 21:31 DC 08/04/19 21:38 3 ML Methylprednisolone Sodium Succinate 125 mg ONCE ONCE IVP 08/04/19 21:30 08/04/19 21:31 DC 08/04/19 21:38 125 MG Vital Signs/I&O 08/04/19 08/04/19 21:17 21:50 Temp 36.4 Pulse 100 Resp 16 B/P (MAP) 147/68 (94) Pulse Ox 92 92 O2 Delivery Nasal Cannula Nasal Cannula O2 Flow Rate 2.00 Progress Progress Note : Progress Note @2235 - patient updated on lab and imaging results. She states that she is fee ling much better and does appear much more comfortable. She has no additional concerns and is asking to be discharged home. She would like a prescription for prednisone but states that she has Dulera at home as well as Nebules. Advised the patient to follow up with her PCP in the next 2-3 days and to return to the emergency Department immediately for new or worsening symptoms. She expresses verbal understanding and agreement with the plan and is stable for discharge. Comment EKG @2135 - sinus tachycardia, rate 100, normal axis, no acute ischemic findings noted, no STEMI, reviewed and interpreted by myself Departure Impression Primary Impression: COPD with acute exacerbation Disposition: HOME, SELF-CARE Condition: Stable Departure-Patient Inst. Decision time for Depature: 22:34 Referrals: RAFI CHILDERS MD (PCP/Family) Primary Care Physician Patient Instructions: Chronic Obstructive Pulmonary Disease (COPD) (DC) Add. Discharge Instructions: Take the medicine as prescribed. Follow-up with your doctor in the next 2-3 days. Return to the emergency Department immediately for new or worsening symptoms. Scripts Doxycycline Hyclate (Doxycycline Hyclate) 100 Mg Tablet 100 MG PO BID for 7 Days, #14 TAB 0 Refills Prov: JERE CHISHOLM DO 08/04/19 Prednisone (Prednisone) 20 Mg Tab 40 MG PO DAILY for 5 Days, #10 TAB 0 Refills Prov: JERE CHISHOLM DO 08/04/19 JERE CHISHOLM DO Aug 04, 2019 21:38
[2019-08-04 21:55] LABS: BASOPHILS % (AUTO) 1 % (0-10); EOSINOPHILS % (AUTO) 4 % (0-10); HEMATOCRIT 41 % (35-52); HEMOGLOBIN 13.8 G/DL (11.5-16.0); MEAN CORPUSCULAR HEMOGLOBIN 30 PG (25-34); MEAN CORPUSCULAR HGB CONC 34 G/DL (32-36); MEAN CORPUSCULAR VOLUME 89 FL (80-99); MEAN PLATELET VOLUME 10.4 FL (7.4-10.4); MONOCYTES % (AUTO) 6 % (0-12); NEUTROPHILS % (AUTO) 52 % (42-75); PLATELET COUNT 263 10^3/uL (130-400); RED CELL DISTRIBUTION WIDTH 12.5 % (10.0-14.5); WHITE BLOOD COUNT 11.8 10^3/uL (4.3-11.0)
[2019-08-04 21:56] LABS: BAND NEUTROPHILS 1 %; BASOPHILS # (AUTO) 0.1 10^3/uL (0.0-0.1); EOSINOPHILS # (AUTO) 0.4 10^3/uL (0.0-0.3); LYMPHOCYTES # (AUTO) 4.4 X 10^3 (1.0-4.0); LYMPHOCYTES % (AUTO) 37 % (12-44); MONOCYTES # (AUTO) 0.7 X 10^3 (0.0-1.0); NEUTROPHILS # (AUTO) 6.1 X 10^3 (1.8-7.8)
[2019-08-04 21:58] LABS: ATYPICAL LYMPHOCYTES 7 %; BASOPHILS % (MANUAL) 1 %; EOSINOPHILS % (MANUAL) 3 %; LYMPHOCYTES % (MANUAL) 21 %; MONOCYTES % (MANUAL) 6 %; NEUTROPHILS % (MANUAL) 61 %; RBC MORPH NORMAL
[2019-08-04 22:03] LABS: BUN/CREATININE RATIO 14; CALCIUM 9.3 MG/DL (8.5-10.1); CARBON DIOXIDE 23 MMOL/L (21-32); CHLORIDE 104 MMOL/L (98-107); CREATININE SERUM 0.88 MG/DL (0.60-1.30); GFR ESTIMATED > 60; GLUCOSE 127 MG/DL (70-105); MAGNESIUM 1.9 MG/DL (1.6-2.4); POTASSIUM 3.4 MMOL/L (3.6-5.0); SODIUM 143 MMOL/L (135-145)
[2019-08-04 22:04] LABS: ALANINE AMINOTRANSFERASE 22 U/L (0-55); ALBUMIN 4.1 GM/DL (3.2-4.5); ALKALINE PHOSPHATASE 82 U/L (40-136); BILIRUBIN,TOTAL 0.2 MG/DL (0.1-1.0); TOTAL PROTEIN 6.8 GM/DL (6.4-8.2)
[2019-08-04] MEDS ORDERED: KCL 20 MEQ TAB (K-DUR) PO ONE (22:30)
[2019-08-04] MEDS ORDERED: PRD20T PO (22:36)
[2019-08-04] MEDS ORDERED: DOXY100T2 PO (22:36)
[2019-08-04 22:54] VITALS: BP 131/70
--- OUTSIDE RECORDS SUMMARY | 2019-08-05 01:01 | XMS REPORT | Continuity of Care Document ---
Author Organization Unknown Address Unknown Phone Unavailable Allergies Active Description Code Type Severity Reaction Onset Reported/Identified Relationship to Patient Clinical Status Yes doxycycline [id number] Drug Aller gy Moderate rash 06/06/2018 Yes cefazolin [id number] Drug Allergy Unknown N/A 03/20/2019 Medications There [...] BREATH 06/06/2018 DENISE MOON MD Ot Z79.52 IT RISK AND ASSURANCE SENIOR MANAGER (CURRENT) USE OF SYSTEMIC STER 06/06/2018 DENISE [...] BREATH 06/10/2018 DENISE MOON MD Ot Z79.52 PRISON (CURRENT) USE OF SYSTEMIC STER 06/10/2018 DENISE [...] DO, KIMBERLY K Ot Z79.89 9 OTHER PRISON (CURRENT) DRUG THERAPY 07/20/2018 PANCHAL DO, KIMBERLY [...] DO, KIMBERLY K Ot Z79.89 9 OTHER IT RISK AND ASSURANCE SENIOR MANAGER (CURRENT) DRUG THERAPY 07/20/2018 PANCHAL DO, KIMBERLY K Ot Z99.81 DEPENDENCE ON SUPPLEMENTAL OXYGEN 09/04/2018 BILLINGSLEY DO, SAMIA Ot J20.9 ACUTE BRONCHITIS, UNSPECIFIED 09/04/2018 BILLINGSLEY DO, SAMIA Ot J44.1 CHRONIC OBSTRUCTIVE PULMONARY DISEASE W 09/04/2018 BILLINGSLEY DO, SAMIA Ot K21.9 GASTRO-ESOPHAGEAL REFLUX DISEASE WITHOUT 09/04/2018 BILLINGSLEY DO, SAMIA Ot R06.02 SHORTNESS OF BREATH 09/04/2018 BILLINGSLEY DO SAMIA Ot Z79.51 IT RISK AND ASSURANCE SENIOR MANAGER (CURRENT) USE OF INHALED STERO 09/04/2018 BILLINGSLEY [...] BREATH 09/10/2018 BILLINGSLEY DO, SAMIA Ot Z79.51 PRISON (CURRENT) USE OF INHALED STERO 09/10/2018 BILLINGSLEY [...] COLON DO, RADHA L Ot Z79.5 1 PRISON (CURRENT) USE OF INHALED STERO 09/19/2018 COLON DO, RADHA L Ot Z79.5 2 PRISON (CURRENT) USE OF SYSTEMIC STER 09/19/2018 COLON [...] COLON DO, RADHA L Ot Z79.5 1 PRISON (CURRENT) USE OF INHALED STERO 09/24/2018 COLON DO, RADHA L Ot Z79.5 2 IT RISK AND ASSURANCE SENIOR MANAGER (CURRENT) USE OF SYSTEMIC STER 09/24/2018 COLON [...] TIMOTHY TERAN MD J Ot Z79. 51 IT RISK AND ASSURANCE SENIOR MANAGER (CURRENT) USE OF INHALED STERO 10/13/2018 LYNDSEY TERAN MDUS J Ot Z79. 52 PRISON (CURRENT) USE OF SYSTEMIC STER 10/13/2018 TIMOTHY [...] TIMOTHY TERAN MD J Ot Z79. 51 PRISON (CURRENT) USE OF INHALED STERO 10/16/2018 TIMOTHY TERAN MD J Ot Z79. 52 PRISON (CURRENT) USE OF SYSTEMIC STER 10/16/2018 TIMOTHY [...] EXPSR TO ENVIRON TOBACCO SMO 11/24/2018 TRACY RIUZ MD Ot Z79. 51 PRISON (CURRENT) USE OF INHALED STERO 11/24/2018 TRACY RUIZ MD, Ot Z79. 52 PRISON (CURRENT) USE OF SYSTEMIC STER 11/24/2018 TRACY [...] 11/27/2018 TRACY RUIZ MD Ot Z79. 51 IT RISK AND ASSURANCE SENIOR MANAGER (CURRENT) USE OF INHALED STERO 11/27/2018 TRACY RUIZ MD Ot Z79. 52 IT RISK AND ASSURANCE SENIOR MANAGER (CURRENT) USE OF SYSTEMIC STER 11/27/2018 TRACY RUIZ MD, Ot Z88. 1 ALLERGY STATUS TO OTHER ANTIBIOTIC AGENT 11/27/2018 TRACY RUIZ MD, Ot Z99. 81 DEPENDENCE ON SUPPLEMENTAL OXYGEN 02/11/2019 O'DELL, ANA Rabia NETWORK SYSTEMS ANALYST Ot M47.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 OR RADICULOPATHY 02/11/2019 O'DELL, ANA Rabia NETWORK SYSTEMS ANALYST Ot M54.41 LUMBAGO WITH SCIATICA, RIGHT SIDE 02/11/2019 O'DELL, ANA K NETWORK SYSTEMS ANALYST Ot M54.42 LUMBAGO WITH SCIATICA, LEFT SIDE [...] HEADACHE 02/21/2019 WOODY ROWAN MD, Ot Z79.51 PRISON (CURRENT) USE OF INHALED STERO 02/21/2019 WOODY ROWAN MD Ot Z79.52 IT RISK AND ASSURANCE SENIOR MANAGER (CURRENT) USE OF SYSTEMIC STER 02/21/2019 WOODY ROWAN MD Ot Z88.1 ALLERGY STATUS TO OTHER ANTIBIOTIC AGENT 02/21/2019 O'DELCuauhtemoc ANA K NETWORK SYSTEMS ANALYST Ot M47.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 OR RADICULOPATHY 02/21/2019 O'DELCuauhtemoc, ANA K NETWORK SYSTEMS ANALYST Ot M54.41 LUMBAGO WITH SCIATICA, RIGHT SIDE 02/21/2019 O'DELCuauhtemoc, ANA K NETWORK SYSTEMS ANALYST Ot M54.42 LUMBAGO WITH SCIATICA, LEFT SIDE [...] HEADACHE 02/25/2019 WOODY ROWAN MD Ot Z79.51 PRISON (CURRENT) USE OF INHALED STERO 02/25/2019 WOODY ROWAN MD Ot Z79.52 PRISON (CURRENT) USE OF SYSTEMIC STER 02/25/2019 WOODY [...] HEADACHE 02/27/2019 WOODY ROWAN MD Ot Z79.51 IT RISK AND ASSURANCE SENIOR MANAGER (CURRENT) USE OF INHALED STERO 02/27/2019 WOODY ROWAN MD Ot Z79.52 PRISON (CURRENT) USE OF SYSTEMIC STER 02/27/2019 WOODY ROWAN MD Ot Z88.1 ALLERGY STATUS TO OTHER ANTIBIOTIC AGENT 03/17/2019 O'LIZY ANA K NETWORK SYSTEMS ANALYST Ot J44 .1 CHRONIC OBSTRUCTIVE PULMONARY DISEASE W 03/17/2019 O'DELANA Posadas NETWORK SYSTEMS ANALYST Ot M79.89 OTHER SPECIFIED SOFT TISSUE DISORDERS [...] 03/20/2019 TIMOTHY TERAN MD Ot Z79. 51 PRISON (CURRENT) USE OF INHALED STERO 03/20/2019 TIMOTHY TERAN MD Ot Z79. 52 PRISON (CURRENT) USE OF SYSTEMIC STER 03/20/2019 TIMOTHY [...] BREATH 03/21/2019 SHAZIA SHIRA GEORGE Ot Z79.51 IT RISK AND ASSURANCE SENIOR MANAGER (CURRENT) USE OF INHALED STERO 03/21/2019 [facility] SHIRA Painter Ot Z79.52 IT RISK AND ASSURANCE SENIOR MANAGER (CURRENT) USE OF SYSTEMIC STER 03/[facility].1 ALLERGY STATUS TO OTHER ANTIBIOTIC AGENT 03/21/2019 O'DELL, ANA K NETWORK SYSTEMS ANALYST Ot M47.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 OR RADICULOPATHY 03/21/2019 O'DELL, ANA K NETWORK SYSTEMS ANALYST Ot M54.41 LUMBAGO WITH SCIATICA, RIGHT SIDE 03/21/2019 O'DELL, ANA K NETWORK SYSTEMS ANALYST Ot M54.42 LUMBAGO WITH SCIATICA, LEFT SIDE 03/21/2019 O'DELL, ANA K NETWORK SYSTEMS ANALYST Ot J44 .1 CHRONIC OBSTRUCTIVE PULMONARY DISEASE W 03/21/2019 O'DELL, ANA K NETWORK SYSTEMS ANALYST Ot M79.89 OTHER SPECIFIED SOFT TISSUE DISORDERS 03/21/2019 O'DELL, ANA K NETWORK SYSTEMS ANALYST Ot M47.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 51 PRISON (CURRENT) USE OF INHALED STERO 03/24/2019 TIMOTHY TERAN MD Ot Z79. 52 IT RISK AND ASSURANCE SENIOR MANAGER (CURRENT) USE OF SYSTEMIC STER 03/24/2019 TIMOTHY [...] Ot K21.9 GASTRO-ESOPHAGEAL REFLUX DISEASE WITHOUT 03/25/2019 [facility] SHIRA GEORGE Ot R06.02 SHORTNESS OF BREATH 03/25/2019 SHIRA MCCRAY DO Ot Z79.51 IT RISK AND ASSURANCE SENIOR MANAGER (CURRENT) USE OF INHALED STERO 03/25/2019 SHIRA MCCRAY DO Ot Z79.52 IT RISK AND ASSURANCE SENIOR MANAGER (CURRENT) USE OF SYSTEMIC STER 03/25/2019 SHAZIA SHIRA GEORGE Ot Z88.1 ALLERGY STATUS TO OTHER ANTIBIOTIC AGENT 03/25/2019 O'DELL, ANA Rabia NETWORK SYSTEMS ANALYST Ot M47.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 OR RADICULOPATHY 03/25/2019 O'DELL, ANA K NETWORK SYSTEMS ANALYST Ot M54.41 LUMBAGO WITH SCIATICA, RIGHT SIDE 03/25/2019 O'DELL, ANA K NETWORK SYSTEMS ANALYST Ot M54.42 LUMBAGO WITH SCIATICA, LEFT SIDE 03/25/2019 O'DELL, ANA Rabia NETWORK SYSTEMS ANALYST Ot J44 .1 CHRONIC OBSTRUCTIVE PULMONARY DISEASE W 03/25/2019 O'DELL, ANA Rabia NETWORK SYSTEMS ANALYST Ot M79.89 OTHER SPECIFIED SOFT TISSUE DISORDERS [...] 04/22/2019 TRACY RUIZ MD Ot Z79. 51 IT RISK AND ASSURANCE SENIOR MANAGER (CURRENT) USE OF INHALED STERO 04/22/2019 TRACY RUIZ MD Ot Z88. 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 [place]URKA OBSTRUCTIVE PULMONARY DISEASE W 05/10/2019 Ot [...] .8 PROCEDURE AND TREATMENT NOT CARRIED OUT 06/26/2019 TOM RAMÍREZ MD Ot F17.2 10 NICOTINE DEPENDENCE, CIGARETTES, UNCOMPL 06/26/2019 DARRELL NJ, TOM Burciaga Ot I10 ESSENTIAL (PRIMARY) HYPERTENSION 06/26/2019 TOM RAMÍREZ MD Ot J44.1 CHRONIC OBSTRUCTIVE PULMONARY DISEASE W 06/26/2019 TOM RAMÍREZ MD Ot J44.9 CHRONIC OBSTRUCTIVE PULMONARY DISEASE, U 06/26/2019 TOM RAMÍREZ MD Ot K21.9 GASTRO-ESOPHAGEAL REFLUX DISEASE WITHOUT 06/26/2019 KRISTIANRT TOM NJ Ot Z79.5 1 IT RISK AND ASSURANCE SENIOR MANAGER (CURRENT) USE OF INHALED STERO 06/26/2019 TOM RAMÍREZ MD Ot Z88.1 ALLERGY STATUS TO OTHER ANTIBIOTIC AGENT 06/30/2019 TOM RAMÍREZ MD Ot F17.2 10 NICOTINE DEPENDENCE, CIGARETTES, UNCOMPL 06/30/2019 TOM RAMÍREZ MD Ot I10 ESSENTIAL (PRIMARY) HYPERTENSION 06/30/2019 TOM RAMÍREZ MD Ot J44.1 CHRONIC OBSTRUCTIVE PULMONARY DISEASE W 06/30/2019 TOM RAMÍREZ MD Ot J44.9 CHRONIC OBSTRUCTIVE PULMONARY DISEASE, U 06/30/2019 TOM RAMÍREZ MD Ot K21.9 GASTRO-ESOPHAGEAL REFLUX DISEASE WITHOUT 06/30/2019 TOM RAMÍREZ MD Ot Z79.5 1 PRISON (CURRENT) USE OF INHALED STERO 06/30/2019 TOM RAMÍREZ MD Ot Z88.1 ALLERGY STATUS TO OTHER ANTIBIOTIC AGENT 07/30/2019 TAMANNA BAUER MD Ot Z03.8 18 ENCNTR FOR OBS FOR SUSP EXPSR TO [facility] BIO Procedures Code Description Performed By Per formed On [id number] DR LLANOS OF RIGHT MAIN BRONCHUS, ENDO, D 07/19/[id number] LLANOS OF LEFT MAIN BRONCHUS, ENDO, DI 07/19/[id number] LLANOS OF RIGHT MIDDLE LUNG LOBE, ENDO 07/19/2018 [id number] EX TRACTION OF RIGHT MIDDLE LUNG LOBE, [...] - 07/18/18 01:19 Bacterial blood culture NG BANNER Bacterial blood culture - 07/18/18 01:36 Bacterial blood culture [facility] Comprehensive metabolic panel - 07/18/18 [...] QUANTITY OF GROWTH Rare NRG Fungus culture [id number] NRG Mycobacterium species detection by organ ism [...] d white blood cell (WBC) differential - 07/25/19 04:54 Blood leukocytes automated count (number/volume) 13.9 [...] 7-25 CREATININE 0.92 mg/dL 0.50-1.05 eGFR NON-AFR. EGYPTIAN 73 mL/min/1.73m2 > OR = 60 eGFR [...] A AND B ANTIGENS BY IA BANNER Blood CBC with ordered manual differenti al [...] Automated blood platelet mean volume measurement 9.6 [chi [facility]] 7.4-10.4 Automated blood neutrophils/100 leukocytes 67 % [...] NRG Blood microcytes detection by light microscopy [facility] Comprehensive metabolic panel - 03/21/19 11:10 Serum [...] A AND B ANTIGENS BY IA NRG Coronavirus SARS-CoV-2 SO 2018 - 0 13:08 Coronavirus Ab [Units/volume] in Serum Negative Negative Complete blood count (CBC) with automate d white blood cell (WBC) differential - 08/04/19 21:25 Blood leukocytes automated count (number/volume) 11.8 10*3/uL 4.3-11.0 Blood erythrocytes automated count (number/volume) 4.55 10*6/uL 4.35-5.85 Venous blood hemoglobin measurement (mass/volume) 13.8 g/dL 11.5-16.0 Blood hematocrit (volume fraction) 41 % 35-52 Automated erythrocyte mean corpuscular volume 89 [ foz_us] 80-99 Automated erythrocyte mean corpuscular h emoglobin (mass per erythrocyte) 30 pg 25-34 Automated erythrocyte mean corpuscular h emoglobin concentration measurement (mass/volume) 34 g/dL 32-36 Automated erythrocyte distribution width ratio 12. 5 % 10.0- 14.5 Automated blood platelet count (count/volume) 263 10*3/uL 130-400 Automated blood platelet mean volume measurement 10.4 [foz_us] 7.4-10.4 Automated blood neutrophils/100 leukocytes 52 % 42-75 Automated blood lymphocytes/100 leukocytes 37 % 12-44 Blood monocytes/100 leukocytes 6 % 0-12 Automated blood eosinophils/100 leukocytes 4 % 0-10 Automated blood basophils/100 leukocytes 1 % 0-10 Blood neutrophils automated count (number/volume) 6.1 10*3 1.8-7.8 Blood lymphocytes automated count (number/volume) 4.4 10*3 1.0-4.0 Blood monocytes automated count (number/volume) 0. 7 10*3 0.0-1.0 Automated eosinophil count 0.4 10*3/uL 0 .0-0.3 Automated blood basophil count (count/volume) 0.1 10*3/uL 0.0-0.1 Manual absolute plasma cell count - 10/15 21:25 Blood monocytes/100 leukocytes 6 % NRG Manual blood segmented neutrophils/100 leukocytes 61 % NRG Blood band neutrophils/100 leukocytes 1 % NRG Manual blood lymphocytes/100 leukocytes 21 % NRG Manual eosinophils/100 leukocytes in nose 3 % NRG Manual blood basophils/100 leukocytes 1 % NRG Manual blood lymphocytes variant/100 leukocytes 7 % NRG Blood erythrocyte morphology finding identification NORMAL NRG Blood lactic acid measurement (moles/vol ume) - 08/04/19 21:25 Blood lactic acid measurement (moles/volume) 1.28 mmol/L 0.50-2.00 Comprehensive metabolic panel - 08/04/19 21:25 Serum or plasma sodium measurement (moles/volume) 143 mmol/L 135-145 Serum or plasma potassium measurement (moles/volume) 3.4 mmol/L 3.6-5.0 Serum or plasma chloride measurement (moles/volume) 104 mmol/L 98-107 Carbon dioxide 23 mmol/L 21-32 Serum or plasma anion gap determination (moles/volume) 16 mmol/L 5-14 Serum or plasma urea nitrogen measurement (mass/volume ) 12 mg/dL 7-18 Serum or plasma creatinine measurement (mass/volume) 0.88 mg/dL 0.60-1.30 Serum or plasma urea nitrogen/creatinine mass ratio 14 NRG Serum or plasma creatinine measurement w ith calculation of estimated glomerular filtration rate > NRG Serum or plasma glucose measurement (mass/volume) 127 mg/dL 70-105 Serum or plasma calcium measurement (mass/volume) 9.3 mg/dL 8.5-10.1 Serum or plasma total bilirubin measurement (mass/volu me) 0.2 mg/dL 0.1-1.0 Serum or plasma alkaline phosphatase lelo surement (enzymatic activity/volume) 82 U/L 40-136 Serum or plasma aspartate aminotransfera se measurement (enzymatic activity/volume) 20 U/L 5-34 Serum or plasma alanine aminotransferase measurement (enzymatic activity/volume) 22 U/L 0-55 Serum or plasma protein measurement (mass/volume) 6.8 g/dL 6.4-8.2 Serum or plasma albumin measurement (mass/volume) 4.1 g/dL 3.2-4.5 CALCIUM CORRECTED 9.2 mg/dL 8.5-10.1 Magnesium - 08/04/19 21:25 Magnesium 1.9 mg/dL 1.6-2.4 TROPONIN I FS - 08/04/19 21:25 TROPONIN I FS < 0.30 <0.30 PROBNP FS - 08/04/19 21:25 PROBNP FS 114.7 pg/mL <75.0 Encounters ACCT No. Visit Date/Time Discharge Status Pt. Type Provider Facility Loc./Unit Complaint [id number] 03/14/2019 09:40:00 03/14/2019 23:59: 59 [facility] Outpatient RAFI CHILDERS [facility] [id number] 12/31/2018 10:20:00 Document Registration [id number] 12/31/2018 09:30:00 Document Registration [id number] 08/04/2019 21:17:00 22:53:00 DIS Emergency JERE GEORGE, PHAN B [facility] ER FS SOA [id number] 07/28/2019 09:27:00 23:59:59 CLS Outpatient LIZETTE NJ, TAMANNA [place] [facility] LABNPT [id number] 07/13/2019 08:31:00 09:22:00 DIS Emergency KIRIT NJ, TAMANNA Vega [facility] ER FS BACK PAIN [id number] 06/26/2019 02:16:00 02:52:00 DIS Emergency TOM RAMÍREZ MD [facility] ER FS COPD [id number] 06/11/2019 07:42:00 23:59:59 CLS Outpatient ALVARADO NJ, RAFI Stoner [facility] RAD NUMBNESS AND TINGLING O F LEG [id number] 05/01/2019 09:30:00 23:59:59 CLS Preadmit COLTHARP DO, LINDA A [facility] RAD LOW BACK PAIN [id number] 04/18/2019 14:21:00 17:32:00 DIS Outpatient TRACY RUIZ MD [facility] ER FS SOLE LEG NUMBNESS; RT FA CIAL NUMBNESS [id number] 03/29/2019 19:10:00 21:40:00 DIS Inpatient KELSEA NJ, BERNARDA Stoner [facility] 4TH TROUBLE BREATHING [id number] 03/21/2019 10:33:00 13:45:00 DIS Emergency SHIRA MCCRAY DO [facility] ER FS SOB [id number] 03/20/2019 19:44:00 22:13:00 DIS Emergency TIMOTHY TERAN MD [facility] ER FS SOA,CHEST PAIN [id number] 03/14/2019 09:19:00 23:59:59 CLS Outpatient O'DELLANA NETWORK SYSTEMS ANALYST [facility] LAB FS J44.1 M79.89 [id number] 02/21/2019 11:41:00 12:55:00 DIS Emergency ANUM NJ, WOODY Melendez [facility] ER FS HEADACHE [id number] 02/05/2019 09:18:00 23:59:59 CLS Outpatient O'DELLANA NETWORK SYSTEMS ANALYST [facility] RAD FS M54.41 M54.42 [id number] 11/24/2018 20:06:00 21:06:00 DIS Emergency JOSEPH NJ, TRACY eVga [facility] ER FS TROUBLE BREATHING [id number] 10/25/2018 07:29:00 23:59:59 CLS Preadmit OLAF NJ, CHRISTINE Redding [facility] RAD CHRONIC SINUSITIS [id number] 10/13/2018 16:32:00 18:43:00 DIS Emergency JEFFRY NJ, TIMOTHY [place] [facility] ER FS SOB [id number] 09/19/2018 04:41:00 05:50:00 DIS Emergency COLON RADHA GEORGE [facility] ER FS SOB [id number] 09/04/2018 20:05:00 21:49:00 DIS Emergency SAMIA BILLINGSLEY DO [facility] ER FS SOB [id number] 07/17/2018 21:06:00 12:54:00 DIS Inpatient PANCHAL , KIMBERLY Gibbs [facility] 4TH SEPSIS;PNEUMONIA [id number] 06/06/2018 03:17:00 04:15:00 DIS Emergency SARAI NJ, DENISE Stock [facility] ER FS SOB [id number] 05/10/2019 09:21:00 Document Registration
--- NOTE | 2019-08-05 05:33 | Diagnostic Imaging Report ---
INDICATION: Shortness of air. COMPARISON: 05/10/2019 FINDINGS: Single frontal view of the chest demonstrates normal heart size and pulmonary vascularity. The lungs are well aerated and clear. No large pleural effusion or pneumothorax is seen. Multiple benign calcified granulomas are noted, bilaterally. The visualized osseous structures show no acute abnormalities. IMPRESSION: 1. No acute cardiopulmonary process. Dictated by: Dictated on workstation # [id number]
== END 2019-08-04 22:53 | disposition home or self-care (01) ==
LOC: EDUNIT# 21:16 → ER FS 21:17
DX: J44.1 Chronic obstructive pulmonary disease with (acute) exacerbation (principal); I10 Essential (primary) hypertension; K21.9 Gastro-esophageal reflux disease without esophagitis; Z88.1 Allergy status to other antibiotic agents; Z79.51 Long term (current) use of inhaled steroids; Z79.52 Long term (current) use of systemic steroids; Z77.22 Contact with and (suspected) exposure to environmental tobacco smoke (acute) (chronic)
CPT/HCPCS: 36415; 71045; 80053; 83605; 83735; 83880; 84484; 85007; 85027; 87040; 93005; 93041

== ENCOUNTER 2019-10-25 05:52 | Emergency (ER) | payer MEDICARE ==
[~2019-10-25] VITALS: Ht 154.9 cm; Wt 80.8 kg
[2019-10-25 05:58] VITALS: BP 162/80
[2019-10-25] MEDS ORDERED: RT-ALBUTEROL/IPRATROPIUM 3 ML (DUONEB) VIAL INH ONE (06:15)
[2019-10-25] MEDS ORDERED: predniSONE 20 MG TAB PO ONE (06:15)
[2019-10-25] MEDS ORDERED: DOXY100T2 PO (06:38)
[2019-10-25] MEDS ORDERED: PRD20T PO (06:38)
--- NOTE | 2019-10-25 06:44 | ED Respiratory ---
General Chief Complaint: Respiratory Problems Stated Complaint: COPD Nursing Triage Note: Patient states that she has been having shortness of breath for a few days. She has a history of COPD with exacerbation. Patient was supposed to see her primary 10/24/19 but her primary cancelled all of her appointments. Source: patient History of Present Illness Date Seen by Provider: Oct 25, 2019 Time Seen by Provider: 06:00 Initial Comments Patient is a 49-year-old female smoker with history of COPD presents with nasal congestion and rhinorrhea, postnasal drip and, chest tightness and increased shortness of breath over the past 2 days. Patient's use multiple doses of albuterol and Zyrtec daily with limited relief. Sputum is clear. No fever chills, nausea vomiting sweats. No leg pain or swelling. No other acute symptoms or complaints. Timing/Duration: constant, getting worse Severity: moderate Prior Episodes/Possible Cause: occasional episodes, allergen exposure, smoke exposure Modifying Factors: Improves With Albuterol Inhaler, Improves With Coughing, Improves With Lying Down Associated Symptoms: No wheezing Allergies and Home Medications Allergies Coded Allergies: cefazolin (Verified Allergy, Unknown, 03/20/19) Home Medications Albuterol/Ipratropium 4 Gm Aero, 1 PUFF IH QID PRN for SHORTNESS OF BREATH, (Reported) Cetirizine HCl 10 Mg Tablet, 10 MG PO DAILY, (Reported) Diclofenac Sodium 75 Mg Tablet.dr, 75 MG PO BID Prescribed by: TAMANNA BETH on 07/13/19 0851 Doxycycline Hyclate 100 Mg Tablet, 100 MG PO BID Prescribed by: RADHA COLON on 05/10/19 0913 Doxycycline Hyclate 100 Mg Tablet, 100 MG PO BID Prescribed by: TOM RAMÍREZ on 06/26/19 0239 Doxycycline Hyclate 100 Mg Tablet, 100 MG PO BID Prescribed by: JERE CHISHOLM on 08/04/19 2236 Doxycycline Hyclate 100 Mg Tablet, 100 MG PO BID Prescribed by: SAMAI BILLINGSLEY on 10/25/19 0638 Famotidine 20 Mg Tablet, 20 MG PO BID, (Reported) Fluticasone Propionate 16 Gm [place].susp, 1 SPRAY NS DAILY, (Reported) Ibuprofen 800 Mg Tablet, 800 MG PO BID PRN for PAIN-MILD, (Reported) Metoprolol Tartrate 25 Mg Tablet, 25 MG PO DAILY, (Reported) Mometasone/Formoterol 13 Gm Hfa.aer.ad, 2 PUFF IH BID, (Reported) Prednisone 20 Mg Tab, 40 MG PO DAILY Prescribed by: RADHA COLON on 05/10/19 0913 Prednisone 10 Mg Tab.ds.pk, 10 MG PO DAILY Take 6 tabs(60mg)daily,decrease by 1 tab(10mg)every other day. Prescribed by: TOM RAMÍREZ on 06/26/19 0239 Prednisone 20 Mg Tab, 40 MG PO DAILY Prescribed by: JERE CHISHOLM on 08/04/192235 Prednisone 20 Mg Tab, 60 MG PO DAILY Prescribed by: SAMIA BILLINGSLEY on 10/25/19 0638 Patient Home Medication List Home Medication List Reviewed: Yes Review of Systems Review of Systems Constitutional: see HPI EENTM: see HPI Respiratory: see HPI Cardiovascular: see HPI Gastrointestinal: see HPI Genitourinary: see HPI Musculoskeletal: see HPI Skin: see HPI Psychiatric/Neurological: See HPI Hematologic/Lymphatic: See HPI Immunological/Allergic: see HPI All Other Systems Reviewed Negative Unless Noted: Yes Past Yydexlj-[place]ap-Sqhzpl Hx Past Med/Social Hx: Reviewed Nursing Past Med/Soc Hx Patient Social History Alcohol Use: Denies Use Recreational Drug Use: No Smoking Status: Former Smoker Type Used: Cigarettes 2nd Hand Smoke Exposure: No Recent Foreign Travel: No Contact w/Someone Who Travel: No Recent Infectious Disease Expo: No Recent Hopitalizations: No Physical Abuse: No Sexual Abuse: No Mistreated: No Fear: No Immunizations Up To Date Date of Pneumonia Vaccine: Nov 26, 2017 Date of Influenza Vaccine: Nov 26, 2018 Seasonal Allergies Seasonal Allergies: No Past Medical History Surgeries: Yes Gallbladder Respiratory: Yes (uses oxygen @ 2 liters PRN and NOC, neb tx) COPD Cardiac: Yes High Cholesterol, Hypertension, Palpitations Neurological: No Sexually Transmitted Disease: No HIV/AIDS: No Genitourinary: No Gastrointestinal: Yes Gastroesophageal Reflux Musculoskeletal: Yes (SPINAL COMPRESSION) Arthritis Endocrine: No HEENT: No Cancer: No Psychosocial: No Integumentary: No Blood Disorders: No Family Medical History Patient reports no known family medical history. Physical Exam Vital Signs - First Documented 10/25/19 05:58 Temp 36.2 Pulse 103 Resp 22 B/P (MAP) 162/80 (107) Pulse Ox 94 O2 Delivery Room Air Capillary Refill : Less Than 3 Seconds Height: 5'1.00" Weight: 175lbs. 0oz. 79.215078lj; 33.00 BMI Method:Stated General Appearance: WD/WN Eyes: Bilateral Eye Normal Inspection, Bilateral Eye PERRL, Bilateral Eye EOMI HEENT: PERRL/EOMI, TMs normal, pharynx normal Neck: non-tender, full range of motion, supple Respiratory: decreased breath sounds; No accessory muscle use, No crackles, No rales, No rhonchi Cardiovascular: normal peripheral pulses, regular rate, rhythm Gastrointestinal: normal bowel sounds, soft Extremities: normal range of motion, non-tender Neurologic/Psychiatric: photographic specialist II-XII nml as tested, alert, oriented x 3 Skin: normal color, warm/dry Lymphatic: no adenopathy Focused Exam Sepsis Stage: Ruled Out Progress/Results/Core Measures Suspected Sepsis Recent Fever Within 48 Hours: No Infection Criteria Present: None New/Unexplained Altered Menta: No Sepsis Screen: No Definite Risk SIRS Temperature: Pulse: 103 Respiratory Rate: 22 Blood Pressure 162 /80 Mean: 107 Results/Orders Medications Given in ED Current Medications Medications Dose Ordered Sig/Ken Route Start Time Stop Time Status Last Admin Dose Admin Albuterol/ Ipratropium 3 ml ONCE ONCE INH 10/25/19 06:15 10/25/19 06:16 DC 10/25/19 06:15 3 ML Prednisone 60 mg ONCE ONCE PO 10/25/19 06:15 10/25/19 06:16 DC 10/25/19 06:15 60 MG Vital Signs/I&O 10/25/19 05:58 Temp 36.2 Pulse 103 Resp 22 B/P (MAP) 162/80 (107) Pulse Ox 94 O2 Delivery Room Air Capillary Refill : Less Than 3 Seconds Blood Pressure Mean: 107 Departure Communication (Admissions) Chest x-ray: No acute cardiopulmonary disease on pulmonary ED review. Steroids, breathing treatment given with significant improvement. No labored breathing and increased air movement on reevaluation. O2 saturations remained greater than 95%. Recommend doxycycline if sputum turns color or if patient develops fever. Otherwise, continued supportive care with PCP follow-up. Return precautions reviewed. Impression Primary Impression: COPD exacerbation Additional Impression: Acute bronchitis Disposition: 01 HOME, SELF-CARE Condition: Improved Departure-Patient Inst. Decision time for Depature: 06:43 Patient Instructions: Chronic Obstructive Pulmonary Disease (COPD) (DC), Chronic Bronchitis (DC) Add. Discharge Instructions: Please take newly newly prescribed medications as directed. Follow-up with your PCP in 5-7 days if your symptoms persist. Return to the ED if new or worsening symptoms. All discharge instructions reviewed with patient and/or family. Voiced understanding. Scripts Doxycycline Hyclate (Doxycycline Hyclate) 100 Mg Tablet 100 MG PO BID, #20 TAB 0 Refills Prov: SAMIA BILLINGSLEY DO 10/25/19 Prednisone (Prednisone) 20 Mg Tab 60 MG PO DAILY, #6 TAB 0 Refills Prov: SAMIA BILLINGSLEY DO 10/25/19 SAMIA BILLINGSLEY DO Oct 25, 2019 06:44
--- NOTE | 2019-10-25 06:49 | Diagnostic Imaging Report ---
INDICATION: Dyspnea Portable AP view of chest is obtained with comparison made to study of 08/04/2019. Heart size and pulmonary vascularity are within normal limits. Lungs appear clear and well expanded. There are scattered calcified granulomas in both lungs. Surgical findings are now noted in the lower cervical region. IMPRESSION: Granulomatous residual without acute abnormality detected. Dictated by: Dictated on workstation # [id number]
== END 2019-10-25 06:41 | disposition home or self-care (01) ==
LOC: EDUNIT# 05:52 → ER FS 05:54
DX: J44.1 Chronic obstructive pulmonary disease with (acute) exacerbation (principal); J20.9 Acute bronchitis, unspecified; I10 Essential (primary) hypertension; K21.9 Gastro-esophageal reflux disease without esophagitis; Z88.8 Allergy status to other drugs, medicaments and biological substances; Z87.891 Personal history of nicotine dependence; Z79.52 Long term (current) use of systemic steroids; Z20.828 Contact with and (suspected) exposure to other viral communicable diseases
CPT/HCPCS: 71045

== ENCOUNTER → 2019-10-31 | Outpatient (CLI) | payer MEDICARE ==
[~2019-10-31] MED LIST changes: +ALBU2.5V4 INH
--- NOTE | 2019-11-02 09:04 | NUR ---
Patient notified of positive COVID test. She verbalized understanding quarantine as her was also positive. Questions answered and [facility] dept notified. .
== END ==
LOC: LAB FS 10:00
PROVIDERS: ATTEND Family Medicine
DX: Z20.828 Contact with and (suspected) exposure to other viral communicable diseases (principal)
CPT/HCPCS: 87635

== ENCOUNTER 2019-11-04 23:44 | Emergency (ER) | payer MEDICARE ==
[~2019-11-04] VITALS: Ht 157.4 cm; Wt 78.2 kg
[~2019-11-04 23:44] MED LIST changes: -ALBU2.5V4 INH
--- NOTE | 2019-11-04 23:55 | ED Dyspnea ---
General Stated Complaint: BREATHEING PROBLEMS Source of Information: Patient Exam Limitations: No Limitations History of Present Illness Date Seen by Provider: Nov 04, 2019 Time Seen by Provider: 11:45 Initial Comments 49-year-old female with past medical history of COPD presents with shortness of breath which got worse tonight. She used her home nebulizer without significant improvement so she came to the ER. Also 4 days ago tested positive for COVID- 19. Allergies and Home Medications Allergies Coded Allergies: cefazolin (Verified Allergy, Unknown, 03/20/19) Home Medications Albuterol Sulfate 2.5 Mg/3 Ml Vial.neb, 2.5 MG INH Q4H PRN for WHEEZING Prescribed by: MICHELLE CLINESTDIANA on 11/05/19 001 Albuterol/Ipratropium 4 Gm Aero, 1 PUFF IH QID PRN for SHORTNESS OF BREATH, (Reported) Albuterol/Ipratropium 4 Gm Aero, 2 PUFF IH QID Prescribed by: MICHELLE CAMARENA on 11/05/19 001 Cetirizine HCl 10 Mg Tablet, 10 MG PO DAILY, (Reported) Diclofenac Sodium 75 Mg Tablet.dr, 75 MG PO BID Prescribed by: TAMANNA BETH on 07/13/19 0851 Doxycycline Hyclate 100 Mg Tablet, 100 MG PO BID Prescribed by: RADHA COLON on 05/10/19 09 Doxycycline Hyclate 100 Mg Tablet, 100 MG PO BID Prescribed by: TOM RAMÍREZ on 06/26/19 0239 Doxycycline Hyclate 100 Mg Tablet, 100 MG PO BID Prescribed by: JERE CHISHOLM on 08/04/19 2236 Doxycycline Hyclate 100 Mg Tablet, 100 MG PO BID Prescribed by: SAMIA BILLINGSLEY on 10/25/19 0638 Famotidine 20 Mg Tablet, 20 MG PO BID, (Reported) Fluticasone Propionate 16 Gm [place].susp, 1 SPRAY NS DAILY, (Reported) Ibuprofen 800 Mg Tablet, 800 MG PO BID PRN for PAIN-MILD, (Reported) Metoprolol Tartrate 25 Mg Tablet, 25 MG PO DAILY, (Reported) Mometasone/Formoterol 13 Gm Hfa.aer.ad, 2 PUFF IH BID, (Reported) Prednisone 20 Mg Tab, 40 MG PO DAILY Prescribed by: RADHA COLON on 05/10/19912 Prednisone 10 Mg Tab.ds.pk, 10 MG PO DAILY Take 6 tabs(60mg)daily,decrease by 1 tab(10mg)every other day. Prescribed by: TOM RAMÍREZ on 06/26/19 023 Prednisone 20 Mg Tab, 40 MG PO DAILY Prescribed by: JERE CHISHOLM on 08/04/192235 Prednisone 20 Mg Tab, 60 MG PO DAILY Prescribed by: SAMIA BILLINGSLEY on 10/25/19 0638 Prednisone 50 Mg Tab, 50 MG PO DAILY Prescribed by: MICHELLE CAMARENA on 11/05/19 0015 Patient Home Medication List Home Medication List Reviewed: Yes Review of Systems Review of Systems Constitutional: see HPI; No fever, No malaise, No weakness EENTM: no symptoms reported Respiratory: see HPI, cough, dyspnea on exertion, phlegm, short of breath; No stridor; wheezing Cardiovascular: No chest pain, No edema, No palpitations, No syncope Gastrointestinal: No abdominal pain, No nausea, No vomiting Musculoskeletal: No back pain, No joint pain Skin: No change in color, No rash Past Avuhxnm-Lepeip-Oaxzsc Hx Past Med/Social Hx: Reviewed Nursing Past Med/Soc Hx Patient Social History Type Used: Cigarettes 2nd Hand Smoke Exposure: No Recent Foreign Travel: No Contact w/Someone Who Travel: No Recent Hopitalizations: No Immunizations Up To Date Date of Pneumonia Vaccine: Nov 26, 2017 Date of Influenza Vaccine: Nov 26, 2018 Seasonal Allergies Seasonal Allergies: No Past Medical History Surgeries: Yes Gallbladder Respiratory: Yes (uses oxygen @ 2 liters PRN and NOC, neb tx) COPD Cardiac: Yes High Cholesterol, Hypertension, Palpitations Neurological: No Sexually Transmitted Disease: No HIV/AIDS: No Genitourinary: No Gastrointestinal: Yes Gastroesophageal Reflux Musculoskeletal: Yes (SPINAL COMPRESSION) Arthritis Endocrine: No HEENT: No Cancer: No Psychosocial: No Integumentary: No Blood Disorders: No Family Medical History Patient reports no known family medical history. Physical Exam Vital Signs Vital Signs - First Documented 11/04/19 11/04/19 23:46 23:55 Temp 37.2 Pulse 111 Resp 20 B/P (MAP) 153/71 (98) Pulse Ox 95 O2 Delivery Room Air O2 Flow Rate 6.00 FiO2 100 Capillary Refill : Height, Weight, BMI Height: 5'1.00" Weight: 175lbs. 0oz. 79.558678dr; 33.00 BMI Method:Stated General Appearance: No Apparent Distress, WD/WN Neck: Non Tender, Supple Respiratory: Chest Non Tender, No Respiratory Distress, Wheezing (expiratory) Cardiovascular: Regular Rate, Rhythm, No Edema, No JVD Gastrointestinal: Non Tender, Soft Extremity: Normal Capillary Refill, Normal Range of Motion, Non Tender, No Calf Tenderness Neurologic/Psychiatric: Alert, Oriented x3, No Motor/Sensory Deficits, Normal Mood/Affect Skin: Normal Color, Warm/Dry Progress/Results/Core Measures Results/Orders My Orders Orders - ROVENSTMICHELLE ORTIZ DO Chest 1 View Ap/Pa Only (11/04/19 23:47) Albuterol/Ipra Inhalation Soln (Duoneb I (11/05/19 00:00) Svn Small Volume Nebulizer (11/04/19 23:50) Methylprednisolone Sod Succ (Solu-Medrol (11/05/19 00:15) Albuterol/Ipra Inhalation Soln (Duoneb I (11/05/19 00:15) Svn Small Volume Nebulizer (11/05/19 00:04) Medications Given in ED Current Medications Medications Dose Ordered Sig/Ken Route Start Time Stop Time Status Last Admin Dose Admin Albuterol/ Ipratropium 3 ml ONCE ONCE INH 11/05/19 00:00 11/05/19 00:01 DC 11/04/19 23:59 3 ML Albuterol/ Ipratropium 3 ml ONCE ONCE INH 11/05/19 00:15 11/05/19 00:16 DC 11/05/19 00:16 3 ML Methylprednisolone Sodium Succinate 125 mg ONCE ONCE IVP 11/05/19 00:15 11/05/19 00:16 DC 11/05/19 00:16 125 MG Vital Signs/I&O 11/04/19 11/04/19 23:46 23:55 Temp 37.2 Pulse 111 Resp 20 B/P (MAP) 153/71 (98) Pulse Ox 95 98 O2 Delivery Room Air Nasal Cannula O2 Flow Rate 6.00 FiO2 100 Progress Progress Note : Progress Note Patient without hypoxia or radiographic changes to support symptoms related to COVID-19. Patient states she was + less than 1 week ago. He responded well to steroids and DuoNeb treatment 2. Continue to have good saturations 95 percent and greater on room air and decreased dyspnea. Patient states her symptoms began rather suddenly after weather changes today....a cold front that moved in with moderate rain. Diagnostic Imaging Diagonstic Imaging: Xray Plain Films/CT/US/NM/MRI: chest Comments compared to CXR 24 October.... no acute change, no infiltrate, normal chest Departure Impression Primary Impression: COPD with acute exacerbation Additional Impression: COVID-19 Disposition: 01 HOME, SELF-CARE Condition: Improved Departure-Patient Inst. Decision time for Depature: 00:17 Referrals: RAFI CHILDERS MD (PCP/Family) Primary Care Physician Patient Instructions: Coronavirus Disease 2019 (COVID-19) Overview, Chronic Obstructive Pulmonary Disease (COPD) (DC), Respiratory Acidosis, Chronic Obstructive Pulmonary Disease (COPD), Including Emphysema Add. Discharge Instructions: Call Dr Childers tomorrow to schedule a follow up appointment in 2 weeks......call (or return to) the ER sooner if questions or problems. Scripts Prednisone (Prednisone) 50 Mg Tab 50 MG PO DAILY, #7 TAB Prov: MICHELLE CAMARENA DO 11/05/19 Albuterol/Ipratropium (Combivent Respimat Inhal [place]) 4 Gm Aero 2 PUFF IH QID, #1 INH Prov: MICHELLE CAMARENA DO 11/05/19 Albuterol Sulfate (Albuterol Sulfate) 2.5 Mg/3 Ml Vial.neb 2.5 MG INH Q4H PRN for WHEEZING, #50 EA 1 Refill Prov: MICHELLE CAMARENA DO 11/05/19 MICHELLE CAMARENA DO Nov 04, 2019 23:55
[2019-11-05] MEDS ORDERED: RT-ALBUTEROL/IPRATROPIUM 3 ML (DUONEB) VIAL INH ONE ×2 (00:15)
[2019-11-05] MEDS ORDERED: ALBU2.5V4 INH (00:15)
[2019-11-05] MEDS ORDERED: IPRA4AER IH (00:15)
[2019-11-05] MEDS ORDERED: PRD50T PO (00:15)
[2019-11-05] MEDS ORDERED: methylPREDNISolone 125 MG (Solu-MEDROL) VIAL IVP ONE (00:15)
[2019-11-05 00:40] VITALS: BP 145/75
--- NOTE | 2019-11-05 05:55 | Diagnostic Imaging Report ---
INDICATION: Shortness of breath. Patient reports COPD. Comparison with 10/25/2019. FINDINGS: Portable AP chest. The lungs are well-aerated. There is no evidence of air trapping. There are no consolidated infiltrates. Interstitial markings do not appear significantly increased. Benign bilateral scattered calcified granulomas are noted. The heart is not enlarged. No pulmonary edema. No pneumothorax or pleural effusion. No bony abnormalities. IMPRESSION: Stable portable chest. Dictated by: Dictated on workstation # [id number]
== END 2019-11-05 00:40 | disposition home or self-care (01) ==
LOC: EDUNIT# 23:44 → ER FS 23:46
DX: J44.1 Chronic obstructive pulmonary disease with (acute) exacerbation (principal); U07.1 COVID-19; K21.9 Gastro-esophageal reflux disease without esophagitis; I10 Essential (primary) hypertension; Z79.52 Long term (current) use of systemic steroids
CPT/HCPCS: 71045; 94640

== ENCOUNTER 2019-12-11 19:20 | Emergency (ER) | payer MEDICARE ==
[~2019-12-11] VITALS: Ht 154.9 cm; Wt 82.1 kg
[~2019-12-11 19:20] MED LIST changes: +ALBU2.5V4 INH; +PANT20TA18 PO; -PANT20TA3 PO
--- NOTE | 2019-12-11 19:38 | ED Respiratory ---
General Chief Complaint: Respiratory Problems Stated Complaint: SOA Source: patient Exam Limitations: no limitations History of Present Illness Date Seen by Provider: Dec 11, 2019 Time Seen by Provider: 19:28 Initial Comments The patient is a pleasant 49-year-old female presents for evaluation of shortness of breath and wheezing. She states I COPD as bad today". She tested positive for COVID-19 in early October and made a full recovery. She does smoke cigarettes. She states this feels like a typical COPD flare to her. She specifically denies chest pain, nausea or vomiting, diaphoresis, loss of taste or smell, fevers or chills, diarrhea, dizziness, or syncope. She is in mild respiratory distress upon arrival and is saturating 96% on room air. She has required hospitalization for COPD exacerbations in the past. Timing/Duration: this morning Severity: moderate Prior Episodes/Possible Cause: occasional episodes Modifying Factors: Improves With Albuterol Nebulizer (helped somewhat) Associated Symptoms: cough, shortness of breath, wheezing Allergies and Home Medications Allergies Coded Allergies: cefazolin (Verified Allergy, Unknown, 03/20/19) Home Medications Albuterol Sulfate 2.5 Mg/3 Ml Vial.neb, 2.5 MG INH Q4H PRN for WHEEZING Prescribed by: MICHELLE CLINESTDIANA on 11/05/19 001 Albuterol/Ipratropium 4 Gm Aero, 1 PUFF IH QID PRN for SHORTNESS OF BREATH, (R eported) Albuterol/Ipratropium 4 Gm Aero, 2 PUFF IH QID Prescribed by: MICHELLE BEJARANOVENSTDIANA on 11/05/19 001 Cetirizine HCl 10 Mg Tablet, 10 MG PO DAILY, (Reported) Diclofenac Sodium 75 Mg Tablet.dr, 75 MG PO BID Prescribed by: TAMANNA BETH on 07/13/19 0851 Doxycycline Hyclate 100 Mg Tablet, 100 MG PO BID Prescribed by: RADHA COLON on 05/10/19 0913 Doxycycline Hyclate 100 Mg Tablet, 100 MG PO BID Prescribed by: TOM RAMÍREZ on 06/26/19 0239 Doxycycline Hyclate 100 Mg Tablet, 100 MG PO BID Prescribed by: JERE CHISHOLM on 08/04/19 2236 Doxycycline Hyclate 100 Mg Tablet, 100 MG PO BID Prescribed by: SAMIA BILLINGSLEY on 10/25/19 0638 Famotidine 20 Mg Tablet, 20 MG PO BID, (Reported) Fluticasone Propionate 16 Gm Turner.susp, 1 SPRAY NS DAILY, (Reported) Ibuprofen 800 Mg Tablet, 800 MG PO BID PRN for PAIN-MILD, (Reported) Metoprolol Tartrate 25 Mg Tablet, 25 MG PO DAILY, (Reported) Mometasone/Formoterol 13 Gm Hfa.aer.ad, 2 PUFF IH BID, (Reported) Prednisone 20 Mg Tab, 40 MG PO DAILY Prescribed by: RADHA COLON on 05/10/19 0913 Prednisone 10 Mg Tab.ds.pk, 10 MG PO DAILY Take 6 tabs(60mg)daily,decrease by 1 tab(10mg)every other day. Prescribed by: TOM RAMÍREZ on 06/26/19 0239 Prednisone 20 Mg Tab, 40 MG PO DAILY Prescribed by: JERE CHISHOLM on 08/04/192235 Prednisone 20 Mg Tab, 60 MG PO DAILY Prescribed by: SAMIA BILLINGSLEY on 10/25/19 06 Prednisone 50 Mg Tab, 50 MG PO DAILY Prescribed by: MICHELLE CAMARENA on 11/05/19 0015 Patient Home Medication List Home Medication List Reviewed: Yes Review of Systems Review of Systems Constitutional: no symptoms reported EENTM: no symptoms reported Respiratory: cough (patient states she always has a chronic cough), short of breath Cardiovascular: no symptoms reported Gastrointestinal: no symptoms reported Genitourinary: no symptoms reported Musculoskeletal: no symptoms reported Skin: no symptoms reported Psychiatric/Neurological: No Symptoms Reported Hematologic/Lymphatic: No Symptoms Reported Immunological/Allergic: no symptoms reported All Other Systems Reviewed Negative Unless Noted: Yes Past Hfufbdy-Dbzuyn-Zbfhhn Hx Past Med/Social Hx: Reviewed Nursing Past Med/Soc Hx Patient Social History Type Used: Cigarettes 2nd Hand Smoke Exposure: No Recent Foreign Travel: No Contact w/Someone Who Travel: No Recent Hopitalizations: No Immunizations Up To Date Date of Pneumonia Vaccine: Nov 26, 2017 Date of Influenza Vaccine: Nov 26, 2018 Seasonal Allergies Seasonal Allergies: No Past Medical History Surgeries: Yes Gallbladder Respiratory: Yes (uses oxygen @ 2 liters PRN and NOC, neb tx) COPD Cardiac: Yes High Cholesterol, Hypertension, Palpitations Neurological: No Sexually Transmitted Disease: No HIV/AIDS: No Genitourinary: No Gastrointestinal: Yes Gastroesophageal Reflux Musculoskeletal: Yes (SPINAL COMPRESSION) Arthritis Endocrine: No HEENT: No Cancer: No Psychosocial: No Integumentary: No Blood Disorders: No Family Medical History Patient reports no known family medical history. Physical Exam Vital Signs - First Documented 12/11/19 19:48 Temp 36.2 Pulse 93 Resp 12 B/P (MAP) 140/86 (104) Pulse Ox 96 O2 Delivery Room Air Capillary Refill : Height: 5'1.00" Weight: 175lbs. 0oz. 79.647322aj; 31.00 BMI Method:Stated General Appearance: WD/WN, no apparent distress Eyes: Bilateral Eye Normal Inspection, Bilateral Eye PERRL, Bilateral Eye EOMI HEENT: PERRL/EOMI, pharynx normal Neck: non-tender, full range of motion, supple, normal inspection Respiratory: chest non-tender, respiratory distress (mild), decreased breath sounds, wheezing Cardiovascular: regular rate, rhythm, no edema, no JVD, no murmur Gastrointestinal: normal bowel sounds, non tender, soft, no pulsatile mass Extremities: non-tender, no pedal edema, no calf tenderness Neurologic/Psychiatric: manager statistics II-XII nml as tested, no motor/sensory deficits, alert, normal mood/affect Skin: normal color, warm/dry Progress/Results/Core Measures Suspected Sepsis SIRS Temperature: Pulse: Respiratory Rate: Laboratory Tests 12/11/19 17:40: White Blood Count 10.6 Blood Pressure / Mean: Laboratory Tests 12/11/19 17:40: Creatinine 0.81, Platelet Count 331, Total Bilirubin < 0.2 Results/Orders Lab Results Laboratory Tests Test 12/11/19 17:40 Range/Units White Blood Count 10.6 4.3-11.0 10^3/uL Red Blood Count 4.47 4.35-5.85 10^6/uL Hemoglobin 13.6 11.5-16.0 G/DL Hematocrit 40 35-52 % Mean Corpuscular Volume 89 80-99 FL Mean Corpuscular Hemoglobin 30 25-34 PG Mean Corpuscular Hemoglobin Concent 34 32-36 G/DL Red Cell Distribution Width 13.0 10.0-14.5 % Platelet Count 331 130-400 10^3/uL Mean Platelet Volume 10.7 H 7.4-10.4 FL Immature Granulocyte % (Auto) 0 % Neutrophils (%) (Auto) 48 42-75 % Lymphocytes (%) (Auto) 41 12-44 % Monocytes (%) (Auto) 6 0-12 % Eosinophils (%) (Auto) 4 0-10 % Basophils (%) (Auto) 1 0-10 % Neutrophils # (Auto) 5.1 1.8-7.8 X 10^3 Lymphocytes # (Auto) 4.3 H 1.0-4.0 X 10^3 Monocytes # (Auto) 0.6 0.0-1.0 X 10^3 Eosinophils # (Auto) 0.4 H 0.0-0.3 10^3/uL Basophils # (Auto) 0.1 0.0-0.1 10^3/uL Immature Granulocyte # (Auto) 0.0 0.0-0.1 10^3/uL Sodium Level 142 135-145 MMOL/L Potassium Level 3.5 L 3.6-5.0 MMOL/L Chloride Level 105 98-107 MMOL/L Carbon Dioxide Level 24 21-32 MMOL/L Anion Gap 13 5-14 MMOL/L Blood Urea Nitrogen 12 7-18 MG/DL Creatinine 0.81 0.60-1.30 MG/DL Estimat Glomerular Filtration Rate > 60 BUN/Creatinine Ratio 15 Glucose Level 148 H 70-105 MG/DL Calcium Level 9.1 8.5-10.1 MG/DL Corrected Calcium 8.9 8.5-10.1 MG/DL Total Bilirubin < 0.2 0.1-1.0 MG/DL Aspartate Amino Transf (AST/SGOT) 20 5-34 U/L Alanine Aminotransferase (ALT/SGPT) 21 0-55 U/L Alkaline Phosphatase 77 40-136 U/L Troponin I < 0.30 <0.30 NG/ML Pro-B-Type Natriuretic Peptide 61.7 <75.0 PG/ML Total Protein 7.2 6.4-8.2 GM/DL Albumin 4.2 3.2-4.5 GM/DL My Orders Orders - JERE CHISHOLM DO Cbc With Automated Diff (12/11/19 19:33) Comprehensive Metabolic Panel (12/11/19 19:33) Chest 1 View Ap/Pa Only (12/11/19 19:33) Albuterol/Ipra Inhalation Soln (Duoneb I (12/11/19 19:45) Ekg Tracing (12/11/19 19:33) O2 (12/11/19 19:33) Ed Iv/Invasive Line Start (12/11/19:33) Monitor-Rhythm Ecg Trace Only (12/11/19:33) Svn Small Volume Nebulizer (12/11/19 19:33) Troponin I Fs (12/11/19:33) Probnp Fs (12/11/19:33) Methylprednisolone Sod Succ (Solu-Medrol (12/11/19 19:45) Ns Iv 1000 Ml (Sodium Chloride 0.9%) (12/11/19 19:45) Continuous Pulse Ox (12/11/19 19:45) Appointment Specialist (12/11/19:45) Potassium Chloride (Tablet) (K Dur Table (12/11/19 20:30) Medications Given in ED Current Medications Medications Dose Ordered Sig/Ken Route Start Time Stop Time Status Last Admin Dose Admin Albuterol/ Ipratropium 3 ml ONCE ONCE INH 12/11/19 19:45 12/11/19 19:46 DC 12/11/19 19:56 3 ML Methylprednisolone Sodium Succinate 125 mg ONCE ONCE IVP 12/11/19 19:45 12/11/19 19:46 DC 12/11/19 19:56 125 MG Vital Signs/I&O 12/11/19 12/11/19 19:48 20:07 Temp 36.2 Pulse 93 Resp 12 B/P (MAP) 140/86 (104) Pulse Ox 96 97 O2 Delivery Room Air Room Air Capillary Refill : Progress Note : Progress Note @2027 - patient updated on lab and imaging results which are acutely unremarkable other than some mild hypokalemia. This will be replaced orally. The patient has no complaints and states she is feeling much better. She states that the weather is a trigger for her COPD and that this is happened many times in the past. She does feel comfortable going home at this time. Advised the patient to take the prescribed steroids as directed and to return to the ER immediately for new or worsening symptoms. The patient expresses verbal understanding and agreement with the plan and is stable for discharge. ECG Comment @1948 - normal sinus rhythm, rate of 86, no acute ischemic findings noted, normal axis, no STEMI, reviewed and interpreted by myself Diagnostic Imaging Diagonstic Imaging: Xray Comments [facility], [place] NAME: EMILIE GO [facility] REC#: [id number] PT STATUS: REG ER : 1970 PHYSICIAN: JERE CHISHOLM DO ADMIT DATE: 12/11/19/ER FS Draft Date of Exam:12/11/19 CHEST 1 VIEW AP/PA ONLY INDICATION: Shortness of breath. COMPARISON: 11/04/2019. EXAMINATION: Single view of the chest. FINDINGS: There are stable granulomas. There is no infiltrate, effusion or pneumothorax. The heart is normal. The osseous structures are age-appropriate. IMPRESSION: Negative chest. Dictated on workstation # [id number] Dict: 12/11/191957 Trans: 12/11/192002 [facility] [id number] Interpreted by: YVROSE ELLIS Electronically signed by: Departure Impression Primary Impression: COPD with acute exacerbation Disposition: HOME, SELF-CARE Condition: Stable Departure-Patient Inst. Decision time for Depature: 20:29 Referrals: RAFI CHILDERS MD (PCP/Family) Primary Care Physician Patient Instructions: Chronic Obstructive Pulmonary Disease (COPD) (DC) Add. Discharge Instructions: Take the prescribed medicine as directed. Return to the emergency Department immediately for new or worsening symptoms. Follow-up with your doctor in the next 1-2 days. Scripts Prednisone (Prednisone) 20 Mg Tab 40 MG PO DAILY for 5 Days, #10 TAB Prov: JERE CHISHOLM DO 12/11/19 JERE CHISHOLM DO Dec 11, 2019 19:38
[2019-12-11] MEDS ORDERED: NS IV 1000 ML 1,000 ML IV SCH (19:45)
[2019-12-11] MEDS ORDERED: methylPREDNISolone 125 MG (Solu-MEDROL) VIAL IVP ONE (19:45)
[2019-12-11] MEDS ORDERED: RT-ALBUTEROL/IPRATROPIUM 3 ML (DUONEB) VIAL INH ONE (19:45)
[2019-12-11 19:52] LABS: HEMATOCRIT 40 % (35-52); HEMOGLOBIN 13.6 G/DL (11.5-16.0); MEAN CORPUSCULAR HEMOGLOBIN 30 PG (25-34); MEAN CORPUSCULAR HGB CONC 34 G/DL (32-36); MEAN CORPUSCULAR VOLUME 89 FL (80-99); MEAN PLATELET VOLUME 10.7 FL (7.4-10.4); PLATELET COUNT 331 10^3/uL (130-400); WHITE BLOOD COUNT 10.6 10^3/uL (4.3-11.0)
[2019-12-11 19:53] LABS: BASOPHILS # (AUTO) 0.1 10^3/uL (0.0-0.1); BASOPHILS % (AUTO) 1 % (0-10); EOSINOPHILS # (AUTO) 0.4 10^3/uL (0.0-0.3); EOSINOPHILS % (AUTO) 4 % (0-10); LYMPHOCYTES # (AUTO) 4.3 X 10^3 (1.0-4.0); LYMPHOCYTES % (AUTO) 41 % (12-44); MONOCYTES # (AUTO) 0.6 X 10^3 (0.0-1.0); MONOCYTES % (AUTO) 6 % (0-12); NEUTROPHILS # (AUTO) 5.1 X 10^3 (1.8-7.8); NEUTROPHILS % (AUTO) 48 % (42-75)
--- NOTE | 2019-12-11 20:03 | Diagnostic Imaging Report ---
INDICATION: Shortness of breath. COMPARISON: 11/04/2019. EXAMINATION: Single view of the chest. FINDINGS: There are stable granulomas. There is no infiltrate, effusion or pneumothorax. The heart is normal. The osseous structures are age-appropriate. IMPRESSION: Negative chest. Dictated by: Dictated on workstation # [id number]
[2019-12-11 20:11] LABS: ALANINE AMINOTRANSFERASE 21 U/L (0-55); ALBUMIN 4.2 GM/DL (3.2-4.5); ALKALINE PHOSPHATASE 77 U/L (40-136); BILIRUBIN,TOTAL < 0.2 MG/DL (0.1-1.0); BUN/CREATININE RATIO 15; CALCIUM 9.1 MG/DL (8.5-10.1); CARBON DIOXIDE 24 MMOL/L (21-32); CHLORIDE 105 MMOL/L (98-107); CREATININE SERUM 0.81 MG/DL (0.60-1.30); GFR ESTIMATED > 60; GLUCOSE 148 MG/DL (70-105); POTASSIUM 3.5 MMOL/L (3.6-5.0); SODIUM 142 MMOL/L (135-145); TOTAL PROTEIN 7.2 GM/DL (6.4-8.2)
[2019-12-11] MEDS ORDERED: KCL 20 MEQ TAB (K-DUR) PO ONE (20:30)
[2019-12-11] MEDS ORDERED: PRD20T PO (20:31)
[2019-12-11 20:56] VITALS: BP 134/84
== END 2019-12-11 20:50 | disposition home or self-care (01) ==
LOC: EDUNIT# 19:20 → ER FS 19:21
DX: J44.1 Chronic obstructive pulmonary disease with (acute) exacerbation (principal); I10 Essential (primary) hypertension; K21.9 Gastro-esophageal reflux disease without esophagitis; Z79.52 Long term (current) use of systemic steroids; Z88.1 Allergy status to other antibiotic agents
CPT/HCPCS: 36415; 71045; 80053; 83880; 84484; 85025; 93041; 94640

== ENCOUNTER 2020-02-04 15:20 | Emergency (ER) | payer MEDICARE ==
--- NOTE | 2020-02-04 16:07 | ED Respiratory ---
General Chief Complaint: Respiratory Problems Stated Complaint: SOB Nursing Triage Note: complaining of shortness of breath and chest pressure x 3 days. Completed steroid and doxycycline for copd exacerbation 5 days ago. Source: patient History of Present Illness Date Seen by Provider: Feb 04, 2020 Time Seen by Provider: 16:07 Initial Comments 49-year-old female presenting with complaints of shortness of breath and cough. She's had chest pressure and tightness along her lower rib border for the last 3 days. This is worse when she coughs. She recently quit smoking 10 days ago and is using a nicotine patch. She also had just finished a course of steroids and doxycycline that she completed about 5 days ago. She was coughing up a lot of colored sputum until the last 3 days. That coincides with when she has been having the increased pressure and tightness in her chest. She has been having a lot of drainage and congestion down the back of her throat still. She does have a history of COPD and had a COVID in October. She continues to have intermittent chills since the episode COVID. She denies any current fever. Allergies and Home Medications Allergies Coded Allergies: cefazolin (Verified Allergy, Unknown, 03/20/19) Home Medications Albuterol Sulfate 2.5 Mg/3 Ml Vial.neb, 2.5 MG INH Q4H PRN for WHEEZING Prescribed by: MICHELLE CAMARENA on 11/05/19 001 Albuterol/Ipratropium 4 Gm Aero, 1 PUFF IH QID PRN for SHORTNESS OF BREATH, (Reported) Albuterol/Ipratropium 4 Gm Aero, 2 PUFF IH QID Prescribed by: MICHELLE CAMARENA on 11/05/19 001 Azithromycin 500 Mg Tablet, 500 MG PO DAILY Prescribed by: TOM RAMÍREZ on 02/04/20 1714 Cetirizine HCl 10 Mg Tablet, 10 MG PO DAILY, (Reported) Diclofenac Sodium 75 Mg Tablet.dr, 75 MG PO BID Prescribed by: TAMANNA BETH on 07/13/19 0851 Doxycycline Hyclate 100 Mg Tablet, 100 MG PO BID Prescribed by: RADHA COLON on 05/10/19 0913 Doxycycline Hyclate 100 Mg Tablet, 100 MG PO BID Prescribed by: TOM RAMÍREZ on 06/26/19 0239 Doxycycline Hyclate 100 Mg Tablet, 100 MG PO BID Prescribed by: JERE CHISHOLM on 08/04/192235 Doxycycline Hyclate 100 Mg Tablet, 100 MG PO BID Prescribed by: SAMIA BILLINGSLEY on 10/25/19637 Famotidine 20 Mg Tablet, 20 MG PO BID, (Reported) Fluticasone Propionate 16 Gm [place].susp, 1 SPRAY NS DAILY, (Reported) Ibuprofen 800 Mg Tablet, 800 MG PO BID PRN for PAIN-MILD, (Reported) Metoprolol Tartrate 25 Mg Tablet, 25 MG PO DAILY, (Reported) Mometasone/Formoterol 13 Gm Hfa.aer.ad, 2 PUFF IH BID, (Reported) Prednisone 20 Mg Tab, 40 MG PO DAILY Prescribed by: RADHA COLON on 05/10/19912 Prednisone 10 Mg Tab.ds.pk, 10 MG PO DAILY Take 6 tabs(60mg)daily,decrease by 1 tab(10mg)every other day. Prescribed by: TOM RAMÍREZ on 06/26/19 023 Prednisone 20 Mg Tab, 40 MG PO DAILY Prescribed by: JERE CHISHOLM on 08/04/192235 Prednisone 20 Mg Tab, 60 MG PO DAILY Prescribed by: SAMIA BILLINGSLEY on 10/25/19637 Prednisone 50 Mg Tab, 50 MG PO DAILY Prescribed by: MICHELLE CAMARENA on 11/05/19 0015 Prednisone 20 Mg Tab, 40 MG PO DAILY Prescribed by: JERE CHISHOLM on 12/11/192030 Prednisone 20 Mg Tab, 20 MG PO DAILY Take 3 tabs(60mg)daily x5 days, 2 tabs(40mg)daily x5 days, 20 mg daily x 5 days, 1/2 tab(10mg)daily x6 days Prescribed by: TOM RAMÍREZ on 02/04/20 171 Patient Home Medication List Home Medication List Reviewed: Yes Review of Systems Review of Systems Constitutional: see HPI, chills (intermittent since October); No fever EENTM: nose congestion; No ear discharge, No epistaxis Respiratory: see HPI Cardiovascular: see HPI Gastrointestinal: no symptoms reported Genitourinary: no symptoms reported Musculoskeletal: no symptoms reported Skin: No rash Psychiatric/Neurological: No Symptoms Reported Past Oyqzayh-Tzgbzp-Gznkoq Hx Past Med/Social Hx: Reviewed Nursing Past Med/Soc Hx Patient Social History Alcohol Use: Denies Use Recreational Drug Use: No Smoking Status: Former Smoker Type Used: Cigarettes Former Smoker, Quit: Jan 27, 2020 2nd Hand Smoke Exposure: No Recent Foreign Travel: No Contact w/Someone Who Travel: No Recent Infectious Disease Expo: No Recent Hopitalizations: No Physical Abuse: No Sexual Abuse: No Mistreated: No Fear: No Immunizations Up To Date Tetanus Booster (TDap): Unknown Date of Pneumonia Vaccine: Nov 26, 2017 Date of Influenza Vaccine: Nov 26, 2018 Seasonal Allergies Seasonal Allergies: No Past Medical History Surgeries: Yes Gallbladder Respiratory: Yes (uses oxygen @ 2 liters PRN and NOC, neb tx) COPD Cardiac: Yes High Cholesterol, Hypertension, Palpitations Neurological: No Sexually Transmitted Disease: No HIV/AIDS: No Genitourinary: No Gastrointestinal: Yes Gastroesophageal Reflux Musculoskeletal: Yes (SPINAL COMPRESSION) Arthritis Endocrine: No HEENT: No Cancer: No Psychosocial: No Integumentary: No Blood Disorders: No Family Medical History Patient reports no known family medical history. Physical Exam Vital Signs - First Documented 02/04/20 15:37 Temp 37.1 Pulse 87 Resp 20 B/P (MAP) 127/75 (92) Pulse Ox 95 Capillary Refill : Less Than 3 Seconds Height: 5'1.00" Weight: 175lbs. 0oz. 79.490092ct; 34.00 BMI Method:Stated General Appearance: WD/WN, mild distress HEENT: PERRL/EOMI; No photophobia; pharyngeal erythema; No tonsillar exudate Neck: full range of motion, supple, lymphadenopathy (R), lymphadenopathy (L) Respiratory: lungs clear, normal breath sounds, no respiratory distress, no accessory muscle use, other (tender to palpation along lower ribs) Cardiovascular: normal peripheral pulses, regular rate, rhythm Gastrointestinal: normal bowel sounds, soft, no pulsatile mass Extremities: normal range of motion, non-tender, normal capillary refill Neurologic/Psychiatric: underwear welter II-XII nml as tested, alert, oriented x 3 Skin: normal color, warm/dry Progress/Results/Core Measures Suspected Sepsis Recent Fever Within 48 Hours: No Infection Criteria Present: Documented Infection New/Unexplained Altered Menta: No Sepsis Screen: No Definite Risk SIRS Temperature: Pulse: 87 Respiratory Rate: 20 Blood Pressure 127 /75 Mean: 92 Results/Orders My Orders Orders - TOM RAMÍREZ MD Ekg Tracing (02/04/20 16:18) Chest 1 View Ap/Pa Only (02/04/20 16:56) Dexamethasone Injection (Decadron Inje (02/04/20 16:56) Vital Signs/I&O 02/04/20 02/04/20 15:37 17:30 Temp 37.1 Pulse 87 88 Resp 20 19 B/P (MAP) 127/75 (92) 110/70 Pulse Ox 95 95 Capillary Refill : Less Than 3 Seconds Blood Pressure Mean: 92 Progress Note : Progress Note ECG is normal without acute significant abnormality. Will obtain CXR and give decadron IM shot of 10 mg. Plan on longer steroid taper and a Zithromax course of 500 mg daily for 5 days to treat for possible atypical pneumonia with her tobacco use and COPD history. Encourage home use of humidifier and mucinex to loosen cough and congestion. ECG Initial ECG Impression Date: Feb 04, 2020 Initial ECG Impression Time: 15:35 Initial ECG Rate: 89 Initial ECG Rhythm: Normal Sinus Initial ECG Comparisson: No Previous ECG Available Comment normal sinus rhythm with a heart rate of 89 bpm. KS interval 141 ms. QT interval 383 ms with a QTc interval 467 ms. There is no acute ST elevation. There is no prior tracing immediately available for comparison. Diagnostic Imaging Diagonstic Imaging: Xray Plain Films/CT/US/NM/MRI: chest Comments [facility], [place] NAME: EMILIE GO [facility] REC#: [id number] PT STATUS: DEP ER : 1970 PHYSICIAN: TOM RAMÍREZ MD ADMIT DATE: 02/04/20/ER FS Signed Date of Exam:02/04/20 CHEST 1 VIEW AP/PA ONLY EXAMINATION: Chest 1 view HISTORY: cough, short of breath COMPARISON: Chest radiograph from 08/04/2019. FINDINGS: Heart size and pulmonary vasculature are normal. There are a few scattered calcified granulomas. Minimal airspace opacities within the lower lungs. No pleural effusion or pneumothorax. Cervical fusion hardware is present. The osseous structures are intact. IMPRESSION: 1. Minimal bibasilar opacities which could represent atelectasis or consolidation in the appropriate clinical setting. Dictated by: Dictated on workstation # [id number] Dict: 02/04/20 [id number] Trans: 02/04/20 1746 [id number] Interpreted by: JERE OSBORN DO Electronically signed by: JERE OSBORN DO 02/04/201745 Departure Impression Primary Impression: COPD with acute exacerbation Additional Impression: Costochondritis, acute Disposition: 01 HOME, SELF-CARE Condition: Stable Departure-Patient Inst. Decision time for Depature: 17:19 Referrals: RAFI CHILDERS MD (PCP/Family) Primary Care Physician Patient Instructions: Exacerbation of COPD (DC), Costochondritis (DC) Add. Discharge Instructions: Use Plain Mucinex to help loosen cough and congestion. Make sure to drink plenty of water with this so it works to draw moisture in to the congestion in your lungs and make it easier to cough it up. Take the Zithromax to treat for any remaining congestion and infection. Take the Prednisone taper to treat for congestion and inflammation in your lungs, chest wall and to help with your cough. All discharge instructions reviewed with patient and/or family. Voiced understanding. Scripts Prednisone (Prednisone) 20 Mg Tab 20 MG PO DAILY, #33 TAB Take 3 tabs(60mg)daily x5 days, 2 tabs(40mg)daily x5 days, 20 mg daily x 5 days, 1/2 tab(10mg)daily x6 days Prov: TOM RAMÍREZ MD 02/04/20 Azithromycin (Azithromycin) 500 Mg Tablet 500 MG PO DAILY for 5 Days, #5 TAB 0 Refills Prov: TOM RAMÍREZ MD 02/04/20 TOM RAMÍREZ MD Feb 04, 2020 16:07
[2020-02-04] MEDS ORDERED: PRD20T PO (17:14)
[2020-02-04] MEDS ORDERED: AZIT500T9 PO (17:14)
[2020-02-04 17:30] VITALS: BP 110/70
--- NOTE | 2020-02-04 17:31 | Diagnostic Imaging Report ---
EXAMINATION: Chest 1 view HISTORY: cough, short of breath COMPARISON: Chest radiograph from 08/04/2019. FINDINGS: Heart size and pulmonary vasculature are normal. There are a few scattered calcified granulomas. Minimal airspace opacities within the lower lungs. No pleural effusion or pneumothorax. Cervical fusion hardware is present. The osseous structures are intact. IMPRESSION: 1. Minimal bibasilar opacities which could represent atelectasis or consolidation in the appropriate clinical setting. Dictated by: Dictated on workstation # [id number]
== END 2020-02-04 17:31 | disposition home or self-care (01) ==
LOC: EDUNIT# 15:20 → ER FS 15:22
DX: J44.1 Chronic obstructive pulmonary disease with (acute) exacerbation (principal); M94.0 Chondrocostal junction syndrome [Tietze]; I10 Essential (primary) hypertension; K21.9 Gastro-esophageal reflux disease without esophagitis; Z87.891 Personal history of nicotine dependence; Z88.8 Allergy status to other drugs, medicaments and biological substances; Z79.52 Long term (current) use of systemic steroids
CPT/HCPCS: 71045

== ENCOUNTER → 2020-06-24 | Outpatient (CLI) | payer MEDICARE ==
[~2020-06-24] MED LIST changes: +AZIT500T9 PO
[2020-06-24 08:02] LABS: ALANINE AMINOTRANSFERASE 35 U/L (0-55); ALKALINE PHOSPHATASE 74 U/L (40-136); BILIRUBIN,TOTAL 0.2 MG/DL (0.1-1.0); BUN/CREATININE RATIO 18; CALCIUM 9.1 MG/DL (8.5-10.1); CARBON DIOXIDE 25 MMOL/L (21-32); CHLORIDE 106 MMOL/L (98-107); CREATININE SERUM 0.88 MG/DL (0.60-1.30); GFR ESTIMATED > 60; GLUCOSE 128 MG/DL (70-105); POTASSIUM 3.8 MMOL/L (3.6-5.0); SODIUM 142 MMOL/L (135-145); TOTAL PROTEIN 6.8 GM/DL (6.4-8.2)
[2020-06-24 08:03] LABS: ALBUMIN 4.1 GM/DL (3.2-4.5)
[2020-06-24 14:56] LABS: CHOLESTEROL 173 MG/DL (< 200); HDL CHOLESTEROL 39 MG/DL (40-60); TRIGLYCERIDES 236 MG/DL (<150); VLDL CHOLESTEROL 47 MG/DL (5-40)
== END ==
LOC: LAB FS 07:14
PROVIDERS: ATTEND Family Medicine
DX: I10 Essential (primary) hypertension (principal)
CPT/HCPCS: 36415; 80053; 80061

== ENCOUNTER → 2020-06-25 | Outpatient (CLI) | payer MEDICARE ==
[2020-06-25 13:48] LABS: HEMOGLOBIN 13.1 G/DL (11.5-16.0); MEAN PLATELET VOLUME 10.7 FL (7.4-10.4); WHITE BLOOD COUNT 7.5 10^3/uL (4.3-11.0)
== END ==
LOC: LAB FS 13:13
PROVIDERS: ATTEND Family Medicine
DX: R73.9 Hyperglycemia, unspecified (principal); R53.82 Chronic fatigue, unspecified
CPT/HCPCS: 36415; 83036; 84443; 85027

== ENCOUNTER 2020-10-19 06:34 | Emergency (ER) | payer MEDICARE ==
[~2020-10-19] VITALS: Ht 154.9 cm; Wt 81.6 kg
--- OUTSIDE RECORDS SUMMARY | 2020-10-19 06:39 | XMS REPORT | Clinical Summary ---
Author Author [facility] Address Unknown Phone Unavailable Care Team Providers Care Exhibit Designer Name Role Phone PCP Unavailable Allergies Not on File Medications End Date Status Medication Sig Dispensed Refills Start Date Active propranolol (INDERAL) 10 take 1 Tablet 1 0 MG tablet (10MG) by 3 oral route every day Active fluticasone-salmeterol inhale 1 puff 1 0 0 (ADVAIR DISKUS) 100-50 by inhalation 0 mcg/dose DISKUS route 2 times every day in the morning and evening approximately 12 hours apart Active Problems Not on file Family History Medical History Relation Name Comments Other Brother Diagnosed with asth ma Other Brother Diagnosed with HTN, Other Mother Diagnosed with CAD, CVA,lung, renal problems Relation Name Status Comments Brother Brother Mother Social History Date Tobacco Use Types Packs/Day Years Used Never Assessed Sex Assigned at Date Recorded Not on file Last Filed Vital Signs Reading Time Taken Comments Vital Sign 140/78 08/16/2012 12:25 PM CDT Blood Pressure 73 08/16/2012 12:25 PM CDT Pulse - - Temperature - - Respiratory Rate 98% 08/16/2012 12:25 PM CDT Oxygen Saturation - - Inhaled Oxygen Concentration 70.7 kg (155 lb 12.8 oz) 08/16/2012 12:25 PM CDT overweight Weight 154.9 cm (5' 1") 08/16/2012 12:25 PM CDT Height 29.44 08/16/2012 12:25 PM CDT Body Mass Index Plan of Treatment Not on file Results Not on filefrom Last 3 Months
--- OUTSIDE RECORDS SUMMARY | 2020-10-19 06:39 | XMS REPORT | Clinical Summary ---
Author Author [facility] Organization [facility] Address Unknown Phone Unavailable Care Team Providers Care Hull Outfit Supervisor Name Role Phone Shavon Begum MD Unavailable Source Comments Some departments are not documenting in the electronic medical record. If you d o not see the information that you expected, contact Release of Information in [facility] [employer] Information Management department at [phone] for further assistan ce in locating additional records.[facility] Allergies Comments Active Allergy Reactions Severity Noted Date Cefazolin 12/09/2008 Ciprofloxacin RASH Medium 07/17/2017 Medications End Date Status Medication Sig Dispensed Refills Start Date Active atenolol (TENORMIN) 25 mg Take 25 mg by 0 tablet mouth Daily. Active Problems Not on file Surgical History Surgery Date Site/Laterality Comments CHOLECYSTECTOMY Medical History Medical History Date Comments COPD (chronic obstructive pulmonary disease) (HCC) Palpitations Acid reflux Lung mass Smoking Social History Date Tobacco Use Types Packs/Day Years Used Never Assessed Sex Assigned at Date Recorded Not on file Last Filed Vital Signs Not on file Plan of Treatment Health Maintenance Due Date Last Done Comments HIV SCREENING 02/09/1983 DTAP/TDAP VACCINES (1 - 02/09/1986 Tdap) HEPATITIS C SCREENING 02/09/1986 PHYSICAL (COMPREHENSIVE) 02/09/1986 EXAM CERVICAL CANCER SCREENING 02/09/1989 BREAST CANCER SCREENING 2008 COLORECTAL CANCER 02/09/2018 SCREENING SHINGLES RECOMBINANT 02/09/2018 VACCINE (1 of 2) INFLUENZA VACCINE 11/26/2020 Results Not on filefrom Last 3 Months Advance Directives Patient Testing Manager Explanation Type Date Recorded Advance Directive/DPOA
[2020-10-19] MEDS ORDERED: AUGMENTIN 875 MG TAB (AMOXICILLIN/CLAVULANATE) PO STA (06:56)
[2020-10-19] MEDS ORDERED: predniSONE 20 MG TAB PO ONE (07:00)
[2020-10-19] MEDS ORDERED: RT-ALBUTEROL/IPRATROPIUM 3 ML (DUONEB) VIAL IH ONE (07:00)
--- NOTE | 2020-10-19 07:11 | ED Cough/URI ---
General Chief Complaint: Cough/Cold/Flu Symptoms Stated Complaint: TROUBLE BREATHING/COUGH Nursing Triage Note: PT AMBULATE TO ROOM FS05 WITH C/O COUGH X2 WEEKS THAT IS WORSE TODAY. PT REPORTS SEEING PCP AND INFORMED SHE HAS BRONCHITIS. Source: patient Exam Limitations: no limitations History of Present Illness Date Seen by Provider: Oct 19, 2020 Time Seen by Provider: 06:50 Initial Comments 50-year-old female with past medical history of COPD coming in because she is feeling more short of breath and having more of a productive cough. She was told she had a COPD exacerbation 2 weeks ago, was given steroids, and doxycycline. She finished these and it improved but never fully went away. Last night she been coughing again with more productive of a cough more consistent with her COPD exacerbation. She says she has multiple of these per year, and has been admitted to the hospital before. She did quit smoking last year. The dyspnea is intermittent, worse with exertion, and not associated with any fever, nausea, vomiting, diarrhea, weakness, numbness, body aches, or any other concerns. Of note, when the symptoms presented she originally had a negative Covid test followed by a repeat negative Covid test roughly 5 days later. Allergies and Home Medications Allergies Coded Allergies: cefazolin (Verified Allergy, Unknown, 03/20/19) Home Medications Albuterol Sulfate 2.5 Mg/3 Ml Vial.neb, 2.5 MG INH Q4H PRN for WHEEZING Prescribed by: MICHELLE CAMARENA on 11/05/19 0015 Albuterol/Ipratropium 4 Gm Aero, 1 PUFF IH QID PRN for SHORTNESS OF BREATH, (Reported) Albuterol/Ipratropium 4 Gm Aero, 2 PUFF IH QID Prescribed by: MICHELLE CAMARENA on 11/05/19 0015 Amoxicillin/Potassium Clav 1 Each Tablet, 1 EACH PO BID Prescribed by: PORTILLO CARROLL on 10/19/20 0714 Azithromycin 500 Mg Tablet, 500 MG PO DAILY Prescribed by: TOM RAMÍREZ on 02/04/20 1714 Cetirizine HCl 10 Mg Tablet, 10 MG PO DAILY, (Reported) Diclofenac Sodium 75 Mg Tablet.dr, 75 MG PO BID Prescribed by: TAMANNA BETH on 07/13/19 0851 Doxycycline Hyclate 100 Mg Tablet, 100 MG PO BID Prescribed by: RADHA COLON on 05/10/19912 Doxycycline Hyclate 100 Mg Tablet, 100 MG PO BID Prescribed by: TOM RAMÍREZ on 06/26/19238 Doxycycline Hyclate 100 Mg Tablet, 100 MG PO BID Prescribed by: JERE CHISHOLM on 08/04/192235 Doxycycline Hyclate 100 Mg Tablet, 100 MG PO BID Prescribed by: SAMIA BILLINGSLEY on 10/25/19637 Famotidine 20 Mg Tablet, 20 MG PO BID, (Reported) Fluticasone Propionate 16 Gm [place].susp, 1 SPRAY NS DAILY, (Reported) Ibuprofen 800 Mg Tablet, 800 MG PO BID PRN for PAIN-MILD, (Reported) Metoprolol Tartrate 25 Mg Tablet, 25 MG PO DAILY, (Reported) Mometasone/Formoterol 13 Gm Hfa.aer.ad, 2 PUFF IH BID, (Reported) Prednisone 20 Mg Tab, 40 MG PO DAILY Prescribed by: RADHA COLON on 05/10/19912 Prednisone 10 Mg Tab.ds.pk, 10 MG PO DAILY Take 6 tabs(60mg)daily,decrease by 1 tab(10mg)every other day. Prescribed by: TOM RAMÍREZ on 06/26/19238 Prednisone 20 Mg Tab, 40 MG PO DAILY Prescribed by: JERE CHISHOLM on 08/04/192235 Prednisone 20 Mg Tab, 60 MG PO DAILY Prescribed by: SAMIA BILLINGSLEY on 10/25/19637 Prednisone 50 Mg Tab, 50 MG PO DAILY Prescribed by: MICHELLE CAMARENA on 11/05/19 0015 Prednisone 20 Mg Tab, 40 MG PO DAILY Prescribed by: JERE CHISHOLM on 12/11/192030 Prednisone 20 Mg Tab, 20 MG PO DAILY Take 3 tabs(60mg)daily x5 days, 2 tabs(40mg)daily x5 days, 20 mg daily x 5 days, 1/2 tab(10mg)daily x6 days Prescribed by: TOM RAMÍREZ on 02/04/201713 Prednisone 20 Mg Tab, 40 MG PO DAILY Prescribed by: PORTILLO CARROLL on 10/19/20 0714 Patient Home Medication List Home Medication List Reviewed: Yes Review of Systems Review of Systems Constitutional: No fever EENTM: No blurred vision Respiratory: cough, short of breath Cardiovascular: No chest pain Gastrointestinal: No abdominal pain, No diarrhea, No nausea, No vomiting Genitourinary: No dysuria : No Musculoskeletal: No back pain Skin: No rash Psychiatric/Neurological: Denies Anxiety, Denies Depressed Hematologic/Lymphatic: No Symptoms Reported Immunological/Allergic: no symptoms reported All Other Systems Reviewed Negative Unless Noted: Yes Past Glxjnob-Uvboyt-Nvsliu Hx Patient Social History Tobacco Use?: No Smoking Status: Never a Smoker Substance use?: No Alcohol Use?: No Pt feels they are or have been: No Immunizations Up To Date Tetanus Booster (TDap): Unknown First/Initial COVID19 Vaccinat: 2020 Second COVID19 Vaccination Jaime: 2020 COVID19 Vaccine Environmental Educator: Highfive Seasonal Allergies Seasonal Allergies: No Past Medical History Surgeries: Yes Gallbladder Respiratory: Yes (uses oxygen @ 2 liters PRN and NOC, neb tx) COPD Cardiac: Yes High Cholesterol, Hypertension, Palpitations Neurological: No Sexually Transmitted Disease: No HIV/AIDS: No Genitourinary: No Gastrointestinal: Yes Gastroesophageal Reflux Musculoskeletal: Yes (SPINAL COMPRESSION) Arthritis Endocrine: No HEENT: No Cancer: No Psychosocial: No Integumentary: No Blood Disorders: No Family Medical History Patient reports no known family medical history. Physical Exam Vital Signs - First Documented 10/19/20 06:45 Temp 36.0 Pulse 105 Resp 17 B/P (MAP) 135/75 (95) O2 Delivery Room Air Capillary Refill : Less Than 3 Seconds Height: 5'1.00" Weight: 175lbs. 0oz. 79.946267xw; 34.00 BMI Method:Stated General Appearance: WD/WN, no apparent distress HEENT: PERRL/EOMI, normal ENT inspection, pharynx normal Neck: non-tender, full range of motion, supple, normal inspection Respiratory: chest non-tender, no respiratory distress, no accessory muscle use, wheezing Cardiovascular: regular rate, rhythm, no murmur Gastrointestinal: normal bowel sounds, non tender, soft; No distended, No guarding, No rebound Extremities: normal range of motion, non-tender, normal inspection, no pedal edema, no calf tenderness Neurologic/Psychiatric: no motor/sensory deficits, alert, normal mood/affect Skin: normal color, warm/dry Lymphatic: no adenopathy Progress/Results/Core Measures Suspected Sepsis SIRS Temperature: Pulse: 105 Respiratory Rate: 17 Blood Pressure 135 /75 Mean: 95 Results/Orders My Orders Orders - PORTILLO CARROLL MD Monitor-Rhythm Ecg Trace Only (10/19/20 06:56) Pulse Oximetry Order (10/19/20 06:56) Prednisone Tablet (Deltasone Tablet) (10/19/20 07:00) Albuterol/Ipra Inhalation Soln (Duoneb I (10/19/20 07:00) Amoxicillin/Clavulanate Tablet (Augmenti (10/19/20 06:56) Medications Given in ED Current Medications Medications Dose Ordered Sig/Ken Route Start Time Stop Time Status Last Admin Dose Admin Albuterol/ Ipratropium 3 ml ONCE ONCE IH 10/19/20 07:00 10/19/20 07:01 DC 10/19/20 07:05 3 ML Prednisone 60 mg ONCE ONCE PO 10/19/20 07:00 10/19/20 07:01 DC 10/19/20 07:05 60 MG Vital Signs/I&O 10/19/20 10/19/20 06:45 06:48 Temp 36.0 Pulse 105 Resp 17 B/P (MAP) 135/75 (95) O2 Delivery Room Air Room Air Capillary Refill : Less Than 3 Seconds Blood Pressure Mean: 95 Progress Note : Progress Note 48-year-old female with above history coming in due to worsening productive cough. ABCs were intact and vitals are stable on presentation. With ambulation her oxygen saturation is above 94%, and given she has COPD this is very good. She has had 2 - Covid test during this illness, and I do not believe a third would benefit her. She does have wheezing in all lung gusman, so DuoNeb was ordered. She was given steroids as well as Augmentin given this is the second exacerbation in 2 weeks that failed with doxycycline. Chest x-ray ordered to assess for any infiltrates vs less likely pneumothorax. At 0700 handed the patient off to the oncoming physician to follow up on chest xray. I suspect the patient will go home discharged on Augmentin and a short burst of prednisone. Of note, the patient says she has an allergy to Ancef, but she tolerates penicillins. She got the first dose of Augmentin in the emergency department and tolerated it well. She should have follow-up with her primary care provider within the next several days. Diagnostic Imaging Diagonstic Imaging: Xray Plain Films/CT/US/NM/MRI: chest Departure Impression Primary Impression: COPD exacerbation Disposition: 01 HOME, SELF-CARE Condition: Stable Departure-Patient Inst. Referrals: RAFI CHILDERS MD (PCP/Family) Primary Care Physician Patient Instructions: COPD Exacerbation, Adult ED Add. Discharge Instructions: You were seen in the emergency department due to worsening productive cough likely due to your COPD. We will change her antibiotic to Augmentin and send another short burst of steroids. Continue to use your inhalers at home every 4- 6 hours. If you begin feeling more short of breath, then please come back to the emergency department. All discharge instructions reviewed with patient and/or family. Voiced understanding. Scripts Prednisone (Prednisone) 20 Mg Tab 40 MG PO DAILY for 5 Days, #10 TAB 0 Refills Prov: PORTILLO CARROLL MD 10/19/20 Amoxicillin/Potassium Clav (Augmentin 875-125 Tablet) 1 Each Tablet 1 EACH PO BID for 5 Days, #10 TAB 0 Refills Prov: PORTILLO CARROLL MD 10/19/20 PORTILLO CARROLL MD Oct 19, 2020 07:11
[2020-10-19] MEDS ORDERED: AMOX-358 PO (07:14)
[2020-10-19] MEDS ORDERED: PRD20T PO (07:14)
[2020-10-19 07:27] VITALS: BP 137/77
== END 2020-10-19 07:26 | disposition home or self-care (01) ==
LOC: EDUNIT# 06:34 → ER FS 06:36
DX: J44.1 Chronic obstructive pulmonary disease with (acute) exacerbation (principal); I10 Essential (primary) hypertension; K21.9 Gastro-esophageal reflux disease without esophagitis; Z20.822 Contact with and (suspected) exposure to COVID-19; Z79.899 Other long term (current) drug therapy
CPT/HCPCS: 99283

== ENCOUNTER → 2020-12-29 | Outpatient (CLI) | payer MEDICARE ==
[~2020-12-29] MED LIST changes: +AMOX-358 PO
[2020-12-29 11:23] LABS: HEMATOCRIT 37 % (35-52); HEMOGLOBIN 12.5 g/dL (11.5-16.0); MEAN CORPUSCULAR HEMOGLOBIN 30 pg (25-34); WHITE BLOOD COUNT 7.6 10^3/uL (4.3-11.0)
[2020-12-29 11:24] LABS: BASOPHILS # (AUTO) 0.1 10^3/uL (0.0-0.1); BASOPHILS % (AUTO) 1 % (0-10); EOSINOPHILS # (AUTO) 0.4 10^3/uL (0.0-0.3); EOSINOPHILS % (AUTO) 5 % (0-10); LYMPHOCYTES # (AUTO) 2.9 X 10^3 (1.0-4.0); LYMPHOCYTES % (AUTO) 38 % (12-44); MEAN CORPUSCULAR HGB CONC 34 g/dL (32-36); MEAN CORPUSCULAR VOLUME 89 fL (80-99); MEAN PLATELET VOLUME 10.4 fL (9.0-12.2); MONOCYTES # (AUTO) 0.4 X 10^3 (0.0-1.0); MONOCYTES % (AUTO) 5 % (0-12); NEUTROPHILS # (AUTO) 3.9 X 10^3 (1.8-7.8); NEUTROPHILS % (AUTO) 51 % (42-75); PLATELET COUNT 260 10^3/uL (130-400)
[2020-12-29 11:25] LABS: ATYPICAL LYMPHOCYTES 13 %; BAND NEUTROPHILS 4 %; EOSINOPHILS % (MANUAL) 5 %; LYMPHOCYTES % (MANUAL) 19 %; MONOCYTES % (MANUAL) 5 %; NEUTROPHILS % (MANUAL) 54 %; RBC MORPH NORMAL
[2020-12-29 11:26] LABS: BILIRUBIN,TOTAL 0.2 MG/DL (0.1-1.0); CREATININE SERUM 0.84 MG/DL (0.60-1.30); POTASSIUM 3.9 MMOL/L (3.6-5.0)
[2020-12-29 11:27] LABS: ALBUMIN 4.1 GM/DL (3.2-4.5); TOTAL PROTEIN 6.9 GM/DL (6.4-8.2)
== END ==
LOC: LAB FS 08:55
PROVIDERS: ATTEND Family Medicine
DX: I10 Essential (primary) hypertension (principal); R73.9 Hyperglycemia, unspecified
CPT/HCPCS: 36415; 80053; 80061; 82607; 83036; 84443; 85007; 85027

== ENCOUNTER 2021-07-16 06:10 | Emergency (ER) | payer MEDICARE ==
[2021-07-16] MEDS ORDERED: methylPREDNISolone 80 MG/ML (DEPO MEDROL) VIAL IM STA (06:28)
--- NOTE | 2021-07-16 06:34 | ED General ---
General Chief Complaint: Head/Cervical Problems Stated Complaint: HEADACHE Nursing Triage Note: Pt complaining of a headache that started last night as well as a sore throat Source of Information: Patient History of Present Illness Date Seen by Provider: July 16, 2021 Time Seen by Provider: 06:16 Initial Comments 51-year-old female presenting with complaints of sore throat and frontal headache that started yesterday afternoon. She has had some intermittent nausea but no vomiting. She has tried Tylenol with little improvement. She states that she does not usually get headaches. She has also been doing a nasal steroid spray. She was concerned that she might have developed strep throat. She was around a family member that was a child and had been having nausea and vomiting and not feeling well on . She is getting ready to go out of town on a trip this weekend. She did not want to get to [place] and have to suffer with a throat infection or strep throat so she came to be seen this morning. She had been having so much pain and discomfort she was unable to sleep overnight. Timing/Duration: 12-24 Hours Severity: Severe Modifying Factors: worse with Movement Associated Systoms: No Chest Pain; Cough; No Diaphoresis, No Fever/Chills; Headaches (frontal), Loss of Appetite, Malaise, Nausea/Vomiting (intermittent nausea but no emesis); No Rash, No Seizure, No Shortness of Air, No Syncope, No Weakness Allergies and Home Medications Allergies Coded Allergies: cefazolin (Verified Allergy, Unknown, 03/20/19) Patient Home Medication List Home Medication List Reviewed: Yes Albuterol Sulfate (Albuterol Sulfate) 2.5 Mg/3 Ml Vial.neb, 2.5 MG INH Q4H PRN for WHEEZING Prescribed by: MICHELLE CAMARENA on 11/05/19 0015 Albuterol/Ipratropium (Combivent Respimat Inhal Nettie) 4 Gm Aero, 1 PUFF IH QID PRN for SHORTNESS OF BREATH, (Reported) Entered as Reported by: JADE VACA on 07/18/18 0914 Albuterol/Ipratropium (Combivent Respimat Inhal Nettie) 4 Gm Aero, 2 PUFF IH QID Prescribed by: MICHELLE CAMARENA on 11/05/19 001 Amoxicillin (Amoxicillin) 875 Mg Tablet, 875 MG PO BID Prescribed by: TOM RAMÍREZ on 07/16/21 0655 Amoxicillin/Potassium Clav (Augmentin 875-125 Tablet) 1 Each Tablet, 1 EACH PO BID Prescribed by: PORTILLO CARROLL on 10/19/20 0714 Azithromycin (Azithromycin) 500 Mg Tablet, 500 MG PO DAILY Prescribed by: TOM RAMÍREZ on 02/04/20 1714 Cetirizine HCl (Cetirizine HCl) 10 Mg Tablet, 10 MG PO DAILY, (Reported) Entered as Reported by: JADE VACA on 07/18/18 0914 Diclofenac Sodium (Diclofenac Sodium) 75 Mg Tablet.dr, 75 MG PO BID Prescribed by: TAMANNA BETH on 07/13/19 0851 Doxycycline Hyclate (Doxycycline Hyclate) 100 Mg Tablet, 100 MG PO BID Prescribed by: RADHA COLON on 05/10/19 0913 Doxycycline Hyclate (Doxycycline Hyclate) 100 Mg Tablet, 100 MG PO BID Prescribed by: TOM RAMÍREZ on 06/26/19 0239 Doxycycline Hyclate (Doxycycline Hyclate) 100 Mg Tablet, 100 MG PO BID Prescribed by: JERE CHISHOLM on 08/04/19 2236 Doxycycline Hyclate (Doxycycline Hyclate) 100 Mg Tablet, 100 MG PO BID Prescribed by: SAMIA BILLINGSLEY on 10/25/19 0638 Famotidine (Acid Gettering Operator (FAMOTIDINE)) 20 Mg Tablet, 20 MG PO BID, (Reported) Entered as Reported by: MALLORIE ROMERO on 03/30/19 0224 Fluticasone Propionate (Fluticasone Propionate) 16 Gm [place].susp, 1 SPRAY NS DAILY, (Reported) Entered as Reported by: JADE VACA on 07/18/18 09 Ibuprofen (Ibuprofen) 800 Mg Tablet, 800 MG PO BID PRN for PAIN-MILD, (Reported) Entered as Reported by: JADE VACA on 07/18/18913 Metoprolol Tartrate (Metoprolol Tartrate) 25 Mg Tablet, 25 MG PO DAILY, (Reported) Entered as Reported by: JADE VACA on 07/18/18913 Mometasone/Formoterol (Dulera 100 Mcg/5 Mcg Inhaler) 13 Gm Hfa.aer.ad, 2 PUFF IH BID, (Reported) Entered as Reported by: JADE VACA on 07/18/18 0914 Prednisone (Prednisone) 20 Mg Tab, 40 MG PO DAILY Prescribed by: RADHA COLON on 05/10/19 0913 Prednisone (Prednisone) 10 Mg Tab.ds.pk, 10 MG PO DAILY Prescribed by: TOM RAMÍREZ on 06/26/19 0239 Prednisone (Prednisone) 20 Mg Tab, 40 MG PO DAILY Prescribed by: JERE CHISHOLM on 08/04/19 2236 Prednisone (Prednisone) 20 Mg Tab, 60 MG PO DAILY Prescribed by: SAMIA BILLINGSLEY on 10/25/19 0638 Prednisone (Prednisone) 50 Mg Tab, 50 MG PO DAILY Prescribed by: MICHELLE CAMARENA on 11/05/19 0015 Prednisone (Prednisone) 20 Mg Tab, 40 MG PO DAILY Prescribed by: JERE CHISHOLM on 12/11/19 203 Prednisone (Prednisone) 20 Mg Tab, 20 MG PO DAILY Prescribed by: TOM RAMÍREZ on 02/04/20 1714 Prednisone (Prednisone) 20 Mg Tab, 40 MG PO DAILY Prescribed by: PORTILLO CARROLL on 10/19/20 0714 Review of Systems Review of Systems Constitutional: see HPI EENTM: see HPI Respiratory: see HPI Cardiovascular: no symptoms reported Gastrointestinal: see HPI Genitourinary: no symptoms reported Musculoskeletal: no symptoms reported Skin: No rash Psychiatric/Neurological: See HPI Past Sgteltk-Rgpwto-Touhts Hx Patient Social History Tobacco Use?: No Smoking Status: Former Smoker Use of E-Cig and/or Vaping dev: No Substance use?: No Alcohol Use?: No Pt feels they are or have been: No Immunizations Up To Date Tetanus Booster (TDap): Unknown Seasonal Allergies Seasonal Allergies: No Past Medical History Surgery/Hospitalization HX: COPD, cervical spine fusion C5-7, Cholecystectomy, Hypertension, Hypercholesterolemia, GERD Surgeries: Yes Gallbladder, Orthopedic Respiratory: Yes (uses oxygen @ 2 liters PRN and NOC, neb tx) COPD Cardiac: Yes High Cholesterol, Hypertension, Palpitations Neurological: No Sexually Transmitted Disease: No HIV/AIDS: No Genitourinary: No Gastrointestinal: Yes Gastroesophageal Reflux Musculoskeletal: Yes (SPINAL COMPRESSION) Arthritis Endocrine: No HEENT: No Cancer: No Psychosocial: No Integumentary: No Blood Disorders: No Family Medical History Patient reports no known family medical history. Physical Exam Vital Signs Vital Signs - First Documented 07/16/21 06:14 Temp 37.4 Pulse 109 Resp 18 B/P (MAP) 139/94 (109) Pulse Ox 94 O2 Delivery Room Air Capillary Refill : Less Than 3 Seconds Height, Weight, BMI Height: 5'1.00" Weight: 175lbs. 0oz. 79.094662eo; 34.00 BMI Method:Stated General Appearance: No Apparent Distress, WD/WN Eyes: Bilateral Eye PERRL, Bilateral Eye EOMI HEENT: TMs Normal, Moist Mucous Membranes, Pharyngeal Erythema; No Photophobia, No TM Abnormal (L), No TM Abnormal (R), No Tonsillar Exudate; Other (tender to palpation over frontal sinuses) Neck: Full Range of Motion, Supple, Lymphadenopathy (L), Other (tender to left submandibular area and anterior chain lymphadenopathy) Respiratory: Chest Non Tender, Lungs Clear, Normal Breath Sounds, No Accessory Muscle Use, No Respiratory Distress Cardiovascular: Normal Peripheral Pulses, Tachycardia Gastrointestinal: Normal Bowel Sounds, No Pulsatile Mass, Non Tender, Soft Rectal: Deferred Extremity: Normal Capillary Refill, Normal Inspection, No Pedal Edema Neurologic/Psychiatric: Alert, Oriented x3, religion professor II-XII Norm as Tested Skin: Normal Color, Warm/Dry Progress/Results/Core Measures Suspected Sepsis SIRS Temperature: Pulse: 109 Respiratory Rate: 18 Blood Pressure 139 /94 Mean: 109 Results/Orders Lab Results Laboratory Tests Test 07/16/21 06:36 Range/Units Group A Streptococcus Screen NEGATIVE NEGATIVE My Orders Orders - TOM RAMÍREZ MD Rapid Strep A Screen (07/16/21 06:28) Dexamethasone Injection (Decadron Inje (07/16/21 06:28) Methylprednisolone Acetate Inj (Depo-Med (07/16/21 06:28) Vital Signs/I&O 07/16/21 07/16/21 06:14 06:53 Temp 37.4 37.4 Pulse 109 109 Resp 18 18 B/P (MAP) 139/94 (109) 139/94 Pulse Ox 94 94 O2 Delivery Room Air Room Air Capillary Refill : Less Than 3 Seconds Blood Pressure Mean: 109 Progress Note #1: Progress Note Obtain rapid strep swab to check for strep. In terms of pain she states that Toradol makes her sleepy and groggy and she has to drive herself home. She has taken steroids in the past when she had COPD from smoking and tolerates those okay. We will try Decadron and Depo-Medrol to see if it might help with some of her pain as well as if she has sinus infection or congestion causing the frontal sinus pressure and pain that may help her sinuses drain. Depending on the results of her strep swab she may need antibiotics started for strep or since she is traveling to [place] and will not have access to her primary provider another option if it comes back negative would be to send a prescription with her for antibiotics and she can fill those if the culture came back positive or if she had worsening symptoms while traveling. Patient declined COVID swab stating that she has had COVID in the past and that this felt different. Progress Note #2: Progress Note Rapid strep test came back negative. Patient counseled on results. Advised to pickle water pump operator prescription for amoxicillin in case her strep culture came back positive. If she was feeling worse later today or while she is traveling since she is leaving town today she could also start the antibiotic in case there was a bacterial source for her sinus pressure and sore throat. The steroid shot should help with inflammation and swelling as well as sinus pain. Push fluids and rest. Follow-up for continued symptoms or if not improving. Departure Impression Primary Impression: Acute pharyngitis, unspecified Qualified Codes: J02.9 - Acute pharyngitis, unspecified Additional Impressions: Frontal sinus pain Frontal headache Disposition: 01 HOME, SELF-CARE Condition: Stable Departure-Patient Inst. Decision time for Depature: 06:54 Referrals: RAFI CHILDERS MD (PCP/Family) Primary Care Physician Patient Instructions: Strep Throat ED, Headache, Adult ED Add. Discharge Instructions: Stay well hydrated and drink plenty of fluids. The Rapid test for strep was negative. The culture will take 2 to 3 days to come back. You will get a call if it comes back positive. An antibiotic prescription was sent to [facility] and since you are traveling later today you could pick that up and either started today or at least have it with you to start over the weekend if your symptoms worsen or if the culture comes back positive. Continue with acetaminophen or Tylenol to help with your pain. The steroid shots from this morning should help with the sinus pressure and pain/inflammation in your throat. All discharge instructions reviewed with patient and/or family. Voiced understanding. Scripts Amoxicillin (Amoxicillin) 875 Mg Tablet 875 MG PO BID for Pharyngitis/Sinusitis for 10 Days, #20 TAB 0 Refills Prov: TOM RAMÍREZ MD 07/16/21 TOM RAMÍREZ MD July 16, 2021 06:34
[2021-07-16 06:53] VITALS: BP 139/94
[2021-07-16] MEDS ORDERED: AMOX875T2 PO (06:55)
== END 2021-07-16 06:59 | disposition home or self-care (01) ==
LOC: EDUNIT# 06:10 → ER FS 06:13
DX: J02.9 Acute pharyngitis, unspecified (principal); J44.9 Chronic obstructive pulmonary disease, unspecified; Z87.891 Personal history of nicotine dependence; Z99.81 Dependence on supplemental oxygen
CPT/HCPCS: 87430; 99284

== ENCOUNTER 2021-11-20 09:27 | Emergency (ER) | payer MEDICARE ==
[~2021-11-20] VITALS: Ht 157 cm; Wt 95.0 kg
[~2021-11-20 09:27] MED LIST changes: +AMOX875T2 PO
[2021-11-20] MEDS ORDERED: methylPREDNISolone 125 MG (Solu-MEDROL) VIAL IVP STA (09:45)
[2021-11-20] MEDS ORDERED: RT-ALBUTEROL/IPRATROPIUM 3 ML (DUONEB) VIAL INH STA (09:45)
--- NOTE | 2021-11-20 09:59 | ED General ---
General Chief Complaint: Cough/Cold/Flu Symptoms Stated Complaint: SOB Source of Information: Patient History of Present Illness Date Seen by Provider: Nov 20, 2021 Time Seen by Provider: 09:34 Initial Comments 51-year-old female presenting with complaints of continued cough and shortness of breath. She was seen Sunday in the urgent care because she has been having symptoms over this last week. They did a COVID swab which was negative. They had also done a chest x-ray and told her that it looked like there was an area on the left lung for possible pneumonia. She was started on Zithromax and Augmentin. She did not get a steroid or cough medicine from urgent care. She continues to feel short of breath, especially with exertion. She has been using her home oxygen at 2 L/min to help with her breathing. She also has been using breathing treatments at home in addition to her inhaler. Timing/Duration: 1 Week Severity: Severe Modifying Factors: worse with Movement Associated Systoms: Chest Pain (tightness in chest), Cough; No Diaphoresis, No Fever/Chills, No Headaches, No Loss of Appetite, No Malaise, No Nausea/Vomiting, No Rash, No Seizure; Shortness of Air; No Syncope, No Weakness Allergies and Home Medications Allergies Coded Allergies: cefazolin (Verified Allergy, Unknown, 03/20/19) Patient Home Medication List Home Medication List Reviewed: Yes Albuterol Sulfate (Albuterol Sulfate) 2.5 Mg/3 Ml Vial.neb, 2.5 MG INH Q4H PRN for WHEEZING Prescribed by: MICHELLE CAMARENA on 11/05/19 0015 Albuterol/Ipratropium (Combivent Respimat Inhal Downing) 4 Gm Aero, 1 PUFF IH QID PRN for SHORTNESS OF BREATH, (Reported) Entered as Reported by: JADE VACA on 07/18/18913 Cetirizine HCl (Cetirizine HCl) 10 Mg Tablet, 10 MG PO DAILY, (Reported) Entered as Reported by: JADE VACA on 07/18/18913 Famotidine (Acid Nurse Practitioner (FAMOTIDINE)) 20 Mg Tablet, 20 MG PO BID, (Reported) Entered as Reported by: MALLORIE ROMERO on 03/30/19223 Fluticasone Propionate (Fluticasone Propionate) 16 Gm Downing.susp, 1 SPRAY NS DAILY, (Reported) Entered as Reported by: JADE VACA on 07/18/18 09 Ibuprofen (Ibuprofen) 800 Mg Tablet, 800 MG PO BID PRN for PAIN-MILD, (Reported) Entered as Reported by: JADE VACA on 07/18/18913 Metoprolol Tartrate (Metoprolol Tartrate) 25 Mg Tablet, 25 MG PO DAILY, (Reported) Entered as Reported by: JADE VACA on 07/18/18913 Mometasone/Formoterol (Dulera 100 Mcg/5 Mcg Inhaler) 13 Gm Hfa.aer.ad, 2 PUFF IH BID, (Reported) Entered as Reported by: JADE VACA on 07/18/18913 Prednisone (Prednisone) 20 Mg Tab, 20 MG PO UD Prescribed by: TOM RAMÍREZ on 11/20/21 1109 Discontinued Medications Albuterol/Ipratropium (Combivent Respimat Inhal Downing) 4 Gm Aero, 2 PUFF IH QID Prescribed by: MICHELLE CAMARENA on 11/05/19 0015 Amoxicillin (Amoxicillin) 875 Mg Tablet, 875 MG PO BID Prescribed by: TOM RAMÍREZ on 07/16/21 0655 Amoxicillin/Potassium Clav (Augmentin 875-125 Tablet) 1 Each Tablet, 1 EACH PO BID Prescribed by: PORTILLO CARROLL on 10/19/20 0714 Azithromycin (Azithromycin) 500 Mg Tablet, 500 MG PO DAILY Prescribed by: TOM RAMÍREZ on 02/04/20 1714 Diclofenac Sodium (Diclofenac Sodium) 75 Mg Tablet.dr, 75 MG PO BID Prescribed by: TAMANNA BETH on 07/13/19 0851 Doxycycline Hyclate (Doxycycline Hyclate) 100 Mg Tablet, 100 MG PO BID Prescribed by: RADHA COLON on 05/10/19 0913 Doxycycline Hyclate (Doxycycline Hyclate) 100 Mg Tablet, 100 MG PO BID Prescribed by: TOM RAMÍREZ on 06/26/19 0239 Doxycycline Hyclate (Doxycycline Hyclate) 100 Mg Tablet, 100 MG PO BID Prescribed by: JERE CHISHOLM on 08/04/19 2236 Doxycycline Hyclate (Doxycycline Hyclate) 100 Mg Tablet, 100 MG PO BID Prescribed by: SAMIA BILLINGSLEY on 10/25/19 0638 Prednisone (Prednisone) 20 Mg Tab, 40 MG PO DAILY Prescribed by: RADHA COLON on 05/10/19 0913 Prednisone (Prednisone) 10 Mg Tab.ds.pk, 10 MG PO DAILY Prescribed by: TOM RAMÍREZ on 06/26/19 0239 Prednisone (Prednisone) 20 Mg Tab, 40 MG PO DAILY Prescribed by: JERE CHISHOLM on 08/04/19 2236 Prednisone (Prednisone) 20 Mg Tab, 60 MG PO DAILY Prescribed by: SAMIA BILLINGSLEY on 10/25/19 0638 Prednisone (Prednisone) 50 Mg Tab, 50 MG PO DAILY Prescribed by: MICHELLE CAMARENA on 11/05/19 0015 Prednisone (Prednisone) 20 Mg Tab, 40 MG PO DAILY Prescribed by: JERE CHISHOLM on 12/11/192030 Prednisone (Prednisone) 20 Mg Tab, 20 MG PO DAILY Prescribed by: TOM RAMÍREZ on 02/04/20 1714 Prednisone (Prednisone) 20 Mg Tab, 40 MG PO DAILY Prescribed by: PORTILLO CARROLL on 10/19/20 0714 Review of Systems Review of Systems Constitutional: No chills, No fever EENTM: nose congestion; No epistaxis Respiratory: cough, short of breath Cardiovascular: see HPI Gastrointestinal: No nausea, No vomiting Genitourinary: no symptoms reported Musculoskeletal: no symptoms reported Skin: No rash Psychiatric/Neurological: No Symptoms Reported Past Ltkzsyz-Gvlfbh-Czdwdm Hx Patient Social History Tobacco Use?: No Smoking Status: Former Smoker Use of E-Cig and/or Vaping dev: No Substance use?: No Alcohol Use?: No Immunizations Up To Date Tetanus Booster (TDap): Unknown Seasonal Allergies Seasonal Allergies: No Past Medical History Surgery/Hospitalization HX: COPD, cervical spine fusion C5-7, Cholecystectomy, Hypertension, Hypercholesterolemia, GERD Surgeries: Yes Gallbladder, Orthopedic Respiratory: Yes (uses oxygen @ 2 liters PRN and NOC, neb tx) COPD Cardiac: Yes High Cholesterol, Hypertension, Palpitations Neurological: No Sexually Transmitted Disease: No HIV/AIDS: No Genitourinary: No Gastrointestinal: Yes Gastroesophageal Reflux Musculoskeletal: Yes (SPINAL COMPRESSION) Arthritis Endocrine: No HEENT: No Cancer: No Psychosocial: No Integumentary: No Blood Disorders: No Family Medical History Patient reports no known family medical history. Physical Exam Vital Signs Vital Signs - First Documented Capillary Refill : Height, Weight, BMI Height: 5'1.00" Weight: 175lbs. 0oz. 79.344503gk; 34.00 BMI Method:Stated General Appearance: WD/WN, Mild Distress HEENT: PERRL/EOMI, Pharynx Normal Neck: Full Range of Motion, Normal Inspection, Non Tender, Supple Respiratory: Chest Non Tender, Accessory Muscle Use, Decreased Breath Sounds, Wheezing Cardiovascular: Regular Rate, Rhythm, Normal Peripheral Pulses Gastrointestinal: Normal Bowel Sounds, No Pulsatile Mass, Non Tender, Soft Rectal: Deferred Back: No CVA Tenderness Extremity: Normal Capillary Refill, Normal Inspection, No Pedal Edema Neurologic/Psychiatric: Alert, Oriented x3, No Motor/Sensory Deficits, Normal Mood/Affect, lead recreation assistant II-XII Norm as Tested Skin: Normal Color, Warm/Dry; No Rash Progress/Results/Core Measures Suspected Sepsis SIRS Temperature: Pulse: Respiratory Rate: Laboratory Tests 11/20/21 09:55: White Blood Count 5.7 Blood Pressure / Mean: Laboratory Tests 11/20/21 09:55: Creatinine 0.69, Platelet Count 196, Total Bilirubin 0.2 Results/Orders Lab Results Laboratory Tests Test 11/20/21 09:55 Range/Units White Blood Count 5.7 4.3-11.0 10^3/uL Red Blood Count 3.99 3.80-5.11 10^6/uL Hemoglobin 12.2 11.5-16.0 g/dL Hematocrit 36 35-52 % Mean Corpuscular Volume 90 80-99 fL Mean Corpuscular Hemoglobin 31 25-34 pg Mean Corpuscular Hemoglobin Concent 34 32-36 g/dL Red Cell Distribution Width 12.1 10.0-14.5 % Platelet Count 196 130-400 10^3/uL Mean Platelet Volume 10.2 9.0-12.2 fL Immature Granulocyte % (Auto) 0 % Neutrophils (%) (Auto) 65 42-75 % Lymphocytes (%) (Auto) 23 12-44 % Monocytes (%) (Auto) 6 0-12 % Eosinophils (%) (Auto) 6 0-10 % Basophils (%) (Auto) 0 0-10 % Neutrophils # (Auto) 3.7 1.8-7.8 10^3/uL Lymphocytes # (Auto) 1.3 1.0-4.0 10^3/uL Monocytes # (Auto) 0.4 0.0-1.0 10^3/uL Eosinophils # (Auto) 0.3 0.0-0.3 10^3/uL Basophils # (Auto) 0.0 0.0-0.1 10^3/uL Immature Granulocyte # (Auto) 0.0 0.0-0.1 10^3/uL Sodium Level 142 135-145 MMOL/L Potassium Level 3.4 L 3.6-5.0 MMOL/L Chloride Level 102 98-107 MMOL/L Carbon Dioxide Level 25 21-32 MMOL/L Anion Gap 15 H 5-14 MMOL/L Blood Urea Nitrogen 11 7-18 MG/DL Creatinine 0.69 0.60-1.30 MG/DL Estimat Glomerular Filtration Rate 104 BUN/Creatinine Ratio 16 Glucose Level 160 H 70-105 MG/DL Calcium Level 8.7 8.5-10.1 MG/DL Corrected Calcium 8.7 8.5-10.1 MG/DL Total Bilirubin 0.2 0.1-1.0 MG/DL Aspartate Amino Transf (AST/SGOT) 28 5-34 U/L Alanine Aminotransferase (ALT/SGPT) 32 0-55 U/L Alkaline Phosphatase 103 40-136 U/L C-Reactive Protein 4.84 H <0.50 MG/DL Total Protein 7.0 6.4-8.2 GM/DL Albumin 4.0 3.2-4.5 GM/DL My Orders Orders - TOM RAMÍREZ MD Cbc With Automated Diff (11/20/21 09:45) Comprehensive Metabolic Panel (11/20/21 09:45) Albuterol/Ipra Inhalation Soln (Duoneb I (11/20/21 09:45) Chest Pa/Lat (2 View) (11/20/21 09:45) O2 (11/20/21 09:45) Ed Iv/Invasive Line Start (11/20/21 09:45) Sputum Culture (11/20/21 09:45) Crp Fs (11/20/21 09:45) Svn Small Volume Nebulizer (11/20/21 09:45) Methylprednisolone Sod Succ (Solu-Medrol (11/20/21 09:45) Vital Signs/I&O 11/20/21 11/20/21 11/20/21 11/20/21 10:22 10:22 10:22 11:19 Temp 35.9 Pulse 82 75 Resp 20 16 B/P (MAP) 121/82 (95) 131/71 Pulse Ox 93 93 93 97 O2 Delivery Nasal Cannula Room Air Nasal Cannula Nasal Cannula O2 Flow Rate 2.00 2.00 Capillary Refill : Progress Note #1: Progress Note Check basic labs and repeat chest x-ray. Plan to give a dose of steroids in addition to a DuoNeb breathing treatment to help with the shortness of breath. Patient states that she is taking oxygen at 2 L/min at home. She request to have the oxygen put on her on while she is here. Differential diagnosis includes COPD exacerbation, upper respiratory infection with cough and congestion, pneumonia, heart failure, pleural effusion, lung mass Progress Note #2: Progress Note Labs are all stable without acute significant abnormality. The chest x-ray appears stable from prior imaging with no acute infiltrate or effusion. Patient states that she is feeling better after her treatment here in the ED. She feels like her breathing is little easier. Counseled on finishing antibiotic as well as adding a steroid for a taper. Have her take Mucinex with extra fluids to try and help loosen the congestion. Humidifier or vaporizer at the bedside to help with moisture overnight. Then have her check with her sleeve bottom feller through [facility] in [place] about whether she could have DuoNeb treatments as a option at home with her nebulizer, if they have a way to change her back from her Breo Ellipta to her previous medicine which she felt was helping more for her breathing, and if there is any adjustments to her medicines that would help with her breathing Diagnostic Imaging Diagonstic Imaging: Xray Plain Films/CT/US/NM/MRI: chest Comments [facility]. [place], [place] NAME: EMILIE GO [facility] REC#: [id number] PT STATUS: REG ER : 1970 PHYSICIAN: TOM RAMÍREZ MD ADMIT DATE: 11/20/21/ER FS Signed Date of Exam:11/20/21 CHEST PA/LAT (2 VIEW) EXAMINATION: CHEST (PA AND LATERAL) CLINICAL INDICATION: 51-year-old female, cough. COMPARISON: May 10, 2019. FINDINGS: Heart size and mediastinal contours are unchanged. There is no identified pneumothorax. There is no large pleural effusion. There are multiple calcified pulmonary nodules bilaterally which are unchanged most likely reflecting sequela of prior granulomatous disease. There is no identified focal airspace consolidation. There is cervical spine hardware noted. IMPRESSION: 1. No identified acute cardiopulmonary abnormality. Dictated by: Dictated on workstation # [id number] Dict: 11/20/21 1029 Trans: 11/20/21 1048 CV [id number] Interpreted by: ZORAN HULL MD Electronically signed by: ZORAN HULL MD 11/20/21 1048 Reviewed: Reviewed by Me Departure Impression Primary Impression: COPD with acute exacerbation Disposition: HOME, SELF-CARE Condition: Improved Departure-Patient Inst. Decision time for Depature: 11:02 Referrals: RAFI CHILDERS MD (PCP) Primary Care Physician Patient Instructions: COPD Diet, COPD Exacerbation, Adult ED Add. Discharge Instructions: Check with your sleeve bottom feller through [email or web address] [facility] in [place] about whether you could have DuoNeb treatments as a option at home with your nebulizer, if they have a way to change you back from Breo Ellipta to your previous medicine which you felt was helping more for your breathing, and if there is any adjustments to your medicines that would help with your breathing Finish the course of antibiotics to make sure any infection was completely treated. Take the steroid as a taper to help with inflammation and congestion with your breathing. Use Plain Mucinex [id number] to help with loosening congestion and cough. You do need to drink at least an 8 ounce glass of water when you take the medicine and increase your fluids throughout the day to help make this medicine work at its maximum effectiveness. Consider using a humidifier or vaporizer at the bedside when you are sleeping as this will help with your congestion and cough, and keep you from getting so drie d out. All discharge instructions reviewed with patient and/or family. Voiced understanding. Scripts Prednisone (Prednisone) 20 Mg Tab 20 MG PO UD for 14 Days, #22 TAB 0 Refills Take 3 tabs(60mg)dailyx3 days, 2 tabs(40mg)daily x 3 days, 1 tab dailyx4 days, 1/2 tab(10mg)daily x 4 days Prov: TOM RAMÍREZ MD 11/20/21 TOM RAMÍREZ MD Nov 20, 2021 09:59
[2021-11-20 10:07] LABS: BASOPHILS % (AUTO) 0 % (0-10); EOSINOPHILS # (AUTO) 0.3 10^3/uL (0.0-0.3); EOSINOPHILS % (AUTO) 6 % (0-10); HEMATOCRIT 36 % (35-52); HEMOGLOBIN 12.2 g/dL (11.5-16.0); LYMPHOCYTES # (AUTO) 1.3 10^3/uL (1.0-4.0); LYMPHOCYTES % (AUTO) 23 % (12-44); MEAN CORPUSCULAR HEMOGLOBIN 31 pg (25-34); MEAN CORPUSCULAR HGB CONC 34 g/dL (32-36); MEAN CORPUSCULAR VOLUME 90 fL (80-99); MEAN PLATELET VOLUME 10.2 fL (9.0-12.2); MONOCYTES # (AUTO) 0.4 10^3/uL (0.0-1.0); MONOCYTES % (AUTO) 6 % (0-12); NEUTROPHILS # (AUTO) 3.7 10^3/uL (1.8-7.8); NEUTROPHILS % (AUTO) 65 % (42-75); PLATELET COUNT 196 10^3/uL (130-400); WHITE BLOOD COUNT 5.7 10^3/uL (4.3-11.0)
[2021-11-20 10:23] LABS: BILIRUBIN,TOTAL 0.2 MG/DL (0.1-1.0); CALCIUM 8.7 MG/DL (8.5-10.1); CREATININE SERUM 0.69 MG/DL (0.60-1.30); POTASSIUM 3.4 MMOL/L (3.6-5.0)
--- NOTE | 2021-11-20 10:35 | Diagnostic Imaging Report ---
EXAMINATION: CHEST (PA AND LATERAL) CLINICAL INDICATION: 51-year-old female, cough. COMPARISON: May 10, 2019. FINDINGS: Heart size and mediastinal contours are unchanged. There is no identified pneumothorax. There is no large pleural effusion. There are multiple calcified pulmonary nodules bilaterally which are unchanged most likely reflecting sequela of prior granulomatous disease. There is no identified focal airspace consolidation. There is cervical spine hardware noted. IMPRESSION: 1. No identified acute cardiopulmonary abnormality. Dictated by: Dictated on workstation # [id number]
[2021-11-20] MEDS ORDERED: PRD20T PO (11:09)
[2021-11-20 11:19] VITALS: BP 131/71
== END 2021-11-20 11:19 | disposition home or self-care (01) ==
LOC: EDUNIT# 09:27 → ER FS 09:28
DX: J44.1 Chronic obstructive pulmonary disease with (acute) exacerbation (principal); Z87.891 Personal history of nicotine dependence; Z99.81 Dependence on supplemental oxygen
CPT/HCPCS: 36415; 71046; 80053; 85025; 86141; 87070; 87205; 94640

== ENCOUNTER → 2022-01-23 | Outpatient (CLI) | payer MEDICARE ==
[~2022-01-23] VITALS: Ht 154.9 cm; Wt 90.7 kg
[~2022-01-23] MED LIST changes: +ALBU6.7H13 INH; -ALBU6.7H8 INH
== END | disposition home or self-care (01) ==
LOC: PREOP 05:35
PROVIDERS: ATTEND Surgery
DX: Z01.818 Encounter for other preprocedural examination (principal)

== ENCOUNTER 2022-02-06 05:32 | Outpatient (CLI) | payer MEDICARE ==
[~2022-02-06] VITALS: Ht 154.9 cm; Wt 90.7 kg
[2022-02-08] MEDS ORDERED: GABA-490 PO (09:03)
[2022-02-08] MEDS ORDERED: TR1C15 TP (09:03)
[2022-02-08] MEDS ORDERED: VNL75T PO (09:03)
[2022-02-08] MEDS ORDERED: ESTR0.5T3 PO (09:03)
[2022-02-08] MEDS ORDERED: FLUT1AER IH (09:03)
[2022-02-08] MEDS ORDERED: MUPI15CR11 TP (09:03)
[2022-02-08] MEDS ORDERED: NICO-587 TD (09:03)
[2022-02-08] MEDS ORDERED: PROG100C11 PO (09:03)
== END 2022-02-08 09:07 | disposition home or self-care (01) ==
LOC: PREOP 05:32
PROVIDERS: ATTEND Surgery
DX: Z01.818 Encounter for other preprocedural examination (principal)

== ENCOUNTER 2022-09-08 12:12 | Observation (INO) | payer MEDICARE ==
[~2022-09-08] VITALS: Ht 154.9 cm; Wt 91.6 kg
[~2022-09-08 12:12] MED LIST changes: +ESTR0.5T3 PO; +FLUT1AER IH; +GABA-490 PO; +MOME13HF12 IH; -MOME13HF2 IH; +MUPI15CR11 TP; +NICO-587 TD; +PROG100C11 PO; +TR1C15 TP; +VNL75T PO
[2022-09-08 12:34] LABS: BASOPHILS # (AUTO) 0.1 10^3/uL (0.0-0.1); BASOPHILS % (AUTO) 1 % (0-10); EOSINOPHILS # (AUTO) 0.5 10^3/uL (0.0-0.3); EOSINOPHILS % (AUTO) 6 % (0-10); HEMATOCRIT 36 % (35-52); HEMOGLOBIN 12.1 g/dL (11.5-16.0); LYMPHOCYTES # (AUTO) 2.6 10^3/uL (1.0-4.0); LYMPHOCYTES % (AUTO) 31 % (12-44); MEAN CORPUSCULAR HEMOGLOBIN 30 pg (25-34); MEAN CORPUSCULAR HGB CONC 34 g/dL (32-36); MEAN CORPUSCULAR VOLUME 90 fL (80-99); MEAN PLATELET VOLUME 10.4 fL (9.0-12.2); MONOCYTES # (AUTO) 0.5 10^3/uL (0.0-1.0); MONOCYTES % (AUTO) 6 % (0-12); NEUTROPHILS # (AUTO) 4.7 10^3/uL (1.8-7.8); NEUTROPHILS % (AUTO) 56 % (42-75); PLATELET COUNT 233 10^3/uL (130-400); WHITE BLOOD COUNT 8.5 10^3/uL (4.3-11.0)
[2022-09-08] MEDS ORDERED: ASPIRIN 81 MG CHEW (CHILDREN'S ASA) PO ONE (12:45)
[2022-09-08] MEDS ORDERED: NITROGLYCERIN 0.4 MG SL TABS BTL 25'S SL PRN ×2 (12:45→22:00)
[2022-09-08 12:46] LABS: INR 0.9 (0.8-1.4); PROTHROMBIN TIME PATIENT 12.8 SEC (12.2-14.7)
[2022-09-08 12:51] LABS: ALANINE AMINOTRANSFERASE 27 U/L (0-55); ALBUMIN 4.2 GM/DL (3.2-4.5); ALKALINE PHOSPHATASE 71 U/L (40-136); BILIRUBIN,TOTAL < 0.2 MG/DL (0.1-1.0); BUN/CREATININE RATIO 20; CALCIUM 9.2 MG/DL (8.5-10.1); CARBON DIOXIDE 25 MMOL/L (21-32); CHLORIDE 104 MMOL/L (98-107); CREATININE SERUM 0.86 MG/DL (0.60-1.30); GFR ESTIMATED 80; GLUCOSE 136 MG/DL (70-105); MAGNESIUM 2.1 MG/DL (1.6-2.4); POTASSIUM 4.2 MMOL/L (3.6-5.0); SODIUM 141 MMOL/L (135-145)
--- NOTE | 2022-09-08 13:03 | Diagnostic Imaging Report ---
EXAMINATION: Chest 1 view HISTORY: Chest pain COMPARISON: 02/04/2020 FINDINGS: Heart size and pulmonary vasculature are normal. The lungs are clear without consolidation, pleural effusion, or pneumothorax. The osseous structures are intact. Stable scattered likely calcified granulomas within the lungs. IMPRESSION: 1. No acute radiographic abnormality in the chest. Dictated by: Dictated on workstation # [id number]
[2022-09-08] MEDS ORDERED: meTOprolol 5 MG/5 ML (LOPRESSOR) VIAL IV ONE (13:45)
--- NOTE | 2022-09-08 14:08 | ED Chest Pain ---
General Chief Complaint: Chest Pain Stated Complaint: CHEST PAIN Nursing Triage Note: PT AMBULATE TO ROOM FS06 WITHOUT DIFFICULTY WITH C/O CHEST PAIN X2 MONTHS. PT REPORTS BEINS SEEN BY PCP TWICE TODAY AND TOLD TO COME TO ED. PT REPORTS STARTING NEW HYPERTENSION MEDS TODAY. Source: patient Exam Limitations: no limitations History of Present Illness Date Seen by Provider: Sep 08, 2022 Time Seen by Provider: 12:19 Initial Comments This 52-year-old woman presents to the emergency room by private vehicle with complaints of left-sided chest pressure and pain and tingling radiating down into the left arm. Chest pain has been intermittent for 1 to 2 months and started about 0800 today. Patient is presently under outpatient work-up for cardiac evaluation. She was scheduled for echocardiogram and Holter monitor today. She started blood pressure medication today including Toprol-XL 25 mg and hydrochlorothiazide. She denies any chest pain at this time but still has the discomfort and numbness radiating down her left arm. She additionally has headache. Blood pressure at Dr. Childers's office this morning was reportedly 188/102 and 148/?. She was referred to the emergency room. Dr. Childers is her primary care provider and Dr. Sousa is her silver recovery operator. Allergies and Home Medications Allergies Coded Allergies: cefazolin (Verified Allergy, Unknown, 03/20/19) Patient Home Medication List Home Medication List Reviewed: Yes Albuterol Sulfate (Albuterol Sulfate) 2.5 Mg/3 Ml Vial.neb, 2.5 MG INH Q4H PRN for WHEEZING Prescribed by: MICHELLE CAMARENA on 11/05/19 0015 Cetirizine HCl (Cetirizine HCl) 10 Mg Tablet, 10 MG PO DAILY, (Reported) Entered as Reported by: JADE VACA on 07/18/18 09 Estradiol (Estrace Tablet) 0.5 Mg Tablet, 0.5 MG PO DAILY, (Reported) Entered as Reported by: CURTIS CASH on 02/08/22 0903 Fluticasone Propionate (Fluticasone Propionate) 16 Gm [place].susp, 1 SPRAY NS DAILY, (Reported) Entered as Reported by: JADE VACA on 07/18/18 0914 Fluticasone/Vilanterol (Breo Ellipta 100-25 Mcg INH) 100 Mcg-25 Mcg/Dose Blst.w.dev, 1 EACH IH DAILY, (Reported) Entered as Reported by: CURTIS CASH on 02/08/22902 Gabapentin (Gabapentin) 400 Mg Capsule, 300 MG PO BID, (Reported) Entered as Reported by: CURTIS CASH on 02/08/22902 Ibuprofen (Ibuprofen) 800 Mg Tablet, 800 MG PO BID PRN for PAIN-MILD, (Reported) Entered as Reported by: JADE VACA on 07/18/18913 Metoprolol Tartrate (Metoprolol Tartrate) 25 Mg Tablet, 25 MG PO DAILY, (Reported) Entered as Reported by: JADE VACA on 07/18/18913 Mupirocin Calcium (Mupirocin) 2 % Cream..g., 15 GM TP TID, (Reported) Entered as Reported by: CURTIS CASH on 02/08/22902 Nicotine (Nicotine Patch) 14 Mg/24 Hour Patch.td24, 14 MG TD DAILY, (Reported) Entered as Reported by: CURTIS CASH on 02/08/22902 Progesterone,Micronized (Progesterone) 100 Mg Capsule, 100 MG PO DAILY, (Reported) Entered as Reported by: CURTIS CASH on 02/08/22902 Triamcinolone Acet (Triamcinolone Acetonide 0.1% Cream) 0.1 % Cr, 15 GM TP BID, (Reported) Entered as Reported by: CURTIS CASH on 02/08/22902 Venlafaxine HCl (Venlafaxine HCl) 75 Mg Tab, 75 MG PO BID, (Reported) Entered as Reported by: CURTIS CASH on 02/08/22902 Review of Systems Review of Systems Constitutional: no symptoms reported EENTM: No Symptoms Reported Respiratory: No Symptoms Reported Cardiovascular: See HPI Gastrointestinal: No Symptoms Reported Genitourinary: No Symptoms Reported Musculoskeletal: no symptoms reported Skin: no symptoms reported Psychiatric/Neurological: No Symptoms Reported Endocrine: No Symptoms Reported Hematologic/Lymphatic: No Symptoms Reported Past Yxfplzh-Hpjuoj-Uiyfme Hx Patient Social History Tobacco Use?: No Smoking Status: Former Smoker (Quit 2019) Smokeless Tobacco Frequency: Never a User Use of E-Cig and/or Vaping dev: No Use of E-Cig and/or Vaping Lucas: Never a User Substance use?: No Alcohol Use?: No Pt feels they are or have been: No Immunizations Up To Date Tetanus Booster (TDap): Unknown First/Initial COVID19 Vaccinat: 2020 Second COVID19 Vaccination Jaime: 2020 Third COVID19 Vaccination Date: 2020 Seasonal Allergies Seasonal Allergies: No Past Medical History Surgery/Hospitalization HX: COPD, cervical spine fusion C5-7, Cholecystectomy, Hypertension, Hypercholesterolemia, GERD Surgeries: Yes Gallbladder, Orthopedic Respiratory: Yes (uses oxygen @ 2 liters PRN and NOC, neb tx) COPD Cardiac: Yes High Cholesterol, Hypertension, Palpitations Neurological: No Sexually Transmitted Disease: No HIV/AIDS: No Genitourinary: No Gastrointestinal: Yes Gastroesophageal Reflux Musculoskeletal: Yes (SPINAL COMPRESSION) Arthritis Endocrine: No HEENT: No Cancer: No Psychosocial: No Integumentary: No Blood Disorders: No Family Medical History Patient reports no known family medical history. Physical Exam Vital Signs Vital Signs - First Documented 09/08/22 12:14 Temp 36.5 Pulse 70 Resp 17 B/P (MAP) 171/88 (115) Pulse Ox 97 O2 Delivery Room Air Capillary Refill : Less Than 3 Seconds Height, Weight, BMI Height: 5'1.00" Weight: 175lbs. 0oz. 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 Norm as Tested Skin: Normal Color, Warm/Dry Progress/Results/Core Measures Results/Orders Lab Results Laboratory Tests Test 09/08/22 12:29 09/08/22 14:20 Range/Units White Blood Count 8.5 4.3-11.0 10^3/uL Red Blood Count 4.02 3.80-5.11 10^6/uL Hemoglobin 12.1 11.5-16.0 g/dL Hematocrit 36 35-52 % Mean Corpuscular Volume 90 80-99 fL Mean Corpuscular Hemoglobin 30 25-34 pg Mean Corpuscular Hemoglobin Concent 34 32-36 g/dL Red Cell Distribution Width 11.6 10.0-14.5 % Platelet Count 233 130-400 10^3/uL Mean Platelet Volume 10.4 9.0-12.2 fL Immature Granulocyte % (Auto) 0 % Neutrophils (%) (Auto) 56 42-75 % Lymphocytes (%) (Auto) 31 12-44 % Monocytes (%) (Auto) 6 0-12 % Eosinophils (%) (Auto) 6 0-10 % Basophils (%) (Auto) 1 0-10 % Neutrophils # (Auto) 4.7 1.8-7.8 10^3/uL Lymphocytes # (Auto) 2.6 1.0-4.0 10^3/uL Monocytes # (Auto) 0.5 0.0-1.0 10^3/uL Eosinophils # (Auto) 0.5 H 0.0-0.3 10^3/uL Basophils # (Auto) 0.1 0.0-0.1 10^3/uL Immature Granulocyte # (Auto) 0.0 0.0-0.1 10^3/uL Prothrombin Time 12.8 12.2-14.7 SEC INR Comment 0.9 0.8-1.4 Activated Partial Thromboplast Time 29 24-35 SEC Sodium Level 141 135-145 MMOL/L Potassium Level 4.2 3.6-5.0 MMOL/L Chloride Level 104 98-107 MMOL/L Carbon Dioxide Level 25 21-32 MMOL/L Anion Gap 12 5-14 MMOL/L Blood Urea Nitrogen 17 7-18 MG/DL Creatinine 0.86 0.60-1.30 MG/DL Estimat Glomerular Filtration Rate 80 BUN/Creatinine Ratio 20 Glucose Level 136 H 70-105 MG/DL Calcium Level 9.2 8.5-10.1 MG/DL Corrected Calcium 9.0 8.5-10.1 MG/DL Magnesium Level 2.1 1.6-2.4 MG/DL Total Bilirubin < 0.2 0.1-1.0 MG/DL Aspartate Amino Transf (AST/SGOT) 24 5-34 U/L Alanine Aminotransferase (ALT/SGPT) 27 0-55 U/L Alkaline Phosphatase 71 40-136 U/L Myoglobin 86.9 H <58.0 NG/ML Troponin I < 0.30 < 0.30 <0.30 NG/ML Total Protein 7.0 6.4-8.2 GM/DL Albumin 4.2 3.2-4.5 GM/DL My Orders Orders - DENISE MOON MD Cbc With Automated Diff (09/08/22 12:19) Magnesium (09/08/22 12:19) Chest 1 View Ap/Pa Only (09/08/22 12:19) Ekg Tracing (09/08/22 12:19) Comprehensive Metabolic Panel (09/08/22 12:19) Myoglobin Serum (09/08/22 12:19) Protime With Inr (09/08/22 12:19) Partial Thromboplastin Time (09/08/22 12:19) O2 (09/08/22 12:19) Monitor-Rhythm Ecg Trace Only (09/08/22 12:19) Lipid Panel (09/09/22 06:00) Ed Iv/Invasive Line Start (09/08/22 12:19) Troponin I Fs (09/08/22 12:19) Nitroglycerin 0.4 Mg Btl 25's (Nitrostat (09/08/22 12:45) Aspirin Chewable Tablet (Baby Aspirin Ch (09/08/22 12:45) Metoprolol Tartrate Injection (Lopressor (09/08/22 13:45) Troponin I Villalba (09/08/22 14:30) Ct Head/Cervical Spine Wo (09/08/22 15:26) Amlodipine Tablet (Norvasc Tablet) (09/08/22 16:45) Ed Admission (Communication) (09/08/22 17:34) Medications Given in ED Current Medications Medications Dose Ordered Sig/Ken Route Start Time Stop Time Status Last Admin Dose Admin Amlodipine Besylate 5 mg ONCE ONCE PO 09/08/22 16:45 09/08/22 16:46 DC 09/08/22 16:47 5 MG Metoprolol Tartrate 2.5 mg ONCE ONCE IV 09/08/22 13:45 09/08/22 13:46 DC 09/08/22 13:58 2.5 MG Vital Signs/I&O 09/08/22 09/08/22 09/08/22 12:14 12:14 20:27 Temp 36.5 Pulse 70 82 Resp 17 18 B/P (MAP) 171/88 (115) 147/65 Pulse Ox 97 97 O2 Delivery Room Air Room Air Room Air Blood Pressure Mean: 115 Progress Progress Note #1: Time: 14:04 Progress Note Nursing report regarding chest pain and the nature of chief complaint was received at 1219. Chest pain order set was placed at that time accordingly. Presented to patient's room for interview and examination at 1223. Chest pain work-up was pursued and EKG was reviewed at 1225. By my interpretation EKG was unremarkable and demonstrated no ischemic changes or arrhythmia. Chest x-ray was viewed by me. Calcifications consistent with granulomas were appreciated. No infiltrates or consolidations were appreciated. Radiologist report was reviewed and seem to concur with this interpretation. Labs were obtained, reviewed, and interpreted in their entirety by me. Labs were grossly unremarka ble including CBC, CMP, troponin, and magnesium. Myoglobin was slightly elevated. Patient was treated with aspirin and nitroglycerin. She did note a reduction in her left arm discomfort and headache with nitroglycerin treatment. She had improvement in her hypertension but this was rebounding on my reevaluation. Patient is accustomed to taking hydrochlorothiazide and Toprol XL 25 mg. She did take her medications this morning. To further treat her hypertension, Lopressor 2.5 mg was administered by IV route. We will monitor her response. Repeat 2-hour troponin has been ordered and will be drawn at 1430. Progress Note #2: Progress Note Repeat troponin was negative. Patient reported having a few twinges of chest pain during her ER stay. Blood pressure did improve with a dose of nitroglycerin and Lopressor 2.5 mg IV. However, impact was minimal and blood pressure did rebound. I discussed the situation with Dr. Benavidez, patient's primary silver recovery operator. After conferring together, CT of the head was obtained to evaluate this headache in context of hypertension. C-spine was also included as patient had paresthesia of the left arm. CT of the head and cervical spine was viewed by me. There were no acute abnormalities or pathologies to correlate with her symptoms appreciated on my interpretation. Specifically there were no intracranial hemorrhages or masses. There was no major pathology obviously visible in the cervical spine. Radiologist report was also reviewed and indicated no acute pathologies or pathologies requiring immediate intervention. See report below. Ultimately, Dr. Benavidez recommended admission. Dr. Ingram is the silver recovery operator on-call for inpatient cardiology. I discussed the case with him, and he recommended treating with amlodipine 5 mg orally at this time. This dose was administered. Patient was agreeable to admission. We discussed CODE Pau RICK, and she elects to remain full code. She was agreeable to admission. Case was discussed with hospitalist Dr. Hampton who excepted admission. There was notable improvement in blood pressure by the time patient was transferred for admission. Initial ECG Impression Date: Sep 08, 2022 Initial ECG Impression Time: 12:25 Initial ECG Rate: 69 Initial ECG Rhythm: Normal Sinus Initial ECG Intervals: Normal Initial ECG Impression: Normal Comment Normal sinus rhythm with no ST elevation or depression. No abnormal intervals or axis deviation. Diagnostic Imaging Diagonstic Imaging: Xray Plain Films/CT/US/NM/MRI: chest Comments Chest x-ray was viewed by me and report reviewed. See report below: NAME: EMILIE GO [facility] REC#: [id number] PT STATUS: REG ER : 1970 PHYSICIAN: DENISE MOON MD ADMIT DATE: 09/08/22/ER FS Signed Date of Exam:09/08/22 CHEST 1 VIEW AP/PA ONLY EXAMINATION: Chest 1 view HISTORY: Chest pain COMPARISON: 02/04/2020 FINDINGS: Heart size and pulmonary vasculature are normal. The lungs are clear without consolidation, pleural effusion, or pneumothorax. The osseous structures are intact. Stable scattered likely calcified granulomas within the lungs. IMPRESSION: 1. No acute radiographic abnormality in the chest. Dictated by: Dictated on workstation # [id number] Dict: 09/08/22 1258 Trans: 09/08/22 1305 [id number] Interpreted by: JERE OSBORN DO Electronically signed by: JERE OSBORN DO 09/08/22 1305 Diagonstic Imaging: CT Plain Films/CT/US/NM/MRI: c-spine, head Comments NAME: EMILIE GO [facility] REC#: [id number] PT STATUS: REG ER : 1970 PHYSICIAN: DENISE MOON MD ADMIT DATE: 09/08/22/ER FS Draft Date of Exam:09/08/22 CT HEAD/CERVICAL SPINE WO EXAMINATION: CT head and CT cervical spine without contrast. TECHNIQUE: Multiple contiguous axial images were obtained through the brain and cervical spine without the use of intravenous contrast. Sagittal and coronal reformations through the cervical spine were then performed. All CT scans use one or more of the following dose optimizing techniques: automated exposure control, MA and/or KvP adjustment based on patient size and exam type or iterative reconstruction. HISTORY: Headache, Left arm paresthesia COMPARISON: 04/18/2019 FINDINGS: HEAD: The ventricles and sulci are normal. No abnormal attenuation of brain parenchyma is present. Stable chronic lacunar infarct or perivascular space within the left basal ganglia. No acute intracranial hemorrhage or abnormal extra-axial fluid collections are present. Calcification of the intracranial ICAs. No hyperdense vessel. The calvarium is intact. The mastoid air cells are clear. The visualized paranasal sinuses are clear. The orbits are normal. C-SPINE: Surgical changes from C5 through C7 spinal fusion. There is straightening of the normal cervical lordosis. Vertebral body heights are maintained. No acute fracture, dislocation, or destructive osseous process. Multilevel facet hypertrophy without perched facets. There is multilevel cervical spondylosis. The paraspinous soft tissues are normal. The visualized thyroid gland is normal. The visualized lung apices are normal. IMPRESSION: 1. No acute intracranial abnormality. 2. Degenerative changes of the cervical spine without acute osseous abnormality. Dictated on workstation # [id number] Dict: 09/08/22 1551 Trans: 09/08/22 1557 [facility] [id number] Interpreted by: JERE OSBORN DO Departure Communication (Admissions) Time/Spoke to Admitting Phy: 16:40 Dr. Hampton Time/Spoke to Consulting Phy: 16:30 Dr. Ingram Impression Primary Impression: Chest pain Qualified Codes: R07.9 - Chest pain, unspecified Additional Impressions: Hypertension Qualified Codes: I10 - Essential (primary) hypertension Paresthesia of left arm Acute headache Qualified Codes: R51.9 - Headache, unspecified Disposition: 30 STILL A PATIENT Condition: Stable Admissions Decision to Admit Reason: Admit from ER (General) Decision to Admit/Date: Sep 08, 2022 Time/Decision to Admit Time: 16:30 Transfer Transfer Time: 20:41 Departure-Patient Inst. Referrals: RAFI CHILDERS MD (PCP) Primary Care Physician Copy Copies To 1: RAFI CHILDERS MD Copies To 2: TIFFANIE BENAVIDEZ MD FACP [facility] DENISE MOON MD Sep 08, 2022 14:08
--- NOTE | 2022-09-08 15:57 | Diagnostic Imaging Report ---
EXAMINATION: CT head and CT cervical spine without contrast. TECHNIQUE: Multiple contiguous axial images were obtained through the brain and cervical spine without the use of intravenous contrast. Sagittal and coronal reformations through the cervical spine were then performed. All CT scans use one or more of the following dose optimizing techniques: automated exposure control, MA and/or KvP adjustment based on patient size and exam type or iterative reconstruction. HISTORY: Headache, Left arm paresthesia COMPARISON: 04/18/2019 FINDINGS: HEAD: The ventricles and sulci are normal. No abnormal attenuation of brain parenchyma is present. Stable chronic lacunar infarct or perivascular space within the left basal ganglia. No acute intracranial hemorrhage or abnormal extra-axial fluid collections are present. Calcification of the intracranial ICAs. No hyperdense vessel. The calvarium is intact. The mastoid air cells are clear. The visualized paranasal sinuses are clear. The orbits are normal. C-SPINE: Surgical changes from C5 through C7 spinal fusion. There is straightening of the normal cervical lordosis. Vertebral body heights are maintained. No acute fracture, dislocation, or destructive osseous process. Multilevel facet hypertrophy without perched facets. There is multilevel cervical spondylosis. The paraspinous soft tissues are normal. The visualized thyroid gland is normal. The visualized lung apices are normal. IMPRESSION: 1. No acute intracranial abnormality. 2. Degenerative changes of the cervical spine without acute osseous abnormality. Dictated by: Dictated on workstation # [id number]
[2022-09-08] MEDS ORDERED: amLODIPine 5 MG (NORVASC) TAB PO ONE (16:45)
[2022-09-08] MEDS ORDERED: ACETAMINOPHEN 500 MG TAB (TYLENOL) PO PRN (22:00)
[2022-09-08] MEDS ORDERED: PATIENT MAY USE OWN MEDS, ALL PO SCH (22:00)
[2022-09-08] MEDS ORDERED: ONDANSETRON 4 MG/2 ML (SDV) Z0FRAN IVP PRN (22:00)
[2022-09-08] MEDS ORDERED: ANTACID SUSP 30 ML UDC (MYLANTA) PO PRN (22:00)
[2022-09-08] MEDS ORDERED: hydrOXYzine (VISTARIL/ATARAX) 25 MG capsule/tablet PO PRN (22:00)
[2022-09-08] MEDS ORDERED: MELATONIN 3 MG TABLET PO PRN (22:00)
[2022-09-08] MEDS ORDERED: BENZONATATE 100 MG (TESSALON) CAPSULE PO PRN (22:00)
[2022-09-08] MEDS ORDERED: morphine INJ 4 MG/ML 1 ML (VIAL/SYRINGE) IV PRN (22:00)
[2022-09-08] MEDS ORDERED: GABAPENTIN 300 MG (NEURONTIN) CAP PO SCH (22:30)
[2022-09-08] MEDS ORDERED: IBUPROFEN 800 MG (MOTRIN) TAB PO ONE (22:56)
[2022-09-09 04:00] VITALS: BP 115/65
[2022-09-09 08:00] VITALS: BP 135/72
[2022-09-09 08:00] LABS: TRIGLYCERIDES 185 MG/DL (<150); VLDL CHOLESTEROL 37 MG/DL (5-40)
[2022-09-09 08:05] LABS: CHOLESTEROL 205 MG/DL (< 200)
[2022-09-09 08:06] LABS: HDL CHOLESTEROL 44 MG/DL (40-60)
[2022-09-09] MEDS ORDERED: IBUP-1780 PO (09:01)
[2022-09-09] MEDS ORDERED: GABAPENTIN 300 MG (NEURONTIN) CAP PO NR (10:00)
--- NOTE | 2022-09-09 10:36 | History & Physical-Hospitalist ---
History of Present Illness HPI/Chief Complaint Patient is a 52-year-old female with a past medical history of hypertension and neuropathy COPD who presented to the emergency department due to elevated blood pressure and chest pain. She reports she has had intermittent chest pain for the past 2 months and has been seeing Dr. Sousa for this and getting work-up. She reports she has a phobia with healthcare though and so has admittedly not followed through with some of his test. She saw Dr. Barrera on the of this month and metoprolol was added to her blood pressure regimen which she started yesterday. She then started to feel poorly and noticed some left arm heaviness and tingling along with nausea and clamminess with some mild chest pain. She went to Dr. Barrera's office and they noticed that her blood pressure was very high with systolics in the 180s. Given her symptoms Dr. Barrera referred her to the emergency department for further work-up. In the emergency department her troponin was negative but given her ongoing history decision was made to admit for observation and further current cardiac work-up is indicated. This morning she reports no further chest pain nausea but still has mild tingling in her left arm. She does have a history of neuropathy though and chronically takes gabapentin for this. Source: patient Date Seen 09/09/22 Time Seen by a Provider: 09:30 Attending Physician Charisma Barrera MD PCP Admitting Physician: Bernarda Hampton MD Attending Physician: Bernarda Hampton MD Referring Physician Date of Admission Sep 08, 2022 at 21:25 Home Medications & Allergies Home Medications Reviewed patient Home Medication Reconciliation performed by pharmacy medication reconciliations porcelain technician and/or nursing. Patients Allergies have been reviewed. Allergies Allergies Coded Allergies cefazolin (Verified Allergy, Unknown, 03/20/19) Past Toftrdz-Yzvgjt-Nzbjtv Hx Patient Social History Tobacco Use?: Yes Tobacco type used: Cigarettes Smoking Status: Former Smoker Smokeless Tobacco Frequency: Never a User Use of E-Cig and/or Vaping dev: No E-Cig or Vaping type used: Nicotine Use of E-Cig and/or Vaping Lucas: Never a User Substance use?: Yes Alcohol Use?: No Pt feels they are or have been: No Immunizations Up To Date Date of Influenza Vaccine: Nov 26, 2018 First/Initial COVID19 Vaccinat: 2020 Second COVID19 Vaccination Jaime: 2020 Date of Pneumonia Vaccine: Nov 26, 2017 Seasonal Allergies Seasonal Allergies: No Current Status Advance Directives: No Communicates: Verbally Primary Language: Niuean Preferred Spoken Language: Niuean Is interpretation needed?: No Sensory deficits: Vision impairment Implanted or Applied Medical D: None Past Medical History Surgeries: Gallbladder, Orthopedic COPD High Cholesterol, Hypertension, Palpitations Sexually Transmitted Disease: No HIV/AIDS: No Gastroesophageal Reflux Arthritis Blood Disorders: No Family Medical History Reviewed Nursing Family Hx Patient reports no known family medical history. Review of Systems Constitutional: see HPI Physical Exam Physical Exam Vital Signs Vital Signs - First Documented 09/08/22 12:14 Temp 36.5 Pulse 70 Resp 17 B/P (MAP) 171/88 (115) Pulse Ox 97 O2 Delivery Room Air Capillary Refill : Less Than 3 Seconds Height, Weight, BMI Height: 5'1.00" Weight: 175lbs. 0oz. 79.475575bu; 38.17 BMI Method:Stated General Appearance: No Apparent Distress, WD/WN, Obese Respiratory: Lungs Clear, No Respiratory Distress Cardiovascular: Regular Rate, Rhythm, No Murmur Gastrointestinal: Normal Bowel Sounds, Non Tender, Soft Extremity: No Calf Tenderness, No Pedal Edema Neurologic/Psychiatric: Alert, Oriented x3, Normal Mood/Affect, Sensory Deficit (chronic neuropathy- states at baseline) Results Results/Procedures Labs Laboratory Tests 09/08/22 12:29 Patient resulted labs reviewed. Imaging: Reviewed Imaging Report Imaging [facility] [place], [place] NAME: [facility] REC#: [id number] PT STATUS: REG ER : 1970 PHYSICIAN: DENISE MOON MD ADMIT DATE: 09/08/22/ER FS Signed Date of Exam:09/08/22 CHEST 1 VIEW AP/PA ONLY EXAMINATION: Chest 1 view HISTORY: Chest pain COMPARISON: 02/04/2020 FINDINGS: Heart size and pulmonary vasculature are normal. The lungs are clear without consolidation, pleural effusion, or pneumothorax. The osseous structures are intact. Stable scattered likely calcified granulomas within the lungs. IMPRESSION: 1. No acute radiographic abnormality in the chest. Dictated by: Dictated on workstation # [id number] Dict: 09/08/22 1258 Trans: 09/08/22 1307 [id number] Interpreted by: JERE OSBORN DO Electronically signed by: JERE OSBORN DO 09/08/22 1300 [facility], [place] NAME: [facility] REC#: [id number] PT STATUS: REG ER : 1970 PHYSICIAN: DENISE MOON MD ADMIT DATE: 09/08/22/ER FS Signed Date of Exam:09/08/22 CT HEAD/CERVICAL SPINE WO EXAMINATION: CT head and CT cervical spine without contrast. TECHNIQUE: Multiple contiguous axial images were obtained through the brain and cervical spine without the use of intravenous contrast. Sagittal and coronal reformations through the cervical spine were then performed. All CT scans use one or more of the following dose optimizing techniques: automated exposure control, MA and/or KvP adjustment based on patient size and exam type or iterative reconstruction. HISTORY: Headache, Left arm paresthesia COMPARISON: 04/18/2019 FINDINGS: HEAD: The ventricles and sulci are normal. No abnormal attenuation of brain parenchyma is present. Stable chronic lacunar infarct or perivascular space within the left basal ganglia. No acute intracranial hemorrhage or abnormal extra-axial fluid collections are present. Calcification of the intracranial ICAs. No hyperdense vessel. The calvarium is intact. The mastoid air cells are clear. The visualized paranasal sinuses are clear. The orbits are normal. C-SPINE: Surgical changes from C5 through C7 spinal fusion. There is straightening of the normal cervical lordosis. Vertebral body heights are maintained. No acute fracture, dislocation, or destructive osseous process. Multilevel facet hypertrophy without perched facets. There is multilevel cervical spondylosis. The paraspinous soft tissues are normal. The visualized thyroid gland is normal. The visualized lung apices are normal. IMPRESSION: 1. No acute intracranial abnormality. 2. Degenerative changes of the cervical spine without acute osseous abnormality. Dictated by: Dictated on workstation # [id number] Dict: 09/08/22 1551 Trans: 09/08/22 164 CV [id number] Interpreted by: JERE OSBORN DO Electronically signed by: JERE OSBORN DO 09/08/22 1645 Assessment/Plan Admission Diagnosis Chest pain Admission Status: Observation Assessment and Plan chest pain HTN HLD left arm parathesia- nearly resolved Cardiology consulted, appreciate recs Trop negative x3 Monitor on telemetry FLP with elevated cholesterol Continue home metoprolol CT head negative for acute findings COPD Continue home inhalers Neuropathy Continue Gabapentin Diagnosis/Problems Diagnosis/Problems (1) Chest pain Status: Acute Qualifiers: Chest pain type: unspecified Qualified Codes: R07.9 - Chest pain, unspecified (2) Paresthesia of left arm Status: Acute (3) Hypertension Status: Acute Qualifiers: Hypertension type: unspecified Qualified Codes: I10 - Essential (primary) hypertension Clinical Quality Measures AMI/AHF: ASA po Prior to arrival: BERNARDA Hernández MD Sep 09, 2022 10:36
[2022-09-09 12:00] VITALS: BP 140/81
[2022-09-09] MEDS ORDERED: amLODIPine 5 MG (NORVASC) TAB PO NR (13:00)
--- NOTE | 2022-09-09 14:07 | Consultation-Cardiology ---
HPI-Cardiology Cardiology Consultation: Date of Consultation 09/09/22 Date of Admission Attending Physician Charisma Barrera MD Admitting Physician Admitting Physician: Charo Hampton MD Attending Physician: Charo Hampton MD Consulting Physician Georgiana CAGE MD HPI: Time Seen by a Provider: 12:30 Chief Complaint: Chest discomfort This is a 52-year-old lady who follows with Dr. Sousa as an outpatient. She presents with significantly elevated blood pressure and chest discomfort. She also complained of occasional headache. CT head was negative for any intracranial hemorrhage. Amlodipine 5 mg help with blood pressure. She is admitted for chest pain rule out protocol. Review of Systems-Cardiology Review of Systems Constitutional: no symptoms reported Eyes: no symptoms reported Ears/Nose/Throat: no symptoms reported Respiratory: no symptoms reported Cardiovascular: chest pain Gastrointestinal: no symptoms reported Genitourinary: no symptoms reported Musculoskeletal: no symptoms reported Skin: no symptoms reported Psychiatric/Neurological: headache Hematologic: no symptoms reported NQD-Lstowh-Usshhj Hx Patient Social History Smoking Status: Former Smoker 2nd Hand Smoke Exposure: No Alcohol Use?: No Pt feels they are or have been: No Tobacco type used: Cigarettes Immunizations Up To Date Tetanus Booster (TDap): Unknown Date of Pneumonia Vaccine: Nov 26, 2017 Date of Influenza Vaccine: Nov 26, 2018 Past Medical History PMH As described under Assessment. Family Medical History Family History: Patient reports no known family medical history. Allergies and Home Medications Allergies Coded Allergies: cefazolin (Verified Allergy, Unknown, 03/20/19) Patient Home Medication List Home Medication List Reviewed: Yes Albuterol Sulfate (Albuterol Sulfate) 2.5 Mg/3 Ml Vial.neb, 2.5 MG INH Q4H PRN for WHEEZING Prescribed by: MICHELLE CAMARENA on 11/05/19 0015 Last Action: Reviewed Cetirizine HCl (Cetirizine HCl) 10 Mg Tablet, 10 MG PO DAILY, (Reported) Entered as Reported by: JADE VACA on 07/18/18 0914 Last Action: Converted Estradiol (Estrace Tablet) 0.5 Mg Tablet, 0.5 MG PO DAILY, (Reported) Entered as Reported by: CURTIS CASH on 02/08/22 0903 Last Action: Converted Fluticasone Propionate (Fluticasone Propionate) 16 Gm Strawberry.susp, 1 SPRAY NS DAILY, (Reported) Entered as Reported by: JADE VACA on 07/18/18913 Last Action: Continued Fluticasone/Vilanterol (Breo Ellipta 100-25 Mcg INH) 100 Mcg-25 Mcg/Dose Blst.w.dev, 1 EACH IH DAILY, (Reported) Entered as Reported by: CURTIS CASH on 02/08/22902 Last Action: Continued Gabapentin (Gabapentin) 400 Mg Capsule, 300 MG PO BID, (Reported) Entered as Reported by: CURTIS CASH on 02/08/22902 Last Action: Reviewed Ibuprofen (Ibuprofen) 800 Mg Tablet, 800 MG PO TID PRN for PAIN-MILD Prescribed by: AURELIANO LYMAN on 09/09/22900 Last Action: New Order Metoprolol Tartrate (Metoprolol Tartrate) 25 Mg Tablet, 25 MG PO DAILY, (Reported) Entered as Reported by: JADE VACA on 07/18/18913 Last Action: Continued Mupirocin Calcium (Mupirocin) 2 % Cream..g., 15 GM TP TID, (Reported) Entered as Reported by: CURTIS CASH on 02/08/22902 Last Action: Held Nicotine (Nicotine Patch) 14 Mg/24 Hour Patch.td24, 14 MG TD DAILY, (Reported) Entered as Reported by: CURTIS CASH on 02/08/22902 Last Action: Held Progesterone,Micronized (Progesterone) 100 Mg Capsule, 100 MG PO DAILY, (Reported) Entered as Reported by: CURTIS CASH on 02/08/22902 Last Action: Converted Triamcinolone Acet (Triamcinolone Acetonide 0.1% Cream) 0.1 % Cr, 15 GM TP BID, (Reported) Entered as Reported by: CURTIS CASH on 02/08/22902 Discontinued Medications Venlafaxine HCl (Venlafaxine HCl) 75 Mg Tab, 75 MG PO BID, (Reported) Discontinued Reason: No Longer Taking Entered as Reported by: CURTIS CASH on 02/08/22902 Last Action: Discontinued Exam Vital Signs Vital Signs Date Time Temp Pulse Resp B/P (MAP) Pulse Ox O2 Delivery O2 Flow Rate FiO2 09/09/22 12:21 70 09/09/22 12:00 10 140/81 (95) 95 7/15/23 08:00 Room Air 09/09/22 04:00 36.9 Physical Exam Constitutional exam was unremarkable. No respiratory distress. Chest: Bilateral normal auscultation. CVS: Regular rhythm. No murmur. No pedal edema. Labs Laboratory Tests Test 09/08/22 14:20 09/09/22 07:15 Range/Units Troponin I < 0.30 < 0.028 <0.028 NG/ML Triglycerides Level 185 H <150 MG/DL Cholesterol Level 205 H < 200 MG/DL LDL Cholesterol Direct 146 H 1-129 MG/DL VLDL Cholesterol 37 5-40 MG/DL HDL Cholesterol 44 40-60 MG/DL ECG Impression ECG Initial ECG Rhythm: Normal Sinus Initial ECG Impression: Normal A/P-Cardiology Assessment/Admission Diagnosis Chest pain, Severe hypertension, Headache Plan Chest pain: Patient denies diabetes and active smoking. She is considered to be at low risk for severe coronary artery disease. EKG does not show any ST-T wave abnormalities. Serial troponin x3 are negative. Myoglobin is negative. Okay to discharge and do an outpatient stress test in 48 hours. I did discuss with the patient that if she has any refractory chest pain she should seek immediate medical attention. Echocardiogram during this hospital stay. Severe hypertension: Amlodipine 5 mg daily. Continue outpatient medication. Headache: Likely due to hypertension. CT head negative. Georgiana CAGE MD Sep 09, 2022 14:06
[2022-09-09] MEDS ORDERED: AMLO-250 PO (15:53)
[2022-09-09] MEDS ORDERED: IBUPROFEN 800 MG (MOTRIN) TAB PO SCH (22:00)
[2022-09-10] MEDS ORDERED: meTOprolol TARTRATE 25 MG (LOPRESSOR) TABLET PO SCH (09:00)
[2022-09-10] MEDS ORDERED: LORATADINE (CLARITIN) 10 MG TAB PO SCH (09:00)
[2022-09-10] MEDS ORDERED: NON-FORMULARY MEDICATION 1 EA EA (Progesterone,Micronized (Progesterone) 100 MG) PO SCH (09:00)
[2022-09-10] MEDS ORDERED: GABAPENTIN 300 MG (NEURONTIN) CAP PO SCH (09:00)
[2022-09-10] MEDS ORDERED: ESTRADIOL 1 MG TAB (ESTRACE) PO SCH (09:00)
[2022-09-10] MEDS ORDERED: NON-FORMULARY MEDICATION 1 EA EA (Cetirizine HCl 10 MG) PO SCH (09:00)
[2022-09-10] MEDS ORDERED: FLUTICASONE NASAL SPRAY (FLONASE) 16 GM BTL NS SCH (09:00)
[2022-09-10] MEDS ORDERED: FLUTICASONE/VILANTEROL 100 MCG 14'S (BREO) IH SCH (09:00)
== END 2022-09-09 16:10 | disposition home or self-care (01) ==
LOC: EDUNIT# 12:12 → ER FS 12:13 → CSD 21:25 → INTOOBSV 21:25
PROVIDERS: ADMIT Family Medicine; ATTEND Family Medicine
DX: R07.89 Other chest pain (principal); I10 Essential (primary) hypertension; R51.9 Headache, unspecified; R20.0 Anesthesia of skin; J44.9 Chronic obstructive pulmonary disease, unspecified; G62.9 Polyneuropathy, unspecified; Z79.899 Other long term (current) drug therapy; Z87.891 Personal history of nicotine dependence
CPT/HCPCS: 36415 ×2; 70450; 71045; 72125; 80053; 80061; 83735; 83874; 84484 ×2; 85025; 85610; 85730; 93005 ×2; 93041; 96374; 99284; C8929; G0378; 93306

== ENCOUNTER → 2022-09-11 | Outpatient (CLI) | payer MEDICARE ==
[~2022-09-11] MED LIST changes: +AMLO-250 PO; +CATHETER FLUSH 10 ML SYR IVP PRN
== END ==
LOC: CARD 08:29
PROVIDERS: ATTEND Internal Medicine Cardiovascular Disease
DX: R07.89 Other chest pain (principal); Z53.9 Procedure and treatment not carried out, unspecified reason